=== PATIENT | female | born 1995 | race Caucasian/White ===

== ENCOUNTER → 2017-04-21 | Outpatient (CLI) | payer MEDICAID, SELFPAY | PROVIDERS: Family Provider Family Medicine; Visit Provider Family Medicine | DX: M54.5 Low back pain (principal); M25.552 Pain in left hip | CPT/HCPCS: 72110; 73502 ==

== ENCOUNTER → 2018-02-13 08:58 | Outpatient (POV) | payer MEDICAID, SELFPAY ==
[2018-02-13 09:15] VITALS: BP 149/89; PULSE 95; RESP 18; O2SAT 95
--- NOTE | 2018-02-13 11:08 | HMH.PMCON ---
Assessment and Plan (1) Fibromyalgia Current visit: Yes Status: Chronic Category: Medical Code(s): M79.7 - Fibromyalgia (2) CRPS (complex regional pain syndrome type I) Current visit: Yes Status: Chronic Qualifiers: Complex regional pain syndrome affected site: lower extremity Laterality: left Qualified Code(s): G90.522 - Complex regional pain syndrome I of left lower limb Category: Medical Code(s): G90.50 - Complex regional pain syndrome I, unspecified (3) Hip pain Current visit: Yes Status: Acute Qualifiers: Laterality: left Qualified Code(s): M25.552 - Pain in left hip Category: Medical Code(s): M25.559 - Pain in unspecified hip - Assessment and plan all Dx Assessment and Plan for all problems:: We will order a MRI for the patient to determine any pathology in her left hip. I gave the patient information on a neurostimulator to review. If we ever move forward with this we will have to get permission from her rcis along with her other treating physicians. Patient and I had a very realistic discussion about goals. Patient is understanding of our long-term goals. Patient will also be set up for biofeedback therapy. I will follow-up with her after her MRI. This note was dictated using voice recognition software and may contain errors or omissions HPI - Data of Consult Consult date: 02/13/18 Requesting Physician: Samanta Friend APRN Primary Care Provider: Justino Zheng MD Family Provider: Justino Zheng MD - Consult Narrative Reason for consult: Generalized pain History of present illness: Ms. Hays is a 22 year old female who presents today for consultation in regards to her overall generalized pain. Patient has quite an interesting history she is managed at [facility] by Dr. Cain and Dr. Mary for most of the time until she turned 22. Patient has Lamar-Danlos syndrome along with hematological issues. Patient has joint pain mostly in her left hip and left ankle. Patient had a traumatic injury to her left hip about a year ago. Patient has not been able to receive an MRI however she has completed physical therapy for 8 weeks along with anti-inflammatories and has had an x-ray. Patient is currently on Lortab and gabapentin however patient states that it does not ever completely manage her pain. Patient would like to discuss potentially biofeedback therapy. I believe that this would be an excellent idea. She rates her pain today an 5 out of 10. 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 Denies: Blood Transfusion Reaction Laterality Cases: Bilateral: Myringotomy (Ear Tubes) Other Surgeries: Yes: Cholecystectomy, EGD, Sinus Surgery. No: Pacemaker Amputation: No Fractures: No - *Social History Smoking Status: Never smoker Alcohol Intake: never Alcohol Intake Frequency:: holidays/special occasions only Occupational Status: unemployed Housing: house Household Members: family - Psychiatric History Expresses thoughts of harming self/others: None Suicide Plan Description: No Plan Pschychiatric History:: Reports:: Depression *Family Hx:: Bleeding Disorder Review of Systems - Review of Systems ROS General: no recent weight change, no fever, no sleep disturbances Respiratory: no cough, no shortness of air, no recurring pulmonary infections Cardiovascular/Peripheral Vascular: No chest pain, No palpitations, no edema, no shortness of breath. Gastrointestinal: no incontinence, normal bowel movements reported Genitourinary: no incontinence Musculoskeletal: Back pain, leg pain, neck pain, arm pain, chest wall pain at times Psychiatric: normal mood/ affec
--- NOTE | 2018-02-13 11:11 | P.CONS_ITS ---
Assessment and Plan (1) Fibromyalgia Current visit: Yes Status: Chronic Category: Medical Code(s): M79.7 - Fibromyalgia (2) CRPS (complex regional pain syndrome type I) Current visit: Yes Status: Chronic Qualifiers: Complex regional pain syndrome affected site: lower extremity Laterality: left Qualified Code(s): G90.522 - Complex regional pain syndrome I of left lower limb Category: Medical Code(s): G90.50 - Complex regional pain syndrome I, unspecified (3) Hip pain Current visit: Yes Status: Acute Qualifiers: Laterality: left Qualified Code(s): M25.552 - Pain in left hip Category: Medical Code(s): M25.559 - Pain in unspecified hip - Assessment and plan all Dx Assessment and Plan for all problems:: We will order a MRI for the patient to determine any pathology in her left hip. I gave the patient information on a neurostimulator to review. If we ever move forward with this we will have to get permission from her emergency spill response technician along with her other treating physicians. Patient and I had a very realistic discussion about goals. Patient is understanding of our long-term goals. Patient will also be set up for biofeedback therapy. I will follow-up with her after her MRI. This note was dictated using voice recognition software and may contain errors or omissions HPI - Data of Consult Consult date: 02/13/18 Requesting Physician: Samanta Friend APRN Primary Care Provider: Justino Zheng MD Family Provider: Justino Zheng MD - Consult Narrative Reason for consult: Generalized pain History of present illness: Ms. Hays is a 22 year old female who presents today for consultation in regards to her overall generalized pain. Patient has quite an interesting history she is managed at [facility] by Dr. Cani and Dr. Mary for most of the time until she turned 22. Patient has Lamar-Danlos syndrome along with hematological issues. Patient has joint pain mostly in her left hip and left ankle. Patient had a traumatic injury to her left hip about a year ago. Patient has not been able to receive an MRI however she has completed physical therapy for 8 weeks along with anti-inflammatories and has had an x-ray. Patient is currently on Lortab and gabapentin however patient states that it does not ever completely manage her pain. Patient would like to discuss potentially biofeedback therapy. I believe that this would be an excellent idea. She rates her pain today an 5 out of 10. 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 Denies: Blood Transfusion Reaction Laterality Cases: Bilateral: Myringotomy (Ear Tubes) Other Surgeries: Yes: Cholecystectomy, EGD, Sinus Surgery. No: Pacemaker Amputation: No Fractures: No - *Social History Smoking Status: Never smoker Alcohol Intake: never Alcohol Intake Frequency:: holidays/special occasions only Occupational Status: unemployed Housing: house Household Members: family - Psychiatric History Expresses thoughts of harming self/others: None Suicide Plan Description: No Plan Pschychiatric History:: Reports:: Depression *Family Hx:: Bleeding Disorder Review of Systems - Review of Systems ROS General: no recent weight change, no fever, no sleep disturbances Respirato
== END ==
PROVIDERS: Family Provider Family Medicine; PCP Family Medicine; Visit Provider Clinical Nurse Specialist Family Health
DX: Q79.6 Ehlers-Danlos syndromes (principal); M79.7 Fibromyalgia; G90.522 Complex regional pain syndrome I of left lower limb; M25.552 Pain in left hip
CPT/HCPCS: 99202

== ENCOUNTER → 2018-02-23 11:09 | Outpatient (CLI) | payer MEDICAID, SELFPAY ==
--- NOTE | 2018-02-23 11:12 | MR_ITS ---
MR hip LT wo con HISTORY: Left hip pain with popping anomalies,Lamar Danlos syndrome ITS.REASON: HIP PAIN ORDERING PHYSICIAN: Samanta Friend PATIENT AGE: 22 years COMPARISON: None TECHNIQUE: Routine multiplanar multiecho sequences are performed without contrast FINDINGS: No fracture or dislocation. No significant arthritic changes. No evidence of avascular necrosis. Pelvic musculature has an unremarkable appearance. Small amount fluid is noted within both hips which is presumed physiologic. No obvious labral tear. Smaller compared may not be identified without intra-articular contrast. The femoral neck has an unremarkable appearance with no obvious findings of femoral acetabular impingement. IMPRESSION: Negative MRI of the hips
== END ==
PROVIDERS: PCP Family Medicine; Visit Provider Clinical Nurse Specialist Family Health
DX: M25.552 Pain in left hip (principal)
CPT/HCPCS: 73721

== ENCOUNTER → 2018-03-21 08:47 | Outpatient (POV) | payer MEDICAID, SELFPAY ==
[2018-03-21 09:03] VITALS: BP 137/83; PULSE 116; RESP 18; O2SAT 98; BMI 41.0
--- NOTE | 2018-03-21 10:59 | HMH.PAINSOAP ---
[facility] Pain Management SOAP Note Subjective:: Is a pleasant 22-year-old white female who presents today for follow-up. Patient has had an MRI of her left hip which is negative. Patient is still having a lot of pain. Patient does have a diagnosis of Lmaar-Danlos syndrome along with some illogical issues. Patient has looked into a neurostimulator and is interested in this. Patient has also started her therapy. Patient states she is doing well with this and was put on Wellbutrin. Patient has not been on her gabapentin Celebrex or [place] recently. Patient would like to be put back on this. Patient does confess to smoking marijuana today. Patient will go for screen today. We will send it out for confirmation to determine the levels and ensure that they continue to go down patient understands that if she continues to smoke marijuana we will not be able to prescribe for her anymore. Patient's WINNIE #[id number] reviewed and appropriate. She rates her pain an 8 out of 10 today. Mostly in her left SI joint region and her left greater trochanteric bursa. ROS General: no recent weight change, no fever, no sleep disturbances Respiratory: no cough, no shortness of air, no recurring pulmonary infections Cardiovascular/Peripheral Vascular: No chest pain, No palpitations, no edema, no shortness of breath. Gastrointestinal: no incontinence, normal bowel movements reported Genitourinary: no incontinence Musculoskeletal: Left hip pain Psychiatric: normal mood/ affect Neurological: [denies weakness in extremities], [denies balance issues] Objective:: Physical Exam General: Alert and oriented x3, no acute distress, pleasant and cooperative, [on room air] Lungs: Resps E/U, Symmetrical chest expansion, Eyes: PERRL Musculoskeletal: Flexion and extension of lumbar spine somewhat guarded secondary to pain, deep tendon reflexes normal, strength in upper and lower extremities [5/5], [abnormal gait noted] Neurological: speech clear, refining still operator equal, no gross sensory deficits Assessment:: Complex regional pain syndrome, fibromyalgia, hip pain, bursitis, SI joint pain, sacroiliitis, back pain Plan:: We will schedule left greater trochanteric bursa injection and left SI joint injection for the patient. We will start her on [place] 7.5 mg as needed 1 daily we will dispense 30. Patient is also on gabapentin 600 mg 1 tab p.o. 3 times daily and Celebrex 200 mg daily. We will continue this to we will also get in touch with her utility bag assembler to see if a neurostimulator is not a feasible option for her. Dr. Esteves has reviewed this chart and agrees with this plan of care. Patient has been prescribed a controlled substance after being counseled on the medication, medication safety, and possible side effects. WINNIE report has been obtained and reviewed prior to prescription and found to be appropriate. Opioid contract was reviewed and signed by the patient, and that they have agreed to all of the terms set forth by our compliance program. This note was dictated using voice recognition software and may contain errors or omissions
--- NOTE | 2018-03-21 11:02 | P.CONS_ITS ---
[facility] Pain Management SOAP Note Subjective:: Is a pleasant 22-year-old white female who presents today for follow-up. Patient has had an MRI of her left hip which is negative. Patient is still having a lot of pain. Patient does have a diagnosis of Lamar-Danlos syndrome along with some illogical issues. Patient has looked into a neurostimulator and is interested in this. Patient has also started her therapy. Patient states she is doing well with this and was put on Wellbutrin. Patient has not been on her gabapentin Celebrex or Gail recently. Patient would like to be put back on this. Patient does confess to smoking marijuana today. Patient will go for screen today. We will send it out for confirmation to determine the levels and ensure that they continue to go down patient understands that if she continues to smoke marijuana we will not be able to prescribe for her anymore. Patient's WINNIE #[id number] reviewed and appropriate. She rates her pain an 8 out of 10 today. Mostly in her left SI joint region and her left greater trochanteric bursa. ROS General: no recent weight change, no fever, no sleep disturbances Respiratory: no cough, no shortness of air, no recurring pulmonary infections Cardiovascular/Peripheral Vascular: No chest pain, No palpitations, no edema, no shortness of breath. Gastrointestinal: no incontinence, normal bowel movements reported Genitourinary: no incontinence Musculoskeletal: Left hip pain Psychiatric: normal mood/ affect Neurological: [denies weakness in extremities], [denies balance issues] Objective:: Physical Exam General: Alert and oriented x3, no acute distress, pleasant and cooperative, [on room air] Lungs: Resps E/U, Symmetrical chest expansion, Eyes: PERRL Musculoskeletal: Flexion and extension of lumbar spine somewhat guarded secondary to pain, deep tendon reflexes normal, strength in upper and lower extremities [5/5], [abnormal gait noted] Neurological: speech clear, general production worker equal, no gross sensory deficits Assessment:: Complex regional pain syndrome, fibromyalgia, hip pain, bursitis, SI joint pain, sacroiliitis, back pain Plan:: We will schedule left greater trochanteric bursa injection and left SI joint injection for the patient. We will start her on Gail 7.5 mg as needed 1 daily we will dispense 30. Patient is also on gabapentin 600 mg 1 tab p.o. 3 times daily and Celebrex 200 mg daily. We will continue this to we will also get in touch with her liner man to see if a neurostimulator is not a feasible option for her. Dr. Esteves has reviewed this chart and agrees with this plan of care. Patient has been prescribed a controlled substance after being counseled on the medication, medication safety, and possible side effects. WINNIE report has been obtained and reviewed prior to prescription and found to be appropriate. Opioid contract was reviewed and signed by the patient, and that they have agreed to all of the terms set forth by our compliance program. This note was dictated using voice recognition software and may contain errors or omissions
[2018-03-21 14:55] LABS: Amphetamine/Metha Screen,Urine Negative ng/mL (<1000); Barbiturates Screen,Urine Negative ng/mL (<200); Benzodiazepines Screen,Urine Positive ng/mL (<200); Cannabinoid Screen,Urine Positive ng/mL (<50); Cocaine Screen,Urine Negative ng/mL (<300); Methadone Screen,Urine Negative ng/mL (<300); Opiate Screen,Urine Negative ng/mL (<300); Phencyclidine Screen,Urine Negative ng/mL (<25)
[2018-03-29 15:58] LABS: Opiates Negative (Cutoff=100)
== END ==
PROVIDERS: PCP Family Medicine; Visit Provider Clinical Nurse Specialist Family Health
DX: G90.50 Complex regional pain syndrome I, unspecified (principal); M79.7 Fibromyalgia; M46.1 Sacroiliitis, not elsewhere classified; M54.9 Dorsalgia, unspecified
CPT/HCPCS: 80305; 80361; 80365; 99213; G0480

== ENCOUNTER → 2018-05-08 11:01 | Outpatient (POV) | payer MEDICAID, SELFPAY ==
[2018-05-08 11:32] VITALS: BP 136/74; PULSE 99; RESP 18; O2SAT 98; BMI 40.0
[2018-05-08 11:49] LABS: Amphetamine/Metha Screen,Urine Negative ng/mL (<1000); Barbiturates Screen,Urine Negative ng/mL (<200); Benzodiazepines Screen,Urine Positive ng/mL (<200); Cannabinoid Screen,Urine Positive ng/mL (<50); Cocaine Screen,Urine Negative ng/mL (<300); Methadone Screen,Urine Negative ng/mL (<300); Opiate Screen,Urine Positive ng/mL (<300); Phencyclidine Screen,Urine Negative ng/mL (<25)
--- NOTE | 2018-05-08 12:53 | HMH.PAINSOAP ---
[facility] Pain Management SOAP Note Subjective:: Patient is a pleasant 22-year-old white female who presents today for follow-up. Patient has pain second to Lamar-Danlos syndrome along with some hematological issues. Patient currently is not a candidate for a stimulator. Patient insurance recently denied her SI joint injection. Patient does have a positive Alice's test along with a positive SI joint compression test positive thigh thrust test and positive Chris's test. Patient states that her pain is a 9 out of 10. Patient states she stopped smoking marijuana however her urine drug screen did show positive for it today we will send it out for confirmation. Patient was put on [place] 7.5 mg daily however she also went to see her primary care received medication from him as well. I have some concerns in regards to compliance. ROS General: no recent weight change, no fever, no sleep disturbances Respiratory: no cough, no shortness of air, no recurring pulmonary infections Cardiovascular/Peripheral Vascular: No chest pain, No palpitations, no edema, no shortness of breath. Gastrointestinal: no incontinence, normal bowel movements reported Genitourinary: no incontinence Musculoskeletal: Back pain, SI joint pain, left hip pain Psychiatric: normal mood/ affect Neurological: [denies weakness in extremities], [denies balance issues] Objective:: Physical Exam General: Alert and oriented x3, no acute distress, pleasant and cooperative, [on room air] Lungs: Resps E/U, Symmetrical chest expansion, Eyes: PERRL Musculoskeletal: Flexion and extension of lumbar spine somewhat guarded secondary to pain, deep tendon reflexes normal, strength in upper and lower extremities [5/5], [abnormal gait noted] positive Alice's test on the left side Neurological: speech clear, obiee obia solution architect equal, no gross sensory deficits Assessment:: Complex regional pain syndrome, fibromyalgia, hip pain, bursitis, SI joint pain, sacroiliitis, back pain Plan:: We will try again for left SI joint injection approval. Patient will start on a Butrans patch 5 mcg q. 7 days. We will also keep her on [place] 7.5 mg as needed 1 p.o. daily. We will send her urine off for confirmation. I will follow-up with her in 2 weeks and reassess her symptoms at that time. Patient and I will have a discussion in regards to her marijuana use if her next drug screen is positive. Dr. Esteves is reviewed this chart and agrees with this plan of care Patient has been prescribed a controlled substance after being counseled on the medication, medication safety, and possible side effects. WININE report has been obtained and reviewed prior to prescription and found to be appropriate. Opioid contract was reviewed and signed by the patient, and that they have agreed to all of the terms set forth by our compliance program. This note was dictated using voice recognition software and may contain errors or omissions
--- NOTE | 2018-05-08 12:56 | P.CONS_ITS ---
[facility] Pain Management SOAP Note Subjective:: Patient is a pleasant 22-year-old white female who presents today for follow-up. Patient has pain second to Lamar-Danlos syndrome along with some hematological issues. Patient currently is not a candidate for a stimulator. Patient insurance recently denied her SI joint injection. Patient does have a positive Alice's test along with a positive SI joint compression test positive thigh thrust test and positive Chris's test. Patient states that her pain is a 9 out of 10. Patient states she stopped smoking marijuana however her urine drug screen did show positive for it today we will send it out for confirmation. Patient was put on [place] 7.5 mg daily however she also went to see her primary care received medication from him as well. I have some concerns in regards to compliance. ROS General: no recent weight change, no fever, no sleep disturbances Respiratory: no cough, no shortness of air, no recurring pulmonary infections Cardiovascular/Peripheral Vascular: No chest pain, No palpitations, no edema, no shortness of breath. Gastrointestinal: no incontinence, normal bowel movements reported Genitourinary: no incontinence Musculoskeletal: Back pain, SI joint pain, left hip pain Psychiatric: normal mood/ affect Neurological: [denies weakness in extremities], [denies balance issues] Objective:: Physical Exam General: Alert and oriented x3, no acute distress, pleasant and cooperative, [on room air] Lungs: Resps E/U, Symmetrical chest expansion, Eyes: PERRL Musculoskeletal: Flexion and extension of lumbar spine somewhat guarded secondary to pain, deep tendon reflexes normal, strength in upper and lower extremities [5/5], [abnormal gait noted] positive Alice's test on the left side Neurological: speech clear, satellite television installer equal, no gross sensory deficits Assessment:: Complex regional pain syndrome, fibromyalgia, hip pain, bursitis, SI joint pain, sacroiliitis, back pain Plan:: We will try again for left SI joint injection approval. Patient will start on a Butrans patch 5 mcg q. 7 days. We will also keep her on Argill[place] 7.5 mg as needed 1 p.o. daily. We will send her urine off for confirmation. I will follow-up with her in 2 weeks and reassess her symptoms at that time. Patient and I will have a discussion in regards to her marijuana use if her next drug screen is positive. Dr. Esteves is reviewed this chart and agrees with this plan of care Patient has been prescribed a controlled substance after being counseled on the medication, medication safety, and possible side effects. WINNIE report has been obtained and reviewed prior to prescription and found to be appropriate. Opioid contract was reviewed and signed by the patient, and that they have agreed to all of the terms set forth by our compliance program. This note was dictated using voice recognition software and may contain errors or omissions
[2018-05-11 09:23] LABS: Alprazolam Negative (Cutoff=100); Benzodiazepines Positive ng/mL (Cutoff=100); Clonazepam Negative (Cutoff=100); Flurazepam Negative (Cutoff=100); Lorazepam Negative (Cutoff=100); Midazolam Negative (Cutoff=100); Temazepam Positive (.); Triazolam Negative (Cutoff=100)
[2018-05-14 11:07] LABS: Cannabinoid Positive (.); Carboxy THC (GC/MS) 158 ng/mL (Cutoff=10); Codeine Negative (Cutoff=100); Hydrocodone Positive (.); Hydromorphone Positive (.); Morphine Negative (Cutoff=100); Oxycodone (GC/MS) >100 ng/mL (Cutoff=100); Oxymorphone (GC/MS) 386 ng/mL (Cutoff=100)
[2018-05-15 07:02] LABS: Opiates Positive (.)
== END ==
PROVIDERS: PCP Family Medicine; Visit Provider Clinical Nurse Specialist Family Health
DX: M54.9 Dorsalgia, unspecified (principal); G90.50 Complex regional pain syndrome I, unspecified; M79.7 Fibromyalgia; M25.559 Pain in unspecified hip; M46.1 Sacroiliitis, not elsewhere classified; Z79.899 Other long term (current) drug therapy
CPT/HCPCS: 80305; 80346; 80349; 80361; 80365; 99213; G0480

== ENCOUNTER → 2018-05-22 12:54 | Outpatient (POV) | payer MEDICAID, SELFPAY ==
[2018-05-22 13:12] VITALS: BP 140/96; PULSE 117; RESP 18; O2SAT 98; BMI 40.0
--- NOTE | 2018-05-22 15:33 | HMH.PAINSOAP ---
[facility] Pain Management SOAP Note Subjective:: Patient is a pleasant 22-year-old white female who presents today for follow-up. Patient states she has been out of her medication for several days because she was taking 3 pills at a time. Patient states that she felt stupid for not reading the bottle. Patient and I also need to discuss her last drug screen. Last drug screen still had marijuana in it. Patient also had oxycodone and oxymorphone in her drug screen. Patient has taken her grandfathers Percocet at times. Patient and I discussed that we would not be able to continue with her narcotic medication management due to this in discrepancy. Patient understands. Patient and I also discussed potential trigger point injections if we cannot get her SI joint injection approved. Patient is agreeable with this. She rates her pain today an 8 out of 10 she states that she has had 2 occurrences of hip pain since last time she was seen 2 weeks ago. Patient did try Butrans patch however she felt like it was ineffective. Patient is continuing to see Ava Walker for her medication. We will also be seeing Dr. Dexter next month. ROS General: no recent weight change, no fever, no sleep disturbances Respiratory: no cough, no shortness of air, no recurring pulmonary infections Cardiovascular/Peripheral Vascular: No chest pain, No palpitations, no edema, no shortness of breath. Gastrointestinal: no incontinence, normal bowel movements reported Genitourinary: no incontinence Musculoskeletal: Left hip pain, joint pain Psychiatric: normal mood/ affect Neurological: [denies weakness in extremities], [denies balance issues] Objective:: Physical Exam General: Alert and oriented x3, no acute distress, pleasant and cooperative, [on room air] Lungs: Resps E/U, Symmetrical chest expansion, Eyes: PERRL Musculoskeletal: Flexion and extension of lumbar spine somewhat guarded secondary to pain, deep tendon reflexes normal, strength in upper and lower extremities [5/5], [abnormal gait noted] Neurological: speech clear, punch machine hand equal, no gross sensory deficits Assessment:: Myofascial pain syndrome, Erler's Danlos syndrome CRPS, hip pain, bursitis, SI joint pain, sacroiliitis, back pain Plan:: We will give the patient 1 month of [place] 7.5 mg 1 p.o. daily. Patient is going to return her primary care to discuss other options as far as pain medication management. I cautioned her about taking other patients narcotic prescriptions. We will continue to seek approval for SI joint injection. We do not have approval we will ask for trigger point injections. Patient is going to start weaning herself off her gabapentin dropping 1 pill every 2 weeks. I am also going to see if I can get notes from Dr. Cain previous pain physician. Dr. Esteves has reviewed this note and agrees with this plan of care. This note was dictated using voice recognition software and may contain errors or omissions
--- NOTE | 2018-05-22 15:36 | P.CONS_ITS ---
[facility] Pain Management SOAP Note Subjective:: Patient is a pleasant 22-year-old white female who presents today for follow-up. Patient states she has been out of her medication for several days because she was taking 3 pills at a time. Patient states that she felt stupid for not reading the bottle. Patient and I also need to discuss her last drug screen. Last drug screen still had marijuana in it. Patient also had oxycodone and oxymorphone in her drug screen. Patient has taken her grandfathers Percocet at times. Patient and I discussed that we would not be able to continue with her narcotic medication management due to this in discrepancy. Patient understands. Patient and I also discussed potential trigger point injections if we cannot get her SI joint injection approved. Patient is agreeable with this. She rates her pain today an 8 out of 10 she states that she has had 2 occurrences of hip pain since last time she was seen 2 weeks ago. Patient did try Butrans patch however she felt like it was ineffective. Patient is continuing to see Ava Walker for her medication. We will also be seeing Dr. Dexter next month. ROS General: no recent weight change, no fever, no sleep disturbances Respiratory: no cough, no shortness of air, no recurring pulmonary infections Cardiovascular/Peripheral Vascular: No chest pain, No palpitations, no edema, no shortness of breath. Gastrointestinal: no incontinence, normal bowel movements reported Genitourinary: no incontinence Musculoskeletal: Left hip pain, joint pain Psychiatric: normal mood/ affect Neurological: [denies weakness in extremities], [denies balance issues] Objective:: Physical Exam General: Alert and oriented x3, no acute distress, pleasant and cooperative, [on room air] Lungs: Resps E/U, Symmetrical chest expansion, Eyes: PERRL Musculoskeletal: Flexion and extension of lumbar spine somewhat guarded secondary to pain, deep tendon reflexes normal, strength in upper and lower extremities [5/5], [abnormal gait noted] Neurological: speech clear, clinical registered 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 daily. Patient is going to return her primary care to discuss other options as far as pain medication management. I cautioned her about taking other patients narcotic prescriptions. We will continue to seek approval for SI joint injection. We do not have approval we will ask for trigger point injections. Patient is going to start weaning herself off her gabapentin dropping 1 pill every 2 weeks. I am also going to see if I can get notes from Dr. Cain previous pain physician. Dr. Esteves has reviewed this note and agrees with this plan of care. This note was dictated using voice recognition software and may contain errors or omissions
== END ==
PROVIDERS: PCP Family Medicine; Visit Provider Clinical Nurse Specialist Family Health
DX: M79.18 Myalgia, other site (principal); Q79.6 Ehlers-Danlos syndromes; M25.559 Pain in unspecified hip; M71.9 Bursopathy, unspecified; M46.1 Sacroiliitis, not elsewhere classified; M54.9 Dorsalgia, unspecified
CPT/HCPCS: 99213

== ENCOUNTER → 2018-06-20 09:42 | Outpatient (POV) | payer MEDICAID, SELFPAY ==
[2018-06-20 10:13] VITALS: BP 143/92; PULSE 103; RESP 18; O2SAT 99; BMI 40.0
--- NOTE | 2018-06-20 12:46 | HMH.PAINSOAP ---
[facility] Pain Management SOAP Note Subjective:: Patient is a pleasant 22-year-old white female who presents today for follow-up after left SI joint injection. Patient states she got 6-8 hours of relief with the numbing medicine. Patient states after that her pain returned. Patient and I discussed potentially a risotto me. I believe given her comorbidities that a risotto me would be appropriate at the next step of action. She rates her pain a 10 out of 10 we are no longer writing her chronic medications for her due to a failed drug screen. Patient and I have also talked about stimulation in the past. She is not a candidate for spinal cord stimulation however she may be a candidate for subcutaneous stimulation in the future. ROS General: no recent weight change, no fever, no sleep disturbances Respiratory: no cough, no shortness of air, no recurring pulmonary infections Cardiovascular/Peripheral Vascular: No chest pain, No palpitations, no edema, no shortness of breath. Gastrointestinal: no incontinence, normal bowel movements reported Genitourinary: no incontinence Musculoskeletal: Left hip pain Psychiatric: normal mood/ affect Neurological: [denies weakness in extremities], [denies balance issues] Objective:: Physical Exam General: Alert and oriented x3, no acute distress, pleasant and cooperative, [on room air] Lungs: Resps E/U, Symmetrical chest expansion, Eyes: PERRL Musculoskeletal: Flexion and extension of lumbar spine somewhat guarded secondary to pain, deep tendon reflexes normal, strength in upper and lower extremities [5/5], [abnormal gait noted] positive SI joint compression test, positive hip stress test on the left side, positive Alice's test on the left side Neurological: speech clear, 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 At that time we may determine if she needs to have subcutaneous stimulation. Patient's been instructed to call the office if she has any issues prior to next appointment. Dr. Esteves has reviewed this note and agrees with this plan of care. This note was dictated using voice recognition software and may contain errors or omissions
== END ==
PROVIDERS: PCP Family Medicine; Visit Provider Clinical Nurse Specialist Family Health
DX: Q79.6 Ehlers-Danlos syndromes (principal); D68.0 Von Willebrand disease; M46.1 Sacroiliitis, not elsewhere classified; M54.9 Dorsalgia, unspecified; M25.559 Pain in unspecified hip
CPT/HCPCS: 99213

== ENCOUNTER → 2020-02-27 09:48 | Outpatient (CLI) | payer OTHER, SELFPAY ==
[2020-02-27 10:48] LABS: Basophils % 0.4 % (0.1-2.0); Eosinophils # 0.1 K/mm3 (0.0-0.4); Eosinophils % 1.2 % (0.1-12.0); Hematocrit 42.9 % (37.0-47.0); Hemoglobin 14.1 g/dL (12.2-16.2); Lymphocytes # 3.2 K/mm3 (0.7-4.5); Lymphocytes % 37.5 % (10-50); Mean Corpuscular HGB Conc 32.9 g/dL (31.8-35.4); Mean Corpuscular Volume 88.3 fl (81-99); Mean Platelet Volume 7.8 fl (7.4-10.4); Monocytes # 0.5 K/mm3 (0.1-1.0); Neutrophils # 4.7 K/mm3 (1.8-7.8); Neutrophils % 54.9 % (37.0-80.0); Platelet Count 345 K/mm3 (142-424); Red Blood Count 4.86 M/mm3 (4.20-5.40); Red Cell Distribution Width 13.4 % (11.5-17.5); White Blood Count 8.6 K/mm3 (4.8-10.8)
[2020-02-27 11:02] LABS: Alanine Aminotransferase 20 U/L (12-78); Albumin Level 4.1 g/dl (3.5-5.0); Albumin/Globulin Ratio 1.4 (1.1-1.8); Alkaline Phosphatase 123 U/L (38-126); Anion Gap 9.6 mEq/L (5-15); Aspartate Amino Transferase 24 U/L (14-36); Bilirubin,Total 0.2 mg/dl (0.2-1.3); Blood Urea Nitrogen 9 mg/dl (7-17); Calcium 9.7 mg/dl (8.4-10.2); Carbon Dioxide 29 mmol/L (22.0-30.0); Chloride 105 mmol/L (98-107); Estimated Glomerular Filt Rate 104 ml/min (>60); GFR (African American) 125 ML/MIN (>60); Globulin 2.9 g/dL (1.3-3.2); Glucose 101 mg/dl (74-100); Potassium 4.6 mmoL/L (3.5-5.1); Sodium 139 mmol/L (136-145)
[2020-02-27 11:34] LABS: Thyroid Stimulating Hormone 8.15 uIU/mL (0.465-4.68)
[2020-02-27 12:09] LABS: Folate 9.69 ng/mL; Vitamin B12 199 pg/mL (239-931)
[2020-03-08 04:53] LABS: Miscellaneous Test SEE LABCORP REPORT
== END ==
PROVIDERS: Visit Provider Specialist
DX: G47.10 Hypersomnia, unspecified (principal); Q79.60 Ehlers-Danlos syndrome, unspecified
CPT/HCPCS: 36415; 80053; 82607; 82746; 84443; 85025

== ENCOUNTER → 2020-03-11 12:57 | Outpatient (CLI) | payer OTHER, SELFPAY ==
--- NOTE | 2020-03-11 12:59 | CA_ITS ---
APPROVED REPORT EXAM: Comprehensive 2D, Doppler, and color-flow Echocardiogram Bronzer: Merced Pathak CRT Ht: 5 ft 1 in Wt: 259lbs BSA: 2.11 BP: 133/66 mmHg Indications: Palpitations, POTS syndrome. 2D Dimensions LVOT 2.22 cm (M/F) 1.5-2.5 M-Mode Dimensions RVDd 3.26 cm (0.9-2.6) LA Diam 3.25 cm (1.9-4.0) LVDd 4.60 cm (3.5-5.7) Ao Diam 2.86 cm (2.0-3.7) LVDs 2.87 cm (3.5-5.7) IVSd 0.96 cm (0.6-1.1) PWd 0.58 cm (0.6-1.1) EF (Teich) 67.70% FS 37.60% EDV (Teich) 97.30 mL ESV (Teich) 31.40 mL LV Diastology E Decel Time 150.00 (160-240 msec) E/A Ratio 1.14 Aortic Valve AO Peak GR. 6.30 mmHg Mitral Valve MV E Max Jay. 77.00 (40-130 cm/s) MV A Velocity 67.00 (40-130 cm/s) E/A Ratio 1.14 MV Decel. Time 150.00 (160-240 ms) MV PHT 44.00 ms Tricuspid Valve TR P. Velocity 196.00 cm/s RAP Estimate 10.00 mmHg RVSP 25.40 mmHg Left Ventricle Left atrium is normal size, left ventricle is normal size, there is no concentric left ventricular hypertrophy, visually estimated ejection fraction 55% with no regional wall motion abnormality. Diastolic parameters are inconclusive. Right Ventricle Right atrium is normal size, right ventricle is mildly enlarged with normal contractility. Aortic Valve Aortic valve is grossly normal, there is no aortic stenosis or aortic insufficiency. Mitral Valve Mitral valve is grossly normal, there is mild mitral regurgitation. Tricuspid Valve Tricuspid valve is grossly normal, there is trace tricuspid regurgitation, tricuspid regurgitation jet velocity is inadequate for calculation of the right ventricular systolic pressure. Pulmonic Valve Pulmonic valve is poorly visualized. Great Vessels Aortic root is normal size. Pericardium No significant pericardial effusion noted. Conclusion 1. Normal left ventricular size, preserved left ventricular systolic function, visually estimated ejection fraction 55% with no regional wall motion abnormality, diastolic parameters are inconclusive, technically difficult study because of the patient factors and poor acoustic windows. 2. Mildly enlarged right ventricle with normal contractility. 3. No significant pericardial effusion noted. Electronically signed by : Enzo Kolb, 03/12/2020 05:45:47
== END ==
PROVIDERS: PCP Family Medicine; Visit Provider Specialist
DX: R00.0 Tachycardia, unspecified (principal); Q79.60 Ehlers-Danlos syndrome, unspecified; G47.10 Hypersomnia, unspecified
CPT/HCPCS: 93306

== ENCOUNTER → 2020-04-15 15:11 | Outpatient (CLI) | payer OTHER, SELFPAY | PROVIDERS: PCP Family Medicine; Visit Provider Family Medicine | DX: Z03.818 Encounter for observation for suspected exposure to other biological agents ruled out (principal) | CPT/HCPCS: U0003 ==

== ENCOUNTER 2020-08-11 11:58 | Emergency (ER) | payer OTHER, SELFPAY ==
[2020-08-11 12:10] VITALS: BP 136/78; PULSE 87; RESP 19; TEMP 37; O2SAT 100; BMI 50.6
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
[2020-08-11 13:30] VITALS: BP 136/78; PULSE 87; RESP 19; TEMP 37; O2SAT 100
== END 2020-08-11 13:35 | disposition home or self-care (01) ==
PROVIDERS: Emergency Provider Nurse Practitioner; PCP Family Medicine
DX: H72.92 Unspecified perforation of tympanic membrane, left ear (principal); W50.0XXA Accidental hit or strike by another person, initial encounter; Y92.019 Unspecified place in single-family (private) house as the place of occurrence of the external cause; F41.8 Other specified anxiety disorders; Z87.442 Personal history of urinary calculi; I49.8 Other specified cardiac arrhythmias; Q79.60 Ehlers-Danlos syndrome, unspecified
CPT/HCPCS: 99202; G0463

== ENCOUNTER 2021-04-15 11:03 | Emergency (ER) | payer OTHER, SELFPAY ==
[2021-04-15 13:05] VITALS: BP 143/97; PULSE 89; RESP 19; TEMP 37.1; O2SAT 99; BMI 43.7
--- NOTE | 2021-04-15 13:28 | HMH.EDUTC ---
[facility] [place] Disposition Clinical Impression: Bronchitis Sinusitis Qualifiers: Sinusitis location: unspecified location Chronicity: unspecified Qualified Code(s): J32.9 - Chronic sinusitis, unspecified Disposition: Home, Self-Care Condition on Discharge: Good Instructions: Sinusitis, Acute Bronchitis, Cough Additional Instructions: ? Start antibiotic today. Be sure to complete entire prescription even if feeling better ? Monitor temp. Tylenol every 4 hours as needed and / or ibuprofen every 6 hours as needed ( As long as your primary care physician has told you that it ok to take both. For fever/aches/pains ER if no less than 101 despite Tylenol or Motrin ? Humidifier/vaporizer or hot steamy shower ? Inhaler every 4-6 hours as needed like we discussed. If unsure how to use it, ask pharmacist to demonstrate how. Should help open airways and improve cough, wheezing, and shortness of breath *Tessalon Perles will not cause drowsiness but use at bedtime to help stop cough so that you may get some rest. *Start steroid today. Helps with inflammation therefore, cough and wheezing. Follow directions on the package. Reviewed side effects. Patient reports taking them before. Follow up IMMEDIATELY for new or worsening of symptoms OR no noticeable improvement over the next 48-72 hours. 911 immediately for any life threatening symptoms such as chest pain or difficulty breathing Prescriptions: Benzonatate [Benzonatate 100mg cap] 100 mg PO Q8HP PRN #15 cap PRN Reason: Cough Transmission Status: Pending to [facility] Cefdinir [Omnicef 300mg Capsule] 300 mg PO BID #20 cap Transmission Status: Pending to [facility] predniSONE [Prednisone 5mg Tab Dose-Pack] 5 mg PO UD DOSE PK 5 Days #21 tab Transmission Status: Pending to [facility] Referrals: Justino Zheng MD [Primary Care Provider] - As needed Time of Disposition: 13:44 Medical Decision Making - Tacho Inquiry Pt receiving controlled substance: No Tacho was queried for this patient: No Vital Signs: 04/15/21 13:05 Temperature 98.8 F Temperature Source Oral Pulse Rate [Right Brachial] 89 Respiratory Rate 19 Blood Pressure [Right Arm] 143/97 H Blood Pressure Mean [Right Arm] 112 Blood Pressure Source [Right Arm] Automatic Cuff Blood Pressure Position [Right Arm] Sitting 02 Sat by Pulse Oximetry 99 Oxygen Delivery Method Room Air Medical Decision Narrative: Patient states that she is allergic to Amoxicillin but has taken Cefdnir in the past without complications or reactions Medications discussed with Pharmacy [facility] [place] HPI - General Stated complaint: sore throat, cough, runny nose, congestion Time Seen by Provider: 04/15/21 13:28 Mode of Arrival: Ambulatory Source of Information: Patient Limitations: No Limitations Description of Symptoms (Recalled from Triage Doc. by RN): PATIENT C/O COUGH WITH DARK MUCOUS AND CONGESTION HEENT Symptoms (Recalled from RN notes): No Resp Symptoms (Recalled from RN notes): Yes Skin Symptoms (Recalled from RN notes): No MS Symptoms (Recalled from RN notes): No Functional Status (Recalled from RN notes): WNL - History of Present Illness Provider Complaint: Patient state that she gets bronchitits about this time every year States that she has been having sinus congestion and pressure and feeling like it is draining in her chest area States that at times she will cough it up State that last night the cough kept her up most of the night so today when she was still having sinus pressure and cough she came in to get checked - Related Data Home Medications Medication Instructions Recorded Confirmed Tamsulosin HCl [Flomax 0.4mg 0.4 mg PO HS 12/09/17 03/21/20 capsule] Tranexamic Acid [Lysteda] 1,300 mg PO DAILY PRN 12/09/17 03/21/20 amitriptyline 50 mg tablet 50 mg PO DAILY tab 03/15/18 03/21/20 gabapentin 300 mg capsule 600 mg PO TID cap 03/15/18 03/21/20 antihemophilic factor-vWF 500 See Rx Instructions IV ONCE
[2021-04-15 13:46] VITALS: BP 143/97; PULSE 89; RESP 19; TEMP 37.1; O2SAT 99
== END 2021-04-15 13:49 | disposition home or self-care (01) ==
PROVIDERS: Emergency Provider Nurse Practitioner; PCP Family Medicine
DX: J32.9 Chronic sinusitis, unspecified (principal); J02.9 Acute pharyngitis, unspecified; F41.8 Other specified anxiety disorders
CPT/HCPCS: 99202; G0463

== ENCOUNTER 2021-04-22 12:36 | Emergency (ER) | payer OTHER, SELFPAY ==
[2021-04-22 13:30] VITALS: BP 134/92; PULSE 107; RESP 20; TEMP 37.2; O2SAT 98; BMI 43.7
--- NOTE | 2021-04-22 14:05 | XR_ITS ---
PROCEDURE: XR CHEST 2V CLINICAL HISTORY: COUGH COMPARISON: No exams were available for comparison FINDINGS: The cardiomediastinal silhouette and pulmonary vascularity are within normal limits. There are patchy multifocal small bilateral areas of ground-glass attenuation which may be seen with atypical/Covid19 pneumonia. No acute bony abnormalities. IMPRESSION: Multifocal areas of ground-glass attenuation which may be seen with Covid19/atypical pneumonia. Follow-up suggested. Dictated by: Angus Childs MD 04/22/2021 14:33 Angus Childs MD in OV 04/22/2021 14:33
--- NOTE | 2021-04-22 14:15 | HMH.EDUTC ---
[facility] [place] Disposition Clinical Impression: Pneumonia due to COVID-19 virus Disposition: Home, Self-Care Condition on Discharge: Good Instructions: Pneumonia-Adult, Doxycycline, DI for COVID-19 (Suspected or Confirmed ), Preventing the Spread of Coronavirus Discharge Instructions Additional Instructions: ? Start antibiotic today. Be sure to complete entire prescription even if feeling better ? Monitor temp. Tylenol every 4 hours as needed and / or ibuprofen every 6 hours as needed ( As long as your primary care physician has told you that it ok to take both. For fever/aches/pains ER if no less than 101 despite Tylenol or Motrin ? Humidifier/vaporizer or hot steamy shower ? Inhaler every 4-6 hours as needed like we discussed. If unsure how to use it, ask pharmacist to demonstrate how. Should help open airways and improve cough, wheezing, and shortness of breath *Tessalon Perles will not cause drowsiness but use at bedtime to help stop cough so that you may get some rest. *Start steroid today. Helps with inflammation therefore, cough and wheezing. Follow directions on the package. Reviewed side effects. Patient reports taking them before. Follow up IMMEDIATELY for new or worsening of symptoms OR no noticeable improvement over the next 48-72 hours. 911 immediately for any life threatening symptoms such as chest pain or difficulty breathing Prescriptions: Albuterol Sulfate [Proventil-HFA 90mcg/puff Inh] 1 - 2 puffs IH Q6HP PRN #1 each PRN Reason: Shortness Of Breath Transmission Status: Received by [facility] dexAMETHasone [Decadron] 6 mg PO DAILY 7 Days #7 tab Transmission Status: Received by [facility] Doxycycline Monohydrate [Doxycycline [place] 100mg Tab] 100 mg PO Q12 10 Days #20 tab Transmission Status: Received by [facility] Referrals: Justino Zheng MD [Primary Care Provider] - As needed Medical Decision Making - Tacho Inquiry Pt receiving controlled substance: No Tacho was queried for this patient: No Vital Signs: 04/22/21 13:30 04/22/21 15:06 Temperature 99.0 F 99.0 F Temperature Source Oral Pulse Rate 107 H Pulse Rate [Right Brachial] 107 H Respiratory Rate 20 20 Blood Pressure 134/92 H Blood Pressure [Right Arm] 134/92 H Blood Pressure Mean [Right Arm] 106 Blood Pressure Source [Right Arm] Automatic Cuff Blood Pressure Position [Right Arm] Sitting 02 Sat by Pulse Oximetry 98 Oxygen Delivery Method Room Air Orders (Tests/Meds): ED MEDICATIONS Discontinued Medications Generic Name Dose Route Start Last Admin Trade Name Carter PRN Reason Stop Dose Admin Acetaminophen 650 mg 04/22/21 14:27 04/22/21 14:32 Acetaminophen 325mg Tab PO 04/22/21 14:28 650 mg ONCE ONE Administration Methylprednisolone Sodium Succinate 125 mg 04/22/21 14:57 04/22/21 15:05 Methylprednisolone Sod Succ 125mg Vial IM 04/22/21 14:58 125 mg ONCE ONE Administration Ondansetron HCl 4 mg 04/22/21 14:26 04/22/21 14:32 Ondansetron 4mg Odt SL 04/22/21 14:27 4 mg ONCE ONE Administration ORDERS Category Date Time Status Covid-19 Nasal PCR ([facility]) Routine Lab 04/22/21 13:50 Received - Radiology Data #1 Image(s): Chest Image Reviewed: Yes I have reviewed radiologist's interpretation Multifocal areas of ground-glass attenuation which may be seen with Covid19/atypical pneumonia. Follow-up suggested. Medical Decision Narrative: Medication discussed and dosed by pharmacy [facility] [place] HPI - General Stated complaint: fever/chills, sore throat, cough/congestion, soa Time Seen by Provider: 04/22/21 14:15 Mode of Arrival: Ambulatory Source of Information: Patient Limitations: No Limitations Description of Symptoms (Recalled from Triage Doc. by RN): PATIENT C/O HEADACHE, COUGH, BODY ACHES, AND SOA. REPORTS SHE WAS HERE 1 WEEK AGO AND TREATED FOR BRONCHITIS, BUT SHE IS NOT BETTER. HER MOTHER RECENTLY TESTED POSITIVE FOR COVID HEENT Symptoms (Recalled from RN note
[2021-04-22 15:06] VITALS: BP 134/92; PULSE 107; RESP 20; TEMP 37.2; O2SAT 98
== END 2021-04-22 15:15 | disposition home or self-care (01) ==
LOC: UTC 12:37
PROVIDERS: Emergency Provider Nurse Practitioner; PCP Family Medicine
DX: U07.1 COVID-19 (principal); J12.82 Pneumonia due to coronavirus disease 2019; F41.8 Other specified anxiety disorders; Z79.899 Other long term (current) drug therapy
CPT/HCPCS: 71046; 96372; 99202; C9803; G0463; U0003; U0005

== ENCOUNTER 2021-09-22 19:28 | Emergency (ER) | payer OTHER, SELFPAY ==
[2021-09-22 19:29] VITALS: BP 138/81; PULSE 110; RESP 24; TEMP 37.1; O2SAT 99; BMI 41.5
[2021-09-22 19:39] VITALS: BMI 41.5
--- NOTE | 2021-09-22 19:39 | CT_ITS ---
PROCEDURE INFORMATION: Exam: CT Abdomen And Pelvis With Contrast Exam date and time: 09/22/2021 8:31 PM Age: 26 years old Clinical indication: Nausea and vomiting; Abdominal pain; Additional info: Abd pain TECHNIQUE: Imaging protocol: Computed tomography of the abdomen and pelvis with contrast. Radiation optimization: All CT scans at this facility use at least one of these dose optimization techniques: automated exposure control; mA and/or kV adjustment per patient size (includes targeted exams where dose is matched to clinical indication); or iterative reconstruction. Contrast material: ISOVUE; Contrast volume: 75 ml; Contrast route: IV; COMPARISON: ABDPELW/O CT ABD PELVIS W/O CONTRAST 10/18/2016 7:27 PM FINDINGS: Lungs: Mild patchy ground-glass opacities in the visualized lower lungs are a change compared with the previous CT from 10/18/2016, and could be ground-glass edema or pneumonia. No focal consolidation. Liver: Diminished attenuation in the medial segment of the left lobe of liver series 3, image 31, likely focal periligamentous fatty change. Other smaller areas of likely focal fatty change. No definite mass lesion. Liver remains within normal limits size. Gallbladder and bile ducts: Cholecystectomy clips. Biliary tree is within normal limits. No calcified stones. Pancreas: The pancreas is normal. Spleen: The spleen is normal. Adrenal glands: The adrenal glands are normal. Kidneys and ureters: There are tiny nonobstructing left renal calculi, in the mid and lower left kidney. No hydronephrosis, hydroureter, or calcified obstructing ureteral stones on the right or left. Kidneys are otherwise unremarkable. Stomach and bowel: The colon is mostly empty and contracted which may account for thickened appearance, differential would be colitis. There is no pericolic edema fluid. No extraluminal gas bubbles. Minimal small intestinal air-fluid levels, no dilated loops or mucosal thickening. No acute findings in the stomach. Appendix: No findings of appendicitis. Intraperitoneal space: There is no free intraperitoneal air. There is no significant free intraperitoneal fluid. Vasculature: There is no aortic aneurysm. No portal venous gas. Lymph nodes: No significantly enlarged lymph nodes by short axis criteria. Urinary bladder: Urinary bladder appears within normal limits for the degree of distension, nearly empty and not well evaluated. Reproductive: No acute findings. Small uterus again noted with likely bicornuate morphology. No enlarged adnexal cyst or mass. Bones/joints: There is no evidence of acute fracture. Soft tissues: There are no soft tissue masses or fluid collections. IMPRESSION: 1. Tiny left renal calculi. No hydronephrosis, hydroureter or obstructing calcified ureteral stones. 2. Most of the colon is empty and contracted which likely accounts for thickened appearance, differential would be colitis. There is no pericolic fluid. No extraluminal gas bubbles. 3. Mild hazy ground-glass opacities in the visualized lower lungs are a change compared with the previous CT, and could be ground-glass edema or pneumonia. No focal consolidation. 4. Biliary tree is within normal limits post cholecystectomy. 5. Additional nonemergency and chronic findings as above.
--- NOTE | 2021-09-22 19:41 | ECG_ITS ---
APPROVED REPORT Exam: Resting ECG HR:98 bpm ECG Measurements Heart Rate 98 AXES ID 145 P 52 QRSd 88 QRS 63 QT 289 T 30 QTc 344 Conclusion SINUS RHYTHM WITH SINUS ARRHYTHMIA NONSPECIFIC ST & T-WAVE ABNORMALITY BORDERLINE ECG UNCONFIRMED REPORT Electronically signed by : Justino Mcghee MD 09/25/2021 10:33:18
--- NOTE | 2021-09-22 20:00 | PC.NURSE ---
Seizure pads applied to bed rails
[2021-09-22 20:15] LABS: Alanine Aminotransferase 61 U/L (12-78); Albumin Level 4.4 g/dl (3.5-5.0); Albumin/Globulin Ratio 1.1 (1.1-1.8); Alkaline Phosphatase 179 U/L (38-126); Amylase 64 U/L (30-110); Anion Gap 16.9 mEq/L (5-15); Aspartate Amino Transferase 45 U/L (14-36); Bilirubin,Total 0.6 mg/dl (0.2-1.3); Blood Urea Nitrogen 5 mg/dl (7-17); Calcium 9.8 mg/dl (8.4-10.2); Carbon Dioxide 24 mmol/L (22.0-30.0); Chloride 103 mmol/L (98-107); Creatinine Clearance Estimated 108 mL/min (50-200); Estimated Glomerular Filt Rate 122 ml/min (>60); GFR (African American) 147 ML/MIN (>60); Globulin 3.9 g/dL (1.3-3.2); Glucose 100 mg/dl (74-100); Lipase 40 U/L (23-300); Sodium 141 mmol/L (136-145); Total Protein,Serum 8.3 g/dl (6.3-8.2)
[2021-09-22 20:16] LABS: Lactic Acid 1.6 mmol/L (0.7-2.1)
[2021-09-22 20:18] LABS: HCG Qualitative, Serum Negative (Negative); Potassium 2.9 mmoL/L (3.5-5.1)
[2021-09-22 20:21] LABS: C-Reactive Protein 209.2 mg/L (0-4)
--- NOTE | 2021-09-22 20:26 | HMH.EDNVD ---
ED Disposition Clinical Impression: Gastroenteritis, Hypokalemia Disposition: Home, Self-Care Condition on Discharge: Good Instructions: DI for Enteritis Additional Instructions: fluids and call pcp for follow up Prescriptions: Ondansetron [Zofran 4mg ODT] 4 mg PO TIDP PRN #21 tab PRN Reason: Nausea And Vomiting Transmission Status: Pending to [facility] Referrals: Nathalie Rivera MD [Primary Care Provider] - - Critical Care Critical Care Time: No Attestation: On , the high probability of a clinically significant, sudden or life threatening deterioration of the following system(s) required my full and direct attention, intervention and personal management. The time I documented below is in addition to time spent performing reported procedures but includes the following listed in this critical care notation. Medical Decision Making - Medical Records Medical records reviewed: Yes: I reviewed the patient's medical records. - Tacho Inquiry Pt receiving controlled substance: No Vital Signs: 09/22/21 19:29 09/22/21 20:28 Temperature 98.8 F Temperature Source Oral Pulse Rate 90 Pulse Rate [Right] 110 H Respiratory Rate 24 Blood Pressure 106/74 L Blood Pressure [Right Arm] 138/81 Blood Pressure Mean [Right Arm] 100 02 Sat by Pulse Oximetry 99 100 Oxygen Delivery Method Room Air - Lab Data Lab results reviewed: Yes: I reviewed the patient's lab results. Lab Results 09/22/21 19:51: WBC 8.3, RBC 5.35, Hgb 14.3, Hct 44.4, MCV 82.9, MCH 26.7 L, MCHC 32.2, RDW 14.6, Plt Count 391, MPV 8.9, Neut % (Auto) 84.6 H, Lymph % (Auto) 10.6, [place] % (Auto) 3.2, Eos % (Auto) 0.5, Baso % (Auto) 1.0, Neut # (Auto) 7.0, Lymph # (Auto) 0.9, [place] # (Auto) 0.3, Eos # (Auto) 0.0, Baso # (Auto) 0.1, ESR 89 H 09/22/21 19:51: Sodium 141, Potassium 2.9 L*, Chloride 103, Carbon Dioxide 24, Anion Gap 16.9 H, BUN 5 L, Creatinine 0.60, Estimated Creat Clear 108, Estimated GFR 122, Est GFR ( Amer) 147, Glucose 100, Calcium 9.8, Total Bilirubin 0.6, AST 45 H, ALT 61, Alkaline Phosphatase 179 H, C-Reactive Protein 209.2 H, Total Protein 8.3 H, Albumin 4.4, Globulin 3.9 H, Albumin/Globulin Ratio 1.1, Amylase 64, Lipase 40, Procalcitonin 0.053 09/22/21 19:51: Serum HCG, Qual Negative 09/22/21 19:51: Lactate 1.6 09/22/21 21:22: Urine Color Vianca, Urine Appearance Clear, Urine pH 6.5, Ur Specific [place] 1.015, Urine Protein 1+, Urine Glucose (UA) Negative, Urine Ketones 2+, Urine Blood 3+, Urine Nitrate Negative, Urine Bilirubin 2+ A, Urine Urobilinogen 0.2, Ur Leukocyte Esterase Trace, Urine RBC 3-5, Urine WBC 5-10, Ur Squamous Epith Cells 5-10, Urine Bacteria 1+ Result diagrams: 09/22/21 19:51 09/22/21 19:51 Orders (Tests/Meds): ED MEDICATIONS Generic Name Dose Route Start Last Admin Trade Name Freq PRN Reason Stop Dose Admin Sodium Chloride 1,000 mls @ 999 mls/hr 09/22/21 19:45 09/22/21 19:53 Sod Chlor 0.9% 1000ml Bag IV 09/22/21 20:45 999 mls/hr .Q1H1M GRACIA Administration Sodium Chloride 1,000 mls @ 999 mls/hr 09/22/21 21:30 09/22/21 21:23 Sod Chlor 0.9% 1000ml Bag IV 09/22/21 22:30 999 mls/hr .Q1H1M GRACIA Administration Sodium Chloride 8 ml 09/22/21 19:40 Sodium Chloride 0.9% 10ml Vial IV 10/22/21 19:39 NEEDED PRN dilute pepcid Sodium Chloride 10 ml 09/22/21 19:52 Sodium Chloride 0.9% 10ml Vial IV 10/22/21 19:51 NEEDED PRN to Dilute Lorazepam inj Discontinued Medications Generic Name Dose Route Start Last Admin Trade Name Freq PRN Reason Stop Dose Admin Famotidine 20 mg 09/22/21 19:40 09/22/21 19:57 Famotidine 20mg/2ml Vial IV 09/22/21 19:41 20 mg ONCE ONE Administration Iopamidol 75 ml 09/22/21 20:35 09/22/21 20:35 Iopamidol-370 (76%);100ml Bottle IV 09/22/21 20:36 75 ml ONCE ONE Administration Lorazepam 2 mg 09/22/21 19:52 09/22/21 19:53 Lorazepam 2mg/Ml Vial IV 09/22/21 19:53 2 mg ONCE ONE Administ
[2021-09-22 20:28] VITALS: BP 106/74; PULSE 90; O2SAT 100
[2021-09-22 20:35] LABS: Basophils # 0.1 K/mm3 (0-0.2); Eosinophils % 0.5 % (0.1-12.0); Hematocrit 44.4 % (37.0-47.0); Hemoglobin 14.3 g/dL (12.2-16.2); Lymphocytes # 0.9 K/mm3 (0.7-4.5); Lymphocytes % 10.6 % (10-50); Mean Corpuscular HGB Conc 32.2 g/dL (31.8-35.4); Mean Corpuscular Hemoglobin 26.7 pg (27.0-31.2); Mean Corpuscular Volume 82.9 fl (81-99); Mean Platelet Volume 8.9 fl (7.4-10.4); Monocytes # 0.3 K/mm3 (0.1-1.0); Monocytes % 3.2 % (1.7-9.3); Neutrophils % 84.6 % (37.0-80.0); Platelet Count 391 K/mm3 (142-424); Procalcitonin 0.053 ng/mL (0.0-2.0); Red Blood Count 5.35 M/mm3 (4.20-5.40); Red Cell Distribution Width 14.6 % (11.5-17.5); White Blood Count 8.3 K/mm3 (4.8-10.8)
--- NOTE | 2021-09-22 20:46 | PC.NURSE ---
Warm blanket given. No new needs.
[2021-09-22 21:14] LABS: Coronavirus 19, PCR Not Detected (NotDetected); Influenza A, PCR Not Detected (NotDetected); Influenza B, PCR Not Detected (NotDetected)
[2021-09-22 21:26] LABS: Adenovirus F 40/41, stool Not Detected (NotDetected); Astrovirus Not Detected (NotDetected); Campylobacter Not Detected (NotDetected); Clostridium Difficile A/B, PCR Not Detected (NotDetected); Cryptosporidium Not Detected (NotDetected); Cyclospora Cayetanesis Not Detected (NotDetected); Entamoeba histolytica Not Detected (NotDetected); Enteroaggregative E coli Not Detected (NotDetected); Enteropathogenic E coli Not Detected (NotDetected); Enterotoxigenic E coli Not Detected (NotDetected); Giardia lamblia Not Detected (NotDetected); Microscopic, Urine URINE MICROSCOPIC (MICROSCOPIC); Norovirus Not Detected (NotDetected); Plesimonas Shigalloides, PCR Not Detected (NotDetected); Rotavirus A Not Detected (NotDetected); Salmonella, PCR Not Detected (NotDetected); Sapovirus Not Detected (NotDetected); Shiga-like toxin E coli Not Detected (NotDetected); Shigella Enterovasive E coli Not Detected (NotDetected); Vibrio Cholerae Not Detected (NotDetected); Vibrio, PCR Not Detected (NotDetected); Yersinia Entercolitica, PCR Not Detected (NotDetected)
[2021-09-22 21:29] LABS: Erythrocyte Sedimentation Rate 89 mm/hr (0-20)
[2021-09-22 21:33] LABS: Appearance,Urine CLEAR (Clear); Blood, Urine 3+ (Negative); Color,Urine AMBER (Yellow); Glucose,Urine (UA) Negative (Negative); Ketones,Urine 2+ (Negative); Leukocyte Esterase,Urine TRACE (Negative); Nitrate,Urine Negative (Negative); PH,Urine 6.5 (5.0-8.5); Protein,Urine 1+ (Negative); Specific Gravity, Urine 1.015 (1.005-1.030); Urobilinogen,Urine 0.2 EU/dl (0.2)
[2021-09-22 21:39] LABS: Bilirubin,Urine 2+ (Negative)
[2021-09-22 21:49] LABS: Bacteria,Urine 1+ /lpf
[2021-09-22 22:10] VITALS: BP 126/76; PULSE 82; RESP 18; TEMP 37.1; O2SAT 100
== END 2021-09-22 22:15 | disposition home or self-care (01) ==
PROVIDERS: Emergency Provider Emergency Medicine; PCP Family Medicine
DX: K52.9 Noninfective gastroenteritis and colitis, unspecified (principal); E87.6 Hypokalemia; Z88.8 Allergy status to other drugs, medicaments and biological substances; Z88.6 Allergy status to analgesic agent; Z88.1 Allergy status to other antibiotic agents; Z91.040 Latex allergy status; F41.9 Anxiety disorder, unspecified; F32.A Depression, unspecified; Z87.442 Personal history of urinary calculi
CPT/HCPCS: 74177; 80053; 81001; 82150; 83605; 83690; 84145; 84703; 85025; 85651; 86140; 87040; 87086; 87088; 87186; 87507; 93005; 96375; 96376; 99284; C9803; J2405; Q9967; U0003; U0005

== ENCOUNTER 2021-09-28 05:41 | Emergency (ER) | payer OTHER, SELFPAY ==
--- NOTE | 2021-09-28 | ECG_ITS ---
APPROVED REPORT Exam: Resting ECG HR:85 bpm ECG Measurements Heart Rate 85 AXES ND 133 P 26 QRSd 94 QRS 66 QT 383 T 22 QTc 426 Conclusion SINUS RHYTHM NORMAL ECG UNCONFIRMED REPORT Electronically signed by : Justino Mcghee MD 09/28/2021 21:36:09
[2021-09-28 05:42] VITALS: BP 124/85; PULSE 95; RESP 22; TEMP 37; O2SAT 99; BMI 49.1
[2021-09-28 06:28] VITALS: BMI 49.1
[2021-09-28 06:42] LABS: Basophils # 0.1 K/mm3 (0-0.2); Eosinophils # 0.3 K/mm3 (0.0-0.4); Eosinophils % 4.1 % (0.1-12.0); Hemoglobin 12.8 g/dL (12.2-16.2); Lymphocytes % 12.4 % (10-50); Mean Corpuscular HGB Conc 33.6 g/dL (31.8-35.4); Mean Corpuscular Hemoglobin 27.4 pg (27.0-31.2); Mean Corpuscular Volume 81.6 fl (81-99); Mean Platelet Volume 8.7 fl (7.4-10.4); Monocytes # 0.3 K/mm3 (0.1-1.0); Monocytes % 3.3 % (1.7-9.3); Neutrophils # 6.3 K/mm3 (1.8-7.8); Neutrophils % 79.2 % (37.0-80.0); Platelet Count 473 K/mm3 (142-424); Red Blood Count 4.65 M/mm3 (4.20-5.40); Red Cell Distribution Width 14.5 % (11.5-17.5); White Blood Count 7.9 K/mm3 (4.8-10.8)
[2021-09-28 06:47] LABS: Alanine Aminotransferase 50 U/L (12-78); Albumin Level 3.7 g/dl (3.5-5.0); Alkaline Phosphatase 179 U/L (38-126); Amylase 54 U/L (30-110); Anion Gap 11.2 mEq/L (5-15); Aspartate Amino Transferase 53 U/L (14-36); Bilirubin,Total 0.6 mg/dl (0.2-1.3); Blood Urea Nitrogen 4 mg/dl (7-17); Calcium 9.1 mg/dl (8.4-10.2); Carbon Dioxide 27 mmol/L (22.0-30.0); Chloride 103 mmol/L (98-107); Creatinine Clearance Estimated 108 mL/min (50-200); Estimated Glomerular Filt Rate 122 ml/min (>60); GFR (African American) 147 ML/MIN (>60); Globulin 3.7 g/dL (1.3-3.2); Glucose 97 mg/dl (74-100); Lipase 39 U/L (23-300); Potassium 3.2 mmoL/L (3.5-5.1); Sodium 138 mmol/L (136-145); Total Protein,Serum 7.4 g/dl (6.3-8.2)
[2021-09-28 06:51] LABS: Lactic Acid 1.5 mmol/L (0.7-2.1)
[2021-09-28 06:52] LABS: C-Reactive Protein 89.5 mg/L (0-4)
[2021-09-28 06:59] LABS: Occult Blood,Gastric Fluid Positive (Negative)
[2021-09-28 07:01] VITALS: BP 133/84; PULSE 84; RESP 20; O2SAT 99
[2021-09-28 07:04] LABS: Procalcitonin 0.672 ng/mL (0.0-2.0)
[2021-09-28 07:10] LABS: Erythrocyte Sedimentation Rate 85 mm/hr (0-20)
[2021-09-28 07:11] LABS: HCG Qualitative, Serum Negative (Negative)
--- NOTE | 2021-09-28 07:57 | HMH.EDGENADL ---
ED Disposition Clinical Impression: Urinary tract infection Qualifiers: Urinary tract infection type: acute cystitis Hematuria presence: with hematuria Qualified Code(s): N30.01 - Acute cystitis with hematuria Disposition: Home, Self-Care Condition on Discharge: Good Instructions: DI for Acute Abdominal Pain Referrals: Nathalie Rivera MD [Primary Care Provider] - - Critical Care Critical Care Time: No Attestation: On 09/28/21, the high probability of a clinically significant, sudden or life threatening deterioration of the following system(s) required my full and direct attention, intervention and personal management. The time I documented below is in addition to time spent performing reported procedures but includes the following listed in this critical care notation. Medical Decision Making - Medical Records Medical records reviewed: Yes: I reviewed the patient's medical records. - Tacho Inquiry Pt receiving controlled substance: No Vital Signs: 09/28/21 05:42 09/28/21 07:01 09/28/21 08:01 Temperature 98.6 F Temperature Source Oral Pulse Rate 84 96 H Pulse Rate [Right] 95 H Respiratory Rate 22 20 18 Blood Pressure 133/84 119/76 Blood Pressure [Right Arm] 124/85 Blood Pressure Mean 89 91 Blood Pressure Mean [Right Arm] 98 Blood Pressure Source [Right Arm] Automatic Cuff 02 Sat by Pulse Oximetry 99 99 100 Oxygen Delivery Method Room Air Room Air Room Air 09/28/21 09:22 09/28/21 10:00 Temperature Temperature Source Pulse Rate 86 80 Pulse Rate [Right] Respiratory Rate 18 Blood Pressure 123/82 129/87 Blood Pressure [Right Arm] Blood Pressure Mean 93 97 Blood Pressure Mean [Right Arm] Blood Pressure Source [Right Arm] 02 Sat by Pulse Oximetry 100 94 L Oxygen Delivery Method Room Air - Lab Data Lab results reviewed: Yes: I reviewed the patient's lab results. Lab Results 09/28/21 06:10: Gastric Occult Blood Positive 09/28/21 06:30: ESR 85 H 09/28/21 06:30: C-Reactive Protein 89.5 H, Amylase 54, Procalcitonin 0.672 09/28/21 06:30: WBC 7.9, RBC 4.65, Hgb 12.8, Hct 38.0, MCV 81.6, MCH 27.4, MCHC 33.6, RDW 14.5, Plt Count 473 H, MPV 8.7, Neut % (Auto) 79.2, Lymph % (Auto) 12.4, [place] % (Auto) 3.3, Eos % (Auto) 4.1, Baso % (Auto) 1.0, Neut # (Auto) 6.3, Lymph # (Auto) 1.0, [place] # (Auto) 0.3, Eos # (Auto) 0.3, Baso # (Auto) 0.1 09/28/21 06:30: Sodium 138, Potassium 3.2 L, Chloride 103, Carbon Dioxide 27, Anion Gap 11.2, BUN 4 L, Creatinine 0.60, Estimated Creat Clear 108, Estimated GFR 122, Est GFR ( Amer) 147, Glucose 97, Calcium 9.1, Total Bilirubin 0.6, AST 53 H, ALT 50, Alkaline Phosphatase 179 H, Total Protein 7.4, Albumin 3.7, Globulin 3.7 H, Albumin/Globulin Ratio 1.0 L, Lipase 39 09/28/21 06:30: Lactate 1.5 09/28/21 06:30: Serum HCG, Qual Negative 09/28/21 08:37: Urine Color Yellow, Urine Appearance Clear, Urine pH 6.0, Ur Specific [place] 1.010, Urine Protein Negative, Urine Glucose (UA) Negative, Urine Ketones Negative, Urine Blood Trace-i, Urine Nitrate Negative, Urine Bilirubin Negative, Urine Urobilinogen 0.2, Ur Leukocyte Esterase 3+ A, Urine RBC Occasional, Urine WBC 5-10, Ur Squamous Epith Cells 3-5, Urine Bacteria Trace Result diagrams: 09/28/21 06:30 09/28/21 06:30 Orders (Tests/Meds): ED MEDICATIONS Generic Name Dose Route Start Last Admin Trade Name Freq PRN Reason Stop Dose Admin Sodium Chloride 10 ml 09/28/21 07:22 Sodium Chloride 0.9% 10ml Vial IV 10/28/21 07:21 NEEDED PRN dilute protonix Discontinued Medications Generic Name Dose Route Start Last Admin Trade Name Freq PRN Reason Stop Dose Admin Sodium Chloride 1,000 mls @ 999 mls/hr 09/28/21 06:45 09/28/21 07:25 Sod Chlor 0.9% 1000ml Bag IV 09/28/21 07:45 999 mls/hr .Q1H1M GRACIA Administration Metoclopramide HCl 10 mg 09/28/21 07:22 09/28/21 07:26 Metoclopramide Hcl 10mg/2ml Vial IVP 09/28/21 07:23 10 mg ONCE ONE Administration Ondansetron HC
[2021-09-28 08:01] VITALS: BP 119/76; PULSE 96; RESP 18; O2SAT 100
--- NOTE | 2021-09-28 08:32 | PC.NURSE ---
pt up to restroom at this time
[2021-09-28 08:46] LABS: Microscopic, Urine URINE MICROSCOPIC (MICROSCOPIC)
[2021-09-28 08:47] LABS: Appearance,Urine CLEAR (Clear); Bilirubin,Urine Negative (Negative); Blood, Urine TRACE-I (Negative); Color,Urine YELLOW (Yellow); Glucose,Urine (UA) Negative (Negative); Ketones,Urine Negative (Negative); Leukocyte Esterase,Urine 3+ (Negative); Nitrate,Urine Negative (Negative); Protein,Urine Negative (Negative); Urobilinogen,Urine 0.2 EU/dl (0.2)
[2021-09-28 09:10] LABS: Bacteria,Urine Trace /lpf; RBC,Urine Occasional #/hpf (0-3)
[2021-09-28 09:22] VITALS: BP 123/82; PULSE 86; RESP 18; O2SAT 100
[2021-09-28 10:00] VITALS: BP 129/87; PULSE 80; O2SAT 94
--- NOTE | 2021-09-28 10:27 | PC.NURSE ---
MICHELL CHOU at
[2021-09-28 11:21] VITALS: BP 106/65; PULSE 78; RESP 18; TEMP 36.6; O2SAT 98
== END 2021-09-28 11:23 | disposition home or self-care (01) ==
PROVIDERS: Emergency Provider Emergency Medicine; PCP Family Medicine
DX: N30.01 Acute cystitis with hematuria (principal); R55 Syncope and collapse; N20.0 Calculus of kidney; R00.0 Tachycardia, unspecified; R11.2 Nausea with vomiting, unspecified; R19.7 Diarrhea, unspecified; I49.8 Other specified cardiac arrhythmias; K21.9 Gastro-esophageal reflux disease without esophagitis; Q79.60 Ehlers-Danlos syndrome, unspecified; F43.10 Post-traumatic stress disorder, unspecified; F32.A Depression, unspecified; F41.9 Anxiety disorder, unspecified; Z79.890 Hormone replacement therapy; Z79.899 Other long term (current) drug therapy; Z88.0 Allergy status to penicillin; Z88.1 Allergy status to other antibiotic agents; Z88.3 Allergy status to other anti-infective agents; Z88.8 Allergy status to other drugs, medicaments and biological substances; Z91.040 Latex allergy status; Z91.018 Allergy to other foods; Z82.49 Family history of ischemic heart disease and other diseases of the circulatory system; Z83.2 Family history of diseases of the blood and blood-forming organs and certain disorders involving the immune mechanism
CPT/HCPCS: 80053; 81001; 82150; 82272; 83605; 83690; 84145; 84703; 85025; 85651; 86140; 87086; 87088; 87186; 93005; 96375; G0328; J2405

== ENCOUNTER 2021-09-29 10:39 | Observation (INO) | payer OTHER, SELFPAY ==
[2021-09-29] VITALS (12 sets, daily range): BP systolic 103–146; BP diastolic 58–93; PULSE 49–77; RESP 16–18; TEMP 36.6–37.3; O2SAT 97–100; BMI 47.2; BMI 45.4
--- NOTE | 2021-09-29 10:53 | PC.NURSE ---
pt hooked up to monitor and given warm blanket; family at BS; no other needs at this time
--- NOTE | 2021-09-29 11:32 | PC.NURSE ---
Attemped to obtain blood but was unsuccessful, called lab to come draw
--- NOTE | 2021-09-29 11:41 | PC.NURSE ---
Lab at bedside
--- NOTE | 2021-09-29 12:07 | HMH.EDGENADL ---
ED Disposition Clinical Impression: Intractable vomiting, Abdominal pain, generalized Diarrhea Qualifiers: Diarrhea type: unspecified type Qualified Code(s): R19.7 - Diarrhea, unspecified Urinary tract infection Qualifiers: Urinary tract infection type: site unspecified Hematuria presence: without hematuria Qualified Code(s): N39.0 - Urinary tract infection, site not specified Disposition: Admitted as Observation Condition on Discharge: Fair Referrals: Nathalie Rivera MD [Primary Care Provider] - - Critical Care Critical Care Time: No Attestation: On 09/29/21, the high probability of a clinically significant, sudden or life threatening deterioration of the following system(s) required my full and direct attention, intervention and personal management. The time I documented below is in addition to time spent performing reported procedures but includes the following listed in this critical care notation. Medical Decision Making - Medical Records Medical records reviewed: Yes: I reviewed the patient's medical records. MR Comment: Reviewed 2 previous emergency department visits for same complaint. Reviewed CT scan result. Reviewed lab results. Reviewed urine culture result which is growing gram-negative rods. - Tacho Inquiry Pt receiving controlled substance: No Vital Signs: 09/29/21 10:40 09/29/21 11:00 09/29/21 14:05 Temperature 98.6 F Temperature Source Oral Pulse Rate 77 67 Pulse Rate [Right] 49 L Respiratory Rate 18 Blood Pressure 118/70 Blood Pressure [Right Arm] 115/67 Blood Pressure Mean 85 Blood Pressure Mean [Right Arm] 83 Blood Pressure Source Blood Pressure Position 02 Sat by Pulse Oximetry 100 99 98 Oxygen Delivery Method Room Air 09/29/21 14:22 09/29/21 14:30 Temperature Temperature Source Pulse Rate 58 L 59 L Pulse Rate [Right] Respiratory Rate Blood Pressure 138/82 144/73 H Blood Pressure [Right Arm] Blood Pressure Mean 104 108 Blood Pressure Mean [Right Arm] Blood Pressure Source Automatic Cuff Blood Pressure Position Sitting 02 Sat by Pulse Oximetry 100 100 Oxygen Delivery Method Room Air - Lab Data Lab Results 09/29/21 12:00: Sodium 139, Potassium 4.0 D, Chloride 113 H, Carbon Dioxide 18 L, Anion Gap 12.0, BUN 3 L, Creatinine 0.50 L, Estimated Creat Clear 130, Estimated GFR 150, Est GFR ( Amer) 182 D, Glucose 118 H, Calcium 9.5, Total Bilirubin 0.6, AST 70 H D, ALT 57, Alkaline Phosphatase 168 H, Total Protein 6.5, Albumin 3.5, Globulin 3.0, Albumin/Globulin Ratio 1.2, Amylase 58, Lipase 46 09/29/21 12:48: WBC 6.3, RBC 4.71, Hgb 12.7, Hct 38.0, MCV 80.7 L, MCH 27.0, MCHC 33.5, RDW 14.5, Plt Count 471 H, MPV 8.3, Neut % (Auto) 79.5, Lymph % (Auto) 14.9, [place] % (Auto) 3.1, Eos % (Auto) 1.5, Baso % (Auto) 0.9, Neut # (Auto) 5.0, Lymph # (Auto) 0.9, [place] # (Auto) 0.2, Eos # (Auto) 0.1, Baso # (Auto) 0.1 Result diagrams: 09/29/21 12:48 09/29/21 12:00 Orders (Tests/Meds): ED MEDICATIONS Generic Name Dose Route Start Last Admin Trade Name Freq PRN Reason Stop Dose Admin Pantoprazole Sodium 40 mg 09/29/21 21:00 Pantoprazole 40mg Vial IV 10/29/21 20:59 BID GRACIA Sodium Chloride 10 ml 09/29/21 11:08 Sodium Chloride 0.9% 10ml Flush Syringe IV 10/29/21 11:07 NEEDED PRN Maintain IV Site Discontinued Medications Generic Name Dose Route Start Last Admin Trade Name Freq PRN Reason Stop Dose Admin Sodium Chloride 1,000 mls @ 999 mls/hr 09/29/21 11:15 09/29/21 11:33 Sod Chlor 0.9% 1000ml Bag IV 09/29/21 12:15 999 mls/hr .Q1H1M GRACIA Administration Promethazine HCl 12.5 mg 09/29/21 12:38 09/29/21 12:45 Promethazine Hcl 25mg/Ml 1ml Vial IV 09/29/21 12:39 12.5 mg ONCE ONE Administration Sodium Chloride 25 ml 09/29/21 12:38 09/29/21 12:45 Sodium Chloride 0.9% 25ml Bag IV 09/29/21 12:39 25 ml ONCE ONE Administration ORDERS Category Date Time Status Rapid PCR
--- NOTE | 2021-09-29 12:33 | PC.NURSE ---
Lab stated cbc blood vial was hemolized and they would be back down to redraw
[2021-09-29 12:45] LABS: Chloride 113 mmol/L (98-107); Sodium 139 mmol/L (136-145)
[2021-09-29 12:48] LABS: Alanine Aminotransferase 57 U/L (12-78); Alkaline Phosphatase 168 U/L (38-126); Amylase 58 U/L (30-110); Aspartate Amino Transferase 70 U/L (14-36); Bilirubin,Total 0.6 mg/dl (0.2-1.3); Blood Urea Nitrogen 3 mg/dl (7-17); Calcium 9.5 mg/dl (8.4-10.2); Carbon Dioxide 18 mmol/L (22.0-30.0); Creatinine Clearance Estimated 130 mL/min (50-200); Estimated Glomerular Filt Rate 150 ml/min (>60); GFR (African American) 182 ML/MIN (>60); Glucose 118 mg/dl (74-100); Lipase 46 U/L (23-300)
[2021-09-29 12:49] LABS: Albumin Level 3.5 g/dl (3.5-5.0); Albumin/Globulin Ratio 1.2 (1.1-1.8); Total Protein,Serum 6.5 g/dl (6.3-8.2)
[2021-09-29 12:55] LABS: Basophils # 0.1 K/mm3 (0-0.2); Basophils % 0.9 % (0.1-2.0); Eosinophils # 0.1 K/mm3 (0.0-0.4); Eosinophils % 1.5 % (0.1-12.0); Hemoglobin 12.7 g/dL (12.2-16.2); Lymphocytes # 0.9 K/mm3 (0.7-4.5); Lymphocytes % 14.9 % (10-50); Mean Corpuscular HGB Conc 33.5 g/dL (31.8-35.4); Mean Corpuscular Volume 80.7 fl (81-99); Mean Platelet Volume 8.3 fl (7.4-10.4); Monocytes # 0.2 K/mm3 (0.1-1.0); Monocytes % 3.1 % (1.7-9.3); Neutrophils % 79.5 % (37.0-80.0); Platelet Count 471 K/mm3 (142-424); Red Blood Count 4.71 M/mm3 (4.20-5.40); Red Cell Distribution Width 14.5 % (11.5-17.5); White Blood Count 6.3 K/mm3 (4.8-10.8)
--- NOTE | 2021-09-29 13:57 | PC.NURSE ---
pt to restroom by wheelchair
--- NOTE | 2021-09-29 14:11 | PC.NURSE ---
pt back to ED room 10 from restroom by wheelchair; she was unable to void at this time
--- NOTE | 2021-09-29 14:44 | PC.NURSE ---
on phone with Dr Bain
--- NOTE | 2021-09-29 14:45 | PC.NURSE ---
Spoke with Ama in Care management regarding her admission
[2021-09-29 14:59] LABS: Coronavirus 19, PCR Not Detected (NotDetected); Influenza A, PCR Not Detected (NotDetected); Influenza B, PCR Not Detected (NotDetected)
--- NOTE | 2021-09-29 16:03 | PC.NURSE ---
Contacted Bella in care management to assess bed situation; she is going to contact HOUSE
--- NOTE | 2021-09-29 16:04 | PC.NURSE ---
ATTEMPTED TO CALL REPORT THE PT HASN'T BEEN ASSIGNED A BED OR NURSE YET
--- NOTE | 2021-09-29 16:30 | PC.NURSE ---
REPORT CALLED TO FLOOR
--- NOTE | 2021-09-29 16:39 | PC.NURSE ---
Pt arrived to the floor at this time
--- NOTE | 2021-09-29 17:13 | PC.NURSE ---
Spoke with Elias Feliz RN she confirmed that general surgeon had not been contacted while in ED. Stated ok to notify General surgeon of consult in AM.
--- NOTE | 2021-09-29 18:39 | PC.NURSE ---
Called and spoke w/ Dr. Bain front desk associate for IVF's and prn morphine. CB in reach. VSS at this time.
[2021-09-29 22:47] LABS: Microscopic, Urine URINE MICROSCOPIC (MICROSCOPIC)
[2021-09-29 22:50] LABS: Appearance,Urine CLOUDY (Clear); Blood, Urine 3+ (Negative); Color,Urine BROWN (Yellow); Glucose,Urine (UA) Negative (Negative); Ketones,Urine 1+ (Negative); Leukocyte Esterase,Urine 1+ (Negative); Nitrate,Urine Negative (Negative); PH,Urine 6.5 (5.0-8.5); Protein,Urine 1+ (Negative); Specific Gravity, Urine >= 1.030 (1.005-1.030); Urobilinogen,Urine 0.2 EU/dl (0.2)
[2021-09-29 22:52] LABS: Bilirubin,Urine 2+ (Negative)
[2021-09-29 22:53] LABS: Urine Pregnancy, HCG Qual. Negative (Negative)
[2021-09-29 23:15] LABS: Bacteria,Urine 1+ /lpf; Mucus,Urine 1+ /lpf; RBC,Urine 20-50 #/hpf (0-3)
[2021-09-30 04:01] VITALS: BP 135/73; PULSE 71; RESP 18; TEMP 37.2; O2SAT 97
[2021-09-30 04:56] VITALS: BMI 46.5
--- NOTE | 2021-09-30 06:27 | PC.NURSE ---
Pt has rested intermittently t/o shift. Pt has c/o of pain and nausea this shift, medicated per MAR with some relief. Pt can ambulate to bathroom independently.
--- NOTE | 2021-09-30 07:08 | P.CONPHA_ITS ---
[facility] Pharmacy VTE Monitoring - Patient Demographics Admission date: 09/29/21 Report Date: 09/30/21 Time: 07:08 Allergies/Adverse Reactions: Patient Allergies latex [LATEX] Allergy (Severe, Verified 06/22/21 15:38) anaphalysis strawberry Allergy (Severe, Verified 09/29/21 17:31) Anaphylaxis duloxetine [From CYMBALTA] Allergy (Intermediate, Verified 06/22/21 15:38) hives; she has scars from the hives when she took this aspirin [ASPIRIN] Allergy (Mild, Verified 06/22/21 15:38) cetirizine [From ZYRTEC] Allergy (Mild, Verified 06/22/21 15:38) amoxicillin [AMOXICILLIN] Allergy (Unknown, Verified 06/22/21 15:38) VOMITING ketorolac [From TORADOL] Allergy (Unknown, Verified 06/22/21 15:38) banana Adverse Reaction (Severe, Verified 09/29/21 17:32) Anaphylaxis kiwi Adverse Reaction (Severe, Verified 09/29/21 17:33) Anaphylaxis tomato Adverse Reaction (Severe, Verified 09/29/21 17:32) Anaphylaxis grapefruit Adverse Reaction (Unknown, Verified 09/29/21 17:33) Height: 1.55 m Weight: 111.669 kg Patient Problems: Current Active Problems Urinary tract infection (Acute) Intractable vomiting (Acute) Diarrhea (Acute) Abdominal pain, generalized (Acute) - VTE Risk Labs: VTE Related Lab Results Hgb 12.7 g/dL (12.2-16.2) 09/29/21 12:48 Hct 38.0 % (37.0-47.0) 09/29/21 12:48 Plt Count 471 K/mm3 (142-424) H 09/29/21 12:48 BUN 3 mg/dl (7-17) L 09/29/21 12:00 Creatinine 0.50 mg/dl (0.52-1.04) L 09/29/21 12:00 Estimated Creat Clear 130 mL/min (50-200) 09/29/21 12:00 - Prophylaxis VTE Prophylaxis Ordered?: Yes Types of VTE Prophylaxis: TEDS Knee High Location of Applied Device: Bilateral Lower Extremeties
--- NOTE | 2021-09-30 07:15 | PC.NURSE ---
DR CARDOZO NOTIFIED OF CONSULT
--- NOTE | 2021-09-30 07:32 | FL_ITS ---
FINAL REPORT CLINICAL HISTORY: . n/v, epigastric pain FINDINGS: UPPER GI WITH SBFT HISTORY: Epigastric pain with nausea and vomiting PROCEDURE: The patient ingested barium. Effervescent crystals were also administered. Spot and overhead films were obtained. Additional barium was administered for a SBFT. FINDINGS: The esophagus is normal. There is no hiatal hernia. There is no gastroesophageal reflux. Peristalsis is normal. The rugal fold pattern of the stomach is normal. The duodenal bulb is normal. FLUOROSCOPY TIME: 2 minutes 16 seconds. 15 radiographs were obtained. IMPRESSION: Normal upper GI. SBFT: The manufacturing engineer assembly film is normal. There is no evidence of obstruction. The mucosal fold pattern is normal. The terminal ilium is normal. IMPRESSION: Normal SBFT. Films reviewed , interpreted and dictated by Dr. Cochran. Transcribed by Tomas Davis PA-C. Reviewed, Interpreted and Dictated by Omega Cochran III, MD Transcribed by KORY Flowers Authenticated by Omega Cochran III, MD on 09/30/2021 12:28:[address] [facility]
--- NOTE | 2021-09-30 07:33 | HMH.GSCON ---
*Admission Date: 09/29/21 *Reason for consult:: Persistent nausea vomiting *History of present illness: This is a 26-year-old female seen in consultation from Dr. Bain for evaluation regarding persistent nausea and vomiting. She has had multiple emergency department evaluations over the past 3 weeks for nausea, vomiting, diarrhea, and abdominal pain. She was diagnosed with gastroenteritis and a urinary tract infection. Upon presentation overnight for increasing symptomatology she was admitted for observation and the surgical service was consulted for possible endoscopic evaluation. She states that a diarrhea panel performed about a week ago revealed no significant abnormality. She reports feeling just a little bit better this morning . 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 She states that she has always needed factor VIII for anything . She is status post cholecystectomy. Review of Systems - Constitutional Denies chills - *Gastrointestinal Reports abdominal pain, Reports nausea, Reports vomiting - Hematologic/Lymphatic Reports easy bleeding, Reports easy bruising [facility] History Medical History: Reports:: Anxiety, Depression, Kidney Stones Denies:: Cancer, Diabetes Mellitus Type 1, Diabetes Mellitus Type 2, Internal Pacemaker, MRSA, Seizures *Have you ever received a pneumonia vaccine?: No *Have you received a flu vaccine this season?: Yes Other Medical History: Reports: Other. Denies: Blood Transfusion Reaction Laterality Cases: Bilateral: Myringotomy (Ear Tubes), Tonsillectomy Other Surgeries: Yes: Cholecystectomy, EGD, Sinus Surgery. No: Pacemaker Amputation: No Fractures: No - *Social History Smoking Status: Never smoker Alcohol Intake: never Alcohol Intake Frequency:: holidays/special occasions only Substance Use Type: marijuana Last Used Substance: days (ago) *Occupational Status:: other Housing: house Household Members: family *Travel in the last 8 weeks: None - Psychiatric History Pschychiatric History:: Reports:: Anxiety, Depression Family Hx:: Bleeding Disorder, Coronary Artery Disease, Other Meds Home Medications Medication Instructions Recorded Confirmed Type Tamsulosin HCl [Flomax 0.4mg 0.4 mg PO HS 12/09/17 09/29/21 History capsule] Tranexamic Acid [Lysteda] 1,300 mg PO DAILY PRN 12/09/17 09/29/21 History gabapentin 300 mg capsule 600 mg PO TID cap 03/15/18 09/29/21 History celecoxib 200 mg capsule 200 mg PO DAILY cap 02/27/20 09/29/21 History etonogestrel 0.12 mg-ethinyl 1 vag ring VAGINAL DIRECTED 02/27/20 09/29/21 History estradiol 0.015 mg/24 hr vaginal ring ondansetron HCl 4 mg tablet 4 mg PO BID tab 02/27/20 09/29/21 History alprazolam 0.25 mg tablet 0.25 mg PO TID PRN #90 tab 07/29/21 09/29/21 Rx amitriptyline 50 mg tablet 50 mg PO DAILY #30 tab 07/29/21 09/29/21 Rx Ondansetron [Zofran 4mg ODT] 4 mg PO TIDP PRN #21 tab 09/22/21 09/29/21 Rx Promethazine HCl [Phenergan 12.5mg 12.5 mg PO Q6H PRN #6 tab 09/28/21 09/29/21 Rx tablet] Antihemophilic Factor/Vwf 1,200 units IV NEEDED PRN 09/29/21 09/29/21 History [Humate-P 1,200 Unit Vwf:Rco] Famotidine [Acid Controller] 20 mg PO DAILY 09/29/21 09/29/21 History OXcarbazepine [Oxcarbazepine] 300 mg PO BID 09/29/21 09/29/21 History Quetiapine Fumarate 100 mg PO QHS 09/29/21 09/29/21 History Vortioxetine Hydrobromide 20 mg PO DAILY 09/29/21 09/29/21 History [Trintellix] lamoTRIgine [Lamotrigine] 150 mg PO BID 09/29/21 09/29/21 History Allergies Allergy/AdvReac Type Severity Reaction Status Date / Time latex [LATEX] Allergy Severe anaphalysis Verified 06/22/21 15:38 strawberry Allergy Severe Anaphylaxis Verified 09/29/21 17:31 duloxetine [From CYMBALTA] Allergy Intermediate hives; she Verified 06/22/21 15:38 has scars from the hives when she took this aspirin [ASPIRIN] Allergy Mild Verified 06/22/21 15:38 cetirizine [From ZYRTEC] Allergy Mild
--- NOTE | 2021-09-30 07:38 | HMH.PHAINT ---
MEDICATION RECONCILIATION COMPLETED ON PATIENT USING EXTERNAL FILL HISTORY FROM PHARMACY. -MICHAEL LYNN, LIZZIED
[2021-09-30 08:00] VITALS: BP 156/75; PULSE 81; RESP 22; TEMP 36.6; O2SAT 97
--- NOTE | 2021-09-30 08:25 | PC.NURSE ---
Pt went down to radiology. She asked me to charge her phone. I told her the only place I can charge is in the waiting room. I explained that I would leave it on the charging station. I also explained that no one would be watching it. She stated that she was fine with that. So I placed the phone on the charging station in the waiting room for her.
--- NOTE | 2021-09-30 15:47 | HMH.HPDC ---
General - General Admission date:: 09/29/21 Discharge date: 09/30/21 *Admission Date: 09/29/21 *Chief complaint: nausea *History of present illness: 26-year-old female presents to ED with c/o persistent nausea and vomiting, abd pain, and intermittent fevers for 3 weeks. She has had multiple emergency department evaluations over the past 3 weeks for nausea, vomiting, diarrhea, and abdominal pain, was seen by pcp yesterday and sent to ed for evaluations. She was diagnosed with gastroenteritis and a urinary tract infection She is unable to keep down any of her medications prescribed for these conditions including antibiotic and an antinausea medications and also unable to keep down her usual medications. Patient states the pain has increased with n/v. Patient she was admitted for observation and the surgical service was consulted for possible endoscopic evaluation. History of Erlers-Danlos and von Willebrand disease. She states that she has always needed factor VIII for anything . Status post cholecystectomy. [facility] History I have reviewed the patient's past medical history: Yes Medical History: Reports:: Anxiety, Depression, Kidney Stones Denies:: Cancer, Diabetes Mellitus Type 1, Diabetes Mellitus Type 2, Internal Pacemaker, MRSA, Seizures *Have you ever received a pneumonia vaccine?: No *Have you received a flu vaccine this season?: Yes Other Medical History: Reports: Other. Denies: Blood Transfusion Reaction Laterality Cases: Bilateral: Myringotomy (Ear Tubes), Tonsillectomy Other Surgeries: Yes: Cholecystectomy, EGD, Sinus Surgery. No: Pacemaker Amputation: No Fractures: No - *Social History Smoking Status: Never smoker Alcohol Intake: never Alcohol Intake Frequency:: holidays/special occasions only Substance Use Type: marijuana Last Used Substance: days (ago) *Occupational Status:: other Housing: house Household Members: family *Travel in the last 8 weeks: None - Psychiatric History Pschychiatric History:: Reports:: Anxiety, Depression Family Hx:: Bleeding Disorder, Coronary Artery Disease, Other Review of Systems - Review of Systems Review of systems:: pertinent systems reviewed and negative unless documented below - Constitutional Denies chills, Denies increased appetite - Eyes Denies change in vision - ENT Denies dizziness - *Cardiovascular Denies chest pain at rest - *Respiratory Denies chest congestion - *Gastrointestinal Reports abdominal pain, Reports nausea, Reports vomiting - *Genitourinary Denies abnormal periods - *Musculoskeletal Denies back pain - Integumentary/Breasts Denies change in hair - *Neurologic Denies abnormal movements - Psychiatric Denies hearing things others do not hear - Endocrine Denies heat intolerance - Hematologic/Lymphatic Denies enlarged lymph nodes - Allergic/Immunologic Denies lip swelling Exam Vital signs and Labs for Last 24 Hours: Temp Pulse Resp BP Pulse Ox 97.9 F 81 22 156/75 H 97 09/30/21 08:00 09/30/21 08:00 09/30/21 08:00 09/30/21 08:00 09/30/21 08:00 Laboratory Results - last 24 hr 09/29/21 22:40: Urine Color Brown, Urine Appearance Cloudy, Urine pH 6.5, Ur Specific [place]chor >= 1.030, Urine Protein 1+, Urine Glucose (UA) Negative, Urine Ketones 1+, Urine Blood 3+, Urine Nitrate Negative, Urine Bilirubin 2+ A, Urine Urobilinogen 0.2, Ur Leukocyte Esterase 1+ A, Urine RBC 20-50, Urine WBC 5-10, Ur Squamous Epith Cells 5-10, Urine Bacteria 1+, Urine Mucus 1+ 09/29/21 22:40: Urine HCG, Qual Negative I & O for Last 24 hours: Intake & Output 09/28/21 09/29/21 09/30/21 10/01/21 11:59 11:59 11:59 11:59 Intake Total 240 / 240 Output Total 350 / 350 Balance -110 / -110 Weight 250 lb 246 lb 3 oz - Constitutional no acute distress - *Routine HEENT Exam Head: Present: normocephalic Eye: Present: PERRL ENT: Present: mucous membranes moist - *Routine Neck Exam Present: supple. Abse
[2021-09-30 16:00] VITALS: BP 137/91; PULSE 81; RESP 18; TEMP 37; O2SAT 96
--- NOTE | 2021-09-30 16:08 | XR_ITS ---
PROCEDURE INFORMATION: Exam: XR Left Hip Exam date and time: 09/30/2021 5:02 PM Age: 26 years old Clinical indication: Hip pain; Left hip; Additional info: Left hip pain post seizure activity TECHNIQUE: Imaging protocol: XR Left hip. Views: 2 or 3 views hip with pelvis when performed. COMPARISON: Previous left hip radiographs dated 04/21/2017, CT of the abdomen and pelvis dated 09/22/2021.. FINDINGS: Bones/joints: Unremarkable. No acute fracture. Soft tissues: Unremarkable. IMPRESSION: No acute findings.
--- NOTE | 2021-09-30 16:30 | PC.NURSE ---
Pt stated that she did not want to get discharged that if they wanted to see Dr. Bain in person. I paged Dr. Bain and he stated that if they wanted to see him he would not be back until after 1999. They decided they wanted to wait to see him.
--- NOTE | 2021-09-30 16:45 | PC.NURSE ---
Pt had seizure like activity. Pt went to the bathroom and yelled for mom. The mom then helped the pt from the bathroom to the floor. She pulled the restroom alarm and I came in. Mother stated that she was having a seizure which is normal for her. We called a rapid red. Made sure that the pt had a patent air way. We placed her had on a pillow. Pt was first only responsive to pain within a min or two she came to. She was complaining of hip pain and abdominal pain. Mother denies her falling or hitting her head. She was then taken from the floor to the bed. Dr. Balbuena was present. He ordered 1 mg of ativan, hip and pelvic xrays. Continued to monitor pt.
--- NOTE | 2021-09-30 17:30 | PC.NURSE ---
Pt stated that she did not want to wait on Dr. Bain and wanted to wait till 1800 until nausea meds would help.
--- NOTE | 2021-09-30 17:47 | PC.NURSE ---
Called [facility] and spoke with tee MILLER and called in phenergan 25mg suppository q6hr prn quanity 10.
--- NOTE | 2021-10-02 12:59 | CARE MANAGER ---
Mother, Meagan Hays called to discuss post discharge status, as we had left a message with our number for call back. Ms. Hays stated that she displeased with the state that her daughter was discharged. She did not feel as though her daughter was ready. Per Ms. Hays, patient went to [facility] on 10/01 and now feels much better since being diagnosed with ulcerative colitis with ulcerations in the stomach. She also wants the staff at [facility] to know that she is pleased with care that was provided while here.
== END 2021-09-30 18:20 | disposition home or self-care (01) ==
LOC: ER 14:50 → 2ND 22:52
PROVIDERS: Admitting Provider Emergency Medicine; Emergency Provider Emergency Medicine; PCP Family Medicine; Visit Provider Emergency Medicine
DX: E86.0 Dehydration (principal); R10.9 Unspecified abdominal pain; R19.7 Diarrhea, unspecified; K52.9 Noninfective gastroenteritis and colitis, unspecified; D66 Hereditary factor VIII deficiency; Z20.822 Contact with and (suspected) exposure to COVID-19; Z79.899 Other long term (current) drug therapy; Z88.8 Allergy status to other drugs, medicaments and biological substances
CPT/HCPCS: 96365; 36415; 73502; 74246; 74248; 80053; 81001; 81025; 82150; 83690; 85025; 87086; 96375; 99285; C9803; G0378; J0696; J2405; U0003; U0005

== ENCOUNTER 2022-02-05 16:09 | Emergency (ER) | payer OTHER, SELFPAY ==
[2022-02-05 16:35] VITALS: BP 139/84; PULSE 80; RESP 18; TEMP 37.1; O2SAT 98; BMI 41.7
--- NOTE | 2022-02-05 16:37 | EXP.UTC ---
Discharge Plan Disposition Patient Disposition: Home, Self-Care Condition: Good Prescriptions Prescriptions: New cephalexin 500 mg capsule 500 mg PO QID 7 Days Qty: 28 0RF No Action celecoxib 200 mg capsule 200 mg PO BID etonogestrel-ethinyl estradiol 0.12-0.015 mg/24 hr ring 1 vag ring VAGINAL DIRECTED amitriptyline 50 mg tablet 50 mg PO DAILY Qty: 30 1RF lamotrigine 150 mg tablet 150 mg PO BID Qty: 60 1RF oxcarbazepine 300 mg tablet 300 mg PO BID Qty: 60 1RF quetiapine 100 mg tablet 100 mg PO HS Qty: 30 1RF vortioxetine 20 mg tablet 20 mg PO DAILY Qty: 30 1RF alprazolam [Xanax] 0.25 mg tablet 0.25 mg PO TID PRN (Reason: anxiety) Qty: 90 1RF tamsulosin 0.4 MG capsule 0.4 mg PO HS tranexamic acid 650 MG tablet 1,300 mg PO DAILY PRN (Reason: factor 8 deficiency) gabapentin 300 mg capsule 600 mg PO TID antihemophilic factor-vWF 1 EACH recon soln 1,200 units IV NEEDED PRN (Reason: Bleeding) sucralfate 1 GM tablet 1 gm PO ACHS Qty: 28 0RF pantoprazole 40 MG tablet,delayed release (DR/EC) 40 mg PO HS Qty: 30 0RF Referrals Follow up/Referrals: Justino Zheng MD [Primary Care Provider] - See instructions Activity Restrictions/Add. Instructions Additional Instructions/Restrictions: Keep the wound clean and dry. Keep a dressing on it if you are going to be getting it dirty. Watch the for signs of infection, such as redness, swelling, drainage, fever. etc. take tylenol for pain. Follow up with your regular doctor. Return in 10 days to have the sutures removed. GO TO THE ER FOR ANY WORSENING SYMPTOMS OR CONCERNS. Clinical Impressions Clinical Impression: Need for Tdap vaccination, Laceration of left index finger Instructions Patient Instructions: DI for Laceration Repair -- Finger, Tetanus, Diphtheria, Pertussis (Tdap) Vaccine Discharge ED Provider: Thom Coles [facility] [place] General Stated complaint: ao 02/05 @1545 lac left index finger Time Seen by Provider: 02/05/22 16:37 History of Present Illness Provider Complaint: She was cutting something with a knife when she slipped and cut her left index finger. 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 Related Data Home Medications Medication Instructions Recorded Confirmed tamsulosin 0.4 mg capsule 0.4 mg PO HS chronic kidney stones 12/09/17 09/29/21 tranexamic acid 650 mg tablet 1,300 mg PO DAILY PRN factor 8 12/09/17 09/29/21 deficiency gabapentin 300 mg capsule 600 mg PO TID Pain 03/15/18 09/29/21 celecoxib 200 mg capsule 200 mg PO BID Pain 02/27/20 09/30/21 etonogestrel 0.12 mg-ethinyl 1 vag ring VAGINAL DIRECTED 02/27/20 09/29/21 estradiol 0.015 mg/24 hr vaginal control ring antihemophilic factor-vWF 500 1,200 units IV NEEDED PRN 09/29/21 09/29/21 unit-1,200 unit intravenous Bleeding solution Previous Rx's Medication Instructions Recorded pantoprazole 40 mg tablet,delayed 40 mg PO HS #30 tabs 09/30/21 release sucralfate 1 gram tablet 1 gm PO ACHS #28 tabs 09/30/21 alprazolam 0.25 mg tablet (Xanax) 0.25 mg PO TID PRN anxiety #90 tabs 12/07/21 amitriptyline 50 mg tablet 50 mg PO DAILY sleep #30 tabs 01/12/22 lamotrigine 150 mg tablet 150 mg PO BID SEIZURES #60 tabs 01/12/22 oxcarbazepine 300 mg tablet 300 mg PO BID SEIZURES #60 tabs 01/12/22 quetiapine 100 mg tablet 100 mg PO HS MOOD #30 tabs 01/12/22 vortioxetine 20 mg tablet 20 mg PO DAILY MOOD #30 tabs 01/12/22 cephalexin 500 mg capsule 500 mg PO QID 7 days #28 caps 02/05/22 Allergies Allergy/AdvReac Type Severity Reaction Status Date / Time latex [LATEX] Allergy Severe anaphalysis Verified 02/05/22 16:40 strawberry Allergy Severe Anaphylaxis Verified 02/05/22 16:40 duloxetine [From CYMBALTA] Allergy Intermediate hives; she Verified 02/05/22 16:40 has scars from the hives when she took this aspirin [ASPIRIN] Allergy Mild
[2022-02-05 17:58] VITALS: BP 179/66; PULSE 72; RESP 18; TEMP 37.1
== END 2022-02-05 18:03 | disposition home or self-care (01) ==
PROVIDERS: Emergency Provider Nurse Practitioner Family; PCP Family Medicine
DX: S61.211A Laceration without foreign body of left index finger without damage to nail, initial encounter (principal); W26.0XXA Contact with knife, initial encounter; Z23 Encounter for immunization
CPT/HCPCS: 12001; 90471; 90714; 99213; G0463

== ENCOUNTER 2025-02-23 22:53 | Emergency (ER) | payer OTHER, SELFPAY ==
--- OUTSIDE RECORDS SUMMARY | 2025-01-03 00:12 | XMS_ITS | Continuity of Care Document ---
Author Organization Phone Care Team Providers Care Intelligence Applications Name Role Phone SILVINO ANN Unavailable Unavailable SILVINO ANN Primary Care Unavailable WATSON LLAMAS Primary Attending Unavailable WATSON LLAMAS Admitting Unavailable ALLERGIES AND ADVERSE REACTIONS ALLERGIES AND ADVERSE REACTIONS Code System Allergy Substance Adverse Reaction Date Reaction (Severity) Comment Status Reported By Updated By 5640 RXNorm Motrin Rash (Severe) Shock active [id number] on January 01, 2025 6:29:26 PM UTC 1191 RXNorm Aspirin Rash (Severe) Shock active [id number] on January 01, 2025 6:29:26 PM UTC 17728 RXNorm Zyrtec Rash (Severe) Shock active [id number] on January 01, 2025 6:29:26 PM UTC LATEX (Free Text Allergy) Rash (Severe) Shock active QEB0000 on January 01, 2025 6:29:26 PM UTC 723 RXNorm Amoxicillin Adverse reaction to substance Not Specified active [id number] on January 01, 2025 6:29:27 PM UTC Strawberries (Free Text Allergy) Adverse reaction to substance Not Specified active [id number] on January 01, 2025 6:29:27 PM UTC 31212 RXNorm DULoxetine Adverse reaction to substance Not Specified active [id number] on January 01, 2025 6:29:27 PM UTC 75524 RXNorm Ketorolac Adverse reaction to substance Not Specified active PSY1923 on January 01, 2025 6:29:27 PM UTC Banana (Free Text Allergy) Adverse reaction to substance Not Specified active QIV8550 on January 01, 2025 6:29:27 PM UTC Kiwi (Actinidia Chinensis) (Free Text Allergy) Adverse reaction to substance Not Specified active [id number] on January 01, 2025 6:29:27 PM UTC Grapefruit (Free Text Allergy) Adverse reaction to substance Not Specified active [id number] on January 01, 2025 6:29:27 PM UTC BLOOD THINNERS (Free Text Allergy) Adverse reaction to substance (Moderate) Has factor 8 active [id number] on January 01, 2025 6:29:27 PM [place] 7984 RXNorm PENICILLIN Rash (Moderate) Shock active TDE0997 on January 01, 2025 6:29:27 PM UTC tomatoes (Free Text Allergy) Anaphylaxis due to substance (Severe) Adverse reaction to substance (Severe) Shock active ESA8533 on January 01, 2025 6:29:26 PM UTC HEPARIN Adverse reaction to substance (Moderate) BLOOD THINNERS HAS FACTOR 8 active HRI2618 on January 01, 2025 6:29:27 PM [place] 8410 RXNorm ALTEPLASE Adverse reaction to substance (Moderate) BLOOD THINNERS-H FACTOR 8 active CXF3116 on January 01, 2025 6:29:[place] [address] RXNorm COUMADIN Adverse reaction to substance (Moderate) BLOOD THINNERS-H FACTOR 8 active PPS4263 on January 01, 2025 6:29:27 PM UT 6964025 RXNorm ELIQUIS Adverse reaction to substance (Moderate) BLOOD THINNERS-H FACTOR 8 active [id number] on January 01, 2025 6:29:27 PM UT FAMILY HISTORY RELATION: Father Status: LIVING SNOMED-CT Diagnosis Age At Onset [id number] von Willebrand disorder RELATION: Mother Status: LIVING SNOMED-CT Diagnosis Age At Onset [id number] Disorder of thyroid gland [id number] Sleep apnea RESULTS Patient: LUIS Fry Date of : 1995 LABORATORY RESULTS ORDER 100: CBC AUTO W DIFF ( LOINC: 68998-7) ORDER DATE: January 01, 2025 9:11:00 AM UT Specimen Source: EDTA Specimen Type: Blood specime n with EDTA PERFORMING LAB: [address] [id number] Result Comment: Final Result Date: January 01, 2025 11:16:00 AM UT (TECH: PP) LOINC TEST FLAG RESULT REFERENCE RANGE UPDA SHANE BY 6690-2 Leukocytes [#/volume] in Blood by Automated count N 10.4 K/ul 4.0 K/ul - 10.5 K/ul January 01, 2025 11:16:00 AM UTC (TECH: PP) 789-8 Erythrocytes [#/volume] in Blood by Automated count N 4.5 M/mm3 4.2 M/mm3 - 6.4 M/mm3 January 01, 2025 11:16:00 AM UTC (TECH: PP) 718-7 Hemoglobin [Mass/volume] in Blood N 12.5 gm/dl 12.5 gm/dl - 16.0 gm/dl January 01, 2025 11:16:00 AM UTC (TECH: PP) 29637-8 Hematocrit [Volume Fraction] of Blood N 37.2 % 37.0 % - 47.0 % January 01, 2025 11:16:00 AM UTC (TECH: PP) 787-2 Erythrocyte mean corpuscular volume [Entitic volume] by Automated count N 82.7 fl 78 fl - 100 fl January 01, 2025 11:16:00 AM UTC (TECH: PP) 785-6 Erythrocyte mean corpuscular hemoglobin [Entitic mass] by Automated count N 27.8 pg 27 pg - 31 pg January 01, 2025 11:16:00 AM UTC (TECH: PP) 786-4 Erythrocyte mean corpuscular hemoglobin concentration [Mass/volume] by Automated count N 33.6 g/dl 32 g/dl - 36 g/dl January 01, 2025 11:16:00 AM UTC (TECH: PP) 05445-2 Erythrocyte distribution width [Ratio] N 12.0 % 11.5 % - 14.0 % January 01, 2025 11:16:00 AM UTC (TECH: PP) 777-3 Platelets [#/volume] in Blood by Automated count N 292 K/ul 150 K/ul - 450 K/ul January 01, 2025 11:16:00 AM UTC (TECH: PP) 38353-8 Platelet mean volume [Entitic volume] in Blood by Automated count N 9.4 fl 6 fl - 9.5 fl January 01, 2025 11:16:00 AM UTC (TECH: PP) 79871-0 Neutrophils/100 leukocytes in Blood H 86.9 % 43 % - 65 % January 01, 2025 11:16:00 AM UTC (TECH: PP) 736-9 Lymphocytes/100 leukocytes in Blood by Automated count L 8.7 % 20.5 % - 45.5 % January 01, 2025 11:16:00 AM UTC (TECH: PP) 5905-5 Monocytes/100 leukocytes in Blood by Automated count L 3.7 % 5.5 % - 11.7 % January 01, 2025 11:16:00 AM UTC (TECH: PP) 713-8 Eosinophils/100 leukocytes in Blood by Automated count L 0.1 % 0.9 % - 2.9 % January 01, 2025 11:16:00 AM UTC (TECH: PP) 706-2 Basophils/100 leukocytes in Blood by Automated count N 0.2 % 0.2 % - 1.0 % January 01, 2025 11:16:00 AM UTC (TECH: PP) 23056-6 Immature granulocytes/100 leukocytes in Blood by Automated count N 0.4 % 0.0 % - 0.8 % January 01, 2025 11:16:00 AM UTC (TECH: PP) 43273-8 Nucleated cells [#/volume] in Blood N 0.0 % January 01, 2025 11:16:00 AM UTC (TECH: PP) 68423-4 Neutrophils [#/volume] in Blood H 9.1 K/uL 2.2 K/uL - 4.8 K/uL January 01, 2025 11:16:00 AM UTC (TECH: PP) 731-0 Lymphocytes [#/volume] in Blood by Automated count L 0.9 CELL/MCL 1.3 CELL/MCL - 2.9 CELL/MCL January 01, 2025 11:16:00 AM UTC (TECH: PP) 742-7 Monocytes [#/volume] in Blood by Automated count N 0.4 CELL/MCL 0.3 CELL/MCL - 0.8 CELL/MCL January 01, 2025 11:16:00 AM UTC (TECH: PP) 711-2 Eosinophils [#/volume] in Blood by Automated count N 0.0 CELL/MCL 0 CELL/MCL - 0.2 CELL/MCL January 01, 2025 11:16:00 AM UTC (TECH: PP) 704-7 Basophils [#/volume] in Blood by Automated count N 0.0 CELL/MCL 0.0 CELL/MCL - 1.0 CELL/MCL January 01, 2025 11:16:00 AM UTC (TECH: PP) 36625-7 Immature granulocytes [#/volume] in Blood N 0.04 K/ul January 01, 2025 11:16:00 AM UTC (TECH: PP) 67209-7 Nucleated cells [#/volume] in Blood N 0.00 K/uL January 01, 2025 11:16:00 AM UTC (TECH: PP) 29771-2 Manual Differential panel - Blood N NO January 01, 2025 11:16:00 AM UTC (TECH: PP) ORDER 200: COMP METABOLIC PA SOTERO (LOINC: 16467-1) ORDER DATE: January 01, 2025 9:11:00 AM UTC Specimen Source: PLASMA Specimen Type: Plasma specim en PERFORMING LAB: [address] [id number] Result Comment: Final Result Date: January 01, 2025 11:41:00 AM UTC (TECH: PP) LOINC TEST FLAG RESULT REFERENCE RANGE UPDA SHANE BY 2951-2 Sodium [Moles/volume ] in Serum or Plasma L 133 mmol/L 136 mmol/L - 145 mmol/L January 01, 2025 11:25:00 AM UTC (TECH: PP) 2823-3 Potassium [Moles/volume] in Serum or Plasma N 3.7 mmol/L 3.6 mmol/L - 5.0 mmol/L January 01, 2025 11:25:00 AM UTC (TECH: PP) 2075-0 Chloride [Moles/volume] in Serum or Plasma N 99 mmol/L 98 mmol/L - 107 mmol/L January 01, 2025 11:25:00 AM UTC (TECH: PP) 2027-9 Carbon dioxide, tota l [Moles/volume] in Serum or Plasma N 25.6 mmol/L 21.0 mmol/L - 32.0 mmol/L January 01, 2025 11:25:00 AM UTC (TECH: PP) 07840-2 Anion gap in Blood N 12.1 S eptember 2024 11:25:00 AM UTC (TECH: PP) 2345-7 Glucose [Mass/volume ] in Serum or Plasma N 113 mg/dl 70 mg/dl - 120 mg/dl January 01, 2025 11:25:00 AM UTC (TECH: PP) 6299-2 Urea nitrogen [Mass/volume] in Blood L 4 mg/dL 7 mg/dL - 18 mg/dL January 01, 2025 11:25:00 AM UTC (TECH: PP) 63714-8 Creatinine [Moles/volume] in Blood N 0.6 mg/dL 0.6 mg/dL - 1.3 mg/dL January 01, 2025 11:25:00 AM UTC (TECH: PP) 77629-2 Glomerular filtratio n rate/1.73 sq M.predicted by Creatinine-based formula (MDRD) N 125 mlpermin 60 mlpermin January 01, 2025 11:25:00 AM [place] (TECH: PP) 64177-6 Osmolality of Serum or Plasma by calculated by sum of electrolytes N 275 mosm/kg 275 mosm/kg - 301 mosm/kg January 01, 2025 11:25:00 AM UTC (TECH: PP) 2885-2 Protein [Mass/volume ] in Serum or Plasma N 7.0 g/dl 6.4 g/dl - 8.2 g/dl January 01, 2025 11:41:00 AM UTC (TECH: PP) 1751-7 Albumin [Mass/volume ] in Serum or Plasma L 3.1 g/dl 3.4 g/dl - 5.0 g/dl January 01, 2025 11:41:00 AM UTC (TECH: PP) 2336-6 Globulin [Mass/volum e] in Serum N 3.9 January 01, 2025 11:41:00 AM UTC (TECH: PP) 1759-0 Albumin/Globulin [Ma ss Ratio] in Serum or Plasma N 0.8 0.7 - 2 January 01, 2025 11:41:00 AM UTC (TECH: PP) 94462-8 Calcium [Mass/volume ] in Serum or Plasma L 8.2 mg/dl 8.5 mg/dl - 10.5 mg/dl January 01, 2025 11:25:00 AM UTC (TECH: PP) 1975-2 Bilirubin.total [Mass/volume] in Serum or Plasma N 0.30 mg/dL 0.10 mg/dL - 1.00 mg/dL January 01, 2025 11:41:00 AM UTC (TECH: PP) 1920-8 Aspartate aminotransferase [Enzymatic activity/volume] in Serum or Plasma N 15 U/L 0 U/L - 37 U/L January 01, 2025 11:41:00 AM UTC (TECH: PP) 1742-6 Alanine aminotransferase [Enzymatic activity/volume] in Serum or Plasma N 21 U/L 0 U/L - 65 U/L January 01, 2025 11:41:00 AM UTC (TECH: PP) 6768-6 Alkaline phosphatase [Enzymatic activity/volume] in Serum or Plasma H 150 U/L 46 U/L - 116 U/L January 01, 2025 11:41:00 AM UTC (TECH: PP) ORDER 300: LIPASE (LOINC: 30 40-3) ORDER DATE: January 01, 2025 9:11:00 AM UTC Specimen Source: PLASMA Specimen Type: Plasma specim en PERFORMING LAB: [address] [id number] Result Comment: Final Result Date: January 01, 2025 11:41:00 AM UTC (TECH: PP) LOINC TEST FLAG RESULT REFERENCE RANGE UPDA SHANE BY 3040-3 Lipase [Enzymatic activity/volume] in Serum or Plasma N 27 U/L 16 U/L - 77 U/L January 01 11:41:00 AM UTC (TECH: PP) ORDER 600: LACTIC ACID (LOIN C: 2524-7) ORDER DATE: January 01, 2025 9:38:00 AM UTC Specimen Source: PLASMA Specimen Type: Plasma specim en PERFORMING LAB: [address] [id number] Result Comment: Final Result Date: January 01, 2025 11:35:00 AM UTC (TECH: PP) LOINC TEST FLAG RESULT REFERENCE RANGE UPDA SHANE BY 2524-7 Lactate [Moles/volume] in Serum or Plasma N 0.5 mmol/L 0.4 mmol/L - 2.0 mmol/L January 01, 2025 11:35:00 AM UTC (TECH: PP) LABORATORY NARRATIVE RESULTS Information is not available RADIOLOGY RESULTS Information is not available PATHOLOGY NARRATIVE RESULTS Information is not available MICROBIOLOGY RESULTS No Micro Labs/Results Exist for Patient BLOOD ADMIN RESULTS Information is not available MEDICATIONS HOME MEDICATIONS Status RXNORM [facility] Medication Dose Route Frequency Dates Comments Reported By Updated By Active 200614 18762 66772 1 amitriptylin e 50 mg tablet 50.0 MG ORAL BEDTIME [facility]: [id number] 589172 62677 89290 0 dicyclomine 20 mg tablet 20.0 MG ORAL QIDPRN Last Dose: [id number] on [facility] 2024 9:30:35 AM [facility] Active 9241732 40486 22278 6 etonogestrel -ethinyl estradiol 0.12-0.015 mg/24 hr Ring, 0.0 VAGINA L [facility]: [id number] AM [facility] Active 294485 86726 76489 2 famotidine 20 mg tablet 20.0 MG ORAL DAILY [facility]: [id number] 9[facility] AM [facility] Active 876095 01978 19045 1 folic acid (FOLATE) 1 MG 1.0 MG ORAL DAILY [facility]: [id number] AM [facility] Active 887894 10788 15792 1 folic acid (FOLATE) 1 MG 1.0 MG ORAL DAILY [facility]: [id number] [facility] 9:30[facility] AM [facility] Active 099937 33451 88512 9 gabapentin 300 mg capsule 600.0 MG ORAL DAILY [facility]: [id number] [facility] AM [facility] Active 2050684 51179 11483 2 HUMATE-P 937 IU 6000. 0 UNT INTRAV ENOUS PRN Last Dose: use when having a bleed [id number] on [facility] 2024 9:30:36 AM [facility] Active 157893 23897 56147 1 hydroxyzine HCl 50 mg tablet 50.0 MG ORAL PRN [facility]: [id number] [facility] 9:30:36 AM [place] Active 950805 46301 80477 0 lamotrigine 200 mg tablet 200.0 MG ORAL BEDTIME Last Dose: [id number] on [facility] 2024 9:30:36 AM UT Active FreeT extMe d Ondansetron HCl Tablet 4 MG 1.0 TAB ORAL TIDPRN Last Dose: [id number] on [facility] 2024 9:30:36 AM UT Active 941577 82167 59517 1 oxcarbazepin e 300 mg tablet 300.0 MG ORAL BID Last Dose: [id number] on [facility] 2024 9:30:36 AM UT Active 232237 51587 73635 0 sucralfate (CARAFATE) 1 GM 1.0 GM ORAL DAILY Last Dose: [id number] on [facility] 2024 9:30:36 AM UT Active 856937 08578 97176 8 tamsulosin (FLOMAX) 0.4 MG 0.4 MG ORAL DAILY Last Dose: [id number] on [facility] 2024 9:30:37 AM UT Active 045152 71760 00801 0 tranexamic acid (LYSTEDA) 650 MG 1300. 0 TAB ORAL TIDPRN Last Dose: bleeding [id number] on [facility] 2024 9:30:37 AM UT Active 089181 25806 42099 1 amitriptylin e 50 mg tablet 50.0 MG ORAL BEDTIME Last Dose: [id number] on [facility] 2024 9:33:02 AM UT Active 533568 45422 97170 0 dicyclomine 20 mg tablet 20.0 MG ORAL QIDPRN Last Dose: [id number] on [facility] 2024 9:33:02 AM UT Active 6196362 47517 20795 6 etonogestrel -ethinyl estradiol 0.12-0.015 mg/24 hr Ring, 0.0 VAGINA L Last Dose: [id number] on [facility] 2024 9:33:02 AM UT Active 052703 68910 59600 2 famotidine 20 mg tablet 20.0 MG ORAL DAILY Last Dose: [id number] on [facility] 2024 9:33:02 AM UTC Active 520071 78413 44211 1 folic acid (FOLATE) 1 MG 1.0 MG ORAL DAILY Last Dose: [id number] on [facility] 2024 9:33:03 AM [facility] Active 134838 10650 45970 9 gabapentin 300 mg capsule 600.0 MG ORAL DAILY Last Dose: [id number] on [facility] 2024 9:33:03 AM [facility] Active 2539293 65466 51420 2 HUMATE-P 937 IU 6000. 0 UNT INTRAV ENOUS PRN Last Dose: use when having a bleed [id number] on [facility] 2024 9:33:03 AM [facility] Active 243067 44751 23802 1 hydroxyzine HCl 50 mg tablet 50.0 MG ORAL PRN Last Dose: [id number] on [facility] 2024 9:33:03 AM [facility] Active 396493 38690 97164 0 lamotrigine 200 mg tablet 200.0 MG ORAL BEDTIME Last Dose: [id number] on [facility] 2024 9:33:03 AM [facility] Active FreeT extMe d Ondansetron HCl Tablet 4 MG 1.0 TAB ORAL TIDPRN Last Dose: [id number] on [facility] 2024 9:33:03 AM [facility] Active 120738 26495 41979 1 oxcarbazepin e 300 mg tablet 300.0 MG ORAL BID Last Dose: [id number] on [facility] 2024 9:33:03 AM [facility] Active 378136 65349 87793 0 sucralfate (CARAFATE) 1 GM 1.0 GM ORAL DAILY Last Dose: [id number] on [facility] 2024 9:33:03 AM [facility] Active 872187 78377 17605 8 tamsulosin (FLOMAX) 0.4 MG 0.4 MG ORAL DAILY Last Dose: [id number] on [facility] 2024 9:33:04 AM [facility] Active 368692 76354 24012 0 tranexamic acid (LYSTEDA) 650 MG 1300. 0 TAB ORAL TIDPRN Last Dose: bleeding [id number] on [facility] 2024 9:33:04 AM [facility] DISCHARGE MEDICATIONS Status RXNORM [facility] Medication Dose Route Frequency Dates Dis pense Data Comments Physician Updated By No Discharge Medication Info rmation Available INPATIENT MEDICATIONS Status RXNORM NDC Medication Dose Route Frequency Rat e Quantity Dates Indication Dispense Data Comments Physician Updated By Discont inued [id number] 005 7990 201 droperidol (INAPSINE) 2.5 MG/ML SOLN 5.0 MG INTRAV ENOUS ONE TIME ONLY (SCHEDULED DOSE) Start: 2024 9:34:0 0 AM [place] End: 2024 9:34:0 0 AM [place] MURIEL DAVIS R INTERFAC ED on [facility] 2024 9:32:00 AM UT Discont inued [id number] 4447 9189 101 morphine sulfate (PF) CJ 4 MG/ML SOLN 4.0 MG INTRAV ENOUS ONE TIME ONLY (SCHEDULED DOSE) Start: 2024 9:34:0 0 AM UT End: 2024 9:34:0 0 AM [place] [facility] AM UT Discont inued 6583719 0695 5613 000 ondansetron (ZOFRAN) INJ 4 MG/2 ML SOLN 4.0 MG INTRAV ENOUS ONE TIME ONLY (SCHEDULED DOSE) Start: 2024 9:34:0 0 AM UT End: 2024 9:34:0 0 AM [place] MURIEL [place]IS [place] [place] [facility] 9:33:00 AM [facility] SOCIAL HISTORY SOCIAL HISTORY - Smoking Status SNOMED-CT Social History Element Description Effective Dates Offered Cessation Comment Updated By [id number] Current Tobacco smoking status Never Smoked [id number] on January 01, 2025 9:33:40 AM UT [id number] Historical Tobacco smoking status Unknown If Ever Smoked [id number] on November 06, 2024 8:05:16 AM [facility] SOCIAL HISTORY - Gender Sex: Female SOCIAL HISTORY - Status : status i nformation is not available Intention in Next Year: intention information is not available SOCIAL HISTORY - Assessments Code System Description Status Date Value of Assessment Updated By Comment Assessment Information is no t available SOCIAL HISTORY - Cheesh-Na Affiliation Cheesh-Na information is not av ailable SOCIAL HISTORY - Legal Sex Legal Sex information is not available SOCIAL HISTORY - Sexual Behavior Sexual Orientation Gender Identity SNOMED-CT Description SNO MED -CT Description Activity Level No of Partners Partner Type UpdatedBy Information is not available SOCIAL HISTORY - Occupation Occupation information is no t available VITAL SIGNS PATIENT VITAL SIGNS This section displays the mo st recent value for each vital sign as of January 03, 2025 4:12:26 AM [place] Loinc Code Vital Sign Activity Date Result Updated By 8462-4 [facility] 12:16:00 PM UTC 78.0 mm[Hg] 8867-4 Heart rate January 01 12:15:00 PM UTC 70 /min 04476-7 Oxygen saturation in Arterial blood by Pulse oximetry January 01, 2025 12:15:00 PM UTC 100.0 % 9279-1 Respiratory rate January 01 12:15:00 PM UTC 16 /min 8480-6 Systolic blood pressure [facility] 2024 12:16:00 PM UTC 144.0 mm[Hg] PEDIATRIC GROWTH CHART - VITAL SIGNS This section displays Head C ircumference Percentile, Weight for Length Percentile and BMI Percentile Loinc Code Pediatric Measure Age (Months) Result Updat ed By No Pediatric Growth Chart Pe rcentile Information Available. HEALTH CONCERNS Problems Concern Status Health Concern problem infor mation not available. Smoking Status Status Years Used Consumed packs p er day Health Concern smoking histo ry information not available. Family History Concern Status Health Concern family histor y information not available. ENCOUNTERS ENCOUNTER INFORMATION Reason for Visit N/V/D Admission January 01, 2025 9:08:[address] [id number] Discharge January 01, 2025 12:34:00 PM UT C DISCHARGED TO HOME OR SELF CARE ENCOUNTER DIAGNOSES Notes information is not cristiano ilable. Code System Diagnosis Onset Date Diagnosis information is not available. ABSTRACT DIAGNOSES Code System Diagnosis Updated By Abatement Date R11.2 ICD10 NAUSEA WITH VOMI TING, UNSPECIFIED [id number] on January 03, 2025 4:11:48 AM [facility] R10.10 ICD10 UPPER ABDOMINAL PAIN, UNSPECIFIED [id number] on January 03, 2025 4:11:48 AM [facility] R10.30 ICD10 LOWER ABDOMINAL PAIN, UNSPECIFIED [id number] on January 03, 2025 4:11:48 AM UTC R10.9 ICD10 UNSPECIFIED ABDOMINAL PAIN B [id number] on January 03, 2025 4:11:48 AM UTC Z90.49 ICD10 ACQUIRED ABSENCE OF OTHER SPECIFIED PARTS OF DIGESTIVE TRACT [id number] on January 03, 2025 4:11:48 AM UTC Z88.0 ICD10 ALLERGY STATUS TO PENICILLIN [id number] on January 03, 2025 4:11:48 AM UTC Z88.6 ICD10 ALLERGY STATUS T O ANALGESIC AGENT [id number] on January 03, 2025 4:11:48 AM UTC Z88.8 ICD10 ALLERGY STATUS T O OTHER DRUGS, MEDICAMENTS AND BIOLOGICAL SUBSTANCES [id number] on January 03, 2025 4:11:48 AM UTC Z91.040 ICD10 LATEX ALLERGY STATUS [id number] on January 03, 2025 4:11:48 AM UTC CARE TEAM Care Intelligence Applications Role SILVINO ANN Referring SILVINO ANN Primary Care WATSON LLAMAS Primary Attending WATSON LLAMAS Admitting CARE TEAM CARE 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 service technician Role on Team Location Telecom Status Start Date End Branden e Updated By MARISSA DUBOIS Referring normal Septem 2024 9:42:08 AM [place] January 01, 2025 12:34:00 PM UTC [id number] on January 01, 2025 9:42:08 AM UTC MURIEL PRIETO Attending normal January 01, 2025 9:42:08 AM UTC January 01, 2025 12:34:00 PM UTC [id number] on January 01, 2025 9:42:08 AM [place] MURIEL PRIETO Admitting normal January 01, 2025 9:42:08 AM UTC January 01, 2025 12:34:00 PM UTC [id number] on January 01, 2025 9:42:08 AM [place] MARISSA DUBOIS PCP normal Septem 2024 9:08:25 AM UTC January 01, 2025 12:34:00 PM UTC [id number] on January 01, 2025 9:42:08 AM UTC
--- OUTSIDE RECORDS SUMMARY | 2025-01-05 22:04 | XMS_ITS | Continuity of Care Document ---
Author Organization [facility] Phone Care Team Providers Care Erp Specialist Name Role Phone SILVINO ANN Primary Care Unavailable SILVINO ANN Unavailable Unavailable MATT CANALES Admitting Unavailable MATT CANALES Primary Attending Unavailable ALLERGIES AND ADVERSE REACTIONS ALLERGIES AND ADVERSE REACTIONS Code System Allergy Substance Adverse Reaction Date Reaction (Severity) Comment Status Reported By Updated By 5640 RXNorm Motrin Rash (Severe) Shock active [id number] on January 01, 2025 6:29:26 PM UTC 1191 RXNorm Aspirin Rash (Severe) Shock active [id number] on January 01, 2025 6:29:26 PM UTC 28505 RXNorm Zyrtec Rash (Severe) Shock active GVY0835 on January 01, 2025 6:29:26 PM UTC LATEX (Free Text Allergy) Rash (Severe) Shock active ZAF5119 on January 01, 2025 6:29:26 PM UTC 723 RXNorm Amoxicillin Adverse reaction to substance Not Specified active [id number] on January 01, 2025 6:29:27 PM UTC Strawberries (Free Text Allergy) Adverse reaction to substance Not Specified active OUI9955 on January 01, 2025 6:29:27 PM UTC 59074 RXNorm DULoxetine Adverse reaction to substance Not Specified active OIU6632 on January 01, 2025 6:29:27 PM UTC 62998 RXNorm Ketorolac Adverse reaction to substance Not Specified active KSE1652 on January 01, 2025 6:29:27 PM UTC Banana (Free Text Allergy) Adverse reaction to substance Not Specified active UET5040 on January 01, 2025 6:29:27 PM UTC Kiwi (Actinidia Chinensis) (Free Text Allergy) Adverse reaction to substance Not Specified active UIW2032 on January 01, 2025 6:29:27 PM UTC Grapefruit (Free Text Allergy) Adverse reaction to substance Not Specified active [id number] on January 01, 2025 6:29:27 PM UTC BLOOD THINNERS (Free Text Allergy) Adverse reaction to substance (Moderate) Has factor 8 active ZSL7821 on January 01, 2025 6:29:27 PM UT 7984 RXNorm PENICILLIN Rash (Moderate) Shock active CVS5469 on January 01, 2025 6:29:27 PM UTC tomatoes (Free Text Allergy) Anaphylaxis due to substance (Severe) Adverse reaction to substance (Severe) Shock active BBF2133 on January 01, 2025 6:29:26 PM UTC HEPARIN Adverse reaction to substance (Moderate) BLOOD THINNERS HAS FACTOR 8 active DDA4906 on January 01, 2025 6:29:27 PM [place] 8410 RXNorm ALTEPLASE Adverse reaction to substance (Moderate) BLOOD THINNERS-H FACTOR 8 active WMN2782 on January 01, 2025 6:29:[place] [address] RXNorm COUMADIN Adverse reaction to substance (Moderate) BLOOD THINNERS-H FACTOR 8 active RFJ1291 on January 01, 2025 6:29:27 PM UT 2260008 RXNorm ELIQUIS Adverse reaction to substance (Moderate) BLOOD THINNERS-H FACTOR 8 active ZGO5043 on January 01, 2025 6:29:27 PM UT FAMILY HISTORY RELATION: Father Status: LIVING SNOMED-CT Diagnosis Age At Onset [id number] von Willebrand disorder RELATION: Mother Status: LIVING SNOMED-CT Diagnosis Age At Onset [id number] Disorder of thyroid gland [id number] Sleep apnea RESULTS Patient: LUIS Fry Date of : 1995 LABORATORY RESULTS ORDER 100: URINALYSIS REFLEX MICROSCOPIC (LOINC: 54213-2) ORDER DATE: January 01, 2025 6:46:00 PM UTC Specimen Source: URINE Specimen Type: Urine specime n PERFORMING LAB: [address] [id number] Result Comment: Final Result Date: January 01, 2025 8:38:00 PM UT (TECH: ADB) LOINC TEST FLAG RESULT REFERENCE RANGE UPDA SHANE BY 5778-6 Color of Urine N DRK YELLOW YELLOW Sept ember 2, 2025 8:38:00 PM UTC (TECH: ADB) 5767-9 Appearance of Urine N HAZY CLEAR January 01, 2025 8:38:00 PM UTC (TECH: ADB) 5792-7 Glucose [Mass/volume] in Urine by Test strip N norm NORMAL January 01, 2025 8:38:00 PM UTC (TECH: ADB) 05515-3 Bilirubin.total [Mass/volume] in Urine by Automated test strip N NEGATIVE NEGATIVE January 01, 2025 8:38:00 PM UTC (TECH: ADB) 5797-6 Ketones [Mass/volume] in Urine by Test strip 50 NEGATIVE January 01, 2025 8:38:00 PM UTC (TECH: ADB) 2965-2 Specific gravity of Urine N 1.020 1.016 - 1.022 January 01, 2025 8:38:00 PM UTC (TECH: ADB) 72139-1 Erythrocytes [#/volume] in Urine by Automated test strip 250 NEGATIVE January 01, 2025 8:38:00 PM UTC (TECH: ADB) 76147-4 pH of Urine by Automated test strip N 6 5 - 9 January 01, 2025 8:38:00 PM UTC (TECH: ADB) 59988-1 Protein [Presence] in Urine by Test strip N TNP NEGATIVE January 01, 2025 8:38:00 PM UTC (TECH: ADB) 41640-5 Urobilinogen [Mass/volume] in Urine by Automated test strip N norm NORMAL January 01, 2025 8:38:00 PM UTC (TECH: ADB) 34425-4 Nitrate [Presence] in Urine N NEGATIVE NEGATIVE January 01, 2025 8:38:00 PM UTC (TECH: ADB) 86540-4 Leukocytes [#/volume] in Urine by Test strip 100 NEGATIVE January 01, 2025 8:38:00 PM UTC (TECH: ADB) 70149-1 Urinalysis dipstick W Reflex Culture panel - Urine N YES January 01, 2025 8:38:00 PM UTC (TECH: ADB) 07179-0 Erythrocytes [#/area] in Urine sediment by Microscopy high power field 6-10 NONE SEEN January 01, 2025 8:38:00 PM UTC (TECH: ADB) 5821-4 Leukocytes [#/area] in Urine sediment by Microscopy high power field 21-30 NONE SEEN January 01, 2025 8:38:00 PM UTC (TECH: ADB) 40125-8 Epithelial cells.squamous [#/area] in Urine sediment by Microscopy high power field N 6-10 NONE SEEN January 01, 2025 8:38:00 PM UTC (TECH: ADB) 5769-5 Bacteria [#/area] in Urine sediment by Microscopy high power field N TRACE NONE SEEN January 01, 2025 8:38:00 PM UTC (TECH: ADB) 84291-7 Mucus [#/area] in Urine sediment by Microscopy low power field N 1+ NONE SEEN January 01, 2025 8:38:00 PM UTC (TECH: ADB) ORDER 200: URINE DRUG SCREEN (LOINC: 49278-1) ORDER DATE: January 01, 2025 6:46:00 PM UTC Specimen Source: URINE Specimen Type: Urine specime n PERFORMING LAB: [address] [id number] Result Comment: Final Result Date: January 01, 2025 8:48:00 PM UTC (TECH: SHG) LOINC TEST FLAG RESULT REFERENCE RANGE UPDA SHANE BY 3774-7 Methadone [Mass/volu me] in Urine N NEGATIVE NEGATIVE January 01, 2025 8:48:00 PM UTC (TECH: SHG) 3530-3 Tetrahydrocannabinol [Mass/volume] in Urine POSITIVE NEGATIVE January 01, 2025 8:48:00 PM UTC (TECH: SHG) 3398-5 Cocaine [Mass/volume ] in Urine N NEGATIVE NEGATIVE January 01, 2025 8:48:00 PM UTC (TECH: SHG) 9426-8 Barbiturates [Mass/v olume] in Urine N NEGATIVE NEGATIVE January 01, 2025 8:48:00 PM UTC (TECH: SHG) 9428-4 Benzodiazepines [Mass/volume] in Urine N NEGATIVE NEGATIVE January 01, 2025 8:48:00 PM UTC (TECH: SHG) 8220-6 Opiates [Mass/volume ] in Urine POSITIVE NEGATIVE January 01, 2025 8:48:00 PM UTC (TECH: SHG) 74674-9 Amphetamine [Mass/vo lume] in Urine N NEGATIVE NEGATIVE January 01, 2025 8:48:00 PM UTC (TECH: SHG) 3937-0 Phencyclidine [Mass/volume] in Urine N NEGATIVE NEGATIVE January 01, 2025 8:48:00 PM UTC (TECH: SHG) ORDER 400: LACTIC ACID (LOIN C: 2524-7) ORDER DATE: January 01, 2025 9:10:00 PM UTC Specimen Source: PLASMA Specimen Type: Plasma specim en PERFORMING LAB: [address] [id number] Result Comment: Final Result Date: January 01, 2025 9:56:00 PM UTC (TECH: KAC) LOINC TEST FLAG RESULT REFERENCE RANGE UPDA SHANE BY 2524-7 Lactate [Moles/volume] in Serum or Plasma N 0.9 mmol/L 0.4 mmol/L - 2.0 mmol/L January 01, 2025 9:56:00 PM UTC (TECH: KAC) ORDER 700: LIPASE (LOINC: 30 40-3) ORDER DATE: January 01, 2025 9:10:00 PM UTC Specimen Source: PLASMA Specimen Type: Plasma specim en PERFORMING LAB: [address] [id number] Result Comment: Final Result Date: January 01, 2025 9:43:00 PM UTC (TECH: KAC) LOINC TEST FLAG RESULT REFERENCE RANGE UPDA SHANE BY 3040-3 Lipase [Enzymatic activity/volume] in Serum or Plasma N 29 U/L 16 U/L - 77 U/L January 01 9:43:00 PM UTC (TECH: KAC) ORDER 800: GRAM STAIN FOR BL OOD CULTURES (LOINC: 76682-6) ORDER DATE: January 02, 2025 8:19:00 PM UTC Specimen Source: GRAM STAIN Specimen Type: Gram stain me thod PERFORMING LAB: [address] [id number] Result Comment: Final Result Date: January 02, 2025 9:42:00 PM UTC (TECH: ME) LOINC TEST FLAG [place] [address]-2 Specimen source [Identifier] of Unspecified specimen N AEROBIC January 02, 2025 9:42:00 PM UTC (TECH: ME) 664-3 Microscopic observation [Identifier] in Unspecified specimen by Gram stain N POSITIVE January 02, 2025 9:42:00 PM UTC (TECH: ME) 31498-9 Morphology [interpretation] in Blood Narrative N COCCI CLUSTER January 02, 2025 9:42:00 PM UTC (TECH: ME) 27758-0 Other quantitation by CAP cancer protocols N MODERATE January 02, 2025 9:42:00 PM UTC (TECH: ME) 35001-6 Leukocytes [Presence] in Unspecified specimen by Gram stain N MODERATE January 02, 2025 9:42:00 PM UTC (TECH: ME) 40325-5 Yeast [Presence] in Unspecified specimen by Wet preparation N NO YST SEEN January 02, 2025 9:42:00 PM UTC (TECH: ME) 74763-8 Date of blood culture N 01/01January 02, 2025 9:42:00 PM UTC (TECH: ME) 96598-8 Time at blood draw N 1814 S eptember 2024 9:42:00 PM UTC (TECH: ME) 05192-0 Date of blood culture N CHEST PORT January 02, 2025 9:42:00 PM UTC (TECH: ME) 19982-7 Date of blood culture N 1962242 January 02, 2025 9:42:00 PM UTC (TECH: ME) 37628-0 Gram positive bacteria identified [Interpretation] by Probe in Positive blood culture N PASS PASS January 02, 2025 9:42:00 PM UTC (TECH: ME) 93177-4 Gram negative bacilli identified in Isolate by Organism specific culture N PASS PASS January 02, 2025 9:42:00 PM UTC (TECH: ME) ORDER 900: BCID PANEL (LOINC : 30089-4) ORDER DATE: January 02, 2025 8:19:00 PM UTC Specimen Source: WHOLE BLOOD Specimen Type: Whole blood s ample PERFORMING LAB: [address] [id number] Result Comment: Final Result Date: January 02, 2025 9:37:00 PM UTC (TECH: ME) LOINC TEST [place] [address]-2 Carbapenem resistanc e blaKPC gene [Presence] by Target amplification with non-probe based detection in Positive blood culture N N/A NOT DETECTED January 02, 2025 9:37:00 PM UTC (TECH: ME) 09761-7 Vancomycin resistanc e (Shahrzad + vanB) genes [Presence] by Target amplification with non-probe based detection in Positive blood culture N N/A NOT DETECTED January 02, 2025 9:37:00 PM UTC (TECH: ME) 84900-0 Listeria monocytogen es DNA [Presence] by SUSAN with non-probe detection in Positive blood culture N NOT DETECTED NOT DETECTED January 02, 2025 9:37:00 PM UTC (TECH: ME) 53447-5 Staphylococcus epidermidis DNA [Presence] by SUSAN with probe detection in Positive blood culture N NOT DETECTED NOT DETECTED January 02, 2025 9:37:00 PM UTC (TECH: ME) 32122-2 Staphylococcus lugdunensis DNA [Presence] by SUSAN with probe detection in Positive blood culture N NOT DETECTED NOT DETECTED January 02, 2025 9:37:00 PM UTC (TECH: ME) 32091-5 Staphylococcus sp DN A [Presence] by Target amplification with non-probe based detection in Positive blood culture DETECTED NOT DETECTED January 02, 2025 9:37:00 PM UTC (TECH: ME) 33384-3 Staphylococcus aureu s DNA [Presence] by Target amplification with non-probe based detection in Positive blood culture DETECTED NOT DETECTED January 02, 2025 9:37:00 PM UTC (TECH: ME) 00295-9 Streptococcus sp DNA [Presence] by Target amplification with non-probe based detection in Positive blood culture N NOT DETECTED NOT DETECTED January 02, 2025 9:37:00 PM UTC (TECH: ME) 01124-9 Streptococcus agalactiae DNA [Presence] by Target amplification with non-probe based detection in Positive blood culture N NOT DETECTED NOT DETECTED January 02, 2025 9:37:00 PM UTC (TECH: ME) 75729-0 Streptococcus pneumoniae DNA [Presence] by SUSAN with non-probe detection in Positive blood culture N NOT DETECTED NOT DETECTED January 02, 2025 9:37:00 PM UTC (TECH: ME) 56996-3 Streptococcus pyogen es DNA [Presence] by Target amplification with non-probe based detection in Positive blood culture N NOT DETECTED NOT DETECTED January 02, 2025 9:37:00 PM UTC (TECH: ME) 08264-3 Enterobacteriaceae D NA [Presence] by Target amplification with non-probe based detection in Positive blood culture N NOT DETECTED NOT DETECTED January 02, 2025 9:37:00 PM UTC (TECH: ME) 62138-0 Enterobacter cloacae complex DNA [Presence] by Target amplification with non-probe based detection in Positive blood culture N NOT DETECTED NOT DETECTED January 02, 2025 9:37:00 PM UTC (TECH: ME) 94568-8 Escherichia coli DNA [Presence] by Target amplification with non-probe based detection in Positive blood culture N NOT DETECTED NOT DETECTED January 02, 2025 9:37:00 PM UTC (TECH: [employer]) 68179-1 Klebsiella oxytoca D NA [Presence] by Target amplification with non-probe based detection in Positive blood culture N NOT DETECTED NOT DETECTED January 02, 2025 9:37:00 PM UTC (TECH: ME) 49669-8 Klebsiella pneumonia e DNA [Presence] by Target amplification with non-probe based detection in Positive blood culture N NOT DETECTED NOT DETECTED January 02, 2025 9:37:00 PM UTC (TECH: [employer]) 83948-7 Proteus sp DNA [Presence] by Target amplification with non-probe based detection in Positive blood culture N NOT DETECTED NOT DETECTED January 02, 2025 9:37:00 PM UTC (TECH: [employer]) 25102-2 Serratia marcescens DNA [Presence] by Target amplification with non-probe based detection in Positive blood culture N NOT DETECTED NOT DETECTED January 02, 2025 9:37:00 PM UTC (TECH: ME) 29332-9 Haemophilus influenz ae DNA [Presence] by SUSAN with non-probe detection in Positive blood culture N NOT DETECTED NOT DETECTED January 02, 2025 9:37:00 PM UTC (TECH: ME) 12949-4 Neisseria meningitid is DNA [Presence] by SUSAN with non-probe detection in Positive blood culture N NOT DETECTED NOT DETECTED January 02, 2025 9:37:00 PM UTC (TECH: ME) 44741-9 Pseudomonas aerugino sa DNA [Presence] by Target amplification with non-probe based detection in Positive blood culture N NOT DETECTED NOT DETECTED January 02, 2025 9:37:00 PM UTC (TECH: [employer]) 90342-0 Leigha albicans DNA [Presence] by Target amplification with non-probe based detection in Positive blood culture N NOT DETECTED NOT DETECTED January 02, 2025 9:37:00 PM UTC (TECH: ME) 53843-0 Leigha glabrata DNA [Presence] by Target amplification with non-probe based detection in Positive blood culture N NOT DETECTED NOT DETECTED January 02, 2025 9:37:00 PM UTC (TECH: ME) 47569-5 Leigha krusei DNA [Presence] by Target amplification with non-probe based detection in Positive blood culture N NOT DETECTED NOT DETECTED January 02, 2025 9:37:00 PM UTC (TECH: ME) 84421-4 Leigha parapsilosis DNA [Presence] by Target amplification with non-probe based detection in Positive blood culture N NOT DETECTED NOT DETECTED January 02, 2025 9:37:00 PM UTC (TECH: ME) 45201-3 Leigha tropicalis D NA [Presence] by Target amplification with non-probe based detection in Positive blood culture N NOT DETECTED NOT DETECTED January 02, 2025 9:37:00 PM UTC (TECH: ME) 30265-8 Acinetobacter calcoaceticus-baumannii complex DNA [NCncRange] in Bronchoalveolar lavage Qualitative by SUSAN with non-probe detection N NOT DETECTED NOT DETECTED January 02, 2025 9:37:00 PM UTC (TECH: ME) 90869-1 Bacteroides fragilis DNA [Presence] in Blood by SUSAN with probe detection N NOT DETECTED NOT DETECTED January 02, 2025 9:37:00 PM UTC (TECH: ME) 26424-6 Leigha auris [Presence] in Specimen by Organism specific culture N NOT DETECTED NOT DETECTED January 02, 2025 9:37:00 PM UTC (TECH: ME) 24587-8 Cryptococcus gattii+neoformans DNA [Presence] in Cerebral spinal fluid by SUSAN with probe detection N NOT DETECTED NOT DETECTED December 9:37:00 PM UTC (TECH: ME) 61404-1 Collagen crosslinked C-telopeptide [Mass/volume] in Serum or Plasma N N/A NOT DETECTED January 02, 2025 9:37:00 PM UTC (TECH: ME) 94045-0 Enterococcus faecali s DNA [Presence] in Specimen by SUSAN with probe detection N NOT DETECTED NOT DETECTED January 02, 2025 9:37:00 PM UTC (TECH: ME) 36452-7 Enterococcus faecium DNA [Presence] in Specimen by SUSAN with probe detection N NOT DETECTED NOT DETECTED January 02, 2025 9:37:00 PM UTC (TECH: MI) 27926-4 Genetic variation clinical significance [Imp] N N/A NOT DETECTED January 02, 2025 9:37:00 PM UTC (TECH: MI) 51321-0 Klebsiella aerogenes DNA [Presence] in Specimen by SUSAN with probe detection N NOT DETECTED NOT DETECTED January 02, 2025 9:37:00 PM UTC (TECH: MI) 40362-5 Colistin resistance mcr-1 gene [Presence] by Molecular method N N/A NOT DETECTED January 02, 2025 9:37:00 PM UTC (TECH: MI) 79946-4 Methicillin resistan ce mecA gene [Presence] by Probe in Positive blood culture N N/A NOT DETECTED January 02, 2025 9:37:00 PM UTC (TECH: MI) 67774-1 Methicillin resistan ce mecA+mecC genes+SCCmec+OrfX junction [Presence] by Molecular method N NOT DETECTED NOT DETECTED January 02, 2025 9:37:00 PM UTC (TECH: MI) 98786-5 N-nitrosodimethylami ne [Mass/volume] in Air N N/A NOT DETECTED December 9:37:00 PM UTC (TECH: MI) 24583-4 Carbapenem resistanc e baldev OXA-48-like gene [Presence] by Molecular method N N/A NOT DETECTED January 02, 2025 9:37:00 PM UTC (TECH: MI) 60348-6 Salmonella sp phage type in Isolate N NOT DETECTED NOT DETECTED January 02, 2025 9:37:00 PM UTC (TECH: MI) 59138-1 Stenotrophomonas maltophilia DNA [Presence] by SUSAN with probe detection in Positive blood culture N NOT DETECTED NOT DETECTED January 02, 2025 9:37:00 PM UTC (TECH: MI) 63890-1 VIM gene methylation [Presence] in Stool by Molecular genetics method N N/A NOT DETECTED January 02, 2025 9:37:00 PM UTC (TECH: MI) ORDER 1000: GRAM STAIN FOR B LOOD CULTURES (LOINC: 92230-1) ORDER DATE: January 03, 2025 6:09:00 AM UTC Specimen Source: GRAM STAIN Specimen Type: Gram stain nm thod PERFORMING LAB: [facility] [address] [facility] [id number] Result Comment: Final Result Date: January 03, 2025 6:27:00 AM UTC (TECH: ME) LOINC TEST FLAG [place] [address]-1 Specimen source [Identifier] of Unspecified specimen N AEROBIC December 6:27:00 AM UTC (TECH: ME) 664-3 Microscopic observat ion [Identifier] in Unspecified specimen by Gram stain N POSITIVE January 03 6:27:00 AM UTC (TECH: ME) 44624-0 Morphology [interpretation] in Blood Narrative N COCCI CLUSTER January 03 6:27:00 AM UTC (TECH: ME) 85101-6 Other quantitation b y CAP cancer protocols N 1+ December 6:27:00 AM UTC (TECH: ME) 33155-5 Leukocytes [Presence ] in Unspecified specimen by Gram stain N MODERATE January 03 6:27:00 AM UTC (TECH: ME) 93936-9 Yeast [Presence] in Unspecified specimen by Wet preparation N NO YST SEEN January 03 6:27:00 AM UTC (TECH: ME) 56802-9 Date of blood culture N 01/01/25 January 03, 2025 6:27:00 AM UTC (TECH: ME) 26535-9 Time at blood draw N 1719 S eptember 2024 6:27:00 AM UTC (TECH: ME) 14839-0 Date of blood culture N CHEST PORT January 03, 2025 6:27:00 AM UTC (TECH: ME) 69282-7 Date of blood culture N [id number] January 03, 2025 6:27:00 AM UTC (TECH: ME) 62090-6 Gram positive bacter ia identified [Interpretation] by Probe in Positive blood culture N PASS PASS January 03 6:27:00 AM UTC (TECH: ME) 26408-4 Gram negative bacill i identified in Isolate by Organism specific culture N PASS PASS January 03 6:27:00 AM UTC (TECH: ME) LABORATORY NARRATIVE RESULTS Information is not available RADIOLOGY RESULTS Information is not available PATHOLOGY NARRATIVE RESULTS Information is not available MICROBIOLOGY RESULTS ORDER 300: CULTURE URINE (LO INC: 630-4) ORDER DATE: January 01, 2025 8:36:00 PM UTC PERFORMING LAB: [address] [id number] Specimen Source: URINE Specimen Type: Result Comment: January 02, 2025 10:49:00 AM UTC (TECH: JCG) INSUFFICIENT GROWTH; REINCUBATE Result Comment: January 03, 2025 12:15:00 PM UTC (TECH: JCG) 30,000 [place] Count Gram Negative Rods Final Result Date: January 04, 2025 12:33:00 PM UTC (TECH: JCG) ISOLATE #1 Organism: Escherichia coli Result Comment: Final Result Date: January 04, 2025 12:33:00 PM UTC (TECH: JCG) SEVEN ANTIBIOTIC CORINNE TYPE VALUE UPDATED B Y Amikacin <= 16.0 Systemic S January 04, 2025 12:33:00 PM UTC (TECH: JCG) Amikacin <= 16.0 Urine S January 04, 2025 12:33:00 PM UTC (TECH: JCG) 24511-8 Amox/K Clav <= 0.0 Systemic S Septembe r 2024 12:33:00 PM UTC (TECH: JCG) 84043-9 Amox/K Clav <= 0.0 Urine S Septembe 2024 12:33:00 PM UTC (TECH: JCG) 47744-8 Ampicillin <= 8.0 Systemic S January 04, 2025 12:33:00 PM UTC (TECH: JCG) 17059-6 Ampicillin <= 8.0 Urine S January 04, 2025 12:33:00 PM UTC (TECH: JCG) 75593-4 Amp/Sulbactam <= 0.0 Systemic S Septem 2024 12:33:00 PM UTC (TECH: JCG) 77338-3 Amp/Sulbactam <= 0.0 Urine S Septem 2024 12:33:00 PM UTC (TECH: JCG) 03194-7 Aztreonam <= 4.0 Systemic S January 04, 2025 12:33:00 PM UTC (TECH: JCG) 02892-9 Aztreonam <= 4.0 Urine S January 04, 2025 12:33:00 PM UTC (TECH: JCG) Cefotaxime-ESBL <= 1.0 Systemic Sept ember 2024 12:33:00 PM UTC (TECH: JCG) Cefepime <= 2.0 Systemic S January 04, 2025 12:33:00 PM UTC (TECH: JCG) Cefepime <= 2.0 Urine S January 04, 2025 12:33:00 PM UTC (TECH: JCG) Ertapenem <= 0.5 Systemic S January 04, 2025 12:33:00 PM UTC (TECH: JCG) Ertapenem <= 0.5 Urine S January 04, 2025 12:33:00 PM UTC (TECH: JCG) Levofloxacin <= 2.0 Systemic S Septemb er 2024 12:33:00 PM UTC (TECH: JCG) Levofloxacin <= 2.0 Urine S Septemb er 2024 12:33:00 PM UTC (TECH: JCG) Meropenem <= 1.0 Systemic S January 04, 2025 12:33:00 PM UTC (TECH: JCG) Meropenem <= 1.0 Urine S January 04, 2025 12:33:00 PM UTC (TECH: JCG) Minocycline <= 4.0 Systemic S Septembe r 2024 12:33:00 PM UTC (TECH: JCG) Minocycline <= 4.0 Urine S Septembe r 2024 12:33:00 PM UTC (TECH: JCG) 45901-5 Cefazolin <= 2.0 Systemic S January 04, 2025 12:33:00 PM UTC (TECH: JCG) 57816-7 Cefazolin <= 2.0 Urine S January 04, 2025 12:33:00 PM UTC (TECH: JCG) 32594-9 Cefotaxime <= 2.0 Systemic S January 04, 2025 12:33:00 PM UTC (TECH: JCG) 75910-1 Cefotaxime <= 2.0 Urine S January 04, 2025 12:33:00 PM UTC (TECH: JCG) 95821-2 Cefotetan <= 16.0 Systemic S January 04, 2025 12:33:00 PM UTC (TECH: JCG) 37895-9 Cefotetan <= 16.0 Urine S January 04, 2025 12:33:00 PM UTC (TECH: JCG) 38288-0 Ceftazidime <= 1.0 Systemic S Septembe r 2024 12:33:00 PM UTC (TECH: JCG) 17191-7 Ceftazidime <= 1.0 Urine S Septembe r 2024 12:33:00 PM UTC (TECH: JCG) 19484-6 Ceftriaxone <= 1.0 Systemic S Septembe r 2024 12:33:00 PM UTC (TECH: JCG) 46915-7 Ceftriaxone <= 1.0 Urine S Septembe r 2024 12:33:00 PM UTC (TECH: JCG) 04532-8 Ciprofloxacin <= 1.0 Systemic S Septem melanie 2024 12:33:00 PM UTC (TECH: JCG) 24067-7 Ciprofloxacin <= 1.0 Urine S Septem melanie 2024 12:33:00 PM UTC (TECH: JCG) 47272-4 Gentamicin <= 4.0 Systemic S January 04, 2025 12:33:00 PM UTC (TECH: JCG) 94626-6 Gentamicin <= 4.0 Urine S January 04, 2025 12:33:00 PM UTC (TECH: JCG) 66685-0 Nitrofurantoin <= 32.0 Systemic S Septe mber 2024 12:33:00 PM UTC (TECH: JCG) 63273-2 Nitrofurantoin <= 32.0 Urine S Septe mber 2024 12:33:00 PM UTC (TECH: JCG) 80457-4 Pip/Tazo <= 16.0 Systemic S January 04, 2025 12:33:00 PM UTC (TECH: JCG) 97564-9 Pip/Tazo <= 16.0 Urine S January 04, 2025 12:33:00 PM UTC (TECH: JCG) 39439-3 Tetracycline <= 4.0 Systemic S Septemb er 2024 12:33:00 PM UTC (TECH: JCG) 76702-2 Tetracycline <= 4.0 Urine S Septemb er 2024 12:33:00 PM UTC (TECH: JCG) 23156-3 Tobramycin <= 4.0 Systemic S January 04, 2025 12:33:00 PM UTC (TECH: JCG) 15552-8 Tobramycin <= 4.0 Urine S January 04, 2025 12:33:00 PM UTC (TECH: JCG) 71593-4 Trimeth/Sulfa <= 0.0 Systemic S Septem melanie 2024 12:33:00 PM UTC (TECH: JCG) 17227-6 Trimeth/Sulfa <= 0.0 Urine S Septem melanie 2024 12:33:00 PM UTC (TECH: JCG) ORDER 500: CULTURE BLOOD (LO INC: 600-7) ORDER DATE: January 01, 2025 9:10:00 PM UTC PERFORMING LAB: [address] [id number] Specimen Source: Specimen Type: Result Comment: January 02, 2025 7:41:00 PM UTC (TECH: KAC) NO GROWTH 24 HOURS Result Comment: January 04, 2025 10:54:00 AM UTC (TECH: KAC) Coagulase Positive Staphylococcus Final Result Date: January 05, 2025 11:52:00 AM UTC (TECH: KAC) ISOLATE #1 Organism: Staphylococcus aureus Result Comment: Final Result Date: January 05, 2025 11:52:00 AM UTC (TECH: KAC) SEVEN ANTIBIOTIC CORINNE TYPE VALUE UPDATED B Y 94965-8 Amox/K Clav <= 0.0 Systemic S Septembe r 2024 11:52:00 AM UTC (TECH: KAC) 63539-2 Ampicillin >8.0 Systemic R January 05, 2025 11:52:00 AM UTC (TECH: KAC) 54769-2 Amp/Sulbactam <= 0.0 Systemic S Septem melanie 2024 11:52:00 AM UTC (TECH: KAC) Cefoxitin Screen <= 4.0 Systemic S Sep tember 2024 11:52:00 AM UTC (TECH: KAC) Levofloxacin <= 1.0 Systemic S Septemb er 2024 11:52:00 AM UTC (TECH: KAC) Moxifloxacin <= 0.5 Systemic S Septemb er 2024 11:52:00 AM UTC (TECH: KAC) 53659-6 Cefazolin <= 4.0 Systemic S January 05, 2025 11:52:00 AM UTC (TECH: KAC) 75257-6 Ciprofloxacin <= 1.0 Systemic S Septem melanie 2024 11:52:00 AM UTC (TECH: KAC) 55136-3 Clindamycin <= 0.5 Systemic S Septembe r 2024 11:52:00 AM UTC (TECH: KAC) 43138-6 Erythromycin <= 0.5 Systemic S Septemb er 2024 11:52:00 AM UTC (TECH: KAC) 81961-1 Gentamicin <= 4.0 Systemic S January 05, 2025 11:52:00 AM UTC (TECH: [facility]) 89600-5 Oxacillin 1.0 Systemic S January 05, 2025 11:52:00 AM UTC (TECH: [employer]) 87146-2 Penicillin >8.0 Systemic R January 05, 2025 11:52:00 AM UTC (TECH: [facility]) 67446-1 Rifampin <= 1.0 Systemic S January 05, 2025 11:52:00 AM UTC (TECH: KAC) 33298-5 Tetracycline <= 4.0 Systemic S Septemb er 2024 11:52:00 AM UTC (TECH: [facility]) 92528-0 Trimeth/Sulfa 0.5 Systemic S Septem melanie 2024 11:52:00 AM UTC (TECH: KAC) 71120-1 Vancomycin 1.0 Systemic S January 05, 2025 11:52:00 AM UTC (TECH: KAC) ORDER 600: CULTURE BLOOD(AER ,MARIBEL) (LOINC: 600-7) ORDER DATE: January 01, 2025 9:10:00 PM UTC PERFORMING LAB: [address] [id number] Specimen Source: BLOOD Specimen Type: Result Comment: January 02, 2025 7:41:00 PM UTC (TECH: JCG) NO GROWTH 24 HOURS Result Comment: January 03, 2025 1:49:00 PM UTC (TECH: JCG) Coagulase Positive Staphylococcus Final Result Date: January 04, 2025 12:34:00 PM UTC (TECH: JCG) ISOLATE #1 Organism: Staphylococcus aureus Result Comment: Final Result Date: January 04, 2025 12:34:00 PM UTC (TECH: JCG) DEBORAHINC ANTIBIOTIC CORINNE TYPE VALUE UPDATED B Y 40852-2 Amox/K Clav <= 0.0 Systemic S Septembe r 2024 12:34:00 PM UTC (TECH: JCG) 67335-8 Ampicillin >8.0 Systemic R January 04, 2025 12:34:00 PM UTC (TECH: JCG) 68881-4 Amp/Sulbactam 0.0 Systemic I Septem melanie 2024 12:34:00 PM UTC (TECH: JCG) Cefoxitin Screen <= 4.0 Systemic S Sep tember 2024 12:34:00 PM UTC (TECH: JCG) Levofloxacin <= 1.0 Systemic S Septemb er 2024 12:34:00 PM UTC (TECH: JCG) Moxifloxacin <= 0.5 Systemic S Septemb er 2024 12:34:00 PM UTC (TECH: JCG) 54937-9 Cefazolin <= 4.0 Systemic S January 04, 2025 12:34:00 PM UTC (TECH: JCG) 14678-1 Ciprofloxacin <= 1.0 Systemic S Septem melanie 2024 12:34:00 PM UTC (TECH: JCG) 42393-3 Clindamycin <= 0.5 Systemic S Septembe r 2024 12:34:00 PM UTC (TECH: JCG) 96740-4 Erythromycin <= 0.5 Systemic S Septemb er 2024 12:34:00 PM UTC (TECH: JCG) 84817-0 Gentamicin <= 4.0 Systemic S January 04, 2025 12:34:00 PM UTC (TECH: JCG) 71282-6 Oxacillin 1.0 Systemic S January 04, 2025 12:34:00 PM UTC (TECH: JCG) 46250-1 Penicillin >8.0 Systemic R January 04, 2025 12:34:00 PM UTC (TECH: JCG) 08838-7 Rifampin <= 1.0 Systemic S January 04, 2025 12:34:00 PM UTC (TECH: [facility]) 68833-1 Tetracycline <= 4.0 Systemic S 2024 12:34:00 PM UTC (TECH: JCG) 42113-7 Trimeth/Sulfa 0.5 Systemic S 2024 12:34:00 PM UTC (TECH: JCG) 63555-8 Vancomycin 2.0 Systemic S January 04, 2025 12:34:00 PM UTC (TECH: JCG) BLOOD ADMIN RESULTS Information is not available MEDICATIONS HOME MEDICATIONS Status RXNORM NDC Medication Dose Route Frequency Dates Comments Reported By Updated By Active [id number] 36709 20224 1 amitriptylin e 50 mg tablet 50.0 MG ORAL BEDTIME [facility]: [id number] 8:23[facility]26 PM UTC Active 727949 10859 71311 0 dicyclomine 20 mg tablet 20.0 MG ORAL QIDPRN Last D[facility]: [id number] [facility] 8:23:26 PM [place] Active 657295 39500 50045 2 famotidine 20 mg tablet 20.0 MG ORAL DAILY Last D[facility]: [id number] [facility] 8:23:26 PM UTC Active 504131 21392 95737 1 hydroxyzine HCl 50 mg tablet 50.0 MG ORAL PRN [facility]: [id number] 8:[facility]26 PM UTC Active 472610 11562 73281 0 sucralfate (CARAFATE) 1 GM 1.0 GM ORAL DAILY Last D[facility]: [id number] [facility] 8:23:26 PM [place] Active 956168 07579 62805 1 oxcarbazepin e 300 mg tablet 300.0 MG ORAL BID Last Dose: [id number] [facility] 8:23:27 PM UTC Active 874557 58990 77658 0 lamotrigine 200 mg tablet 200.0 MG ORAL BEDTIME Last D[facility]: [id number] [facility] 8:23:27 PM UTC Active 601741 11448 45394 8 tamsulosin (FLOMAX) 0.4 MG 0.4 MG ORAL DAILY Last Dose: [id number] on 2024 8:23:27 PM UT Active 474283 98838 43814 0 tranexamic acid (LYSTEDA) 650 MG 1300. 0 TAB ORAL TIDPRN Last Dose: bleeding [id number] on 2024 8:23:27 PM UT Active 5824118 39110 91359 2 HUMATE-P 937 IU 6000. 0 UNT INTRAV ENOUS PRN Last Dose: use when having a bleed [id number] on 2024 8:23:27 PM UT Active FreeT extMe d Ondansetron HCl Tablet 4 MG 1.0 TAB ORAL TIDPRN Last Dose: [id number] on 2024 8:23:27 PM UT Active 067325 23833 70530 1 folic acid (FOLATE) 1 MG 1.0 MG ORAL DAILY Last Dose: [id number] on 2024 8:23:27 PM UT Active 2682621 41649 57847 6 etonogestrel -ethinyl estradiol 0.12-0.015 mg/24 hr Ring, 0.0 VAGINA L Last Dose: [id number] on 2024 8:23:28 PM UT Active 685965 68490 42797 9 gabapentin 300 mg capsule 600.0 MG ORAL DAILY Last Dose: [id number] on 2024 8:23:28 PM [facility] DISCHARGE MEDICATIONS Status RXNORM [facility] Medication Dose Route Frequency Dates Dis pense Data Comments Physician Updated By No Discharge Medication Info rmation Available [facility] Dose Route Frequency Rat e Quantity Dates Indication Dispense Data Comments Physician Updated By Discont inued [id number] 3285 9438 201 droperidol (INAPSINE) 2.5 MG/ML SOLN 5.0 MG INTRAV ENOUS ONE TIME ONLY (SCHEDULED DOSE) Start: 2024 7:17:0 0 PM [place] End: 2024 7:17:[facility] 7:17[facility]00 PM [place] Discont inued 1636789 8252 9733 201 cefTRIAXone (ROCEPHIN) 1 GM SOLR 1.0 GM INTRAV ENOUS ONE TIME ONLY (SCHEDULED DOSE) Start: 2024 9:06:0 0 PM UTC End: 2024 9:06:0 0 PM [facility] ED on 2024 9:05:00 PM UT Discont inued [id number] 6609 5613 000 ondansetron (ZOFRAN) INJ 4 MG/2 ML SOLN 4.0 MG INTRAV ENOUS ONE TIME ONLY (SCHEDULED DOSE) Start: 2024 9:06:0 0 PM UTC End: 2024 9:06:0 [facility] 9:05:00 PM UT Discont inued 6360327 0051 7970 201 droperidol (INAPSINE) 2.5 MG/ML SOLN 5.0 MG INTRAV ENOUS ONE TIME ONLY (SCHEDULED DOSE) Start: 2024 11:02: 00 PM UTC End: 2024 11:02: 00 [facility] 11:01:00 PM UT SOCIAL HISTORY SOCIAL HISTORY - Smoking Status SNOMED-CT Social History Element Description Effective Dates Offered Cessation Comment Updated By [id number] Current Tobacco smoking status Never Smoked [id number] on January 01, 2025 6:29:51 PM [facility] [id number] Historical Tobacco smoking status Unknown If Ever Smoked [id number] on November 06, 2024 8:05:16 AM [facility] SOCIAL HISTORY - Gender Sex: Female SOCIAL HISTORY - Status : status i nformation is not available Intention in Next Year: intention information is not available SOCIAL HISTORY - Assessments Code System Description Status Date Value of Assessment Updated By Comment Assessment Information is no t available SOCIAL HISTORY - [place] Affiliation [place] information is not av ailable SOCIAL HISTORY [...] for each vital sign as of January 06, 2025 2:04:43 AM UTC Loinc Code Vital Sign Activity Date Result Updated By 8310-5 Body temperature January 01 6:24:00 PM UTC 98.3 [degF] 8462-4 Diastolic blood pressure [facility] 2024 11:20:00 PM UTC 79.0 mm[Hg] 8867-4 Heart rate January 01 11:20:00 PM UTC 98 /min 25791-5 Oxygen saturation in Arterial blood by Pulse oximetry January 01, 2025 11:20:00 PM UTC 100.0 % 9279-1 Respiratory rate January 01 6:24:00 PM UTC 18 /min 8480-6 Systolic blood pressure [facility] 2024 11:20:00 PM UTC 119.0 mm[Hg] PEDIATRIC GROWTH CHART - VITAL SIGNS [...] available. ENCOUNTERS ENCOUNTER INFORMATION Reason for Visit ABDOMINAL PAIN Admission January 01, 2025 6:24:00 PM UTC [address] [id number] Discharge January 01, 2025 11:32:00 PM UT C DISCHARGED TO HOME OR SELF CARE ENCOUNTER DIAGNOSES Notes information is not cristiano ilable. Code System Diagnosis Onset Date Diagnosis information is not available. ABSTRACT DIAGNOSES Code System Diagnosis Updated By Abatement Date R10.9 ICD10 UNSPECIFIED ABDOMINAL PAIN N [id number] on January 03, 2025 4:30:05 AM UT R11.2 ICD10 NAUSEA WITH VOMI TING, UNSPECIFIED [id number] on January 03, 2025 4:30:05 AM UT R10.9 ICD10 UNSPECIFIED ABDOMINAL PAIN N [id number] on January 03, 2025 4:30:05 AM UT G89.29 ICD10 OTHER CHRONIC PAIN [id number] o n January 03, 2025 4:30:05 AM UT R11.2 ICD10 NAUSEA WITH VOMI TING, UNSPECIFIED [id number] on January 03, 2025 4:30:05 AM UTC F41.9 ICD10 ANXIETY DISORDER, UNSPECIFIE D [id number] on January 03, 2025 4:30:05 AM UTC F32.A ICD10 DEPRESSION, UNSPECIFIED [id number] on January 03, 2025 4:30:05 AM UT M79.7 ICD10 FIBROMYALGIA [id number] on Dec 4:30:05 AM UT F43.10 ICD10 POST-TRAUMATIC S TRESS DISORDER, UNSPECIFIED [id number] on January 03, 2025 4:30:05 AM UT Z88.0 ICD10 ALLERGY STATUS TO PENICILLIN [id number] on January 03, 2025 4:30:05 AM UT Z88.6 ICD10 ALLERGY STATUS T O ANALGESIC AGENT [id number] on January 03, 2025 4:30:05 AM UT Z91.040 ICD10 LATEX ALLERGY STATUS [id number] on January 03, 2025 4:30:05 AM UT Z88.1 ICD10 ALLERGY STATUS T O OTHER ANTIBIOTIC AGENTS [id number] on January 03, 2025 4:30:05 AM UT Z88.8 ICD10 ALLERGY STATUS T O OTHER DRUGS, MEDICAMENTS AND BIOLOGICAL SUBSTANCES [id number] on January 03, 2025 4:30:05 AM UT Z79.899 ICD10 OTHER DETENTION (CURRENT) DRUG THERAPY [id number] on January 03, 2025 4:30:05 AM UT Z90.49 ICD10 ACQUIRED ABSENCE OF OTHER SPECIFIED PARTS OF DIGESTIVE TRACT [id number] on January 03, 2025 4:30:05 AM [facility] CARE TEAM Care Erp Specialist Role SILVINO ANN Primary Care SILVINO ANN Referring MATT CANALES Admitting MATT CANALES 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 Role on Team Location Telecom Status Start Date End Branden e Updated By MARISSA DUBOIS Referring normal January 01, 2025 7:04:53 PM [facility] January 01, 2025 11:32:00 PM [facility] [id number] on January 01, 2025 7:04:53 PM [facility] normal January 01, 2025 7:04:53 PM [facility] January 01, 2025 11:32:00 PM UTC [id number] on January 01, 2025 7:04:53 PM UTC PARKER GUTIERREZ Admitting normal January 01, 2025 7:04:53 PM UTC January 01, 2025 11:32:00 PM UTC [id number] on January 01, 2025 7:04:53 PM UTC MARISSA DUBOIS PCP normal January 01, 2025 6:24:31 PM UTC January 01, 2025 11:32:00 PM UTC [id number] on January 01, 2025 7:04:53 PM UTC
--- OUTSIDE RECORDS SUMMARY | 2025-01-10 13:30 | XMS_ITS | Encounter Summary ---
Author Organization Healthcare Address [address] [place] [address] Care Team Providers Care Exercise Instruct Name Role Phone Justino Zheng MD Primary Care Provider [phone] Encounter Details Date Type Department Care Team (Latest Contact Info) Description 01/10/2025 1:30 PM EDT Office Visit [facility] Vascular Interventional Radiology [address] [place] [address] Hiral Tatum S, FLATWORK FOLDER [address] [place] [address] Port-A-Cath in place (Primary Dx); Von Willebrand disease (CMS/HCC) Social History Tobacco Use Types Packs/Day Years Used Date Smoking Tobacco: Never Passive Smoke Exposure: Yes Smokeless Tobacco: Never Alcohol Use Standard Drinks/Week Comments Not Currently 0 (1 standard drink = 0.6 oz pur e alcohol) PHQ-2 Answer Date Recorded Patient Health Questionnaire-2 Score 1 09/08/2023 Comments No Sex and Gender Information Value Date Recorded Sex Assigned at Female 11/13/2020 2:32 PM EDT Legal Sex Female 8:27 PM EDT Gender Identity Female 06/23/2021 5:20 PM EST Sexual Orientation Straight 11/13/2020 2: 32 PM EDT documented as of this encounter Last Filed Vital Signs Vital Sign Reading Time Taken Comments Blood Pressure 139/88 01/10/2025 2:13 PM EDT Pulse 111 01/10/2025 2:13 PM EDT Temperature 36.9 C (98.5 F) 01/10/2025 2:13 PM EDT Respiratory Rate - - Oxygen Saturation 98% 01/10/2025 2:13 PM EDT Inhaled Oxygen Concentration - - Weight 87.9 kg (193 lb 12.6 oz) 01/10/2025 2:13 PM EDT Height - - Body Mass Index 36.62 10/14/2023 7:00 AM EDT documented in this encounter Miscellaneous Notes * Progress Notes - Hiral Tatum, FLATWORK FOLDER - 01/10/2025 1:30 PM EDT Images from the original note were not included. Merced Hays presents today for port evaluation. Subjective History of Present Illness: HPI Merced Hays is a 29 y.o. female who presents right pain and concern for infection of right chest port. Patient underwent port placement with VIR on 10/13 under [place] as she requires IV fluids and factor IVtherapy prn. Per patient, she recently visited local ED where port access was attempted; RN attempted to rotate port due to concern for malposition. Since that incident, patient has experienced excruciating pain related to port; her hair brushing over it is said to cause discomfort. Has not had port accessed since incident. Denies fevers/chills, chest pain or SOA. She does have ecchymosis to right chest. Denies redness or drainage from port. Allergies: Banana, Food, Grapefruit extract, Latex, Other, Duloxetine hcl, Amoxicillin, Aspirin, Banana concentrate [flavoring agent (non-screening)], Cetirizine, Desmopressin, Duloxetine, Erythromycin, Ibuprofen, Ketorolac, Ketorolac tromethamine, Alpha, and Alpha extract Medications: Current Medications[1] Past Surgical History: Merced has a past surgical history that includes Ankle surgery (N/A); Cholecystectomy (N/A); oral surgery (N/A); Other surgical history (N/A); Other surgical history (N/A); Other surgical history (N/A); Other surgical history (N/A); Other surgical history (N/A); Other surgical history (N/A); Portacath placement; orthopedic surgery; and Trigger point injection. Past Medical History: She has a past medical history of Acute bronchitis, unspecified, Acute sinusitis, unspecified, Acute suppurative otitis media without spontaneous rupture of ear drum, unspecified ear, Anemia, Anxiety, Bleeding disorder ([facility]/HCC) ( 1996), Chills (without fever), Coagulation defect, unspecified ([facility]), Complex regional pain syndrome I (18 years old), Conversions - Other, Conversions - Other, Conversions - Other, Conversions - Other, Conversions - Other, Depression (N/A), Disease of stomach and duodenum, unspecified, Dizziness and giddiness, Dysuria, Lamar-Danlos syndrome, unspecifi ed, Encounter for contraceptive management, unspecified, Extremity pain, Fibromyalgia, primary, GERD (gastroesophageal reflux disease), Joint pain, Kidney stone, Leg pain, Migraine, unspecified, not intractable, without status migrainosus, Neck pain, Pain in unspecified foot, Personal history of diseases of the blood and blood-forming organs and certain disorders involving the immune mechanism, Personal history of other (healed) physical injury and trauma, Personal history of other diseases of the digestive system, Personal history of other diseases of the musculoskeletal system and connective tissue, Personal history of other diseases of the musculoskeletal system and connective tissue, Personal history of other diseases of the nervous system and sense organs, Personal history of other mental and behavioral disorders, Personal history of other specified conditions, Personal history of urinary (tract) infections, Personal history of urinary (tract) infections, Personal history of urinary calculi, TMJ dysfunction, and Tuberculosis of spine. Past Family History: Herfamily history includes Alcohol abuse in her maternal grandfather; Anxiety disorder in an other family member; Arthritis in her maternal grandfather, maternal grandmother, and another family member; Asthma in her maternal grandmother and another family member; Autoimmune disease in her mother and sister; Breast cancer in an other family member; COPD in her maternal grandfather; Cancer in her maternal grandmother; Clotting disorder in an other family member; Conversions - Other in her father,mother, and another family member; Depression in her mother; Developmental delay in her sister; Drug abuse in her maternal grandfather; Endometriosis in her mother; Hearing loss in her maternal grandfather and sister; Heart disease in her sister; Intellectual Disability in her sister; Joint pain/problems in an other family member; Kidney Infection in an other family member; Mental illness in her maternal grandfather and paternal grandmother; Migraines in her mother; Miscarriages / Stillbirths in her mother; Seizures in her sister; Thyroid disease in her mother; Vision loss in her sister. Past Social History: She reports that she has never smoked. She has been exposed to tobacco smoke. She has never used smokeless tobacco. She reports that she does not currently use alcohol. She reports current drug use. Drug: Marijuana. Review of Systems: 14 point ROS negative except for above. Objective Physical Exam: Vitals: 01/10/25 1413 BP: 139/88 Pulse: (!) 111 Temp: 36.9 ??C (98.5 ??F) SpO2: 98% Physical Exam GENERAL: No acute distress EYES: No scleral icterus or conjunctivitis HENT: Atraumatic, normocephalic RESP/CHEST: Symmetric expansion; non labored. CARD: regular rate and rhythm Extremities: No edema, no cyanosis or clubbing. GI: No organomegaly or masses. Soft, Nontender, nondistended. SKIN: No rash, sores, lesions or subcutaneous nodules. 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 Public Health Nurse: Sandip Townsend MD Supervising Attending: Mahogany Schneider MD Nurse: JUNI Odonnell Technologist: Marcus Cummings Rad Dose: 7 mGy Fluoroscopy Time: 0.9 minutes Medications: General anesthesia was provided. 1% Lidocaine SQ. Antibiotics: Clindamycin Duration of procedure: Time out: 11:07 AM close out: 11:42 AM Procedure: After discussion of risks and benefits, informed written consent was obtained. Appropriate time outwas done to confirm patient identity and planned procedure. The patient was placed supine on the fluoro table. Monument Setter Helper ultrasonography revealed the vein to be compressible and patent. An electronic image thereof has been stored in PACS. Strict hand hygiene protocol was observed with the operators doing a surgical hand scrub. All personnel in the room were attired in surgical hat and mask. The operators were in surgical hat, mask, sterile gloves and gowns. The site was prepped with 2% chlorhexidine for cutaneous antisepsis, followed by sterile barrier draping. Conscious sedation was initiated. Local anesthetic was administered. The right internal jugular vein was visualized with US and punctured with a 21 gauge Micropuncture needle under guidance. The visualized portion of the vein was normal. A 0.018 soft tipped wire was then placed into the SVC under fluoroscopic guidance. Over the wire a 4Fr Micropuncture sheath was placed. A subcutaneous pocket wasthen created in the soft tissues of the chest several centimeters caudal to the clavicle. Lidocainewas then used to anesthetize a tract from the pocket to the puncture site at the base of the neck. A blunt tunneling device was then used to pass the port tubing from the pocket to the access site. The pocket was irrigated with antibiotic laced saline, and the port placed. Through the 4Fr sheath a 0.035 guidewire was advanced into the IVC under fluoroscopic guidance, the tract sequentially dilated, and finally over the wire a peel away sheath was placed, and the wire removed. While the patient maintained positive thoracic pressure, the tubing was passed into the SVC and the peel awayremoved. Tip position was recorded with a single digital spot image. The port was aspirated, flushed with saline, and then packed with heparinized saline at a concentration of 100 units/mL, in an amount appropriate for the port and tubing volume. The subcutaneous tissues overlying the port were closed with interrupted 3-0 Vicryl. Dermabond was then applied to the incisions. The patient tolerated the procedure well with no evidence of complication. COMPARISON: None. FINDINGS: Patent R IJV COMPLICATION: None immediate. Impression: Successful ultrasound and fluoroscopically guided placement of subcutaneous slim chest port; line is ready for use. Tip is at cavoatrial junction. CRITICAL RESULT: No. COMMUNICATION: Per this written report. Preliminary report signed by Sandip Townsend M.D. on 10/14/2023 12:13 PM By electronically signing this report, I, the attending physician, attest that I was present for the reilly and critical portions of the procedure(s) and agree with the final edited report. Drafted by Sandip Townsend M.D. on 10/14/2023 12:06 PM Final report signed by Mahogany Schneider MD on 10/14/2023 2:24 PM Labs: Lab Results Component Value Date WBC 6.9 09/16/2017 HGB 12.7 09/16/2017 HCT 40.3 09/16/2017 PLT 392 (H) 09/16/2017 Lab Results Component Value Date NA 146 (H) 04/01/2015 K 4.5 04/01/2015 CL 110 (H) 04/01/2015 CO2 24 04/01/2015 BUN 8 04/01/2015 CREATININE 0.66 04/01/2015 GLUCOSE 95 04/01/2015 Lab Results Component Value Date MG 1.8 09/13/2013 PHOS 4.4 09/16/2013 Lab Results Component Value Date AST 51 (H) 09/13/2013 ALT 17 09/13/2013 ALKPHOS 46 (L) 09/13/2013 Lab Results Component Value Date APTT 30 09/13/2013 INR 09/13/2013 1.0 (NOTE) OPTIMAL INR RANGES FOR PATIENT ON ORAL ANTICOAGULANT THERAPY Prevention of venous thromboembolism INR 2.0 to 3.0 In patients with heart disease: Atrial fibrillation INR 2.0 to 3.0 Valvular heart disease INR 2.0 to 3.0 Tissue heart valves INR 2.0 to 3.0 Mechanical prosthetic valves INR 2.5 to 3.5 Prevention of recurrent ME INR 2.5 to 3.5 Assessment/Plan Medical Decision Making/Plan: Von Willebrand's disease Lamar danlos syndrome Difficult vascular access Port a cath in place, subsequent encounter -Requires frequent factor IV infusions. -07/05/22: Port placement in [place]. Single lumen power port -02/04/23: Port removed due to dehiscence. Given Humate-P prior to procedure. - Reportedly, per mother and patient, she receives factor IV PRN and IV fluids 3 times a week. -Sabianism - patient had port placed with IR on 10/13 with [place] - Patient recently had attempted port access in local ED; RN attempted rotate port due to concernedfor port being flipped - Patient with severe pain associated with right chest port since manipulation; PE reveals bruisingwithout overt signs of infection - CXR today with port in appropriate position Obesity -BMI 38 -Complicates all aspects of care. PLAN: - Based on physical examination of port, I am not concerned for infection as patient underwent traumatic manipulation of port coupled with patient's hx of chronic pain syndrome. Patient remains HDS and afebrile. - CXR obtained today show port in is appropriate position ie. Not flipped - Patient to return to clinic in 2 weeks if pain persists for possible removal Assessment & Plan Port-A-Cath in place Orders: XR Chest 2 Views; Future Von Willebrand disease (CMS/HCC) I spent >52 minutes on this encounter; including preparing to see the patient, which involved review/interpretation of diagnostics and reports; obtaining and/or reviewing separately obtained history; performing appropriate physical exam; communicating finding, reviewing labs/imaging, counseling/educating the patient; documentation in EMR; and formulating subsequent treatment plan. Thank you for allowing me to participate in the care of Merced Hays. Hiral Tatum APRN Vascular & Interventional Radiology [1] Current Outpatient Medications: amitriptyline (Elavil) 50 MG tablet, Take by mouth every night., Disp: , Rfl: celecoxib (CeleBREX) 200 MG capsule, Take by mouth 1 (one) time each day., Disp: , Rfl: dicyclomine (Bentyl) 20 MG tablet, Take by mouth 4 (four) times a day (before meals and nightly)., Disp: , Rfl: EPINEPHrine (EPIPEN IJ), Take by mouth every 6 (six) hours., Disp: , Rfl: etonogestrel-ethinyl estradiol (Nuvaring) 0.12-0.015 MG/24HR vaginal ring, Insert vaginally and leave in place for 3 consecutive weeks continuously., Disp: 1 each, Rfl: 3 famotidine (Pepcid) 20 MG tablet, Take by mouth 1 (one) time each day., Disp: , Rfl: gabapentin (Neurontin) 300 MG capsule, Take 1 capsule (300 mg) by mouth. 2 capsules BID, 3 capsulesQHS, Disp: , Rfl: lamoTRIgine (LaMICtal) 200 MG tablet, Take by mouth every night., Disp: , Rfl: omeprazole (PriLOSEC) [address] capsule, Take 1 capsule (20 mg) by mouth 1 (one) time each day. Do not crush or chew., Disp: , Rfl: ondansetron (Zofran) 8 MG tablet, Take by mouth every 8 (eight) hours if needed., Disp: , Rfl: OXcarbazepine (Trileptal) 300 MG tablet, Take by mouth 2 (two) times a day., Disp: , Rfl: tamsulosin (Flomax) 0.4 MG 24 hr capsule, Take by mouth 1 (one) time each day., Disp: , Rfl: tranexamic acid (Lysteda) 650 MG tablet tablet, Take 2 tablets (1,300 mg) by mouth 3 (three) times a day., Disp: , Rfl: Vortioxetine HBr (Trintellix,) 5 MG tablet, Take 2 tablets (10 mg) by mouth 1 (one) time each day.,Disp: , Rfl: ANTIHEMOPHILIC FACTOR-VWF IV, Take by mouth every 6 (six) hours., Disp: , Rfl: clonazePAM (KlonoPIN) 0.5 MG disintegrating tablet, Take 1 tablet (0.5 mg) by mouth 2 (two) times aday if needed for seizures., Disp: , Rfl: Daridorexant HCl (Quviviq) 50 MG tablet, Take by mouth every night., Disp: , Rfl: diazePAM (Valium) 5 MG tablet, Take by mouth every 6 (six) hours. (Patient not taking: Reported on 09/08/2023), Disp: , Rfl: fluconazole (Diflucan) 150 MG tablet, Take by mouth every 6 (six) hours. (Patient not taking: Reported on 09/08/2023), Disp: , Rfl: GABAPENTIN 100 MG/ML ORAL SUSPENSION, , Disp: , Rfl: HYDROcodone-acetaminophen ([place]) 5-325 MG tablet, Take by mouth every 6 (six) hours if needed., Disp: , Rfl: hydrOXYzine HCl (Atarax) 25 MG tablet, Take by mouth every 6 (six) hours. (Patient not taking: Reported on 09/08/2023), Disp: , Rfl: tiZANidine (Zanaflex) 4 MG capsule, Take 1 capsule (4 mg) by mouth 3 (three) times a day., Disp: , Rfl: documented in this encounter Plan of Treatment Not on file documented as of this encounter Results * XR Chest 2 Views (01/10/2025 2:04 PM EDT) Anatomical Region Laterality Modality Chest Digital Radiogra phy Impressions 01/10/2025 3:25 PM EDT No acute findings. No discrete kinking or looping of the port catheter although the angle is somewhat acute as it enters into the SVC, new from prior examination. CRITICAL RESULT: No. COMMUNICATION: Per this written report. Preliminary report signed by Sivakumar King MD on 01/10/2025 3:21 PM By electronically signing this report, I, the attending physician, attest that I have personally reviewed the images/data for the above examination(s) and agree with the final edited report. Drafted by Sivakumar King MD on 01/10/2025 3:15 PM Final report signed by Davonte Swartz MD on 01/10/2025 3:25 PM Narrative 01/10/2025 3:25 PM EDT CLINICAL INDICATION: Port malfunction TECHNIQUE: XR CHEST 2 VIEWS COMPARISON: 03/18/2015; fluoroscopic images October 14, 2023 FINDINGS: Right chest wall Port-A-Cath terminating in the distal SVC. No discrete kinking or looping of the port catheter. Unremarkable cardiac mediastinal silhouette. No consolidation. No pleural effusion or pneumothorax. Procedure Note Davonte Swartz MD - 01/10/2025 CLINICAL INDICATION: Port malfunction TECHNIQUE: XR CHEST 2 VIEWS COMPARISON: 03/18/2015; fluoroscopic images October 14, 2023 FINDINGS: Right chest wall Port-A-Cath terminating in the distal SVC. No discretekinking or looping of the port catheter. Unremarkable cardiac mediastinalsilhouette. No consolidation. No pleural effusion or pneumothorax. IMPRESSION: No acute findings. No discrete kinking or looping of the port catheteralthough the angle is somewhat acute as it enters into the SVC, new fromprior examination. CRITICAL RESULT: No. COMMUNICATION: Per this written report. Preliminary report signed by Sivakumar King MD on 01/10/2025 3:21 PM By electronically signing this report, I, the attending physician, attestthat I have personally reviewed the images/data for the aboveexamination(s) and agree with the final edited report. Drafted by Sivakumar King MD on 01/10/2025 3:15 PM Final report signed by Davonte Swartz MD on 01/10/2025 3:25 PM Hiral Tatum FLATWORK FOLDER IMG XR PROCEDURES Final Result documented in this encounter Visit Diagnoses Diagnosis Port-A-Cath in place- Primary Von Willebrand disease (CMS/HCC) Von Willebrand's disease Port-A-Cath in place documented in this encounter Additional Health Concerns Assessment Noted Time A fall risk assessment has been complete d for the patient 10/30/2020 3:45 PM EDT A Body Mass Index follow-up plan has been documented for the patient 01/17/2025 10:44 AM EDT documented as of this encounter Care Teams Exercise Instruct Relationship Specialty Start Date End Date Justino Zheng MD [address] [place] [address] PCP - General 09/15/20 documented as of this encounter
--- OUTSIDE RECORDS SUMMARY | 2025-01-10 13:57 | XMS_ITS | Encounter Summary ---
Author Organization [facility] Address [address] [place] [address] Care Team Providers Care Pet Walker Name Role Phone Justino Zheng MD Primary Care Provider Encounter Details Date Type Department Care Team (Latest Contact Info) Description 01/10/2025 1:57 PM EDT - 01/10/2025 11:59 PM EDT [facility] [address] [place] [address] Port-A-Cath in place Discharge Disposition: Home or Self Care Social History Tobacco Use Types Packs/Day Years [...] PM EDT documented as of this encounter Medications at Time of Discharge amitriptyline (Elavil) 50 MG tablet Take by mouth every night. ANTIHEMOPHILIC FACTOR-VWF IV Take by mouth every 6 (six) hours. 09/16/2017 celecoxib (CeleBREX) 200 MG capsule Take by mouth 1 (one) time each day. 11/14/2011 clonazePAM (KlonoPIN) 0.5 MG disintegrating tablet Take 1 tablet (0.5 mg) by mouth 2 (two) times a day if needed for seizures. Daridorexant HCl (Quviviq) 50 MG tablet Take by mouth every night. diazePAM (Valium) 5 MG tablet Take by mouth every 6 (six) hours. 02/25/2020 dicyclomine (Bentyl) 20 MG tablet Take by mouth 4 (four) times a day (before meals and nightly). EPINEPHrine (EPIPEN IJ) Take by mouth every 6 (six) hours. 11/14/2009 etonogestrel-ethiny l estradiol (Nuvaring) 0.12-0.015 MG/24HR vaginal ringIndications:Men strual suppression Insert vaginally and leave in place for 3 consecutive weeks continuously. 1 each 3 05/14/2021 famotidine (Pepcid) 20 MG tablet Take by mouth 1 (one) time each day. fluconazole (Diflucan) 150 MG tablet Take by mouth every 6 (six) hours. 03/05/2020 gabapentin (Neurontin) 300 MG capsule Take 1 capsule (300 mg) by mouth. 2 capsules BID, 3 capsules QHS GABAPENTIN 100 MG/ML ORAL SUSPENSION 11/14/2011 HYDROcodone-acetami nophen ([place]) 5-325 MG tablet Take by mouth every 6 (six) hours if needed. hydrOXYzine HCl (Atarax) 25 MG tablet Take by mouth every 6 (six) hours. 02/25/2020 lamoTRIgine (LaMICtal) 200 MG tablet Take by mouth every night. 09/20/2016 omeprazole (PriLOSEC) [address] capsule Take 1 capsule (20 mg) by mouth 1 (one) time each day. Do not crush or chew. ondansetron (Zofran) 8 MG tablet Take by mouth every 8 (eight) hours if needed. 06/11/2021 OXcarbazepine (Trileptal) 300 MG tablet Take by mouth 2 (two) times a day. 06/30/2021 tamsulosin (Flomax) 0.4 MG 24 hr capsule Take by mouth 1 (one) time each day. 07/21/2021 tiZANidine (Zanaflex) 4 MG capsule Take 1 capsule (4 mg) by mouth 3 (three) times a day. tranexamic acid (Lysteda) 650 MG tablet tablet Take 2 tablets by mouth 3 times a day. Vortioxetine HBr (Trintellix,) 5 MG tablet Take 2 tablets (10 mg) by mouth 1 (one) time each day. documented as of this encounter Plan of Treatment Not on file documented as of this encounter Procedures Procedure Name Priority Date/Time Associated Diagnosis Comments XR CHEST 2 VIEWS Routine 01/10/2025 2:04 PM EDT Port-A-Cath in place documented in this encounter Results * XR Chest 2 [...] Swartz MD on 01/10/2025 3:25 PM Hiral Ijeoma Tatum REVIVAL CLERK IMG XR PROCEDURES Final Result documented in this encounter Visit Diagnoses Diagnosis Port-A-Cath in place documented in this encounter Additional Health Concerns Assessment Noted Time A fall risk assessment has been complete d for the patient 10/30/2020 3:45 PM EDT A Body Mass Index follow-up plan has been documented for the patient 01/17/2025 10:44 AM EDT documented as of this encounter Care Teams Pet Walker Relationship Specialty Start Date End Date Justino Zheng MD [address] [place] [address] PCP - General 09/15/20 documented as of this encounter
--- OUTSIDE RECORDS SUMMARY | 2025-01-21 11:00 | XMS_ITS | Encounter Summary ---
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 C-reactive Protein (01/21/2025 12:03 PM EDT) C-Reactive Protein 0.96(H) 0.00 - 0.50 mg/dL 01/21/2025 3:14 PM EDT [facility] Blood Venipuncture / Unknown 01/21/2025 12:03 PM EDT 01/21/2025 12:06 PM EDT Eliza Mckinney PA-C LAB BLOOD ORDERABLES Fin al Result [facility]
[address] [place] [address], * (ABNORMAL) Comprehensive Metabolic Panel (01/21/2025 12:03 PM EDT) Glucose 84 65 - 99 mg/dL 01/21/2025 3:15 PM EDT [facility] BUN 8.0 6.0 - 20.0 mg/dL 01/21/2025 3:15 PM EDT [facility] Creatinine 0.90 0.57 - 1.00 mg/dL 01/21/2025 3:15 PM [facility] Sodium 137 136 - 145 mmol/L 01/21/2025 3:15 PM [facility] Potassium 4.2 3.5 - 5.2 mmol/L 01/21/2025 3:15 PM [facility] Chloride 106 98 - 107 mmol/L 01/21/2025 3:15 PM [facility] CO2 24.0 22.0 - 29.0 mmol/L 01/21/2025 3:15 PM [facility] Calcium 9.0 8.6 - 10.5 mg/dL 01/21/2025 3:15 PM [facility] Total Protein 7.0 6.0 - 8.5 g/dL 01/21/2025 3:15 PM [facility] Albumin 3.8 3.5 - 5.2 g/dL 01/21/2025 3:15 PM [facility] ALT (SGPT) 9 1 - 33 U/L 01/21/2025 3:15 PM [facility] AST (SGOT) 14 1 - 32 U/L 01/21/2025 3:15 PM [facility] Alkaline Phosphatase 123(H) 39 - 117 U/L 01/21/2025 3:15 PM [facility] Total Bilirubin 0.2 0.0 - 1.2 mg/dL 01/21/2025 3:15 PM [facility] Globulin 3.2 gm/dL 01/21/2025 3:15 PM [facility] A/G Ratio 1.2 g/dL 01/21/2025 3:15 PM [facility] BUN/Creatinine Ratio 8.9 7.0 - 25.0 01/21/2025 3:15 PM [facility] Anion Gap 7.0 5.0 - 15.0 mmol/L 01/21/2025 3:15 PM [facility] eGFR 89.5 >60.0 mL/min/1.7 3 01/21/2025 3:15 PM EDT [facility] Blood Venipuncture / Unknown 01/21/2025 12:03 PM EDT 01/21/2025 12:06 PM EDT [facility] - 01/21/2025 3:15 PM EDT GFR Categories in Chronic Kidney Disease (CKD) GFR Category GFR (mL/min/1.73) Interpretation G1 90 or greater Normal or high (1) G2 60-89 Mild decrease (1) G3a 45-59 Mild to moderate decrease G3b 30-44 Moderate to severe decrease G4 15-29 Severe decrease G5 14 or less Kidney failure (1)In the absence of evidence of kidney disease, neither GFR category G1 or G2 fulfill the criteria for CKD. eGFR calculation 2020 CKD-EPI creatinine equation, which does not include race as a factor us Eliza Mckinney PA-C LAB BLOOD ORDERABLES Fin al Result [facility]
[address] [place] [address], * (ABNORMAL) CBC (No Diff) (01/21/2025 12:03 PM EDT) WBC 5.16 3.40 - 10.80 10*3/mm3 01/21/2025 2:52 PM EDT [facility] RBC 4.55 3.77 - 5.28 10*6/mm3 01/21/2025 2:52 PM EDT [facility] Hemoglobin 12.7 12.0 - 15.9 g/dL 01/21/2025 2:52 PM EDT [facility] Hematocrit 39.1 34.0 - 46.6 % 01/21/2025 2:52 PM EDT [facility] MCV 85.9 79.0 - 97.0 fL 01/21/2025 2:52 PM EDT [facility] MCH 27.9 26.6 - 33.0 pg 01/21/2025 2:52 PM EDT [facility] MCHC 32.5 31.5 - 35.7 g/dL 01/21/2025 2:52 PM EDT [facility] RDW 12.0(L) 12.3 - 15.4 % 01/21/2025 2:52 PM EDT [facility] RDW-SD 37.7 37.0 - 54.0 fl 01/21/2025 2:52 PM EDT [facility] MPV 10.4 6.0 - 12.0 fL 01/21/2025 2:52 PM EDT [facility] Platelets 310 140 - 450 10*3/mm3 01/21/2025 2:52 PM EDT [facility] Blood Venipuncture / Unknown 01/21/2025 12:03 PM EDT 01/21/2025 12:06 PM EDT Eliza Mckinney PA-C LAB BLOOD ORDERABLES Fin al Result [facility]
[address] [place] [address], documented in this encounter Visit Diagnoses Diagnosis Chronic abdominal pain- Primary Abdominal pain, unspecified site Gastroesophageal reflux disease, unspecified whether esophagitis present Nausea and vomiting, unspecified vomiting type Irritable bowel syndrome with diarrhea Irritable bowel syndrome Alternating constipation and diarrhea Abdominal bloating Flatulence, eructation, and gas pain Marijuana use documented in this encounter Additional Health Concerns Assessment Noted Time PHQ-2 Depression Total Score: 1 11/17/19 24 8:48 AM EDT documented as of this encounter Care Teams Silverware Buffer Relationship Specialty Start Date End Date Justino Zheng MD [address] [place] [id number] PCP - General Family Medicine 11/05/21 documented as of this encounter
--- OUTSIDE RECORDS SUMMARY | 2025-01-21 12:40 | XMS_ITS | Encounter Summary ---
[facility] Address [address] [place] [id number] Care Team Providers Care Material Combiner Name Role Phone Justino Zheng MD Primary Care Provider + Encounter Details Date Type Department Care Team (Late st Contact Info) Description 01/21/2025 12:40 PM EDT Lab [facility] [address] [place] [id number] Chronic abdominal pain; Gastroesophageal reflux disease, unspecified whether esophagitis present; Nausea and vomiting, unspecified vomiting type; Irritable bowel syndrome with diarrhea; Alternating constipation and diarrhea; Abdominal bloating Social History Tobacco Use Types Packs/Day Years Used Date Smoking Tobacco: Never Passive Smoke Exposure: Never Smokeless Tobacco: Never Alcohol Use Standard Drinks/Week [...] on file documented as of this encounter Plan of Treatment Upcoming Encounters Date Type Department Care Team (Late st Contact Info) Description 04/16/2025 12:00 PM EST Office Visit [facility] GASTROENTEROLOGY [address] [phone] Eliza Mckinney PA-C [address] [address] 05/23/2025 1:45 PM EST Office Visit [facility] FAMILY MEDICINE [address] [place] [address] Justino Zheng MD [address] [place] [address] documented as of this encounter Procedures Procedure Name Priority Date/Time Associated Diagnosis Comments ALPHA-GAL IGE PANEL Routine 01/21/2025 1 2:03 PM EDT Chronic abdominal pain Gastroesophageal reflux disease, unspecified whether esophagitis present Nausea and vomiting, unspecified vomiting type Irritable bowel syndrome with diarrhea Alternating constipation and diarrhea Abdominal bloating PORPHYRINS, QN, RANDOM U Routine 01/21/2025 12:03 PM EDT Chronic abdominal pain PORPHOBILINOGEN, QN, RANDOM UR Routine 01/21/2025 12:03 PM EDT Chronic abdominal pain AMINOLEVULINIC ACID, URINE Routine 01/21/2025 12:03 PM EDT Chronic abdominal pain C-REACTIVE PROTEIN Routine 01/21/2025 12 :03 PM EDT Chronic abdominal pain Gastroesophageal reflux [...] - 2 ug/L 01/28/2025 12:10 PM EDT [facility] Hexacarboxyl (6-CP), Urine <1 0 - 1 ug/L 01/28/2025 12:10 PM EDT [facility] Pentacarb(5-CP) Urine <1 0 - 2 ug/L 01/28/2025 12:10 PM EDT [facility] Coproporphyrin (CP) I, Urine 6 0 - 15 ug/L 01/28/2025 12:10 PM EDT [facility] Coproporphyrin (CP) III, Urine 20 0 - 49 ug/L 01/28/2025 12:10 PM EDT [facility] Urine Urine specimen obtained by clean catch procedure / Unknown Collection / Unknown 01/21/2025 12:03 PM EDT 01/21/2025 12:06 PM EDT Narrative [facility] - 01/28/2025 12:10 PM EDT Performed at: [address] [id number] Superintendent Building: Nabila Tripathi MD, Phone: [phone] Eliza Mckinney PA-C URINE ORDERABLES Final R esult [facility] [address] [place] [address], * ALA Delta, Random Urine - Urine, Clean Catch (01/21/2025 12:03 PM EDT) Delta Aminolevulinic Acid, Urine 0.7 0.0 - 5.4 mg/L 01/23/2025 4:12 PM EDT [facility] Urine Urine specimen obtained by clean catch procedure / Unknown Collection / Unknown 01/21/2025 12:03 PM EDT 01/21/2025 12:06 PM EDT Narrative [facility] - 01/23/2025 4:12 PM EDT Test(s) 126078-[id number] Delta, Random Urine was developed and its performance characteristics determined by [facility]. It has not been cleared or approved by the Food and Drug Administration. Performed at: [address] [id number] Superintendent Building: Nabila Tripathi MD, Phone: [phone] Eliza Mckinney PA-C URINE ORDERABLES Final R esult Performing Organization Address [facility] de Phone Number [facility] [address] [place] [address], * Porphobilinogen, Qn, Random Ur - Urine, Clean Catch (01/21/2025 12:03 PM EDT) Porphobilinogen , Urine 0.1 0.0 - 2.0 mg/L 01/23/2025 4:12 PM EDT [facility] Urine Urine specimen obtained by clean catch procedure / Unknown Collection / Unknown 01/21/2025 12:03 PM EDT 01/21/2025 12:06 PM EDT Narrative [facility] - 01/23/2025 4:12 PM EDT Test(s) 667073-[id number], Qn, Random Ur was developed and its performance characteristics determined by [facility]. It has not been cleared or approved by the Food and Drug Administration. Performed at: [address] [id number] Superintendent Building: Nabila Tripathi MD, Phone: [phone] Eliza Mckinney PA-C URINE ORDERABLES Final R esult Performing Organization Address [facility] Co de Phone Number [facility] [address] [place] [address], [place] [phone] * Alpha-Gal IgE Panel (01/21/2025 12:03 PM EDT) Class Description Comment 01/25/2025 5:08 AM EDT [facility] Comment: Levels of Specific IgE Class [...] kU/L 01/25/2025 5:08 AM EDT [facility] [id number] Alpha-Gal <0.10 Class 0 kU/L 01/25/2025 5:08 AM EDT [facility] Blood Venipuncture / Unknown 01/21/2025 12:03 PM EDT 01/21/2025 12:06 PM EDT Narrative [facility] - 01/25/2025 5:08 AM EDT Performed at: [address] [place] [id number] Superintendent Building: Nabila Tripathi MD, Phone: [phone] us Eliza Mckinney PA-C LAB BLOOD ORDERABLES Fin al Result [facility] [address] [place] [address], * (ABNORMAL) C-reactive Protein (01/21/2025 12:03 PM EDT) [facility] C-Reactive Protein 0.96(H) 0.00 - 0.50 mg/dL 01/21/2025 3:14 PM EDT [facility] Blood Venipuncture / Unknown 01/21/2025 12:03 PM EDT 01/21/2025 12:06 PM EDT us Eliza HORN-C LAB BLOOD ORDERABLES Fin al Result [facility]
[address] [place] [address], documented in this encounter Visit Diagnoses Diagnosis Chronic abdominal pain Abdominal pain, unspecified site Gastroesophageal reflux disease, unspecified whether esophagitis present Nausea and vomiting, unspecified vomiting type Irritable bowel syndrome with diarrhea Irritable bowel syndrome Alternating constipation and diarrhea Abdominal bloating Flatulence, eructation, and gas pain documented in this encounter Additional Health Concerns Infection Onset Date Last Indicated Resolved Time C.difficile (rule out) 01/21/2025 01/21/202501/26 9:08 PM EDT Assessment Noted Time PHQ-2 Depression Total Score: 1 11/17/19 24 8:48 AM EDT documented as of this encounter Care Teams Material Combiner Relationship Specialty Start Date End Date Justino Zheng MD [facility] [place] [address] PCP - General Family Medicine 11/05/21 documented as of this encounter
--- OUTSIDE RECORDS SUMMARY | 2025-02-05 11:30 | XMS_ITS | Encounter Summary ---
Author Organization [facility] Address [address] [place] [address] Care Team Providers Care Autism Specialist Name Role Phone Justino Zheng MD Primary Care Provider [phone] Reason for Referral * Imaging (Routine) - Closed Specialty Diagnoses / Procedures Referred By Contac t Referred To Contact Radiology Diagnoses H/O insertion of central venous access port Procedures IR Tunneled CVC Replacement Complete Glenn Delgado MD [address] [place] [phone] Phone: tel: fax: Referral ID Status Reason Start Date Expiration Date Visits Re quested Visits Authorized [id number] Closed 02/05/2025 08/07/2026 1 1 Encounter Details Date Type Department Care Team (Latest Contact Info) Description 02/05/2025 11:30 AM EDT Office Visit [facility] V[facility] Interventional Radiology [address] [facility] [address] [place] [address] Glenn Delgado MD [address] [place] [address] H/O insertion of central venous access port (Primary Dx); Skin breakdown at port site of totally implantable venous access device (TIVAD) (CMS/HCC) Social History Tobacco Use Types Packs/Day Years Used Date Smoking Tobacco: Never Passive Smoke Exposure: Yes Smokeless Tobacco: Never Tobacco Cessation:Counseling Given: Not [...] Sign Reading Time Taken Comments Blood Pressure 130/89 02/05/2025 11:35 AM EDT Pulse 108 02/05/2025 11:35 AM EDT Temperature 36.8 C (98.3 F) 02/05/2025 11:35 AM EDT Respiratory Rate - - Oxygen Saturation 100% 02/05/2025 11:35 AM EDT Inhaled Oxygen Concentration - - Weight 91.3 kg (201 lb 4.5 oz) 02/05/2025 11:35 AM EDT Height - - Body Mass Index 38.03 10/14/2023 7:00 AM EDT documented in this encounter Miscellaneous Notes * Progress Notes - Glenn Delgado MD - 02/05/2025 11:30 AM EDT Images from the original note were not included. Merced Hays presents today for consultation as requested by No ref. provider found, regarding assessment of concern for port infection. Subjective History of Present Illness: HPI Merced Hays is a 29 y.o. year old female PMHx of ADHD, anxiety, chronic pain / fibromyalgia, HTN, migraines, OCD, PTSD, Lamar-Danlos syndrome, von Willebrand disease who receives needs terminal makeup operator CVC for frequent infusions. She has had previous port placement in the past 06/2022 and removed 01/2023 - removed due to skin dehiscence. She lives with her mother who accesses the port for her infusions. She was referred to [facility] for Port placement on 10/14/2023 with GA. On 12/26/2024 there was difficulty in accessing the port and it was reported that the port was manipulated without success and suspected the port was flipped. She presented to [facility] clinic on 01/10/2025 - and upon evaluation there was no concern for infection and CXR showed the port not to be flipped. She has not used the port since 12/26/2024. Today she presents to clinic reporting dehiscence and serous leakage from the port pocket. She showed me pictures and videos. She reports no fever/chills. We discussed given her recurrent issues with ports in the past to consider power line given her frequency of infusions, risk of infection, bleeding risk given she has Factor V def and Hinduism. Given her high anxiety will plan to perform these procedures with GA. Allergies: Banana, Food, Grapefruit extract, Latex, Other, Duloxetine hcl, Amoxicillin, Aspirin, Banana concentrate [flavoring agent (non-screening)], Cetirizine, Desmopressin, Duloxetine, Erythromycin, Ibuprofen, Ketorolac, Ketorolac tromethamine, [place], and [place] extract Medications: Current Medications[1] Past Surgical History: [...] drum, unspecified ear, Anemia, Anxiety, Bleeding disorder ([facility]) ( 1996), Chills (without fever), Coagulation defect, unspecified, Complex regional pain syndrome I (18 years old), Conversions - Other, Conversions - Other, Conversions - Other, Conversions - Other, Conversions - Other, Depression (N/A), Disease of stomach andduodenum, unspecified, Dizziness and giddiness, Dysuria, Lamar-Danlos syndrome, unspecified, Encounter for contraceptive management, unspecified, Extremity pain, Fibromyalgia, primary, GERD (gastroesophageal reflux disease), Joint pain, Kidney stone, Leg pain, Migraine, unspecified, not intractable, without status migrainosus, Muscle weakness (generalized) (06/23/15), Neck pain, Pain in unspecified foot, Personal history of diseases of the blood and blood-forming organs and certain disorders involving the immune mechanism, Personal history of other (healed) physical injury and trauma, Personal history of other diseases of the digestive system, Personal history of other diseases of the muscu loskeletal system and connective tissue, Personal history of [...] drug use. Drug: Marijuana. Review of Systems: Review of Systems 14 point ROS negative except for above. Objective Physical Exam: Vitals: 02/05/25 1135 BP: 130/89 Pulse: 108 Temp: 36.8 ??C (98.3 ??F) SpO2: 100% Physical Exam Constitutional: Appearance: Normal appearance. She is obese. Cardiovascular: Rate and Rhythm: Normal rate and regular rhythm. Pulses: Normal pulses. Heart sounds: Normal heart sounds. Pulmonary: Effort: Pulmonary effort is normal. Breath sounds: Normal breath sounds. Abdominal: General: Abdomen is flat. Bowel sounds are normal. Palpations: Abdomen is soft. Skin: Comments: Right chest port dehiscence, serous fluid expressed. No erythema or overt skin discoloration. Tender to touch slighly Neurological: Mental Status: She is alert. Imaging: XR Chest 2 Views Narrative: CLINICAL INDICATION: Port malfunction TECHNIQUE: XR CHEST 2 VIEWS COMPARISON: 03/18/2015; fluoroscopic images October 14, 2023 FINDINGS: Right chest wall Port-A-Cath terminating in the distal SVC. No discrete kinking or looping of the port catheter. Unremarkable cardiac mediastinal silhouette. No consolidation. No pleural effusion or pneumothorax. Impression: No acute findings. No discrete kinking or [...] Davonte Swartz MD on 01/10/2025 3:25 PM Labs: Lab Results Component Value Date WBC 5.16 01/21/2025 WBC 6.9 09/16/2017 HGB 12.7 01/21/2025 HGB 12.7 09/16/2017 HCT 39.1 01/21/2025 HCT 40.3 09/16/2017 PLT 310 01/21/2025 PLT 392 (H) 09/16/2017 Lab Results Component Value Date NA 137 01/21/2025 NA 146 (H) 04/01/2015 K 4.2 01/21/2025 K 4.5 04/01/2015 CL 106 01/21/2025 CL 110 (H) 04/01/2015 CO2 24 04/01/2015 BUN 8 01/21/2025 BUN 8 04/01/2015 CREATININE 0.9 01/21/2025 CREATININE 0.66 04/01/2015 GLUCOSE 84 01/21/2025 GLUCOSE 95 04/01/2015 Lab Results Component Value Date CALCIUM 9 01/21/2025 MG 1.8 09/13/2013 PHOS 4.4 09/16/2013 Lab Results Component Value Date AST 14 01/21/2025 AST 51 (H) 09/13/2013 ALT 9 01/21/2025 ALT 17 09/13/2013 ALKPHOS 46 (L) 09/13/2013 [...] INR 2.5 to 3.5 Prevention of recurrent AL INR 2.5 to 3.5 Lab Results Component Value Date COLORU Colorless 09/15/2013 CLARITYU CLEAR 09/15/2013 GLUCOSEU NEGATIVE 09/15/2013 KETONESU NEGATIVE 09/15/2013 BLOODU NEGATIVE 09/15/2013 BILIRUBINUR NEGATIVE 09/15/2013 UROBILINOGEN <2.0 09/15/2013 Assessment/Plan Medical Decision Making/Plan: Assessment & Plan H/O insertion of central venous access port Orders: IR Tunneled CVC Replacement Complete; Future Skin breakdown at port site of totally implantable venous access device (TIVAD) ([facility]) PLAN: Right chest port removal and left powerline insertion for long - term infusions with GA NPO after midnight May need factor V infusion at time of procedure Thank you for allowing me to participate in the care of Merced Hays. Glenn Delgado MD Vascular & Interventional Radiology [1] Current Outpatient Medications: amitriptyline (Elavil) 50 MG tablet, Take by mouth every night., Disp: , Rfl: ANTIHEMOPHILIC FACTOR-VWF IV, Take by mouth every 6 (six) hours., Disp: , Rfl: celecoxib (CeleBREX) 200 MG [...] 1 (one) time each day.,Disp: , Rfl: clonazePAM (KlonoPIN) 0.5 MG disintegrating [...] (six) hours. (Patient not taking: Reported on 02/05/2025), Disp: , Rfl: GABAPENTIN 100 MG/ML ORAL SUSPENSION, , Disp: , Rfl: HYDROcodone-acetaminophen (Waka) 5-325 MG tablet, Take by mouth every [...] documented as of this encounter Results * IR Tunneled CVC Replacement Complete (02/22/2025 2:49 PM EDT) Anatomical Region Laterality Modality X-Ray Angiograph y Impressions 02/23/2025 3:53 PM EDT Successful right chest tunneled port removal, as described. Successful placement of left-sided single lumen powerline; line is ready for use. Tip is at cavoatrial junction. PLAN: Sedation recovery. IR clinic follow-up 2 weeks after port removal. As above, powerline ready for immediate use. CRITICAL RESULT: No. COMMUNICATION: Per this written report. Drafted by Oswald Rizvi MD on 02/23/2025 2:18 PM Final report signed by Oswald Rizvi MD on 02/23/2025 3:53 PM Narrative 02/23/2025 3:53 PM EDT CLINICAL INDICATION: 29 year old female PMHx of ADHD, anxiety, chronic pain / fibromyalgia, HTN, migraines, OCD, PTSD, Lamar-Danlos syndrome, von Willebrand disease presenting for tunneled port removal initially placed 10/14/23 as well as powerline placement. TECHNIQUE: Fha Underwriter: Oswald Rizvi M.D. Rad Dose: 2 mGy Fluoroscopy Time: 0.3 minutes Medications: General anesthesia was provided. 1 % Lidocaine SQ. Antibiotics: None. Duration of Conscious Sedation: Time out: 1346 close out: 1459 Procedure: The patient was identified. The risks and benefits of the procedure were discussed with the patient. The patient was then brought back to interventional recovery area bed and placed in supine position. A time out was performed. The patient was then prepped and draped in the normal sterile fashion. The existing tunneled dialysis catheter was prepped in the standard sterile manner. The location of the port reservoir and stem was identified by palpation in the right chest. The skin and subcutaneous tissues around the port reservoir and pocket were anesthetized using 1% lidocaine. A small horizontal incision was made. Blunt dissection was then carried out to release the port reservoir from the surrounding tissue adhesions. The catheter, port reservoir, were removed in continuity. The pocket was lavaged with sterile normal saline. The subcutaneous tissues overlying the incision were closed with interrupted 2-0 Vicryl suture. Dermabond application thereafter. Sterile dressing was applied. Subsequently attention was turned to placement of left-sided powerline placement. The right neck was prepped and draped in the usual sterile manner. 1% lidocaine used for local analgesia. The internal jugular vein was accessed under ultrasound guidance with micropuncture needle. 0.018 inches wire advanced through the micropuncture needle into the superior vena cava. The micropuncture needle exchanged for the micropuncture introducer. Ultrasound images were sent to permanent storage in PACS. A few centimeters below the clavicle, 1% lidocaine introduced. A small transverse padmini in the skin was made with a scalpel. 1% lidocaine instilled from this site to the internal jugular vein access site. After measuring appropriate length of catheter to be placed, the tip was tunneled underneath the skin to the internal jugular vein access site. The micropuncture introducer was exchanged over a wire for a peel- away sheath. The wire and inner dilator of the peel-away sheath were removed. Tunneled powerline was advanced through the peel-away sheath and the peel-away sheath removed. The tunneled catheter was positioned such the tip was at the cavoatrial junction. It was secured to the skin with StatLock device. Dermabond applied at the venotomy site. Sterile occlusive dressing applied. The lumen was flushed with heparinized saline. The patient tolerated the procedure well. There were no immediate complications. Device: Single-lumen Powerline cut 24 cm length. COMPARISON: CT chest with IV contrast 09/23/2023. FINDINGS: Patent left internal jugular vein. COMPLICATION: No. Procedure Note Oswald Rizvi MD - 02/23/2025 CLINICAL INDICATION: 29 year old female PMHx of ADHD, anxiety, chronic pain / fibromyalgia,HTN, migraines, OCD, PTSD, Lamar-Danlos syndrome, von Willebrand diseasepresenting for tunneled port removal initially placed 10/14/23 as well aspowerline placement. TECHNIQUE: Fha Underwriter: Oswald Rizvi M.D. Rad Dose: 2 mGy Fluoroscopy Time: 0.3 minutes Medications: General anesthesia was provided. 1 % Lidocaine SQ. Antibiotics: None. Duration of Conscious Sedation: Time out: 1346 close out: 1459 Procedure: The patient was identified. The risks and benefits of the procedure werediscussed with the patient. The patient was then brought back tointerventional recovery area bed and placed in supine position. A timeout was performed. The patient was then prepped and draped in the normalsterile fashion. The existing tunneled dialysis catheter was prepped inthe standard sterile manner. The location of the port reservoir and stem was identified by palpation inthe right chest. The skin and subcutaneous tissues around the portreservoir and pocket were anesthetized using 1% lidocaine. A smallhorizontal incision was made. Blunt dissection was then carried out torelease the port reservoir from the surrounding tissue adhesions. Thecatheter, port reservoir, were removed in continuity. The pocket waslavaged with sterile normal saline. The subcutaneous tissues overlying theincision were closed with interrupted 2-0 Vicryl suture. Dermabondapplication thereafter. Sterile dressing was applied. Subsequently attention was turned to placement of left-sided powerlineplacement. The right neck was prepped and draped in the usual sterile manner. 1%lidocaine used for local analgesia. The internal jugular vein was accessedunder ultrasound guidance with micropuncture needle. 0.018 inches wireadvanced through the micropuncture needle into the superior vena cava. Themicropuncture needle exchanged for the micropuncture introducer.Ultrasound images were sent to permanent storage in PACS. A few centimeters below the clavicle, 1% lidocaine introduced. A smalltransverse padmini in the skin was made with a scalpel. 1% lidocaineinstilled from this site to the internal jugular vein access site. Aftermeasuring appropriate length of catheter to be placed, the tip wastunneled underneath the skin to the internal jugular vein access site. Themicropuncture introducer was exchanged over a wire for a peel- away sheath.The wire and inner dilator of the peel-away sheath were removed. Tunneledpowerline was advanced through the peel-away sheath and the peel- awaysheath removed. The tunneled catheter was positioned such the tip was atthe cavoatrial junction. It was secured to the skin with StatLock device.Dermabond applied at the venotomy site. Sterile occlusive dressingapplied. The lumen was flushed with heparinized saline. The patienttolerated the procedure well. There were no immediate complications. Device: Single-lumen Powerline cut 24 cm length. COMPARISON: CT chest with IV contrast 09/23/2023. FINDINGS: Patent left internal jugular vein. COMPLICATION: No. IMPRESSION: Successful right chest tunneled port removal, as described. Successful placement of left-sided single lumen powerline; line is readyfor use. Tip is at cavoatrial junction. PLAN: Sedation recovery. IR clinic follow-up 2 weeks after port removal. As above, powerline ready for immediate use. CRITICAL RESULT: No. COMMUNICATION: Per this written report. Drafted by Oswald Rizvi MD on 02/23/2025 2:18 PM Final report signed by Oswald Rizvi MD on 02/23/2025 3:53 PM Glenn Delgado MD IMG IR PROCEDURES Final Resu lt documented in this encounter Visit Diagnoses Diagnosis H/O insertion of central venous access port- Primary Skin breakdown at port site of totally implantable venous access device (TIVAD) (CMS/HCC) Von Willebrand's disease (CMS/HCC)- Primary Von Willebrand's disease H/O insertion of central venous access port documented in this encounter Additional Health Concerns Assessment Noted Time A fall risk assessment has been complete d for the patient 10/30/2020 3:45 PM EDT A Body Mass Index follow-up plan has been documented for the patient 02/06/2025 11:15 AM EDT documented as of this encounter Care Teams Autism Specialist Relationship Specialty Start Date End Date Justino Zheng MD [address] [place] [address] PCP - General 09/15/20 documented as of this encounter
--- OUTSIDE RECORDS SUMMARY | 2025-02-08 12:30 | XMS_ITS | Encounter Summary ---
Author Organization [facility] Address [address] [place] [id number] Care Team Providers Care Optician Name Role Phone Justino Zheng MD Primary Care Provider Encounter Details Date Type Department Care Team (Late st Contact Info) Description 02/08/2025 12:30 PM EDT Immunization [facility] Laboratory Services [address] [place] [phone] Larry Baltazar Jr., MD/MPH Ped General & Thoracic Surg [address] [place] [address] [place] [phone] Discharge Disposition: Home or Self Care Social History Tobacco Use Types Packs/Day Years Used Date Smoking Tobacco: Never Smokeless Tobacco: Never Alcohol Use Standard Drinks/Week Comments No 0 (1 standard drink = 0.6 oz pur e alcohol) Intimate Partner Violence Answer Date R ecorded If you are in a relationship , do you feel safe in that relationship? Not currently in a relationship 11/24/2017 If you are in a relationship , do you feel safe in that relationship? Not currently in a relationship 11/24/2017 Safety and Environment Answer Date Tevin rded Do you have any concerns of physical abuse, sexual abuse, or neglect of your child? Unable to Assess (Specify Reason in Comments) 11/24/2017 Adult hurting you or family (11-18) Not on file 11/24/2017 Someone touched you in a sex ual way? (11-18) Not on file 11/24/2017 Is someone hurting your or y our family? Not on file 11/24/2017 Historical abuse worry Not on file 8 If you have firearms in the home, are they all in locked storage AND unloaded? Not on file 11/24/2017 Comments Unknown Sex and Gender Information Value Date Recorded Sex Assigned at Not on file Legal Sex Female 11:55 AM EST Gender Identity Not on file Sexual Orientation Not on file documented as of this encounter Plan of Treatment Not on file documented as of this encounter Visit Diagnoses Not on filedocumented in this encounter Care Teams Optician Relationship Specialty Start Date End Date Justino Zheng MD [address] [place] [address], [place] [address] PCP - General 08/05/15 documented as of this encounter
--- OUTSIDE RECORDS SUMMARY | 2025-02-22 11:18 | XMS_ITS | Encounter Summary ---
Author Organization [facility] Address [address] [place] [id number] Care Team Providers Care Production Cloth Cutter Name Role Phone Justino Zheng MD Primary Care Provider [phone] Reason for Referral * Consultation (Routine) - Authorized Specialty Diagnoses / Procedures Referred By Contact Referred To Contact Interventional Radiology Diagnoses H/O insertion of central venous access port Von Willebrand's disease (CMS/HCC) Oswald Rizvi MD [address] [place] [address] Phone: tel:[phone] fax:[phone] [facility] Vascular Interventional Radiology [address] [place] [address] Phone: tel: Referral ID Status Reason Start Date Expiration Date Visits Requested Visits Authorized [id number] Authorized Specialty Services Required 5 08/24/2026 1 1 * Episode Based Medications (Routine) - Pending Review Specialty Diagnoses / Procedures Referred By Contkecia t Referred To Contact Diagnoses Other skin changes Sami Cantu MD [address] [place] [address] Phone: tel: fax: [facility] [address] [place] [address] Phone: tel: fax: Referral ID Status Reason Start Date Expiration Date V isits Requested Visits Authorized [id number] Pending Review 02/22/2025 08/24/2026 1 1 * Imaging (Routine) - Closed Specialty Diagnoses / Procedures Referred By Estefany stearns Referred To Contact Radiology Diagnoses H/O insertion of central venous access port Procedures IR Tunneled CVC Replacement Complete Glenn Delgado MD [address] [place] [address] Phone: tel: fax: Referral ID Status Reason Start Date Expiration Date Visits Re quested Visits Authorized [id number] Closed 02/05/2025 08/07/2026 1 1 Reason for Visit * Imaging (Routine) - Closed Specialty Diagnoses / Procedures Referred By Estefany stearns Referred To Contact Radiology Diagnoses H/O insertion of central venous access port Procedures IR Tunneled CVC Replacement Complete Glenn Delgado MD [address] [place] [address] Phone: tel: fax: Referral ID Status Reason Start Date Expiration Date Visits Re quested Visits Authorized [id number] Closed 02/05/2025 08/07/2026 1 1 Encounter Details Date Type Department Care Team (Late st Contact Info) Description 02/22/2025 11:18 AM EDT - 02/22/2025 5:10 PM EDT Hospital Encounter [facility] Interventional Radiology [address] [place] [address] Oswald Rizvi MD [address] [place] [phone] Samantha Jones RN [facility] INTERVENTIONAL RADIOLOGY Sami Cantu MD [address] [place] [phone] [address] Von Willebrand's disease (CMS/HCC) (Primary Dx); H/O [...] call: Vascular & Interventional Radiology Clinic at [phone] Tuesday - Tuesday 8:00 AM to 4:30 PM After hours, weekends, and holidays please call [phone] and ask for the Interventional Radiology provider/Resident on-call For Emergencies please go to the nearest Emergency Room or dial 911. Intervention Radiology Appointments: If you need to reschedule a procedure, please call our Schedulers at [phone], option 4. If you need to schedule or reschedule a clinic appointment, please call [phone]. [facility] Vascular and Interventional Radiology Clinic [facility] [address] [place] [address] You had your port removed today. Please [...] 100 MG/ML ORAL SUSPENSION 11/14/2011 HYDROcodone-acetami nophen (Claridge) 5-325 MG tablet Take by mouth every [...] each day. documented as of this encounter Miscellaneous Notes * Samantha Evans, RN - 02/22/2025 3:09 PM EDT Images from the original note were not included. [id number] PICC Line Care PICC stands for peripherally [...] arm Last Reviewed Date: 2024 00:00:00 ?? [phone] [employer]. All rights reserved. This information is not intended as a substitute for professional medical care. Always follow your healthcare professional's instructions. * [facility] - Samantha Jones RN - 02/22/2025 3:08 PM EDT Images from the original note were not included. 113 Post-Anesthesia and Postoperative Instructions ([place]) In order to have a fast and [...] Room or call the Emergency Department at [phone]. Smoking and its health risks ? Smoking [...] help quitting smoking, call the [employer] [place]'s Quitline toll free at or ask your doctor for help. Weight Management ? Weighing too much is not good for your health. Being overweight increases your risk of health conditions such as heart problems, high blood pressure, type 2 diabetes, and certain types of cancer. Being overweight can also increase your risk for osteoarthritis (ad-pgc-mc-ndy-JODY-lmy) (joint disease), sleep apnea (abnormal breathing at [...] risk of health problems. Ask your dietitian, cellophane wrapping examiner or doctor about a weight loss goal that is right for you. 04/12 * Post-Procedure Note - Nadia Smith MD - 02/22/2025 12:30 PM EDT Vascular and Interventional Radiology Brief Postprocedure Note Attending: MD Belkys Shank Rander: MD Luis Pre-operative Diagnosis: VWD Post-operative Diagnosis: [...] Desmopressin, Duloxetine, Erythromycin, Ibuprofen, Ketorolac, Ketorolac tromethamine, [place], and [place] extract Current medications: Current Medications[2] Relevant Labs: [...] INR 2.5 to 3.5 Prevention of recurrent NH INR 2.5 to 3.5 PREGTESTUR 10/14/2023 Negative [...] been discussed with the patient and/or their sales representative groceries. All questions answered and they agree to [...] (Patient not taking: Reported on 09/08/2023) HYDROcodone-acetaminophen (Claridge) 5-325 MG tablet Take by mouth every [...] for her infusions. [facility] [place]. On [...] Desmopressin, Duloxetine, Erythromycin, Ibuprofen, Ketorolac, Ketorolac tromethamine, [place], and [place] extract Medications Current Medications[1] Objective Review of [...] (Patient not taking: Reported on 09/08/2023) HYDROcodone-acetaminophen (Claridge) 5-325 MG tablet Take by mouth every [...] Diagnoses Order Schedule Discharge Ambulatory referral to [facility] Outpatient Referral Routine H/O insertion of central venous access port Von Willebrand's disease (CMS/HCC) Expected: 03/08/2025, Expires: 08/26/2026 documented as of this encounter Goals Goal Patient Goal Type Associated Problems Recent Progress Patient-Stated? Author Autogenera elsa Goal Care Plan Autogenerated Problem No Eliza [...] 02/22/2025 11:51 PM EDT [facility] Tender Coordinator ID Jack Thompson 02/22/2025 11:51 PM EDT [facility] Device ID [id number] 02/22/2025 11:51 PM EDT [facility] Specimen Type POC Capillary 02/22/2025 11:51 PM EDT [facility] Blood Capillary blood specimen / Unknown 02/22/2025 11:49 PM EDT 02/22/2025 11:51 PM EDT us Oswald Rizvi MD LAB POINT OF CARE TE ST DOCKED DEVICE UNSOLICITED RESULTS Final Result [facility] [address] [place] [id number] * (ABNORMAL) Blood gas panel, arterial (02/22/2025 3:32 PM EDT) pH, Arterial 7.37 7.35 - 7.45 LAB HEMATOLOGY METHOD 02/22/2025 3:40 PM EDT [facility] pCO2, Arterial 40 35 - 48 mmHg LAB HEMATOLOGY METHOD 02/22/2025 3:40 PM EDT [facility] pO2, Arterial 307(H) 83 - 108 mmHg LAB HEMATOLOGY METHOD 02/22/2025 3:40 PM EDT [facility] SO2, Measured, Arterial 100(H) 94 - 98 % LAB HEMATOLOGY METHOD 02/22/2025 3:40 PM EDT [facility] Base Excess, Arterial -2.0 -2.0 - 3.0 mmol/L LAB HEMATOLOGY METHOD 02/22/2025 3:40 PM EDT [facility] Bicarbonate, Calculated, Arterial 23 22 - 26 mmol/L LAB HEMATOLOGY METHOD 02/22/2025 3:40 PM EDT [facility] Hematocrit, Whole Blood 34.0 34.0 - 45.0 % LAB HEMATOLOGY METHOD 02/22/2025 3:40 PM EDT [facility] Sodium, Whole Blood 127(L) 136 - 145 mmol/L LAB HEMATOLOGY METHOD 02/22/2025 3:40 PM EDT [facility] Potassium, Whole Blood 3.7 3.6 - 4.9 mmol/L LAB HEMATOLOGY METHOD 02/22/2025 3:40 PM EDT [facility] Chloride, Whole Blood 98 97 - 107 mmol/L LAB HEMATOLOGY METHOD 02/22/2025 3:40 PM EDT [facility] Glucose, Whole Blood 101(H) 74 - 99 mg/dL LAB HEMATOLOGY METHOD 02/22/2025 3:40 PM EDT [facility] Ionized Calcium, Whole Blood 4.6 4.6 - 5.1 mg/dL LAB HEMATOLOGY METHOD 02/22/2025 3:40 PM EDT [facility] Lactate, Arterial, Whole Blood 0.8 0.5 - 1.6 mmol/L LAB HEMATOLOGY METHOD 02/22/2025 3:40 PM EDT [facility] Blood Arterial blood specimen / Unknown Arterial Puncture / Unknown 02/22/2025 3:32 PM EDT 02/22/2025 3:38 PM EDT us Sami Cantu MD LAB BLOOD ORDERABLES Final Resul t [facility] [address] [place] [address] * IR Tunneled CVC Replacement Complete (02/22/2025 [...] 10/14/23 as well as powerline placement. TECHNIQUE: Launch Operator: Oswald Rizvi M.D. Rad Dose: 2 mGy [...] placed 10/14/23 as well aspowerline placement. TECHNIQUE: Launch Operator: Oswald Rizvi M.D. Rad Dose: 2 mGy [...] Negative 02/22/2025 11:56 AM EDT [facility] Tender Coordinator ID Meghan Gamino 02/22/2025 11:56 AM EDT [facility] Device ID [id number] 02/22/2025 11:56 AM EDT [facility] Urine Urine specimen obtained by clean catch procedure / Unknown 02/22/2025 11:50 AM EDT 02/22/2025 11:56 AM EDT Oswald Rizvi MD LAB POINT OF CARE TE ST DOCKED DEVICE UNSOLICITED RESULTS Final Result [facility] [address] [place] [address] documented in this encounter Visit Diagnoses Diagnosis [...] documented as of this encounter Care Teams Production Cloth Cutter Relationship Specialty Start Date End Date Justino Zheng MD [address] [place] [address] PCP - General 09/15/20 documented as of this encounter
--- OUTSIDE RECORDS SUMMARY | 2025-02-22 13:46 | XMS_ITS | Encounter Summary ---
Author Organization [facility] Address [address] [place] [address] Care Team Providers Care Public Finance Specialist Name Role Phone Justino Zheng MD Primary Care Provider [phone] Encounter Details Date Type Department Care Team ([facility] st Contact Info) Description 02/22/2025 1:46 PM EDT Anesthesia Event PAV A Interventional Radiology [address] [place] [address] Sami Cantu MD [address] [place] [address] Kathie Cummins CRNA [address] [place] [address] Anesthesia Record Procedure Summary Procedure [...] Verification: X-ray 02/22/25 1433 by Karla Blue Wound 02/22/25; 1434; Yes; Neck; Left; powerline site 02/22/25 1434 by Karla Blue Wound 02/22/25; 1447; Yes; Chest; Right, Upper; old port site. 02/22/25 1447 by Karla Blue Single Lumen Implantable Port 10/14/23; 1125; Yes; Yes; Right (18.5CM of length); Chest; MD Wyatt/MD Kristian; 02/22/25; 1439 10/14/23 1125 by Shauna Odonnell RN 02/22/25 1439 by Karla Blue Peripheral IV Placement Date: 02/22/25; Placement Time: [...] by: DRAGAN; Removal Date: 02/22/25; Removal Time: 14502/22/25 1357 by Kathie Cummins CRNA 02/22/25 1456 [...] and Staff Patient location during procedure: OR TRACK BROOM OPERATOR: Kathie Cummins CRNA Performed: TRACK BROOM OPERATOR Patient Condition Indications for airway management: [...] PM EDT Patient: Merced Hays HPI Merced Hays is a 29 y.o. female with body [...] No dose, route, or frequency recorded. HYDROcodone-acetaminophen ([place]) 5-325 MG tablet Oral, Every 6 hours [...] ABG No results found for: PHART , ZAR2FXW , PO2ART , SO2ART , BEART , CWF7OIL , HCTART , SODIUMART , POTASSIUMART , POCTCL , POCGLU , IONCALART , LACTATE No results found for: PH , PCO2 , PO2 , [id number] , BASEEXC , HCTSYR , KSYR , CLSYR , GLUSYR , CAION , LACTATE ECHO No echocardiogram results found for the past 12 months PFTs No results found for: SHY2MJB , TZY1LNHG , NLI3MAD , FVCPRED BP Readings from Last 5 Encounters: 02/22/25 121/85 02/05/25 130/89 01/10/25 139/88 10/14/23 (!) 143/72 09/08/23 120/80 Physical Exam Airway Mallampati: II Mouth opening: normal TM distance: >3 FB Neck ROM: full Cardiovascular Rhythm: regular Rate: normal Dental (+) poor dentition Pulmonary Breath sounds clear to auscultation Neurological Skin Musculoskeletal Extremities Anesthesia Plan ASA 3 Plan was reviewed with: TRACK BROOM OPERATOR Anesthesia technique(s) discussed with the patient/family: [...] Date ANKLE SURGERY N/A Ankle Repair from [facility] CHOLECYSTECTOMY N/A Cholecystectomy Laparoscopic from [facility] ORAL SURGERY N/A Oral Surgery Tooth Extraction from [facility] ORTHOPEDIC SURGERY OTHER SURGICAL HISTORY N/A History of other surgery from [facility] OTHER SURGICAL HISTORY N/A History of oral surgery from [facility] OTHER SURGICAL HISTORY N/A History of rhinoplasty from [facility] OTHER SURGICAL HISTORY N/A History of ear surgery from [facility] OTHER SURGICAL HISTORY N/A History of throat surgery from [facility] OTHER SURGICAL HISTORY N/A History of laparoscopic cholecystectomy from [facility] PORTACATH PLACEMENT TRIGGER POINT INJECTION [5] Social [...] ANESTHESIA PLACEHOLDER Routine 02/22/2025 1:57 PM EDT IA AN ELECTIVE ENDOTRACHEAL AIRWAY Routine 02/22/2025 1:57 PM EDT documented in this encounter Results * IA AN ELECTIVE ENDOTRACHEAL AIRWAY, PB ANESTHESIA PLACEHOLDER (02/22/2025 1:57 PM EDT) Narrative Kathie Cummins CRNA - 02/22/2025 1:57 PM EDT Kathie Cummins CRNA 02/22/2025 2:17 PM Airway Date/Time: 02/22/2025 1:57 PM Reason: elective Airway not difficult General Information and Staff Patient location during procedure: OR TRACK BROOM OPERATOR: Kathie Cummins CRNA Performed: TRACK BROOM OPERATOR Patient Condition Indications for airway management: [...] chest auscultation and capnometry Measured from: lips us Sami Cantu MD ANESTHESIA ORDERABLES Final Resu [...] documented as of this encounter Care Teams Public Finance Specialist Relationship Specialty Start Date End Date Justino Zheng MD [facility] [place] [address] PCP - General 09/15/20 documented as of this encounter
--- OUTSIDE RECORDS SUMMARY | 2025-02-22 17:11 | XMS_ITS | Encounter Summary ---
Author Organization [facility] Address [address] [place] [address] Care Team Providers Care Service Bar Cashier Name Role Phone Justino Zheng MD Primary Care Provider [phone] Reason for Visit * Reason Comments Seizures Encounter Details Date Type Department Care Team ([facility] Contact Info) Description 02/22/2025 5:11 PM EDT - 02/23/2025 5:34 AM EDT Emergency [facility] Emergency Department [address] [place] [address] Bina Keith DO [address] [place] [address] Sander Schwarz MD [address] [place] [address] Seizure-like activity (CMS/HCC) (Primary Dx) [...] 100 MG/ML ORAL SUSPENSION 11/14/2011 HYDROcodone-acetami nophen ([place]) 5-325 MG tablet Take by mouth every [...] drum, unspecified ear, Anemia, Anxiety, Bleeding disorder ([facility]) ( 1996), Chills (without fever), [...] Desmopressin, Duloxetine, Erythromycin, Ibuprofen, Ketorolac, Ketorolac tromethamine, [place], and [place] extract Medications: Medications Ordered Prior to Encounter[1] [...] and symmetric. Coordination: No limb ataxia with [id number] or [id number]-[id number]. Cortical: No Extinction Gait: Normal Pertinent results [...] Neurology clinic. Patient would like referral to [facility]. Thank you for this consult. [...] only. * ED Provider Notes - Maye Nunez DO - 02/22/2025 5:09 PM EDT - [...] weakness. Psychiatric: Mood and Affect: Mood normal. [place] Coma Scale Score: 15 ED Course & [...] Neurology Provider: (Not yet assigned) Acknowledged MAYE NUNEZ 02/22/25 2210 CMP STAT Final result MAYE NUNEZ 02/22/25 194 XR Chest 1 View One time imaging Final result MAYE NUNEZ 02/22/25 1743 hCG qualitative STAT Final result [...] [SM] ED Course User Index [SM] Maye Nunez DO While in the emergency department the [...] [facility] (Signed Out) Patient care assumed by [facility] provider, Dr Arellano, at shift change, tentative [...] suppurative otitis media Anemia Anxiety Bleeding disorder ([facility]) 1996 Chills (without fever) Chills Coagulation defect, [...] Date ANKLE SURGERY N/A Ankle Repair from [facility] [employer] CHOLECYSTECTOMY N/A Cholecystectomy Laparoscopic from [facility] ORAL SURGERY N/A Oral Surgery Tooth Extraction from [facility] [employer] ORTHOPEDIC SURGERY OTHER SURGICAL HISTORY N/A History of other surgery from [facility] OTHER SURGICAL HISTORY N/A History of oral surgery from [facility] [employer] OTHER SURGICAL HISTORY N/A History of rhinoplasty from [facility] [employer] OTHER SURGICAL HISTORY N/A History of ear surgery from [facility] OTHER SURGICAL HISTORY N/A History of throat surgery from [facility] OTHER SURGICAL HISTORY N/A History of laparoscopic cholecystectomy from [facility] PORTACATH PLACEMENT TRIGGER POINT INJECTION [3] Family [...] Marijuana Comment: Drug use: Drug Use Maye Nunez DO Resident 02/23/25 005 Cosigned by Bina [...] episode of vomiting upon arrival to ED. documented in this encounter Plan of Treatment [...] - 99 mg/dL 02/22/2025 10:42 PM EDT [facility] BUN, Plasma 5(L) 7 - 21 mg/dL 02/22/2025 10:42 PM EDT [facility] Creatinine, Plasma 0.55(L) 0.60 - 1.10 mg/dL 02/22/2025 10:42 PM EDT [facility] BUN/Creatinine Ratio 9 02/22/2025 10:42 PM EDT [facility] Sodium, Plasma 125(L) 136 - 145 mmol/L 02/22/2025 10:42 PM EDT [facility] Potassium, Plasma 4.5 3.6 - 4.9 mmol/L 02/22/2025 10:42 PM EDT [facility] Comment:Hemolyzed - Potroryiu m may be falsely elevated by approximately 0.4-0.7 mmol/L. Chloride, Plasma 95(L) 97 - 107 mmol/L 02/22/2025 10:42 PM EDT [facility] CO2, Plasma 18(L) 22 - 29 mmol/L 02/22/2025 10:42 PM EDT [facility] Anion Gap 12 6 - 16 mmol/L 02/22/2025 10:42 PM EDT [facility] Total Calcium, Plasma 8.7(L) 8.9 - 10.2 mg/dL 02/22/2025 10:42 PM EDT [facility] Total Protein 6.6 6.3 - 7.9 g/dL 02/22/2025 10:42 PM EDT [facility] Albumin, Plasma 3.7 3.5 - 5.2 g/dL 02/22/2025 10:42 PM EDT [facility] AST, Plasma 23 10 - 35 U/L 02/22/2025 10:42 PM EDT [facility] Comment:Hemolyzed, result ma y be falsely increased. ALT, Plasma 8(L) 10 - 35 U/L 02/22/2025 10:42 PM EDT [facility] Alkaline Phosphatase, Plasma 140(H) 35 - 104 U/L 02/22/2025 10:42 PM EDT [facility] Total Bilirubin, Plasma 0.3 0.2 - 1.1 mg/dL 02/22/2025 10:42 PM EDT [facility] eGFRcr 128.2 mL/min/1. 73m*2 02/22/2025 10:42 PM EDT [facility] Comment:Reported eGFRcr in m L/min/1.73m2 is based the CKD-EPI 2020 equation that does not use a race coefficient. Blood Venous blood specimen / Unknown Venipuncture / Unknown 02/22/2025 10:17 PM EDT 02/22/2025 10:22 PM EDT us Bina Keith DO LAB BLOOD ORDERABLES Final Re sult [facility] [address] [place] [address] * XR Chest 1 View (02/22/2025 8:26 [...] Magaly Sandoval MD on 02/22/2025 8:40 PM Bina Keith DO IMG XR PROCEDURES Final Resul t * hCG qualitative (02/22/2025 5:53 PM EDT) Test Negative Negative 02/22/2025 6:21 PM EDT [facility] Blood Venous blood specimen / Unknown Venipuncture / Unknown 02/22/2025 5:53 PM EDT 02/22/2025 5:55 PM EDT Narrative [facility] - 02/22/2025 6:21 PM EDT Reference Range: Males and non- females: Negative. [employer] LAB BLOOD ORDERABLES Final Re sult Performing Organization Address [facility] Co de Phone Number [facility] [address] [place] [address] * (ABNORMAL) Lactic acid, venous (02/22/2025 5:53 PM EDT) [facility] Lactate, Venous, Whole Blood <0.4(L) 0.5 - 2.2 mmol/L LAB HEMATOLOGY METHOD 02/22/2025 6:11 PM EDT [facility] Blood Venous blood specimen / Unknown Venipuncture / Unknown 02/22/2025 5:53 PM EDT 02/22/2025 5:55 PM EDT [facility] LAB BLOOD ORDERABLES Final Re sult Performing Organization Address City/[facility]/ZIP Co de Phone Number [facility] [address] [place] [address] * (ABNORMAL) CBC w/diff (02/22/2025 5:53 PM EDT) [facility] WBC Count 9.84 3.70 - 10.30 10*3/uL LAB HEMATOLOGY METHOD 02/22/2025 5:57 PM EDT [facility] RBC Count 4.13 3.90 - 5.20 10*6/uL LAB HEMATOLOGY METHOD 02/22/2025 5:57 PM EDT [facility] HGB 11.1(L) 11.2 - 15.7 g/dL LAB HEMATOLOGY METHOD 02/22/2025 5:57 PM EDT [facility] HCT 33.0(L) 34.0 - 45.0 % LAB HEMATOLOGY METHOD 02/22/2025 5:57 PM EDT [facility] Platelet Count 244 155 - 369 10*3/uL LAB HEMATOLOGY METHOD 02/22/2025 5:57 PM EDT [facility] MCV 80 79 - 98 fL LAB HEMATOLOGY METHOD 02/22/2025 5:57 PM EDT [facility] MCH 26.9 26.0 - 32.0 pg LAB HEMATOLOGY METHOD 02/22/2025 5:57 PM EDT [facility] MCHC 33.6 30.7 - 35.5 g/dL LAB HEMATOLOGY METHOD 02/22/2025 5:57 PM EDT [facility] RDW 12.1 11.5 - 14.5 % LAB HEMATOLOGY METHOD 02/22/2025 5:57 PM EDT [facility] MPV 9.7 8.8 - 12.5 fL LAB HEMATOLOGY METHOD 02/22/2025 5:57 PM EDT [facility] nRBC 0.0 <=0.0 per 100 WBCs LAB HEMATOLOGY METHOD 02/22/2025 5:57 PM EDT [facility] Differential Type Automated LAB HEMATOLOGY METHOD 02/22/2025 5:57 PM EDT [facility] Neutrophils % 80 % LAB HEMATOLOGY METHOD 02/22/2025 5:57 PM EDT [facility] Lymphocytes % 13 % LAB HEMATOLOGY METHOD 02/22/2025 5:57 PM EDT [facility] Monocytes % 7 % LAB HEMATOLOGY METHOD 02/22/2025 5:57 PM EDT [facility] Eosinophils % 0 % LAB HEMATOLOGY METHOD 02/22/2025 5:57 PM EDT [facility] Basophils % 0 % LAB HEMATOLOGY METHOD 02/22/2025 5:57 PM EDT [facility] Immature Granulocytes % 0 % LAB HEMATOLOGY METHOD 02/22/2025 5:57 PM EDT [facility] Neutrophils Absolute 7.78(H) 1.60 - 6.10 10*3/uL LAB HEMATOLOGY METHOD 02/22/2025 5:57 PM EDT [facility] Lymphocytes Absolute 1.25 1.20 - 3.90 10*3/uL LAB HEMATOLOGY METHOD 02/22/2025 5:57 PM EDT [facility] Monocytes Absolute 0.71 0.30 - 0.90 10*3/uL LAB HEMATOLOGY METHOD 02/22/2025 5:57 PM EDT [facility] Eosinophils Absolute 0.03 0.00 - 0.50 10*3/uL LAB HEMATOLOGY METHOD 02/22/2025 5:57 PM EDT [facility] Basophils Absolute 0.03 0.00 - 0.10 10*3/uL LAB HEMATOLOGY METHOD 02/22/2025 5:57 PM EDT [facility] Immature Granulocytes Absolute 0.04 0.00 - 0.06 10*3/uL LAB HEMATOLOGY METHOD 02/22/2025 5:57 PM EDT [facility] Blood Venous blood specimen / Unknown Venipuncture / Unknown 02/22/2025 5:53 PM EDT 02/22/2025 5:55 PM EDT Narrative [facility] - 02/22/2025 5:57 PM EDT Therapeutic decision making should be based on absolute values, rather than percentages. [facility] LAB BLOOD ORDERABLES Final Re sult [facility] [address] [place] [address] * Phosphorus (02/22/2025 5:53 PM EDT) Phosphorus, Plasma 3.1 2.5 - 4.5 mg/dL 02/22/2025 6:21 PM EDT [facility] Blood Venous blood specimen / Unknown Venipuncture / Unknown 02/22/2025 5:53 PM EDT 02/22/2025 5:55 PM EDT [employer] DO LAB BLOOD ORDERABLES Final Re sult [facility] [address] [place] [address] * (ABNORMAL) Magnesium (02/22/2025 5:53 PM EDT) Magnesium, Plasma 1.5(L) 1.9 - 2.4 mg/dL 02/22/2025 6:21 PM EDT [facility] Blood Venous blood specimen / Unknown Venipuncture / Unknown 02/22/2025 5:53 PM EDT 02/22/2025 5:55 PM EDT Bina Keith DO LAB BLOOD ORDERABLES Final Re sult Performing Organization Address [facility]/ZIP Co de Phone Number [facility] [address] [place] [address] * (ABNORMAL) CMP (02/22/2025 5:53 PM EDT) Glucose, Plasma 89 74 - 99 mg/dL 02/22/2025 6:21 PM EDT [facility] BUN, Plasma 5(L) 7 - 21 mg/dL 02/22/2025 6:21 PM EDT [facility] Creatinine, Plasma 0.65 0.60 - 1.10 mg/dL 02/22/2025 6:21 PM EDT [facility] BUN/Creatinine Ratio 8 02/22/2025 6:21 PM EDT [facility] Sodium, Plasma 127(L) 136 - 145 mmol/L 02/22/2025 6:21 PM EDT [facility] Potassium, Plasma 3.7 3.6 - 4.9 mmol/L 02/22/2025 6:21 PM EDT [facility] Chloride, Plasma 96(L) 97 - 107 mmol/L 02/22/2025 6:21 PM EDT [facility] CO2, Plasma 22 22 - 29 mmol/L 02/22/2025 6:21 PM EDT [facility] Anion Gap 9 6 - 16 mmol/L 02/22/2025 6:21 PM EDT [facility] Total Calcium, Plasma 8.4(L) 8.9 - 10.2 mg/dL 02/22/2025 6:21 PM EDT [facility] Total Protein 6.1(L) 6.3 - 7.9 g/dL 02/22/2025 6:21 PM EDT [facility] Albumin, Plasma 3.5 3.5 - 5.2 g/dL 02/22/2025 6:21 PM EDT [facility] AST, Plasma 14 10 - 35 U/L 02/22/2025 6:21 PM EDT [facility] ALT, Plasma 7(L) 10 - 35 U/L 02/22/2025 6:21 PM EDT [facility] Alkaline Phosphatase, Plasma 122(H) 35 - 104 U/L 02/22/2025 6:21 PM EDT [facility] Total Bilirubin, Plasma 0.2 0.2 - 1.1 mg/dL 02/22/2025 6:21 PM EDT [facility] eGFRcr 123.2 mL/min/1.7 3m*2 02/22/2025 6:21 PM EDT [facility] Comment:Reported eGFRcr in m L/min/1.73m2 is based the CKD-EPI 2020 equation that does not use a race coefficient. Blood Venous blood specimen / Unknown Venipuncture / Unknown 02/22/2025 5:53 PM EDT 02/22/2025 5:55 PM EDT Bina Keith DO LAB BLOOD ORDERABLES Final Re sult [facility] [address] [place] [address] documented in this encounter Visit Diagnoses Diagnosis [...] 4 mg, Intravenous, Once, 1 dose, On 02/22/25 at 1910, STAT Given 02/22/2025 7:33 PM [...] 4 mg, Intravenous, Once, 1 dose, On 02/22/25 at 1805, STAT 1809 (Given - Provider: Alisa Rodrigues, JUNI) ondansetron (Zofran) injection 4 mg (COMPLETED) 4 mg, Intravenous, Once, 1 dose, On 02/22/25 at 1910, STAT 1933 (Given - Provider: [...] documented as of this encounter Care Teams Service Bar Cashier Relationship Specialty Start Date End Date Justino Zheng [facility] [place] [address] PCP - General 09/15/20 documented as of this encounter
[2025-02-23 22:58] VITALS: BP 163/93; PULSE 104; RESP 18; TEMP 36.8; O2SAT 100; BMI 31.0
--- NOTE | 2025-02-23 23:07 | HMH.EDGENADL ---
Discharge Plan Disposition Patient Disposition: Home, Self-Care Prescriptions Prescriptions: No Action celecoxib 200 mg capsule 200 mg PO BID etonogestrel-ethinyl estradiol 0.12-0.015 mg/24 hr ring 1 vag ring vaginal DIRECTED alprazolam [Xanax] 0.25 mg tablet 0.25 mg PO TID PRN (Reason: anxiety) Qty: 90 1RF amitriptyline 50 mg tablet 50 mg PO DAILY Qty: 30 1RF lamotrigine 150 mg tablet 150 mg PO BID Qty: 60 1RF quetiapine 100 mg tablet 100 mg PO HS Qty: 30 1RF vortioxetine 20 mg tablet 20 mg PO DAILY Qty: 30 1RF oxcarbazepine 300 mg tablet 300 mg PO BID Qty: 60 1RF tamsulosin 0.4 MG capsule 0.4 mg PO HS tranexamic acid 650 MG tablet 1,300 mg PO DAILY PRN (Reason: factor 8 deficiency) gabapentin 300 mg capsule 600 mg PO TID cephalexin 500 mg capsule 500 mg PO QID 7 Days Qty: 28 0RF antihemophilic factor-vWF 1 EACH recon soln 1,200 units IV NEEDED PRN (Reason: Bleeding) sucralfate 1 GM tablet 1 g PO ACHS Qty: 28 0RF pantoprazole 40 MG tablet,delayed release (DR/EC) 40 mg PO HS Qty: 30 0RF Referrals Follow up/Referrals: Justino Zheng MD [Primary Care Provider, Medical] - See instructions Activity Restrictions/Add. Instructions Additional Instructions/Restrictions: Please follow-up with your primary care provider. Please return to the emergency department if you develop any new or worsening symptoms or become concerned for your health. Clinical Impressions Clinical Impression: Chest pain in adult Print Language Print Language: Chinese Discharge ED Provider: Sidney Armendariz Adult [facility] General Chief complaint: PAIN Stated complaint: Bleeding Disorder Had port removed bandage w/ bloo Time Seen by Provider: 02/23/25 23:07 Mode of Arrival: Ambulatory Source of Information: Patient Description of Symptoms (Recalled from ER Triage Doc. by RN): patient presents after having a port removed yesterday that has a completely saturated dressing today. patient has a bleeding disorder as well. patient had these procedures done yesterday at and reports she also had a grand mal seizure yesterday. patient reports she sin alot of pain. History of Present Illness HPI narrative: 29-year-old female with reported history of complex regional pain syndrome, POTS, Lamar-Danlos, seizure/pseudoseizure disorder, bipolar, von Willebrand, presents for pain at her recent surgery site. She had a right port that was taken out yesterday and a left port that was put in. She is complaining of pain at the excision site. She is also concerned that the bandage has soaked through. She had the procedure done yesterday at . She has not had to change the bandage at all. 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 04/27/22 deficiency gabapentin 300 mg capsule 600 mg PO TID Pain 03/15/18 04/27/22 celecoxib 200 mg capsule 200 mg PO BID Pain 02/27/20 04/27/22 etonogestrel 0.12 mg-ethinyl 1 vag ring vaginal DIRECTED 02/27/20 04/27/22 estradiol 0.015 mg/24 hr vaginal control ring antihemophilic factor-vWF 500 1,200 units IV NEEDED PRN 09/29/21 04/27/22 unit-1,200 unit intravenous Bleeding solution Previous Rx's ?Medication ?Instructions ?Recorded pantoprazole 40 mg tablet,delayed 40 mg PO HS #30 tabs 09/30/21 release sucralfate 1 gram tablet 1 g PO ACHS #28 tabs 09/30/21 cephalexin 500 mg capsule 500 mg PO QID 7 days #28 caps 02/05/22 alprazolam 0.25 mg tablet (Xanax) 0.25 mg PO TID PRN anxiety #90 tabs 09/28/22 amitriptyline 50 mg tablet 50 mg PO DAILY sleep #30 tabs 09/28/22 lamotrigine 150 mg tablet 150 mg PO BID SEIZURES #60 tabs 09/28/22 quetiapine 100 mg tablet 100 mg PO HS MOOD #30 tabs 09/28/22 vortioxetine 20 mg tablet 20 mg PO DAILY MOOD #30 tabs 09/28/22 oxcarbazepine 300 mg tablet 300 mg PO BID SEIZURES #60 tabs 10/04/22 Allergies Allergy/AdvReac Type Severity Reaction Status Date / Time latex (LATEX) Allergy Severe anaphalysis Verified 02/05/22 16:40 strawberry Allergy Severe Anaphylaxis Verified 02/05/22 16:40 duloxetine (From CYMBALTA) Allergy Intermediate hives; she Verified 02/05/22 16:40 has scars from the hives when she took this aspirin (ASPIRIN) Allergy Mild Verified 02/05/22 16:40 cetirizine (From ZYRTEC) Allergy Mild Verified 02/05/22 16:40 amoxicillin (AMOXICILLIN) Allergy Unknown VOMITING Verified 02/05/22 16:40 ketorolac (From TORADOL) Allergy Unknown Verified 02/05/22 16:40 banana AdvReac Severe Anaphylaxis Verified 02/05/22 16:40 kiwi AdvReac Severe Anaphylaxis Verified 02/05/22 16:40 tomato AdvReac Severe Anaphylaxis Verified 02/05/22 16:40 grapefruit AdvReac Unknown Verified 02/05/22 16:40 [facility] Disclaimer: The information contained in this section may have been updated after the patient was seen, as this information can be updated by other users. Medical History Bipolar II disorder Lamar-Danlos syndrome Generalized anxiety disorder POTS (postural orthostatic tachycardia syndrome) Sinus tachycardia Social History Smoking Status: Never smoker alcohol intake: never substance use type: marijuana current occupational status: other Travel in the last 8 weeks?: None household members: family housing: house number of children: 0 caffeine: No Have you lived/traveled outside US in past 30 days?: No Contact w/someone who lives/traveled outside US past 30 days?: No Exposure to someone with infectious disease in past 14 days?: No Do you have a fever (greater than 100.4 F or 38 C)?: No Have you tested positive for COVID-19?: No Exposed to someone with COVID-19 in past 14 days?: No Do you have a sore throat?: No Do you have a cough?: No Do you have any weakness?: No Do you have any diarrhea?: No Are you experiencing any unusual bleeding?: No Do you have any muscle aches/pain?: No Do you have any abdominal pain?: No Are you experiencing loss of taste or smell?: No Other Medical History Have you received the Flu Vaccine for this season: No Have you received the Pneumonia Vaccine: No ROS Obtained: Yes All systems reviewed & no additional complaints except as documented Physical Exam General General appearance: alert and in no apparent distress Head Head exam: atraumatic and normocephalic Eye Eye exam: Present normal appearance, PERRL and EOMI ENT ENT exam: Present normal oropharynx and normal external ear exam Neck Neck exam: Present normal inspection and full ROM Chest Chest inspection: Present tenderness and other (Right chest wall excision site is normal in appearance, no fluctuance, erythema or induration. No dehiscence or active bleeding. ) Respiratory Respiratory exam: Present normal lung sounds bilaterally; Absent respiratory distress Cardiovascular Cardiovascular exam: Present regular rate and normal rhythm Abdominal Exam Abdominal exam: Present soft; Absent distention, tenderness or guarding Extremities Exam Extremities exam: Present normal inspection; Absent edema or joint swelling Back Exam Back exam: Present normal inspection; Absent tenderness Neurological Exam Neurological exam: Present alert and oriented X3; Absent motor sensory deficit Psychiatric Psychiatric exam: Present normal affect and normal mood Skin Skin exam: Present warm, dry and normal color Lymphatic Lymphatic Findings: no adenopathy Medical Decision Making Medical Records Medical records reviewed: Yes I reviewed the patient's medical records. Screening: Per USPSTF and CDC recommendations, given the prevalence of disease in our region, it is our hospital?s policy to screen for HIV and viral Hepatitis for all patients aged 18 and over and those with ongoing risk factors. Tacho Inquiry Pt receiving controlled substance: No Tacho was queried for this patient: No Vital Signs: 02/23/25 22:58 02/24/25 00:14 Temperature 98.2 F 98.2 F Temperature Source Oral Oral Pulse Rate 99 H Pulse Rate [Right Radial] 104 H Respiratory Rate 18 18 Blood Pressure 158/88 H Blood Pressure [Right Arm] 163/93 H Blood Pressure Mean [Right Arm] 116 Blood Pressure Source [Right Arm] Automatic Cuff Blood Pressure Position Sitting Blood Pressure Position [Right Arm] Sitting 02 Sat by Pulse Oximetry 100 Oxygen Delivery Method Room Air Room Air Lab Data Lab results reviewed: Yes I reviewed the patient's lab results. Orders (Tests/Meds): ED MEDICATIONS Discontinued Medications Generic Name Dose Route Start Last Admin Trade Name Carter PRN Reason Stop Dose Admin Acetaminophen 1,000 mg 02/23/25 23:18 02/23/25 23:51 Acetaminophen 500mg Tab PO 02/23/25 23:19 Not Given ONCE ONE Oxycodone HCl 5 mg 02/23/25 23:18 02/23/25 23:26 Oxycodone 5mg Immediate Release Tablet PO 02/23/25 23:19 5 mg ONCE ONE Administration ORDERS Category Date Time Status CXR --portable [XR chest portable] Stat Exams 02/23/25 23:18 Completed Medical Decision Narrative: 29-year-old female with extensive past medical history including Lamar-Danlos, POTS, pseudoseizures/seizure disorder, complex regional pain syndrome, von Willebrand's, presents for chest pain at the site of her recent port excision on the right and placement on the left.. History was obtained via interactive discussion with patient. On arrival, patient is [afebrile, hemodynamically stable, satting appropriately, alert, oriented x4, GCS 15], moving all extremities spontaneously. Full physical exam performed and significant for incision is well-appearing, without fluctuance, active bleeding, induration, erythema or dehiscence Differential includes but is not limited to exacerbation of patient's chronic pain syndrome, hemorrhage, pneumothorax,. No evidence of complication or bleeding on external exam. Patient was given 5 mg oxycodone p.o. x 1 for symptomatic management and correction of underlying abnormalities. Workup initiated including chest x-ray to exclude pneumothorax. On re-evaluation, patient [remains afebrile, HD stable.] Imaging independently interpreted by me and significant for clear lungs bilaterally, left port is appropriately positioned, no pneumothorax. See radiology read for full review of final results. Given patient history, exam and workup, patient's presentation most likely represents postoperative pain without acute complication. Patient was discharged in stable condition with return precautions. She was given wound care instructions and supplies.. Procedures Risk/Benefits of Procedure(s) Were Explained: Yes Critical Care Critical Care Time Critical Care Time: No
--- OUTSIDE RECORDS SUMMARY | 2025-02-23 23:10 | XMS_ITS | Encounter Summary ---
Author Organization [facility] Address [address] [place] [address] Care Team Providers Care Nursing Technician Name Role Phone Justino Zheng MD Primary Care Provider [phone] Reason for Visit * Reason Comments Med Refill Encounter Details Date Type Department Care Team ([facility] st Contact Info) Description 03/03/2022 Refill Medical Office Building Obstetrics and Gynecology [address] [facility], [address] [place] [address] Marnie Cr MD [address] [place] [address] Menstrual suppression Social History Tobacco Use Types Packs/Day Years Used Date Smoking Tobacco: Passive Smo ke Exposure - Never Smoker Smokeless Tobacco: Never Alcohol Use Standard Drinks/Week Comments Yes 0 (1 standard drink = 0.6 oz pur e alcohol) Comments No Sex and Gender Information Value Date Recorded Sex Assigned at Female 11/13/2020 2:32 PM EDT Legal Sex Female 8:27 PM EDT Gender Identity Female 06/23/2021 5:20 PM EST Sexual Orientation Straight 11/13/2020 2: 32 PM EDT documented as of this encounter Plan of Treatment Not on file documented as of this encounter Visit Diagnoses Diagnosis Menstrual suppression documented in this encounter Additional Health Concerns Assessment Noted Time A fall risk assessment has been complete d for the patient 10/30/2020 3:45 PM EDT documented as of this encounter Care Teams Nursing Technician Relationship Specialty Start Date End Date Justino Zheng MD [address] [place] [id number] PCP - General 09/15/20 documented as of this encounter
--- OUTSIDE RECORDS SUMMARY | 2025-02-23 23:10 | XMS_ITS | Encounter Summary ---
Author Organization [facility] Address [address] 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
--- OUTSIDE RECORDS SUMMARY | 2025-02-23 23:10 | XMS_ITS | Encounter Summary ---
Author Organization [facility] Address [address] [id number] Care Team Providers Care Surveillance Dual Rate Officer Name Role Phone Justino Zheng MD Primary Care Provider [phone] Reason for Referral * Consultation (Routine) - Closed Specialty Diagnoses / Procedures Referred By Contact Referred To Contact Interventional Radiology Diagnoses Skin breakdown at port site of totally implantable venous access device (TIVAD) ([facility]) Narda Diaz MD [address] [place] [address] [address] [place] [address] Phone: tel:[phone] fax:[phone] [facility] Vascular Interventional Radiology [address] [facility] [address] [place] [address] Phone: tel: Referral ID Status Reason Start Date Expiration Date V isits Requested Visits Authorized [id number] Closed Specialty Services Required 09/02/2023 03/03/2025 1 1 Encounter Details Date Type Department Care Team (Late st Contact Info) Description 09/02/2023 [facility] Community Practice [address] [place] [address] Narda Diaz MD [address] [place] [address] [place] [id number] Skin breakdown at port site of totally implantable venous access device (TIVAD) ([facility]) (Primary Dx) Social History Tobacco Use Types [...] as of this encounter Plan of Treatment Scheduled Referrals Name Type Priority Associated Diagnoses Order Schedule Ambulatory referral to Vascular & Interventional Radiology Clinic Outpatient Referral Routine Skin breakdown at port site of totally implantable venous access device (TIVAD) ([facility]) Expected: 09/02/2023 (Approximate), Expires: 03/04/2025 documented as of this encounter Visit Diagnoses Diagnosis Skin breakdown at port site of totally implantable venous access device (TIVAD) ([facility])- Primary documented in this encounter Additional Health Concerns Assessment Noted Time A fall risk assessment has been complete d for the patient 10/30/2020 3:45 PM EDT documented as of this encounter Care Teams Surveillance Dual Rate Officer Relationship Specialty Start Date End Date Justino Zheng MD [address] [place] [address] PCP - General 09/15/20 documented as of this encounter
--- OUTSIDE RECORDS SUMMARY | 2025-02-23 23:11 | XMS_ITS | Encounter Summary ---
Author Organization [facility] Address [address] [place] [address] Care Team Providers Care Road Inspector Name Role Phone Justino Zheng MD Primary Care Provider [phone] Encounter Details Date Type Department Care Team (Late st Contact Info) Description 02/21/2025 Telephone [facility] Interventional Radiology [address] [place] [address] Maria C Neal, RN [facility] INTERVENTIONAL RADIOLOGY Social History Tobacco Use Types Packs/Day Years [...] PM EDT documented as of this encounter Miscellaneous Notes * Nursing Note - Maria C Neal RN - 02/21/2025 2:08 PM EDT Images from the original note were not included. Vascular & Interventional Radiology Nurse Navigator Note IR health unit coordinator requested assistance after patient called to ask if Humate-P was available for case tomorrow. Seismic Survey Assistant was able to locate a faxed paper order for Humate-P from the patient's Hem Onc provider in [place]. Discussed w/IR V3 Dr. White. Per her, the order can be entered tomorrow by the IR resident, Nadia Smith. I have confirmed with Mickey in [facility] that Humate P is in stock. Of note, the order from hem onc says as needed . Per Mickey, there is generally a PRE-procedure dose and sometimes (at the discretion of the procedural provider a POST-procedure dose, especially if there is concern about blood loss.) He has verified that he probably has enough medication for a pre-and post-dose on hand, but recommended ordering it PETER so it can be reserved for the patient. The above was communicated to Dr. Nix and she was provided with the paper order for reference. documented in this encounter Plan of Treatment Not on file documented as of this encounter Goals Goal Patient Goal Type Associated Problems Recent Progress Patient-Stated? Author Autogenera elsa Goal Care Plan Autogenerated Problem No Eliza Swanson documented as of this encounter Visit Diagnoses Not on filedocumented in this encounter Additional Health Concerns Active Problems Noted Date Diagnosed Date Autogenerated Problem 02/06/2025 Assessment Noted Time A fall risk assessment has been complete d for the patient 10/30/2020 3:45 PM EDT A Body Mass Index follow-up plan has been documented for the patient 02/06/2025 11:15 AM EDT documented as of this encounter Care Teams Road Inspector Relationship Specialty Start Date End Date Justino Zheng MD [address] [place] [id number] PCP - General 09/15/20 documented as of this encounter
--- OUTSIDE RECORDS SUMMARY | 2025-02-23 23:11 | XMS_ITS | Clinical Summary ---
Author Organization [facility] Address [address] [place] [address] Care Team Providers Care Biochemistry Technician Name Role Phone Justino Zheng MD Primary Care Provider [phone] Allergies Active Allergy Reactions Criticality Noted Date Comments Amoxicillin Nausea And Vomiting 08/08/2015 Aspirin 11/08/2014 Banana Anaphylaxis High 05/07/2015 Cetirizine 08/08/2015 Other reaction(s): Bleeding Nose Bleeds Desmopressin 12/10/2016 Duloxetine Hcl Hives 05/07/2015 Food Anaphylaxis High 05/07/2015 Strawberries, Kiwi, tomatoes Grapefruit 11/24/2017 Grapefruit Extract Anaphylaxis High 05/07/2015 Ibuprofen 09/10/2015 Ketorolac 10/23/2015 Latex Anaphylaxis High 11/08/2014 Oxycodone-Acetaminophen Nausea And Vomiting 10/2015 [place] Extract 11/24/2017 Medications lamoTRIgine (LAMICTAL) 150 MG tablet Take by mouth. Active tamsulosin (FLOMAX) 0.4 MG CAPS Take by mouth. Active celecoxib (CELEBREX) 200 MG capsule Take by mouth. Active diazePAM (VALIUM) 5 MG tablet 06/20/2018 Active NUVARING 0.12-0.015 MG/24HR vaginal ring 06/20/2018 Active OXcarbazepine (TRILEPTAL) 150 MG tablet 05/17/2018 Active tamsulosin (FLOMAX) 0.4 MG CAPS Take by mouth. Active tiZANidine (ZANAFLEX) 4 MG tablet 06/09/2018 Active Tranexamic Acid 650 MG TABS Take by mouth. 03/07/2018 Active amitriptyline (ELAVIL) 50 MG tablet 07/14/2018 Active Active Problems Problem Noted Date Diagnosed Date Hip strain, left, initial encounter 07/18/2018 Left hip pain 07/18/2018 Fibromyalgia 05/23/2015 Lamar-Danlos syndrome type III 05/14/2015 Von Willebrand disease, type IIa 05/13/2015 Overview (07/18/2018): Overview: IF PATIENT SEEN IN EMERGENCY DEPARTMENT PLEASE CONSULT HEMATOLOGY ALUMINUM WELDER Diagnosis: von Willebrand type IIa Emergency Dose for life threatening bleeds: 50units/kg Dose for minor/moderate bleeds: 50units/kg Definition of bleeds: Mild Bleed: Mild mouth bleeding or epistaxis. (Note: mouth bleeds may also require Amicar, but not Amicar alone) Moderate Bleed: Bleeding into muscles or joints or after known minor injury Severe Bleed: Major or life-threatening bleeding, such as: - bleeding into the throat or neck - bleeding into the abdomen, - bleeding into the iliopsoas muscle - major lower GI bleeding, any upper GI bleeding -presumed bleed in the spinal cord (flaccid paralysis, urinary/stool incontinence, acute torticollis) - head injury with or without loss of consciousness, headache, emesis, lethargy or mental status changes - suspected intracranial hemorrhage: irritability in an with or without low grade fever, lethargy, emesis, mental status changes Access: peripheral ? Who is their primary infusor: self Prophylaxis or On demand: On Demand ? Factor Product they use: Humate P ? Prophy dose and frequency: as needed Speciality (Factor) Pharmacy: [facility] ? Phone number: ? Fax number: [phone] ? Does the family have home factor? Yes Patient Choice Policy signed? Y/N Date: Insurance: Recommendations and special considerations: ? All joint and muscle bleeds should be treated with factor and RICE (Rest Ice Compression & Elevation). ? Factor medications are dosed +/- 10%. ? Factor should never be w asted . o Example: If you have an order for 1736 units and you receive a vial containing 1815 units, administer the full vial of 1815 units. ? Factor is a time sensitive medication and needs to be given on time, not within the usual 1 hour window. ? If you are caring for an inpatient, please be sure that you always have a dose of factor on the unit. ? Factor is an IV push given over 1-2 minutes. Patients and families are very knowledgeable about their disease and medication, feel free to use them as an additional resource. Social History Tobacco Use Types Packs/Day Years Used Date Smoking Tobacco: Never Assessed Comments Unknown Sex and Gender Information Value Date Recorded Sex Assigned at Not on file Legal Sex Female 3:34 PM EST Gender Identity Not on file Sexual Orientation Not on file Last Filed Vital Signs Vital Sign Reading Time Taken Comments Blood Pressure - - Pulse - - Temperature - - Respiratory Rate - - Oxygen Saturation - - Inhaled Oxygen Concentration - - Weight 94.3 kg (208 lb) 07/18/2018 10:48 AM EDT Height 154.9 cm (5' 1 ) 07/18/2018 10:48 AM EDT Body Mass Index 39.3 07/18/2018 10:48 AM EDT Plan of Treatment Health Maintenance Due Date Last Done Comments Polio (IPV) (2 of 3 - 4-dose series) 05/12/2001 04/14/2001 Hepatitis B (HepB) Vaccine ( 1 of 3 - 19+ 3-dose series) 2015 Tdap/Td Vaccine >11 yo (2 - Tdap) 2015 001 Cervical Cancer Screening 2017 HPV Vaccine (1 - 3-dose SCDM series) 2023 Annual SDOH Screening 05/02/2024 Influenza Vaccine (#1) 2024 Haemophilus Influenzae Type B (Hib) Vaccine Completed 04/14/2001 Hepatitis A (HepA) Vaccine Aged Out N o longer eligible based on patient's age to complete this topic Meningococcal ACWY Aged Out No longer eligible based on patient's age to complete this topic Pneumococcal Vaccines 6-49 yo Risk Aged Out No longer eligible based on patient's age to complete this topic Rotavirus (RV) Vaccine Aged Out No lo nger eligible based on patient's age to complete this topic Insurance [facility] [employer] Care Teams Biochemistry Technician Relationship Specialty Start Date End Date Justino Zheng MD [address] [place] [address] PCP - General Family Medicine 07/18/18
--- OUTSIDE RECORDS SUMMARY | 2025-02-23 23:11 | XMS_ITS | Encounter Summary ---
Author Organization [facility] Address [address] [place] [address] Care Team Providers Care Supervisor Customer Complaint Service Name Role Phone Justino Zheng MD Primary Care Provider [phone] Reason for Visit * Reason Comments Med Refill Encounter Details Date Type Department Care Team ([facility] st Contact Info) Description 05/14/2021 Refill Medical Office Building Obstetrics and Gynecology [address] [facility], [address] [place] [address] Marnie Cr MD [address] [facility] [address] [place] [address] Attention deficit disorder with hyperactivity Social History Tobacco Use Types Packs/Day Years [...] as of this encounter Miscellaneous Notes * Telephone Encounter - Sasha Johnson RN - 05/14/2021 12:44 PM EST Called pt back on 05/14/2021 at 1240. Spoke to pt. Informed pt that eprescribed refill of pt's Nuvaring to pt's pharmacy to cover pt until her annual apt on [address] Leavitt. [place],RN * Telephone Encounter - Varghese Kayla S - 05/14/2021 12:30 PM EST Medication Refill Request Medication Name & Dosage: Nuva Ring Preferred Pharmacy & Location: [facility] Days of medication remaining (if under 3 days please mo as urgent): Best contact number and optimal time of day to reach caller: [phone] Additional comments/information from caller: Patient is scheduled for 06/26 with Dagmar but needs this BC due to not clotting and having a blood disorder. Note: Please do not reply to this message. Follow-up communication and further actions as a result of this message need to be communicated with the patient directly, if the patient is not active onMyChart. If the patient is active on MyChart, they will receive notification of the communication/outcome via [employer]. documented in this encounter Plan of Treatment Not on file documented as of this encounter Visit Diagnoses Diagnosis Attention deficit disorder with hyperactivity documented in this encounter Additional Health Concerns Assessment Noted Time A fall risk assessment has been complete d for the patient 10/30/2020 3:45 PM EDT documented as of this encounter Care Teams Supervisor Customer Complaint Service Relationship Specialty Start Date End Date Justino Zheng MD [address] [place] [address] [place] [address] PCP - General 09/15/20 documented as of this encounter
--- OUTSIDE RECORDS SUMMARY | 2025-02-23 23:11 | XMS_ITS | Encounter Summary ---
Author Organization [facility] Address [address] [place] [address] Care Team Providers Care Manual Qa Tester Name Role Phone Justino Zheng MD Primary Care Provider [phone] Encounter Details Date Type Department Care Team (Latest Contact Info) Description 01/10/2025 Travel Social History Tobacco Use Types Packs/Day Years [...] filedocumented in this encounter Additional Health Concerns Assessment Noted Time A fall risk assessment has been complete d for the patient 10/30/2020 3:45 PM EDT A Body Mass Index follow-up plan has been documented for the patient 01/17/2025 10:44 AM EDT documented as of this encounter Care Teams Manual Qa Tester Relationship Specialty Start Date End Date Justino [place] [address] PCP - General 09/15/20 documented as of this encounter
--- OUTSIDE RECORDS SUMMARY | 2025-02-23 23:11 | XMS_ITS | Clinical Summary ---
Author Organization [facility] Address [address] [place] [address] Care Team Providers Care Upholsterer Apprentice Name Role Phone Justino Zheng MD Primary Care Provider [phone] Allergies Active Allergy Reactions Criticality Noted Date Comments Amoxicillin Unknown - Patient states they do not know rxn details,Nausea And Vomiting Low 07/26/2014 Other reaction(s): Vomiting Aspirin Other - please document in the comment field,Unknown - Patient states they do not know rxn details Low 12/04/2009 blood thinners bleeding disorder Banana Anaphylaxis High 05/07/2015 Flavoring Agent (Non-Screening) Unknown - Patient states they do not know rxn details Low 06/30/2015 Cetirizine Unknown - Patient states they do not know rxn details,Other - please document in the comment field Low 01/22/2015 Nose Bleeds Other reaction(s): Bleeding Nose Bleeds Desmopressin Other - please document in the comment field Low 12/10/2016 Duloxetine Unknown - Patient states they do not know rxn details Low 02/12/2013 Duloxetine Hcl Hives Medium 05/07/2015 Erythromycin Other - please document in the comment field Low 03/18/2015 nausea and vomiting Food Anaphylaxis High 05/07/2015 Strawberries, Kiwi, tomatoes Strawberries, Kiwi, tomatoes Grapefruit Extract Anaphylaxis High 05/07/2015 Ibuprofen Other - please document in the comment field,Unknown - Patient states they do not know rxn details Low 09/13/2013 bleeding disorder Ketorolac Other - please document in the comment field Low 10/23/2015 Ketorolac Tromethamine Unknown - Patient states they do not know rxn details Low 09/10/2015 Latex Unknown - Patient states they do not know rxn details,Anaphylaxis High 11/14/2009 Other Anaphylaxis,Other - please document in the comment field High 05/07/2015 Strawberries, Kiwi, tomatoes [place] Other - please document in the comment field Low 11/24/2017 [place] Extract Other - please document in the comment field Low 11/24/2017 Medications EPINEPHrine (EPIPEN IJ) Take by mouth every 6 (six) hours. 11/15/19 10 Active diazePAM (Valium) 5 MG tablet Take by mouth every 6 (six) hours. 02/25/20 20 Active ANTIHEMOPHILIC FACTOR-VWF IV Take by mouth every 6 (six) hours. 09/17/19 18 Active fluconazole (Diflucan) 150 MG tablet Take by mouth every 6 (six) hours. 03/05/20 20 Active hydrOXYzine HCl (Atarax) 25 MG tablet Take by mouth every 6 (six) hours. 02/25/20 20 Active lamoTRIgine (LaMICtal) 200 MG tablet Take by mouth every night. 09/21/19 17 Active GABAPENTIN 100 MG/ML ORAL SUSPENSION 11/14/19 12 Active celecoxib (CeleBREX) 200 MG capsule Take by mouth 1 (one) time each day. 11/14/19 12 Active etonogestrel-ethin yl estradiol (Nuvaring) 0.12-0.015 MG/24HR vaginal ringIndications:Me nstrual suppression Insert vaginally and leave in place for 3 consecutive weeks continuously. 1 each 3 05/14/19 22 Active ondansetron (Zofran) 8 MG tablet Take by mouth every 8 (eight) hours if needed. 06/11/19 22 Active OXcarbazepine (Trileptal) 300 MG tablet Take by mouth 2 (two) times a day. 07/01/19 22 Active tamsulosin (Flomax) 0.4 MG 24 hr capsule Take by mouth 1 (one) time each day. 07/22/19 22 Active gabapentin (Neurontin) 300 MG capsule Take 1 capsule (300 mg) by mouth. 2 capsules BID, 3 capsules QHS Active dicyclomine (Bentyl) 20 MG tablet Take by mouth 4 (four) times a day (before meals and nightly). Active tranexamic acid (Lysteda) 650 MG tablet tablet Take 2 tablets by mouth 3 times a day. Active amitriptyline (Elavil) 50 MG tablet Take by mouth every night. Active omeprazole (PriLOSEC) [address] capsule Take 1 capsule (20 mg) by mouth 1 (one) time each day. Do not crush or chew. Active famotidine (Pepcid) 20 MG tablet Take by mouth 1 (one) time each day. Active Daridorexant HCl (Quviviq) 50 MG tablet Take by mouth every night. Active clonazePAM (KlonoPIN) 0.5 MG disintegrating tablet Take 1 tablet (0.5 mg) by mouth 2 (two) times a day if needed for seizures. Active tiZANidine (Zanaflex) 4 MG capsule Take 1 capsule (4 mg) by mouth 3 (three) times a day. Active Vortioxetine HBr (Trintellix,) 5 MG tablet Take 2 tablets (10 mg) by mouth 1 (one) time each day. Active HYDROcodone-acetam inophen ([place]) 5-325 MG tablet Take by mouth every 6 (six) hours if needed. Active Active Problems Problem Noted Date Diagnosed Date Excessive menstruation at puberty 07/23/2021 Assessment & Plan (07/23/2021 8:55 PM EDT): 26yo G0 requesting hysterectomy for definitive management of menorrhagia in the setting of vWD. Previously had attempt at IUD placement which was unsuccessful and has not attempted again. - Discussed at length that we strongly recommend against hysterectomy due to patient's surgical complexity: vWD, devout [employer] and declines blood products, BMI 48. Additionally patient has not tried first line management with IUD. - Strongly recommended that patient trial Mirena IUD with placement in the OR if needed. Patient will consider and reach out to clinic with her decision. Morbid obesity with body mass index (BMI) of 40. 0 or higher 2021 Hip strain, left, initial encounter 07/18/2018 Seizure 11/24/2017 Subclinical hyperthyroidism 11/17/2017 Menstrual suppression 09/16/2017 Mastalgia 07/06/2015 Hypocalcemia 05/23/2015 Low vitamin D level 05/23/2015 Muscle spasms of lower extremity 05/22/2015 C. 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 Unsteady gait 05/16/2015 Hypoalbuminemia 05/14/2015 Left hip pain 05/13/2015 Headache 05/13/2015 Von Willebrand disease, type IIa 05/13/2015 Overview (10/30/2020): IF PATIENT SEEN IN EMERGENCY DEPARTMENT PLEASE CONSULT HEMATOLOGY THRESHING MACHINE OPERATOR Diagnosis: von Willebrand type IIa Emergency Dose [...] lethargy, emesis, mental status changes Access: peripheral Who is their primary infusor: self Prophylaxis or On demand: On Demand Factor Product they use: Humate P Prophy dose and frequency: as needed Speciality (Factor) Pharmacy: [facility] Phone number: Fax number: [phone] Does the family have home factor? Yes Patient Choice Policy signed? Y/N Date: Insurance: Recommendations and special considerations: All joint and muscle bleeds should be treated with factor and RICE (Rest Ice Compression & Elevation). Factor medications are dosed +/- 10%. Factor should never be w asted . o Example: If you have an order for 1736 units and you receive a vial containing 1815 units, administer the full vial of 1815 units. Factor is a time sensitive medication and needs to be given on time, not within the usual 1 hour window. If you are caring for an inpatient, please be sure that you always have a dose of factor on the unit. Factor is an IV push given over 1-2 minutes. Patients and families are very knowledgeable about their disease and medication, feel free to use them as an additional resource. Overview: IF PATIENT SEEN IN EMERGENCY DEPARTMENT PLEASE CONSULT HEMATOLOGY THRESHING MACHINE OPERATOR Diagnosis: von Willebrand type IIa Emergency Dose [...] - suspected intracranial hemorrhage: irritability in an infant with or without low grade fever, lethargy, emesis, mental status changes Access: peripheral ? Who is their primary infusor: self Prophylaxis or On demand: On Demand ? Factor Product they use: Humate P ? Prophy dose and frequency: as needed Speciality (Factor) Pharmacy: [facility] ? Phone number: ? Fax number: [phone] ? Does the family have home factor? [...] to use them as an additional resource. 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 Also discussed that patient's comorbid fibromyalgia and pain related to EDS may be contributing and would not improve with hysterectomy. Recommended trial of Mirena IUD. Muscle weakness (generalized) 06/23/2015 01/20/2025 Malaise and fatigue 05/13/2015 01/21/20 25 Rash 05/13/2015 01/20/2025 Encounters Date Type Department Care Team Description 02/22/2025 5:11 PM EDT - 02/23/2025 5:34 AM EDT Emergency [facility] Emergency Department [address] [place] [phone] [address] Vazquez DO Desai, Sameer M, MD Seizure-like activity ([facility]) (Primary Dx) Discharge Disposition: Home or Self Care 02/22/2025 1:46 PM EDT Anesthesia Event [facility] Interventional Radiology [address] [place] [phone] Sami Cantu MD Peters, Traci L, CRNA 02/22/2025 11:18 AM EDT - 02/22/2025 5:10 PM EDT Hospital Encounter [facility] Inter[facility] Radiology [address] [place] [phone] Oswald Rizvi MD [facility] Samantha tay, Sami Fletcher MD Erceg, Jessica Von Willebrand's disease ([facility]) (Primary Dx); H/O insertion of central venous access port Discharge Disposition: Home or Self Care 02/22/2025 Travel 02/21/2025 Telephone [facility] Inter[facility] Radiology [address] [place] [address] Maria C Neal RN 02/21/2025 Travel 02/05/2025 11:30 AM EDT Office Visit [facility] Interventional Radiology [address] [facility] Room [id number] [place] [phone] Glenn Delgado MD H/O insertion of central venous access port (Primary Dx); Skin breakdown at port site of totally implantable venous access device (TIVAD) ([facility]) 02/05/2025 Travel 02/04/2025 Telephone [facility] Interventional Radiology [address] [facility] Room [address] [phone] Pcp, No HCN Clinical Concern/Question (Please see note...) 01/31/2025 Travel 01/10/2025 1:57 PM EDT - 01/10/2025 11:59 PM EDT Hospital Encounter [facility] Radiology [address] [place] [address] Port-A-Cath in place Discharge Disposition: Home or Self Care 01/10/2025 1:30 PM EDT Office Visit [facility] Interventional Radiology [address] 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 Port-A-Cath in place (Primary Dx); Von Willebrand disease ([facility]) 01/10/2025 Travel from Last 3 Months Immunizations Immunization Administration Dates Next Due DTaP, Unspecified 04/14/2001 Hib (PRP-OMP) 04/14/2001 IPV 04/14/2001 Influenza, Unspecified 01/16/2009 Influenza, seasonal, injectable 04/01/2014,02/01,02/02/2010 MMR 04/14/2001 Tdap 09/09/2008 Varicella 04/14/2001 Family History Medical History Relation Name Comments Conversions - Other Father Serafin hill's Disease Alcohol abuse Maternal Grandfather Edison Arthritis Maternal Grandfather Edison COPD Maternal Grandfather Edison Drug abuse Maternal Grandfather Edison Hearing loss Maternal Grandfather Edison Mental illness Maternal Grandfather Edison Arthritis Maternal Grandmother Amee Asthma Maternal Grandmother Amee Cancer Maternal Grandmother Amee Autoimmune disease Mother Michelle Conversions - Other Mother Michelle Calcium nephrolithiasis Depression Mother Michelle Endometriosis Mother Michelle Migraines Mother Michelle Miscarriages / Stillbirths Mother Michelle Thyroid disease Mother Michelle Anxiety disorder Other 1 Conversions - Other Other 2 Factor V III deficiency hemophilia Arthritis Other 3 Asthma Other 4 Clotting disorder Other 5 Kidney Infection Other 6 Breast cancer Other 7 Joint pain/problems Other 8 Mental illness Paternal Grandmother N/A Autoimmune disease Sister Julia Developmental delay Sister Julia Hearing loss Sister Julia Heart disease Sister Julia Intellectual Disability Sister Julia Seizures Sister Julia Vision loss Sister Julia Relation Name Status Comments Father Maternal Grandfather Edison Maternal Grandmother Amee Mother Michelle Other 1 Other 2 Other 3 Other 4 Other 5 Other 6 Other 7 Other 8 Paternal Grandmother N/A Sister Julia Social History Tobacco Use Types Packs/Day Years [...] Orientation Straight 11/13/2020 2: 32 PM EDT Last Filed Vital Signs Vital Sign Reading [...] oz) 02/22/2025 5:12 P M EDT Height 154.9 cm (5' 1 ) 02/22/2025 12:05 PM EDT Body Mass Index 42.07 02/22/2025 12:05 PM EDT Plan of Treatment Health Maintenance Due Date Last Done Comments [facility]-HIV Screening 1996 [facility]-Hepatitis C Screening 1996 [facility]-/Child/Adol SDOH Screenings 1996 [facility]-IPV Vaccines (2 of 3 - 4-dose series) 05/12/2001 04/14/2001 [id number] Vaccine (#1) 2001 [facility]-Varicella Vaccines (2 of 2 - 2-dose childhood series) 07/07/2001 04/14/2001 [facility]- SDOH Screenings 2014 [facility]-Adult SDOH Screenings 2014 [facility]-Hepatitis B Vaccines (1 of 3 - 19+ 3-dose series) 2015 HPV Vaccines (1 - 3-dose SCDM series) 2023 [facility]-Pap Smear 2024 2021, 02/25/2020 [facility]-Depression Screening 09/07/2024 09/08/2023 [facility]-DTaP,Tdap,and Td Vaccines (4 - Td or Tdap) 02/06/2032 02/05/2022, 09/09/2008, 04/14/2001 [facility]-Zoster Vaccines (1 of 2) 2046 04/14/2001 [facility]-HIB Vaccines Completed 04/14/2001 [facility]-Obesity Intervention Completed 025, 01/10/2025, 10/31/2023, Additional history exists [facility]-Influenza Vaccine Completed 02/08/2025 , 12/21/2023, 04/14/2023, Additional history exists [facility]-Hepatitis A Vaccines Aged Out No longer eligible based on patient's age to complete this topic [facility]-Pneumococcal Vaccine: Pediatrics (0 to 5 Years) and At-Risk Patients (6 to 49 Years) Aged Out No longer eligible based on patient's age to complete this topic [facility]-Rotavirus Vaccines Aged Out No lo nger eligible based on patient's age to complete this topic Goals Goal Patient Goal Type Associated Problems Recent Progress Patient-Stated? Author Autogenera elsa Goal Care Plan Autogenerated Problem No Eliza [employer] Implanted Type Area Culinary Manager Device Identifier Shelf Expiration Date Model / Serial / Lot Port Clearvue Power 6fr - [id number] Implanted:Qty: 1 on 10/14/2023 by Shauna Odonnell, RN at [facility] Peripherial Vascular-[id number] 12/30/2024 [id number] / / [id number] Procedures Procedure Name Priority Date/Time Associated Diagnosis Comments POCT GLUCOSE METER UNSOLICITED RESULTS Routine 02/22/2025 11:49 PM EDT COMPREHENSIVE METABOLIC PANEL, PLASMA STAT 02/22/2025 10:17 PM EDT XR CHEST 1 VIEW STAT 02/22/2025 8:26 PM EDT TEST QUALITATIVE PLASMA STAT 02/22/2025 5:53 PM EDT LACTATE, VENOUS STAT 02/22/2025 5:53 PM EDT CBC WITH AUTO DIFFERENTIAL STAT 02/22/2025 5:53 PM EDT PHOSPHORUS, PLASMA STAT 02/22/2025 5: 53 PM EDT MAGNESIUM, PLASMA STAT 02/22/2025 5:5 3 PM EDT COMPREHENSIVE METABOLIC PANEL, PLASMA STAT 02/22/2025 5:53 PM EDT BLOOD GAS PANEL, ARTERIAL STAT 02/22/2025 3:32 PM EDT IR TUNNELED CVC REPLACEMENT COMPLETE Routine 02/22/2025 2:49 PM EDT H/O insertion of central venous access port PB ANESTHESIA PLACEHOLDER Routine 02/22/2025 1:57 PM EDT ID AN ELECTIVE ENDOTRACHEAL AIRWAY Routine 02/22/2025 1:57 PM EDT INSERT PERIPHERAL IV Routine 02/22/2025 12:30 PM EDT POCT , URINE Routine 02/22/2025 11:50 AM EDT XR CHEST 2 VIEWS Routine 01/10/2025 2:04 PM EDT Port-A-Cath in place PAP TEST - CYTOLOGY Routine 2021 1 1:50 AM EST Pelvic and perineal pain from Last 3 Months or Most Recently Relevant to Health Maintenance Results * POCT glucose meter (02/22/2025 11:49 [...] for testing. Comment 02/22/2025 11:51 PM EDT [facility] Greige Goods Marker ID Jack Thompson 02/22/2025 11:51 PM EDT HEALTHCARE LAB Device ID [id number] 02/22/2025 11:51 PM EDT [facility]ALTH[facility]ARE [facility] Specimen Type POC Capillary 02/22/2025 11:51 PM EDT [facility] Blood Capillary blood specimen / Unknown 02/22/2025 11:49 PM EDT 02/22/2025 11:51 PM EDT us Oswald Rizvi MD LAB POINT OF CARE TE ST DOCKED DEVICE UNSOLICITED RESULTS Final Result [facility] [address] [place] [id number] * (ABNORMAL) CMP (02/22/2025 10:17 PM EDT) Only the most recent of2 resultswithin the time period is included. Glucose, Plasma 107(H) 74 - 99 mg/dL 02/22/2025 10:42 PM EDT [facility] BUN, Plasma 5(L) 7 - 21 mg/dL 02/22/2025 10:42 PM EDT [facility] Creatinine, Plasma 0.55(L) 0.60 - 1.10 mg/dL 02/22/2025 10:42 PM EDT [facility] BUN/Creatinine Ratio 9 02/22/2025 10:42 PM EDT [facility] Sodium, Plasma 125(L) 136 - 145 mmol/L 02/22/2025 10:42 PM EDT [facility] Potassium, Plasma 4.5 3.6 - 4.9 mmol/L 02/22/2025 10:42 PM EDT [facility] Comment:Hemolyzed - Potassiu m may be falsely elevated by approximately 0.4-0.7 mmol/L. Chloride, Plasma 95(L) 97 - 107 mmol/L 02/22/2025 10:42 PM EDT [facility] CO2, Plasma 18(L) 22 - 29 mmol/L 02/22/2025 10:42 PM EDT [facility] Anion Gap 12 6 - 16 mmol/L 02/22/2025 10:42 PM EDT [facility] Total Calcium, Plasma 8.7(L) 8.9 - 10.2 mg/dL 02/22/2025 10:42 PM EDT [facility] Total Protein 6.6 6.3 - 7.9 g/dL 02/22/2025 10:42 PM EDT [facility] Albumin, Plasma 3.7 3.5 - 5.2 g/dL 02/22/2025 10:42 PM EDT [facility] AST, Plasma 23 10 - 35 U/L 02/22/2025 10:42 PM EDT [facility] Comment:Hemolyzed, result ma y be falsely increased. ALT, Plasma 8(L) 10 - 35 U/L 02/22/2025 10:42 PM EDT [facility] Alkaline Phosphatase, Plasma 140(H) 35 - 104 U/L 02/22/2025 10:42 PM EDT [facility] Total Bilirubin, Plasma 0.3 0.2 - 1.1 mg/dL 02/22/2025 10:42 PM EDT [facility] eGFRcr 128.2 mL/min/1. 73m*2 02/22/2025 10:42 PM EDT [facility] Comment:Reported eGFRcr in m L/min/1.73m2 is based the CKD-EPI 2020 equation that does not use a race coefficient. Blood Venous blood specimen / Unknown Venipuncture / Unknown 02/22/2025 10:17 PM EDT 02/22/2025 10:[address] Narayanan George DO LAB BLOOD ORDERABLES Final Re sult [facility] [address] [place] [address] * XR Chest 1 View (02/22/2025 8:26 [...] Magaly Sandoval MD on 02/22/2025 8:[address] Vazquez DO IMG XR PROCEDURES Final Resul t * (ABNORMAL) Lactic acid, venous (02/22/2025 5:53 PM EDT) Lactate, Venous, Whole Blood <0.4(L) 0.5 - 2.2 mmol/L LAB HEMATOLOGY METHOD 02/22/2025 6:11 PM EDT [facility] Blood Venous blood specimen / Unknown Venipuncture / Unknown 02/22/2025 5:53 PM EDT 02/22/2025 5:[address] Vazquez DO LAB BLOOD ORDERABLES Final Re sult [facility] [address] [place] [address] * (ABNORMAL) CBC w/diff (02/22/2025 5:53 PM EDT) WBC Count 9.84 3.70 - 10.30 10*3/uL LAB HEMATOLOGY METHOD 02/22/2025 5:57 PM EDT [facility] RBC Count 4.13 3.90 - 5.20 10*6/uL LAB HEMATOLOGY METHOD 02/22/2025 5:57 PM EDT [facility] HGB 11.1(L) 11.2 - 15.7 g/dL LAB HEMATOLOGY METHOD 02/22/2025 5:57 PM EDT [facility] HCT 33.0(L) 34.0 - 45.0 % LAB HEMATOLOGY METHOD 02/22/2025 5:57 PM EDT [facility] Platelet Count 244 155 - 369 10*3/uL LAB HEMATOLOGY METHOD 02/22/2025 5:57 PM EDT [facility] MCV 80 79 - 98 fL LAB HEMATOLOGY METHOD 02/22/2025 5:57 PM EDT [facility] MCH 26.9 26.0 - 32.0 pg LAB HEMATOLOGY METHOD 02/22/2025 5:57 PM EDT [facility] MCHC 33.6 30.7 - 35.5 g/dL LAB HEMATOLOGY METHOD 02/22/2025 5:57 PM EDT [facility] RDW 12.1 11.5 - 14.5 % LAB HEMATOLOGY METHOD 02/22/2025 5:57 PM EDT [facility] MPV 9.7 8.8 - 12.5 fL LAB HEMATOLOGY METHOD 02/22/2025 5:57 PM EDT [facility] nRBC 0.0 <=0.0 per 100 WBCs LAB HEMATOLOGY METHOD 02/22/2025 5:57 PM EDT [facility] Differential Type Automated LAB HEMATOLOGY METHOD 02/22/2025 5:57 PM EDT [facility] Neutrophils % 80 % LAB HEMATOLOGY METHOD 02/22/2025 5:57 PM EDT [facility] Lymphocytes % 13 % LAB HEMATOLOGY METHOD 02/22/2025 5:57 PM EDT [facility] Monocytes % 7 % LAB HEMATOLOGY METHOD 02/22/2025 5:57 PM EDT [facility] Eosinophils % 0 % LAB HEMATOLOGY METHOD 02/22/2025 5:57 PM EDT [facility] Basophils % 0 % LAB HEMATOLOGY METHOD 02/22/2025 5:57 PM EDT [facility] Immature Granulocytes % 0 % LAB HEMATOLOGY METHOD 02/22/2025 5:57 PM EDT [facility] Neutrophils Absolute 7.78(H) 1.60 - 6.10 10*3/uL LAB HEMATOLOGY METHOD 02/22/2025 5:57 PM EDT [facility] Lymphocytes Absolute 1.25 1.20 - 3.90 10*3/uL LAB HEMATOLOGY METHOD 02/22/2025 5:57 PM EDT [facility] Monocytes Absolute 0.71 0.30 - 0.90 10*3/uL LAB HEMATOLOGY METHOD 02/22/2025 5:57 PM EDT [facility] Eosinophils Absolute 0.03 0.00 - 0.50 10*3/uL LAB HEMATOLOGY METHOD 02/22/2025 5:57 PM EDT [facility] Basophils Absolute 0.03 0.00 - 0.10 10*3/uL LAB HEMATOLOGY METHOD 02/22/2025 5:57 PM EDT [facility] Immature Granulocytes Absolute 0.04 0.00 - 0.06 10*3/uL LAB HEMATOLOGY METHOD 02/22/2025 5:57 PM EDT [facility] Blood Venous blood specimen / Unknown Venipuncture / Unknown 02/22/2025 5:53 PM EDT 02/22/2025 5:55 PM EDT Narrative [facility] - 02/22/2025 5:57 PM EDT Therapeutic decision making should be based on absolute values, rather than percentages. [employer] LAB BLOOD ORDERABLES Final Re sult [facility] [address] [place] [address] * hCG qualitative (02/22/2025 5:53 PM EDT) Test Negative Negative 02/22/2025 6:21 PM EDT [facility] Blood Venous blood specimen / Unknown Venipuncture / Unknown 02/22/2025 5:53 PM EDT 02/22/2025 5:55 PM EDT Narrative [facility] - 02/22/2025 6:21 PM EDT Reference Range: Males and non- females: Negative. Local [address] Vazquez DO LAB BLOOD ORDERABLES Final Re sult Performing Organization Address [facility] Co de Phone Number [facility] [address] [place] [address] * Phosphorus (02/22/2025 5:53 PM EDT) [facility] Phosphorus, Plasma 3.1 2.5 - 4.5 mg/dL 02/22/2025 6:21 PM EDT [facility] Blood Venous blood specimen / Unknown Venipuncture / Unknown 02/22/2025 5:53 PM EDT 02/22/2025 5:[address] Vazquez [facility] LAB BLOOD ORDERABLES Final Re sult Performing Organization Address [facility] Co de Phone Number [facility] [address] [place] [address] * (ABNORMAL) Magnesium (02/22/2025 5:53 PM EDT) [facility] Magnesium, Plasma 1.5(L) 1.9 - 2.4 mg/dL 02/22/2025 6:21 PM EDT [facility] Blood Venous blood specimen / Unknown Venipuncture / Unknown 02/22/2025 5:53 PM EDT 02/22/2025 5:[address] Vazquez [facility] LAB BLOOD ORDERABLES Final Re sult Performing Organization Address [facility] Co de Phone Number [facility] [address] [place] [address] * (ABNORMAL) Blood gas panel, arterial (02/22/2025 3:32 PM EDT) [facility] pH, Arterial 7.37 7.35 - 7.45 LAB HEMATOLOGY METHOD 02/22/2025 3:40 PM EDT [facility] pCO2, Arterial 40 35 - 48 mmHg LAB HEMATOLOGY METHOD 02/22/2025 3:40 PM EDT [facility] pO2, Arterial 307(H) 83 - 108 mmHg LAB HEMATOLOGY METHOD 02/22/2025 3:40 PM EDT [facility] SO2, Measured, Arterial 100(H) 94 - 98 % LAB HEMATOLOGY METHOD 02/22/2025 3:40 PM EDT [facility] Base Excess, Arterial -2.0 -2.0 - 3.0 mmol/L LAB HEMATOLOGY METHOD 02/22/2025 3:40 PM EDT [facility] Bicarbonate, Calculated, Arterial 23 22 - 26 mmol/L LAB HEMATOLOGY METHOD 02/22/2025 3:40 PM EDT [facility] Hematocrit, Whole Blood 34.0 34.0 - 45.0 % LAB HEMATOLOGY METHOD 02/22/2025 3:40 PM EDT [facility] Sodium, Whole Blood 127(L) 136 - 145 mmol/L LAB HEMATOLOGY METHOD 02/22/2025 3:40 PM EDT [facility] Potassium, Whole Blood 3.7 3.6 - 4.9 mmol/L LAB HEMATOLOGY METHOD 02/22/2025 3:40 PM EDT [facility] Chloride, Whole Blood 98 97 - 107 mmol/L LAB HEMATOLOGY METHOD 02/22/2025 3:40 PM EDT [facility] Glucose, Whole Blood 101(H) 74 - 99 mg/dL LAB HEMATOLOGY METHOD 02/22/2025 3:40 PM EDT [facility] Ionized Calcium, Whole Blood 4.6 4.6 - 5.1 mg/dL LAB HEMATOLOGY METHOD 02/22/2025 3:40 PM EDT [facility] Lactate, Arterial, Whole Blood 0.8 0.5 - 1.6 mmol/L LAB HEMATOLOGY METHOD 02/22/2025 3:40 PM EDT [facility] Blood Arterial blood specimen / Unknown Arterial Puncture / Unknown 02/22/2025 3:32 PM EDT 02/22/2025 3:38 PM EDT us Sami Cantu MD LAB BLOOD ORDERABLES Final Resul t [facility] [address] [place] [address] * IR Tunneled CVC Replacement Complete (02/22/2025 [...] 10/14/23 as well as powerline placement. TECHNIQUE: Oil Field Laborer: Oswald Rizvi M.D. Rad Dose: 2 mGy [...] placed 10/14/23 as well aspowerline placement. TECHNIQUE: Oil Field Laborer: Oswald Rizvi M.D. Rad Dose: 2 mGy [...] COMMUNICATION: Per this written report. Drafted by Osawld Rizvi MD on 02/23/2025 2:18 PM Final report signed by Oswald Rizvi MD on 02/23/2025 3:53 PM us Glenn Delgado MD IMG IR PROCEDURES Final Resu lt * ID AN ELECTIVE ENDOTRACHEAL AIRWAY, PB ANESTHESIA PLACEHOLDER (02/22/2025 1:57 PM EDT) Narrative Kathie Cummins CRNA - 02/22/2025 1:57 PM EDT Kathie Cummins CRNA 02/22/2025 2:17 PM Airway Date/Time: 02/22/2025 1:57 PM Reason: elective Airway not difficult General Information and Staff Patient location during procedure: OR STEEL HANDLER: Kathie Cummins CRNA Performed: STEEL HANDLER Patient Condition Indications for airway management: anesthesia [...] auscultation and capnometry Measured from: lips us Saim Cantu MD ANESTHESIA ORDERABLES Final Resu lt * PERIPHERAL IV (SMARTFORM [...] IV site covered with: Transparent semipermeable dressing us Oswald Rizvi MD IV THERAPY ORDERABLES Final R esult * POCT , URINE (02/22/2025 11:50 AM EDT) POCT Test, Urine Negative Males and Non- Females: Negative 02/22/2025 11:56 AM EDT [facility] Greige Goods Marker ID Meghan Gamino 02/22/2025 11:56 AM EDT [facility] Device ID [id number] 02/22/2025 11:56 AM EDT [facility] Urine Urine specimen obtained by clean catch procedure / Unknown 02/22/2025 11:50 AM EDT 02/22/2025 11:56 AM EDT Oswald Rizvi MD LAB POINT OF CARE TE ST DOCKED DEVICE UNSOLICITED RESULTS Final Result Performing Organization Address City/State/[facility] Co de Phone Number [facility] [address] [place] [address] * XR Chest 2 Views (01/10/2025 2:04 [...] Davonte Swartz MD on 01/10/2025 3:25 PM Hiralkris Tatum BODY SHOP MECHANIC IMG XR PROCEDURES Final Result * (ABNORMAL) Pap Smear (2021 11:50 AM EST) Case Report Cytology Case: [id number] Authorizing Provider: Starla Leavitt MD Collected: 2021 1150 Ordering Location: Medical Office Building Received: 06/29/2021 0918 Obstetrics and Gynecology First Screen: Stephenie Alvarado, CT Pathologist: Chica Steele MD Specimen: ThinPrep Pap Test, Liquid-Based Cervical/Vagina l, CERVICAL/VAGINA L 07/03/2021 10:53 AM EST [facility] Interpretation ATYPICAL SQUAMOUS CELLS OF UNDETERMINED SIGNIFICANCE (ASCUS)(A) 07/03/2021 10:53 AM EST [facility] at 1053 EST Specimen Adequacy Satisfactory for evaluation; endocervical/tr ansformation zone component present. Slide imaged by the ThinPrep Imaging system and selected 22 martinez reviewed then full manual screening. 07/03/2021 10:53 AM EST [facility] Cervical cytology is a screening test primarily for squamous cancers and precursors and has associated false negative and positive results. New technologies such as liquid based sampling may decrease but will not eliminate all false negative results. Regular screening and follow-up of unexplained clinical signs and symptoms are recommended to minimize false negative results. Please see the ASCCP website (www.asccp.org) for followup recommendations . If HPV testing was requested, correlation with the results is suggested (please call Microbiology at [phone] for results). 07/03/2021 10:53 AM EST [facility] Menstrual Status Unknown 07/04/19 10:53 AM EST [facility] Contraceptive History Nuva Ring 07/03/2021 10:53 AM EST [facility] Screening Type Routine Screen 2021 10:53 AM EST [facility] High Risk? Yes 07/03/2021 10:53 AM EST [facility] HPV Testing Requested? Request HPV Testing if ASCUS (Women 25 Years or Older) 07/03/2021 10:53 AM EST [facility] Previous Cancer History No 07/03/2021 10:53 AM EST [facility] Clinical Information R10.2 - Pelvic and perineal pain [ICD-10-CM] 07/03/2021 10:53 AM EST [facility] Last Menstrual Period 2021[IRR 07/03/2021 10:53 AM EST [facility] Swab Vaginal and cervical cytologic material / Unknown Non-blood Collection / Unknown 2021 11:50 AM EST 06/29/2021 9:18 AM EST us Starla Leavitt MD LAB CYTOLOGY ORDERABLES Fi nal Result [facility] [address] [place] [phone] from Last 3 Months or Most Recently Relevant to Health Maintenance Additional Health Concerns Active Problems Noted Date Diagnosed Date Autogenerated Problem 02/06/2025 Insurance [employer] Advance Directives Documents on File Type Date Recorded Patient Machine Hose Cutter Expl anation Advance Directives and Dami g Will 09/08/2023 Advance Directive * Full Code (Latest Code Status on File) Date Activated Date Inactivated Comments 10/14/2023 11:54 AM 10/15/2023 2:44 AM Question Answer Comments Patient has decision-making capacity? Yes Care Teams Upholsterer Apprentice Relationship Specialty Start Date End Date Justino Zheng MD [address] [place] [address] PCP - General 09/15/20
--- OUTSIDE RECORDS SUMMARY | 2025-02-23 23:11 | XMS_ITS | Encounter Summary ---
Author Organization [facility] Address [address] [place] [address] Care Team Providers Care Embroidery Supervisor Name Role Phone Justino Zheng MD Primary Care Provider [phone] Reason for Visit * Reason Comments Med Refill Encounter Details Date Type Department Care Team ([facility] st Contact Info) Description 04/22/2021 Refill Medical Office Building Obstetrics and Gynecology [address], [address] [place] [address] Marnie Cr MD [address] [place] [address] Attention deficit disorder with hyperactivity [...] Telephone Encounter - Sasha Johnson RN - 04/22/2021 10:41 AM EST Approving, but needs appt for additional refills. documented in this encounter Plan of Treatment Not on file documented as of this encounter Visit Diagnoses Diagnosis Attention deficit disorder with hyperactivity documented in this encounter Additional Health Concerns Assessment Noted Time A fall risk assessment has been complete d for the patient 10/30/2020 3:45 PM EDT documented as of this encounter Care Teams Embroidery Supervisor Relationship Specialty Start Date End Date Justino Zheng MD [address] [place] [address] PCP - General 09/15/20 documented as of this encounter
--- OUTSIDE RECORDS SUMMARY | 2025-02-23 23:11 | XMS_ITS | Encounter Summary ---
Author Organization [facility] Address [address] [place] [address] Care Team Providers Care Belt Sander Stone Name Role Phone Justino Zheng MD Primary Care Provider [phone] Reason for Visit * Reason Comments Med Refill Encounter Details Date Type Department Care Team ([facility] st Contact Info) Description 03/12/2021 Refill Medical Office Building Obstetrics and Gynecology [address] [facility] [address] [place] [address] Marnie Cr MD [address] [facility] [address] [place] [address] Attention deficit disorder with hyperactivity [...] Telephone Encounter - Sasha Johnson RN - 03/13/2021 8:49 AM EST Approving, but needs appt for [...] documented as of this encounter Care Teams Belt Sander Stone Relationship Specialty Start Date End Date Justino Zheng MD [address] [place] [address] PCP - General 09/15/20 documented as of this encounter
--- OUTSIDE RECORDS SUMMARY | 2025-02-23 23:11 | XMS_ITS | Encounter Summary ---
Author Organization [facility] Address [address] [place] [address] Care Team Providers Care Calendar Control Clerk Blood Bank Name Role Phone Justino Zheng MD Primary Care Provider [phone] Encounter Details Date Type Department Care Team (Latest Contact Info) Description 02/05/2025 Travel Social History Tobacco Use Types Packs/Day [...] documented as of this encounter Care Teams Calendar Control Clerk Blood Bank Relationship Specialty Start Date End Date Justino Zheng MD [address] [place] [place] [address] PCP - General 09/15/20 documented as of this encounter
--- OUTSIDE RECORDS SUMMARY | 2025-02-23 23:11 | XMS_ITS | Encounter Summary ---
Author Organization [facility] Address [address] [place] [address] Care Team Providers Care Servicer Travel Trailers Name Role Phone Justino Zheng MD Primary Care Provider [phone] Encounter Details Date Type Department Care Team (Latest Contact Info) Description 02/22/2025 Travel Social History Tobacco Use Types Packs/Day [...] Suicidal Behavior (Lifetime) No 5:17 PM EDT Ravi, Alisa N, RN documented as of this encounter Plan of [...] documented as of this encounter Care Teams Servicer Travel Trailers Relationship Specialty Start Date End Date Justino Zheng MD [address] [facility] [place] [address] PCP - General 09/15/20 documented as of this encounter
--- OUTSIDE RECORDS SUMMARY | 2025-02-23 23:11 | XMS_ITS | Encounter Summary ---
Author Organization [facility] Address [address] [place] [address] Care Team Providers Care Agricultural Production Engineer Name Role Phone Justino Zheng MD Primary Care Provider [phone] Encounter Details Date Type Department Care Team (Latest Contact Info) Description 02/21/2025 Travel Social History Tobacco Use Types Packs/Day [...] documented as of this encounter Care Teams Agricultural Production Engineer Relationship Specialty Start Date End Date Justino Zheng MD [address] [place] [address] PCP - General 09/15/20 documented as of this encounter
--- OUTSIDE RECORDS SUMMARY | 2025-02-23 23:11 | XMS_ITS | Encounter Summary ---
Author Organization [facility] Address [address] [place] [address] Care Team Providers Care Mechanical Service Technician Name Role Phone Justino Zheng MD Primary Care Provider + Reason for Visit * Reason Onset Date Comments Med Refill 05/20/2023 Encounter Details Date Type Department Care Team (Late st Contact Info) Description 05/20/2023 Refill [facility] [address] [place] [address] Justino Zheng MD [address] [place] [address] Social History Tobacco Use Types Packs/Day Years Used Date Smoking Tobacco: Never Smokeless Tobacco: Never Alcohol Use Standard Drinks/Week Comments Not Currently 0 (1 standard drink = 0.6 oz pur e alcohol) rare PHQ-2 Answer Date Recorded Retired PHQ-9: Brief Depression Severity Measure Score 19 10/26/2022 PHQ-2 Answer Date Recorded Retired PHQ-9: Brief Depression Severity Measure Score 19 10/26/2022 Comments No Sex and Gender Information Value Date Recorded Sex Assigned at Female 10/13/2022 7:44 PM EDT Legal Sex Female 11:05 AM EDT Gender Identity Female 10/13/2022 7:44 PM EDT Sexual Orientation Not on file documented as of this encounter Plan of Treatment Upcoming Encounters Date Type Department Care Team (Late st Contact Info) Description 04/16/2025 12:00 PM EST Office Visit [facility] [address] [phone] Eliza Mckinney PA-C [address] [address] 05/23/2025 1:45 PM EST Office Visit [facility] [address] [phone] Justino Zheng MD [address] [place] [address] documented as of this encounter Visit Diagnoses Not on filedocumented in this encounter Additional Health Concerns Infection Onset Date Last Indicated Resolved Time C.difficile (rule out) 01/21/2025 01/21/202501/26 9:08 PM EDT Assessment Noted Time PHQ-2 Depression Total Score: 4 10/27/19 3:00 PM EDT documented as of this encounter Care Teams Mechanical Service Technician Relationship Specialty Start Date End Date Justino Zheng MD [address] [facility] [place] [address] PCP - General Family Medicine 11/05/21 documented as of this encounter
--- OUTSIDE RECORDS SUMMARY | 2025-02-23 23:11 | XMS_ITS | Encounter Summary ---
Author Organization [facility] Address [address] [place] [address] Care Team Providers Care Sprinkler Truck Driver Name Role Phone Justino Zheng MD Primary Care Provider + Reason for Visit * Reason Comments Med Refill Encounter Details Date Type Department Care Team (Late st Contact Info) Description 02/03/2025 Refill [facility] [address] [place] [address] Justino Zheng MD [address] [place] [address] Irritable bowel syndrome, unspecified type Social History Tobacco Use Types Packs/Day Years [...] Description 04/16/2025 12:00 PM EST Office Visit [facility] [address] [phone] Eliza Mckinney PA-C [address] [address] 05/23/2025 1:45 PM EST Office Visit [facility] [address] [facility] [place] [phone] Justino Zheng MD [address] [place] [address] documented as of this encounter Visit Diagnoses Diagnosis Irritable bowel syndrome, unspecified type documented in this encounter Additional Health Concerns Assessment Noted Time PHQ-2 Depression Total Score: 1 11/17/19 24 8:48 AM EDT documented as of this encounter Care Teams Sprinkler Truck Driver Relationship Specialty Start Date End Date Justino Zheng MD [address] [place] [address] PCP - General Family Medicine 11/05/21 documented as of this encounter
--- OUTSIDE RECORDS SUMMARY | 2025-02-23 23:11 | XMS_ITS | Encounter Summary ---
Author Organization [facility] Address [address] [place] [address] Care Team Providers Care Cage Manager Name Role Phone Justino Zheng MD Primary Care Provider + Reason for Visit * Reason Comments Med Refill Encounter Details Date Type Department Care Team (Late st Contact Info) Description 09/23/2024 Refill [facility] [address] [place] [address] Justino Zheng MD [address] [place] [address] Irritable bowel syndrome, unspecified type [...] Description 04/16/2025 12:00 PM EST Office Visit [facility] [address] [address] Eliza Mckinney PA-C [address] [address] 05/23/2025 1:45 PM EST Office Visit [facility] [address] [place] [phone] Justino Zheng MD [address] [place] [address] documented as of this encounter Visit Diagnoses Diagnosis Irritable bowel syndrome, unspecified type documented in this encounter Additional Health Concerns Infection Onset Date Last Indicated Resolved Time C.difficile (rule out) 01/21/2025 01/21/202501/26 9:08 PM EDT Assessment Noted Time PHQ-2 Depression Total Score: 1 11/17/19 24 8:48 AM EDT documented as of this encounter Care Teams Cage Manager Relationship Specialty Start Date End Date Justino Zheng MD [address] [place] [address] PCP - General Family Medicine 11/05/21 documented as of this encounter
--- OUTSIDE RECORDS SUMMARY | 2025-02-23 23:11 | XMS_ITS | Encounter Summary ---
Author Organization [facility] Address [address] [place] [address] Care Team Providers Care Propagation Manager Name Role Phone Justino Zheng MD Primary Care Provider Reason for Visit * Reason Onset Date Comments advice only 05/18/2015 Encounter Details Date Type Department Care Team (Late st Contact Info) Description 05/18/2015 Telephone [facility] Division of Rheumatology [address] [place] [address] Ernie Coleman MD Rheumatology [address] [place] [phone] advice only Social History Tobacco Use Types Packs/Day Years Used Date Smoking Tobacco: Never Assessed Intimate Partner Violence Answer Date R ecorded [...] on file documented as of this encounter Miscellaneous Notes * Telephone Encounter - Alcides Villela MD - 05/18/2015 11:45 PM EST Agree with this plan. * Telephone Encounter - Ernie Coleman MD - 05/18/2015 10:34 PM EST [place] was recently hospitalized for pain. She was diagnosed by our service with EDS and fibromyalgia, and she was discharged with pain medications including Oxycodone and an increasing dose of neurontin. She is supposed to see the pain service next week. Mom called because of severe muscle cramps/pain in the last hours. Some response to oxycodone but the girl is very anxious and crying. She did take her evening Neurontin. Mom did not know what to do. We discussed calming techniques, warm baths, massages. I also suggested the addition of bed time flexeril, starting tomorrow to help with sleep and musclepain. Mom was appreciative and understanding. She realized that more pain medication would probably not be helpful at this point. documented in this encounter Plan of Treatment Not on file documented as of this encounter Visit Diagnoses Not on filedocumented in this encounter Additional Health Concerns Infection Onset Date Last Indicated Resolved Time Enteric 05/15/2015 05/15/2015 08/18/2015 2:23 PM EDT C-Diff 05/15/2015 05/15/2015 08/18/2015 2:23 PM EDT documented as of this encounter Care Teams Propagation Manager Relationship Specialty Start Date End Date Justino Zheng MD [address] [place] [address], [facility] [place] [address] PCP - General 08/05/15 documented as of this encounter
--- OUTSIDE RECORDS SUMMARY | 2025-02-23 23:11 | XMS_ITS | Encounter Summary ---
Author Organization [facility] Address [address] [place] [address] Care Team Providers Care Global Process Owner Name Role Phone Justino Zheng MD Primary Care Provider [phone] Encounter Details Date Type Department Care Team (Latest Contact Info) Description 01/31/2025 Travel Social History Tobacco Use Types Packs/Day [...] documented as of this encounter Care Teams Global Process Owner Relationship Specialty Start Date End Date Just[place] [address] PCP - General 09/15/20 documented as of this encounter
--- OUTSIDE RECORDS SUMMARY | 2025-02-23 23:11 | XMS_ITS | Encounter Summary ---
Author Organization [facility] Address [address] [place] [address] Care Team Providers Care Cosmetician Apprentice Name Role Phone Justino Zheng MD Primary Care Provider [phone] Reason for Visit * Reason Onset Date Comments HCN Clinical Concern/Question 02/04/2025 Pl ease see note... Encounter Details Date Type Department Care Team ([facility] st Contact Info) Description 02/04/2025 Telephone [facility] Vascular Interventional Radiology [address] [facility] [address] [place] [address] Pcp, No [address] [place] [address] HCN Clinical Concern/Question (Please see note...) Social History Tobacco Use Types Packs/Day Years [...] encounter Miscellaneous Notes * Telephone Encounter - Daniella Farley RN - 02/04/2025 2:02 PM EDT Pt calls to report a clear, red drainage from port site starting or Tuesday. Moving appt from Tuesday to tomorrow at 11:30. She verbalized understanding. * Telephone Encounter - Ava Castillo - 02/04/2025 1:00 PM EDT Clinical Concern/Question Reason for Call: Patient is asking for a nurse to call her back regarding her having stuff coming out of her port and her appointment isn't until 02/08 and is asking if she can be worked in sooner grayson seen. Patient is asking for a call back. Best contact number: [phone] (mobile) Optimal time of day to reach caller: ANYTIME Additional comments/information from caller: Not Applicable Note: Please do not reply to this message. Follow-up communication and further actions as a result of this message need to be communicated with the patient directly, if the patient is not active onMyChart. If the patient is active on MyChart, they will receive notification of the communication/outcome via [employer]. documented in this encounter Plan of Treatment [...] documented as of this encounter Care Teams Cosmetician Apprentice Relationship Specialty Start Date End Date Justino Zehng MD [address] [place] [address] PCP - General 09/15/20 documented as of this encounter
--- OUTSIDE RECORDS SUMMARY | 2025-02-23 23:11 | XMS_ITS | Encounter Summary ---
Author Organization [facility] Address [address] [place] [address] Care Team Providers Care Stretcher Leveler Operator Name Role Phone Justino Zheng MD Primary Care Provider + Encounter Details Date Type Department Care Team (Latest Contact Info) Description 01/21/2025 Travel Social History Tobacco Use Types Packs/Day [...] Description 04/16/2025 12:00 PM EST Office Visit [facility] [address] [phone] Eliza Mckinney PA-C [address] [address] 05/23/2025 1:45 PM EST Office Visit [facility] [address] [place], [place] [phone] Justino Zheng MD [address] [place] [address] documented as of this encounter Visit Diagnoses Not on filedocumented in this encounter Additional Health Concerns Infection Onset Date Last Indicated Resolved Time C.difficile (rule out) 01/21/2025 01/21/202501/26 9:08 PM EDT Assessment Noted Time PHQ-2 Depression Total Score: 1 11/17/19 24 8:48 AM EDT documented as of this encounter Care Teams Stretcher Leveler Operator Relationship Specialty Start Date End Date Justino Zheng MD [address] [place] [address] PCP - General Family Medicine 11/05/21 documented as of this encounter
--- OUTSIDE RECORDS SUMMARY | 2025-02-23 23:11 | XMS_ITS | Encounter Summary ---
[facility] Address [address] [place] [id number] Care Team Providers Care Velvet Cutter Name Role Phone Justino Zheng MD Primary Care Provider + Encounter Details Date Type Department Care Team (Late st Contact Info) Description 01/28/2025 Results Follow-Up [facility] GASTROENTEROLOGY [address] [address] Eliza Mckinney PA-C [address] [address] Social History Tobacco Use Types Packs/Day Years [...] on file documented as of this encounter Progress Notes * Kaelyn Dominique MA - 01/28/2025 3:45 PM EDT Sent results to [employer]. * Eliza Mckinney PA-C - 01/28/2025 2:44 PM EDT Please let Merced know that her labs reveal normal alpha gal panel, celiac panel. Her workup for porphyria was negative. Her CRP is elevated, which is a nonspecific inflammatory marker and will be further evaluated at time of endoscopy. documented in this encounter Plan of Treatment Upcoming Encounters Date Type Department Care Team (Late st Contact Info) Description 04/16/2025 12:00 PM EST Office Visit [facility] GASTROENTEROLOGY [address] [address] Eliza Mckinney PA-C [address] [address] 05/23/2025 1:45 PM EST Office Visit [facility] FAMILY MEDICINE [address] [place] [phone] Justino Zheng MD [address] [place] [address] documented as of this encounter Visit Diagnoses Not on filedocumented in this encounter Additional Health Concerns Assessment Noted Time PHQ-2 Depression Total Score: 1 11/17/19 24 8:48 AM EDT documented as of this encounter Care Teams Velvet Cutter Relationship Specialty Start Date End Date Justino Zheng MD [address] [place] [address] PCP - General Family Medicine 11/05/21 documented as of this encounter
--- OUTSIDE RECORDS SUMMARY | 2025-02-23 23:12 | XMS_ITS | Clinical Summary ---
Author Organization [facility] Address [address] [place] [address] Care Team Providers Care Hedis Abstractor Name Role Phone Justino Zheng MD Primary Care Provider + Allergies Active Allergy Reactions Criticality Noted Date Comments Amoxicillin Nausea And Vomiting 11/05/2021 Aspirin Other (See Comments) 11/05/2021 bleeding Banana Anaphylaxis High 02/05/2022 Banana Extract Allergy Skin Test GI Intolerance,Anaphylax is High 01/21/2025 Duloxetine Hcl Hives 11/05/2021 Duloxetine Hives Medium 02/05/2022 Grapefruit Hives 02/05/2022 Grapefruit Extract GI Intolerance,Anaphylax is High 01/21/2025 Haloperidol Seizure 11/19/2024 Ibuprofen Other (See Comments),Unknown (See Comments) Low 09/13/2013 bleeding disorder Ketorolac Other (See Comments) Low 10/23/2015 Kiwi Anaphylaxis High 02/05/2022 Kiwi Extract Anaphylaxis High 01/21/2025 Latex Anaphylaxis,Unknown (See Comments) High 11/14/2009 Latex, Natural Rubber Anaphylaxis High 10/23/2015 Oxycodone Nausea Only,Other (See Comments),Unknown (See Comments) Low 03/03/2015 Oxycodone-Acetaminophen Nausea And Vomiting,Other (See Comments) Low 05/07/2015 Hurst Anaphylaxis High 02/05/2022 Hurst Extract Anaphylaxis High 01/21/2025 Tomato Anaphylaxis High 02/05/2022 Ketorolac Tromethamine Other (See Comments) 10/2021 Bleeding Cetirizine Other (See Comments) 11/05/2021 Nose bleeds Medications * This document contains information received from the source organization and may not represent a complete record from that organization. lidocaine-priloca ine (EMLA) 2.5-2.5 % creamIndications: Difficult intravenous access Apply 1 application topically to the appropriate area as directed Every 2 (Two) Hours As Needed for Mild Pain. 30 g 023 Active dicyclomine (BENTYL) 20 MG tablet TAKE 1 TABLET BY MOUTH EVERY 6 (SIX) HOURS. 120 tablet 024 Active folic acid (FOLVITE) 1 MG tablet Take 1 tablet by mouth Daily. Active tamsulosin (FLOMAX) 0.4 MG capsule 24 hr capsule TAKE 1 CAPSULE BY MOUTH ONCE DAILY 30 capsule 2 024 Active lactated ringers infusionIndicatio ns:Generalized abdominal pain,Dehydration Infuse 125 mL/hr into a venous catheter 2 (Two) Times a Week. 4000 mL 5 025 Active omeprazole (priLOSEC) 20 MG capsuleIndication s:Irritable bowel syndrome, unspecified type Take 1 capsule by mouth Daily. 30 capsule 3 025 Active amitriptyline (ELAVIL) 50 MG tabletIndications :Insomnia, unspecified type TAKE 1 TABLET BY MOUTH EVERY NIGHT 90 tablet 1 025 Active Tranexamic Acid 650 MG tabletIndications :Severe hemophilia A,Menorrhagia with irregular cycle Take 2 tablets by mouth 3 times a day. 30 tablet 4 025 Active lamoTRIgine (LaMICtal) 200 MG tabletIndications :Trauma and stressor-related disorder TAKE 1 TABLET BY MOUTH EVERY NIGHT 90 tablet 025 Active celecoxib (CeleBREX) 200 MG capsuleIndication s:Fibromyalgia,Ch ronic subluxation of left hip, sequela Take 1 capsule by mouth Daily. 90 capsule 1 025 Active OXcarbazepine (TRILEPTAL) 300 MG tablet Take 1 tablet by mouth 2 (Two) Times a Day. 60 tablet 5 025 Active gabapentin (NEURONTIN) 300 MG capsuleIndication s:Fibromyalgia,Ch ronic subluxation of left hip, sequela,Irritable bowel syndrome, unspecified type TAKE 2 CAPSULES BY MOUTH 3 TIMES A DAY MAY CAUSE DROWSINESS 180 capsule 5 025 Active ondansetron ODT (ZOFRAN-ODT) 8 MG disintegrating tabletIndications :Irritable bowel syndrome, unspecified type PLACE 1 TABLET ON THE TONGUE EVERY 8 HOURS NEEDED FOR NAUSEA AND VOMITING 90 tablet 2 025 Active etonogestrel-ethi nyl estradiol (NUVARING) 0.12-0.015 MG/24HR vaginal ringIndications:M enorrhagia with irregular cycle USE MONTHLY DIRECTED. USING WITH CONTINUOUS DOSING 3 each 5 025 Active tiZANidine (ZANAFLEX) 4 MG tablet Take 1 tablet by mouth Every 8 (Eight) Hours. 30 tablet 3 025 Active promethazine (PHENERGAN) 12.5 MG tabletIndications :Nausea and vomiting, unspecified vomiting type Take 1 tablet by mouth 2 (Two) Times a Day. 60 tablet 5 025 Active famotidine (PEPCID) 20 MG tabletIndications :Irritable bowel syndrome, unspecified type TAKE 1 TABLET BY MOUTH EVERY DAY 30 tablet 4 025 Active famotidine (PEPCID) 20 MG tabletIndications :Irritable bowel syndrome, unspecified type TAKE 1 TABLET BY MOUTH EVERY DAY 30 tablet 4 025 2024 Discontinued riFAXIMin (XIFAXAN) 550 MG tabletIndications :Irritable bowel syndrome with diarrhea Take 1 tablet by mouth 3 (Three) Times a Day for 14 days. 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 11/05/2021 Class 2 severe obesity due t o excess calories with serious comorbidity in adult 11/05/2021 Other irritable bowel syndrome 11/05/2021 Encounters Date Type Department Care Team Description [facility] [address] [place] [address] Justino Zheng MD Irritable bowel syndrome, unspecified type 01/28/2025 Results Follow-Up [facility] GASTROENTEROLOGY [address] [phone] Eliza Mckinney PA-C 01/21/2025 12:40 PM EDT Lab [facility] [address] [place] [address] Chronic abdominal pain; Gastroesophageal reflux disease, unspecified whether esophagitis present; Nausea and vomiting, unspecified vomiting type; Irritable bowel syndrome with diarrhea; Alternating constipation and diarrhea; Abdominal bloating 01/21/2025 11:00 AM EDT Office Visit [facility] GASTROENTEROLOGY [address] [address] Eliza Mckinney PA-C Chronic abdominal pain (Primary Dx); Gastroesophageal reflux disease, unspecified whether esophagitis present; Nausea and vomiting, unspecified vomiting type; Irritable bowel syndrome with diarrhea; Alternating constipation and diarrhea; Abdominal bloating; Marijuana use 01/21/2025 Travel 01/07/2025 Refill [facility] FAMILY MEDICINE [address] [place] [address] Justino Zheng MD 01/03/2025 Refill [facility] FAMILY MEDICINE [address] [place] [address] Justino Zheng MD Menorrhagia with irregular cycle 01/03/2025 Refill [facility] FAMILY MEDICINE [address] [place] [address] Justino Zheng MD Irritable bowel syndrome, unspecified type 12/21/2024 Results Follow-Up [facility] FAMILY MEDICINE [address] [place] [address] Justino Zheng MD 12/10/2024 Refill [facility] FAMILY MEDICINE [address] [place] [address] Justino Zheng MD Fibromyalgia; Chronic subluxation of left hip, sequela; Irritable bowel syndrome, unspecified type from Last 3 Months Immunizations Immunization Administration Dates Next Due DTaP, Unspecified 04/14/2001 Flu Vaccine Split Quad 04/01/2014,02/01/2011,07/2009 Fluzone >6mos 12/21/2023 Fluzone (or Fluarix & Flulav al for VFC) >6mos 02/19/2022 Hib (PRP-OMP) 04/14/2001 IPV 04/14/2001 Influenza Injectable Mdck Pf Quad 04/14/2023 Influenza, Unspecified 01/16/2009 MMR 04/14/2001 Td, Not Adsorbed 02/05/2022 Tdap 09/09/2008 Varicella 04/14/2001 Family History Medical History Relation Name Comments ADD / ADHD Maternal Aunt Stanley Wangard Alcohol abuse Maternal Grandfather Edison Wangard Drug abuse Maternal Grandfather Edison Wangard Breast cancer Maternal Grandmother Amee Hays Cancer Maternal Grandmother Amee Hays Cancer Maternal Uncle Uncle Al Bone Cancer Prostate cancer Maternal Uncle Uncle Al Arthritis Mother Michelle Hays Depression Mother Michelle Hays Hearing loss Mother Michelle Hays Mental illness Mother Michelle Hays Miscarriages / Stillbirths Mother Michelle Hays OCD Mother Michelle Hays Thyroid disease Mother Michelle Hays Dementia Sister Julia Hays Developmental Disability Sister Julia Hays Hearing loss Sister Julia Hays Heart disease Sister Julia Hays Irritable bowel syndrome Sister Julia Hays Learning disabilities Sister Julia Hays Seizures Sister Julia Hays Vision loss Sister Julia Hays Relation Name Status Comments Maternal Aunt Stanley Wangard Alive Maternal Grandfather Edison Lis Maternal Grandmother Amee Wangard Maternal Uncle Uncle Al Alive Mother Michelle Hays Sister Julia Hays Social History Tobacco Use Types Packs/Day Years [...] PM EDT Sexual Orientation Not on file Last Filed Vital Signs Vital Sign Reading Time Taken Comments Blood Pressure 142/90 01/21/2025 10:55 AM EDT 150 100 left arm Pulse 111 01/21/2025 10:55 AM EDT Temperature 36.5 C (97.7 F) 01/21/2025 10:55 AM EDT Respiratory Rate 20 11/19/2024 3:22 PM EDT Oxygen Saturation 100% 01/21/2025 10: 55 AM EDT Inhaled Oxygen Concentration - - Weight 90.7 kg (200 lb) 01/21/2025 10:5 5 AM EDT Height 154.9 cm (5' 1 ) 01/21/2025 10:5 5 AM EDT Body Mass Index 37.79 01/21/2025 10:55 AM EDT Plan of Treatment Upcoming Encounters Date Type Department Care Team (Late st Contact Info) Description 04/16/2025 12:00 PM EST Office Visit [facility] GASTROENTEROLOGY [address] [address] Eliza Mckinney PADandreC [address] [address] 05/23/2025 1:45 PM EST Office Visit [facility] FAMILY MEDICINE [address] [place] [address] Justino Zheng MD [address] [place] [address] Health Maintenance Due Date Last Done Comments Annual Gynecologic Pelvic and Breast Exam 1996 PAP SMEAR 2017 ANNUAL PHYSICAL 07/29/2018 HEPATITIS C SCREENING 07/29/2018 INFLUENZA VACCINE 11/30/2024 12/21/2023, , 02/19/2022, Additional history exists TDAP/TD VACCINES (3 - Td or Tdap) 02/06/2032 02/05/2022, 09/09/2008 Pneumococcal Vaccine 0-49 Aged Out No longer eligible based on patient's age to complete this topic Procedures Procedure Name Priority Date/Time Associated Diagnosis Comments PORPHYRINS, QN, RANDOM U Routine 01/21/2025 12:03 PM EDT Chronic abdominal pain AMINOLEVULINIC ACID, URINE Routine 01/21/2025 12:03 PM EDT Chronic abdominal pain PORPHOBILINOGEN, QN, RANDOM UR Routine 01/21/2025 12:03 PM EDT Chronic abdominal pain ALPHA-GAL IGE PANEL Routine 01/21/2025 1 2:03 PM EDT Chronic abdominal pain Gastroesophageal reflux disease, unspecified whether esophagitis present Nausea and vomiting, unspecified vomiting type Irritable bowel syndrome with diarrhea Alternating constipation and diarrhea Abdominal bloating C-REACTIVE PROTEIN Routine 01/21/2025 12 :03 PM EDT Chronic abdominal pain Gastroesophageal reflux disease, unspecified whether esophagitis present Nausea and vomiting, unspecified vomiting type Irritable bowel syndrome with diarrhea Alternating constipation and diarrhea Abdominal bloating VITAMIN D,25-HYDROXY Routine 01/21/2025 12:03 PM EDT [...] Alternating constipation and diarrhea Abdominal bloating TSH RFX ON ABNORMAL TO FREE T4 Routine 12/20/2024 Cold intolerance from Last 3 Months Results * Alpha-Gal IgE Panel (01/21/2025 12:03 PM [...] kU/L 01/25/2025 5:08 AM EDT [facility] [id number] Alpha-Gal <0.10 Class 0 kU/L 01/25/2025 5:08 AM EDT [facility] Blood Venipuncture / Unknown 01/21/2025 12:03 PM EDT 01/21/2025 12:06 PM EDT Narrative [facility] - 01/25/2025 5:08 AM EDT Performed at: 01 - [address] [id number] Stations Superintendent: Nabila Tripathi MD, Phone: [phone] Eliza Mckinney PA-C LAB BLOOD ORDERABLES Fin al Result [facility] [address] [place] [address], * Porphyrins, Qn, Random Urine - Urine, [...] PM EDT 01/21/2025 12:06 PM EDT [facility] 01/28/2025 12:10 PM EDT Performed at: [address] [place] [id number] Stations Superintendent: Nabila Tripathi MD, Phone: [phone] Eliza Mckinney PA-C URINE ORDERABLES Final R esult Performing Organization Address City/[facility]/ZIP Co de Phone Number [facility] [address] [place] [address], * Porphobilinogen, Qn, Random Ur - Urine, Clean Catch (01/21/2025 12:03 PM EDT) Porphobilinogen , Urine 0.1 0.0 - 2.0 mg/L 01/23/2025 4:12 PM EDT [facility] Urine Urine specimen obtained by clean catch procedure / Unknown Collection / Unknown 01/21/2025 12:03 PM EDT 01/21/2025 12:06 PM EDT Narrative [facility] - 01/23/2025 4:12 PM EDT Test(s) [id number], Qn, Random Ur was developed and its performance characteristics determined by [facility]. It has not been cleared or approved by the Food and Drug Administration. Performed at: [address] [place] [id number] Stations Superintendent: Nabila Tripathi MD, Phone: [phone] us Eliza Mckinney PA-C URINE ORDERABLES Final R esult Performing Organization Address City/[facility]/ZIP Co de Phone Number [facility] [address] [place] [address], [place] [phone] * ALA Delta, Random Urine - Urine, Clean Catch (01/21/2025 12:03 PM EDT) Delta Aminolevulinic Acid, Urine 0.7 0.0 - 5.4 mg/L 01/23/2025 4:12 PM EDT [facility] Urine Urine specimen obtained by clean catch procedure / Unknown Collection / Unknown 01/21/2025 12:03 PM EDT 01/21/2025 12:06 PM EDT [facility] - 01/23/2025 4:12 PM EDT Test(s) [id number] Delta, Random Urine was developed and its performance characteristics determined by [facility]. It has not been cleared or approved by the Food and Drug Administration. Performed at: 01 - [address] [id number] Stations Superintendent: Nabila Tripathi MD, Phone: [phone] Eliza Mckinney PA-C URINE ORDERABLES Final R esult Performing Organization Address [facility] Co de Phone Number [facility] [address] [place] [address], [place] [phone] * (ABNORMAL) Vitamin D 25 Hydroxy (01/21/2025 12:03 PM EDT) 25 Hydroxy, Vitamin D 21.1(L) 30.0 - 100.0 ng/ml 01/21/2025 3:28 PM EDT [facility] Blood Venipuncture / Unknown 01/21/2025 12:03 PM EDT 01/21/2025 12:06 PM EDT [facility] - 01/21/2025 3:28 PM EDT Reference Range for Total Vitamin D 25(OH) Deficiency <20.0 ng/mL Insufficiency 21-29 ng/mL Sufficiency 30-100 ng/mL Toxicity >100 ng/ml Eliza Mckinney PA-C LAB BLOOD ORDERABLES Fin al Result [facility]
[address] [place] [address], [place] [phone] * (ABNORMAL) CBC (No Diff) (01/21/2025 12:03 PM EDT) WBC 5.16 3.40 - 10.80 10*3/mm3 01/21/2025 2:52 PM EDT [facility] RBC 4.55 3.77 - 5.28 10*6/mm3 01/21/2025 2:52 PM EDT [facility] Hemoglobin 12.7 12.0 - 15.9 g/dL 01/21/2025 2:52 PM EDT [facility] Hematocrit 39.1 34.0 - 46.6 % 01/21/2025 2:52 PM EDT [facility] MCV 85.9 79.0 - 97.0 fL 01/21/2025 2:52 PM EDT [facility] MCH 27.9 26.6 - 33.0 pg 01/21/2025 2:52 PM EDT [facility] MCHC 32.5 31.5 - 35.7 g/dL 01/21/2025 2:52 PM EDT [facility] RDW 12.0(L) 12.3 - 15.4 % 01/21/2025 2:52 PM EDT [facility] RDW-SD 37.7 37.0 - 54.0 fl 01/21/2025 2:52 PM EDT [facility] MPV 10.4 6.0 - 12.0 fL 01/21/2025 2:52 PM EDT [facility] Platelets 310 140 - 450 10*3/mm3 01/21/2025 2:52 PM EDT [facility] Blood Venipuncture / Unknown 01/21/2025 12:03 PM EDT 01/21/2025 12:06 PM EDT us Eliza Mckinney PA-C LAB BLOOD ORDERABLES Fin al Result [facility]
[address] [place] [address], * (ABNORMAL) C-reactive Protein (01/21/2025 12:03 PM EDT) C-Reactive Protein 0.96(H) 0.00 - 0.50 mg/dL 01/21/2025 3:14 PM EDT [facility] Blood Venipuncture / Unknown 01/21/2025 12:03 PM EDT 01/21/2025 12:06 PM EDT Eliza Mckinney PA-C LAB BLOOD ORDERABLES Fin al Result Performing Organization Address City/[facility]/ZIP Co de Phone Number [facility]
[address] [place] [address], [place] [phone] * (ABNORMAL) TSH (01/21/2025 12:03 PM EDT) TSH 6.130(H) 0.270 - 4.200 uIU/mL 01/21/2025 3:14 PM EDT [facility] Blood Venipuncture / Unknown 01/21/2025 12:03 PM EDT 01/21/2025 12:06 PM EDT Eliza Mckinney PA-C LAB BLOOD ORDERABLES Fin al Result Performing Organization Address [facility] Phone Number [facility]
[address] [place] [address], [place] [phone] * Magnesium (01/21/2025 12:03 PM EDT) Magnesium 2.1 1.6 - 2.6 mg/dL 01/21/2025 3:15 PM EDT [facility] Blood Venipuncture / Unknown 01/21/2025 12:03 PM EDT 01/21/2025 12:06 PM EDT us Eliza Mckinney PA-C LAB BLOOD ORDERABLES Fin al Result Performing Organization Address City/[facility] Co de Phone Number [facility]
[address] [place] [address], [place] [phone] * Lipase (01/21/2025 12:03 PM EDT) Lipase 35 13 - 60 U/L 01/21/2025 3:17 PM EDT [facility] Blood Venipuncture / Unknown 01/21/2025 12:03 PM EDT 01/21/2025 12:06 PM EDT Eliza Mckinney PA-C LAB BLOOD ORDERABLES Fin al Result [facility]
[address] [place] [address], * (ABNORMAL) Comprehensive Metabolic Panel (01/21/2025 12:03 PM EDT) Pathologist [facility] Glucose 84 65 - 99 mg/dL 01/21/2025 3:15 PM EDT [facility] BUN 8.0 6.0 - 20.0 mg/dL 01/21/2025 3:15 PM EDT [facility] Creatinine 0.90 0.57 - 1.00 mg/dL 01/21/2025 3:15 PM EDT [facility] Sodium 137 136 - 145 mmol/L 01/21/2025 3:15 PM EDT [facility] Potassium 4.2 3.5 - 5.2 mmol/L 01/21/2025 3:15 PM EDT [facility] Chloride 106 98 - 107 mmol/L 01/21/2025 3:15 PM EDT [facility] CO2 24.0 22.0 - 29.0 mmol/L 01/21/2025 3:15 PM EDT [facility] Calcium 9.0 8.6 - 10.5 mg/dL 01/21/2025 3:15 PM EDT [facility] Total Protein 7.0 6.0 - 8.5 g/dL 01/21/2025 3:15 PM EDT [facility] Albumin 3.8 3.5 - 5.2 g/dL 01/21/2025 3:15 PM EDT [facility] ALT (SGPT) 9 1 - 33 U/L 01/21/2025 3:15 PM EDT [facility] AST (SGOT) 14 1 - 32 U/L 01/21/2025 3:15 PM EDT [facility] Alkaline Phosphatase 123(H) 39 - 117 U/L 01/21/2025 3:15 PM EDT [facility] Total Bilirubin 0.2 0.0 - 1.2 mg/dL 01/21/2025 3:15 PM EDT [facility] Globulin 3.2 gm/dL 01/21/2025 3:15 PM EDT [facility] A/G Ratio 1.2 g/dL 01/21/2025 3:15 PM EDT [facility] BUN/Creatinine Ratio 8.9 7.0 - 25.0 01/21/2025 3:15 PM EDT [facility] Anion Gap 7.0 5.0 - 15.0 mmol/L 01/21/2025 3:15 PM EDT [facility] eGFR 89.5 >60.0 mL/min/1.7 3 01/21/2025 3:15 PM T [facility] Blood Venipuncture / Unknown 01/21/2025 12:03 PM EDT 01/21/2025 12:06 PM EDT [facility] - 01/21/2025 3:15 PM EDT [...] PA-C LAB BLOOD ORDERABLES Fin al Result [facility]
[address] [place] [address], [place] [phone] * TSH Rfx On Abnormal To Free T4 (12/20/2024) Blood Justino Zheng MD LAB BLOOD ORDERABLES Fin al Result [facility] ([facility]) [address] [place] [address], [place] [phone] from Last 3 Months Insurance [facility] Advance Directives Documents on File Type Date Recorded Patient Thai Masseur Expl anation PATIENT ADVANCE DIRECTIVES - SCAN 05/22/2024 10:45 AM Care Teams Hedis Abstractor Relationship Specialty Start Date End Date Justino Zheng MD [facility] [place] [address] PCP - General Family Medicine 11/05/21
--- OUTSIDE RECORDS SUMMARY | 2025-02-23 23:12 | XMS_ITS | Encounter Summary ---
[facility] Address [address] [place] [address] Care Team Providers Care Color Television Console Monitor Name Role Phone Justino Zheng MD Primary Care Provider + Encounter Details Date Type Department Care Team (Late st Contact Info) Description 12/21/2024 Results Follow-Up [facility] FAMILY MEDICINE [address] [place] [address] Justino Zheng MD [address] [place] [address] Social History Tobacco Use Types [...] Description 04/16/2025 12:00 PM EST Office Visit [facility] GASTROENTEROLOGY [address] [address] Eliza Mckinney PA-C [address] [address] 05/23/2025 1:45 PM EST Office Visit [facility] FAMILY MEDICINE [address] [place] [address] Justino Zheng MD [address] [place] [address] documented as of this encounter Visit Diagnoses Not on filedocumented in this encounter Additional Health Concerns Infection Onset Date Last Indicated Resolved Time C.difficile (rule out) 01/21/2025 01/21/202501/26 9:08 PM EDT Assessment Noted Time PHQ-2 Depression Total Score: 1 11/17/19 24 8:48 AM EDT documented as of this encounter Care Teams Color Television Console Monitor Relationship Specialty Start Date End Date Justino Zheng MD [address] [place] [address] PCP - General Family Medicine 11/05/21 documented as of this encounter
--- OUTSIDE RECORDS SUMMARY | 2025-02-23 23:12 | XMS_ITS | Encounter Summary ---
Author Organization [facility] Address [address] [place] [address] Care Team Providers Care Geologist Name Role Phone Justino Zheng MD Primary Care Provider + Reason for Visit * Reason Onset Date Comments Med Refill 01/07/2025 Encounter Details Date Type Department Care Team (Late st Contact Info) Description 01/07/2025 Refill [facility] [address] [place] [address] Justino Zheng MD [address] [place] [address] Social History Tobacco Use Types [...] Description 04/16/2025 12:00 PM EST Office Visit [facility] [address] [phone] Eliza Mckinney PA-C [address] [address] 05/23/2025 1:45 PM EST Office Visit [facility] [address] [place] [phone] Justino Zheng MD [address] [place] [address] documented as of this encounter Visit Diagnoses Not on filedocumented in this encounter Additional Health Concerns Assessment Noted Time PHQ-2 Depression Total Score: 1 11/17/19 24 8:48 AM EDT documented as of this encounter Care Teams Geologist Relationship Specialty Start Date End Date Justino Zheng MD [address] [place] [address] PCP - General Family Medicine 11/05/21 documented as of this encounter
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
--- OUTSIDE RECORDS SUMMARY | 2025-02-23 23:12 | XMS_ITS | Data Portability ---
Author Organization [facility] [place] [facility] [place] [facility] ADMIN Address [address] [place] [id number] Care Team Providers Care Complementary Health Therapists Name Role Phone SILVINO ANN Primary Care Provider NARDA BONILLA General Surgeon Assessment Encounter Date Assessment Date Assessment LastModified by Organization Details LastModified Time 01/19/2024 01/19/2024 28-year-old female with chronic intermittent abdominal pain, altered bowel habits, bloating, and nausea and vomiting. She had a normal EGD and colonoscopy 09/2021. CT in the ED last month showed no acute pathology. She is felt to have functional GI disorders. 1) Chronic abdominal pain/functional diarrhea/bloatin g -Will obtain a gastric emptying study to evaluate for possible altered gastric emptying -The patient was provided with a home sucrose breath test kit to evaluate for CSID -Will start Xifaxan 550 mg p.o. TID x2 weeks for possible SIBO or IBS-D. She will monitor her stool habits and bloating symptoms for improvement. -I have recommended she consider lactaid with consumption of dairy, but also recommended she minimize dairy as much as possible. -I have recommended she consider a gluten free diet for a period of at least 3-4 months. -May consider abdominal angiogram -She will establish care with Pain management in the coming weeks. 2) Chronic nausea: Obtain GES. Phenergan as needed. f/u 4 weeks [email or web address] Not available 01/19/2024 22:41:05 03/12/2024 03/12/2024 28-year-old female with chronic intermittent abdominal pain, altered bowel habits, bloating, and nausea and vomiting. She had a normal EGD and colonoscopy 09/2021. CT in the ED in December 2023 showed no acute pathology. Recent gastric emptying study showed normal gastric emptying. She is felt to have functional dyspepsia, IBS. 1) Chronic abdominal pain/functional diarrhea/bloatin g: Likely IBS. -She completed a sucrose breath test but we have not received the results. Will contact [employer] to see if they have the results. She was provided with an additional kit in the event they do not have the results. -Will resent the Rx for Xifaxan 550 mg p.o. TID x2 weeks for possible IBS-D. She will monitor her stool habits and bloating symptoms for improvement. -She has started to limit dairy, which has been somewhat helpful. -I have recommended she consider a gluten free diet for a period of at least 3-4 months. -She is taking amitriptyline 50 mg p.o. daily at bedtime for migraines. 2) Chronic nausea: Continue antiemetics as needed. Zofran refill was provided. She will call back to arrange f/u, recommended 3 months. [email or web address] Not available 03/12/2024 18:31:10 Plan of Treatment Reminders Order Date Submit Date Provider Last Modified By Organization Details Last Modified Time Details Appointments None recorded. Lab vitamin B12 + folate, serum or blood 2024 025 [email or web address] 6 [facility], [address] [place], [address], 5 14:04:37 CBC w/ auto diff 2024 025 [facility], [address] [place], [address], 5 15:17:57 iron + TIBC + ferritin, serum 2024 025 [email or web address] 6 [facility], [address] [place], [address], 5 14:04:37 CMP, serum or plasma 2024 025 [facility], [address] [place], [address], 5 16:10:05 iron saturation, serum 2024 025 [email or web address] 6 [facility], [address] [place], [address], 5 14:04:37 vitamin B12 + folate, serum or blood 2023 024 [email or web address] 6 [facility], [address] [place], [address], 4 10:10:40 CBC w/ auto diff 2023 024 [facility], [address] [place], [address], 4 16:19:03 iron + TIBC + ferritin, serum 2023 024 [email or web address] 6 [facility], [address] [place], [address], 4 10:10:39 CMP, serum or plasma 2023 024 [facility], [address] [place], [address], 4 17:00:31 iron saturation, serum 2023 024 [email or web address] 6 [facility], [address] [place] [address], [address], 4 10:10:39 Referral None recorded. Procedures None recorded. Surgeries None recorded. Imaging NM, gastric emptying scan 2023 024 [email or web address] 7 [facility], [address] [place], [address], 4 14:36:25 Medication Orders ondansetron 4 mg disintegrat ing tablet 2023 024 [email or web address] 9 [facility], [address] [place] [address], [address], 5 13:30:59 Xifaxan 550 mg tablet 2023 024 [email or web address] [facility], [address] [place] [address], [address], [place], [address], 4 18:07:23 promethazin e 12.5 mg tablet 2023 024 [facility], [address] [place] [address], [address], [place], [address], 4 16:45:32 dicyclomine 20 mg tablet 2023 024 [facility], [address] [place] [address], [address], [place], [address], 4 14:20:39 Xifaxan 550 mg tablet 2023 024 [facility], [address] [place] [address], [address], [place], [address], 4 16:45:34 cyanocobala min (vit B-12) 1,000 mcg/mL injection solution 2023 024 [email or web address] 9 [facility], [address] [place] [address], [address], [place], [address], 4 14:01:27 Patient TargetsNo targets recorded. Patient InstructionsNo instructions recorded. Reason for Referral None Reported. Results Created Date Observation Date Name Description Value Unit Range Abnormal Flag Note LastModifiedBy Organization Detail LastModifiedTime 11/15/19 24 11/15/2023 CBC AUTO W DIFF WBC 6.2 K/uL 4.0-10 .5 Not Available [facility] ([facility] [address], [place], [address], 11/15/2023 17:45:55 11/15/19 24 11/15/2023 CBC AUTO W DIFF RBC 5.0 M/mm3 4.2-6. 4 Not Available [facility] ([facility] [address] , [place], [address], 11/15/2023 17:45:55 11/15/19 24 11/15/2023 CBC AUTO W DIFF HGB 12.7 gm/dL 12.5-1 6.0 Not Available [facility] ([facility]) [address] , [place], [address], 11/15/2023 17:45:55 11/15/19 24 11/15/2023 CBC AUTO W DIFF HCT 39.7 % 37.0-4 7.0 Not Available [facility] ([facility]) [address] , [place], [address], 11/15/2023 17:45:55 11/15/19 24 11/15/2023 CBC AUTO W DIFF MCV 79.6 fL 78-100 Not Available [facility] ([facility]) [address] , [place], [address], 11/15/2023 17:45:55 11/15/19 24 11/15/2023 CBC AUTO W DIFF MCH 25.5 pg 27-31 low Not Available [facility] ([facility]) [address] , [place], [address], 11/15/2023 17:45:55 11/15/19 24 11/15/2023 CBC AUTO W DIFF MCHC 32.0 g/dL 32-36 Not Available [facility] ([facility]) [address] , [place], [address], 11/15/2023 17:45:55 11/15/19 24 11/15/2023 CBC AUTO W DIFF RDW 18.4 % 11.5-1 4.0 high Not Available [facility] ([facility]) [address] , [place], [address], 11/15/2023 17:45:55 11/15/19 24 11/15/2023 CBC AUTO W DIFF platelet count 337 K/uL 150-45 0 Not Available [facility] ([facility]) [address] [place], [address], 11/15/2023 17:45:55 11/15/19 24 11/15/2023 CBC AUTO W DIFF MPV 10.0 fL 6-9.5 high Not Available [facility] ([facility]) [address], [place], [address], 11/15/2023 17:45:55 11/15/19 24 11/15/2023 CBC AUTO W DIFF neutrophil% 57.5 % 43-65 Not Available [facility] ([facility]) [address] [place], [address], 11/15/2023 17:45:55 11/15/19 24 11/15/2023 CBC AUTO W DIFF lymphocyte% 32.2 % 20.5-4 5.5 Not Available [facility] ([facility]) [address] [place], [address], 11/15/2023 17:45:55 11/15/19 24 11/15/2023 CBC AUTO W DIFF monocyte% 8.0 % 5.5-11 .7 Not Available [facility] ([facility]) [address] [place], [address], 11/15/2023 17:45:55 11/15/19 24 11/15/2023 CBC AUTO W DIFF eosinophil% 1.5 % 0.9-2. 9 Not Available [facility] ([facility]) [address] [place], [address], 11/15/2023 17:45:55 11/15/19 24 11/15/2023 CBC AUTO W DIFF basophil% 0.5 % 0.2-1. 0 Not Available [facility] ([facility]) [address] [place], [address], 11/15/2023 17:45:55 11/15/19 24 11/15/2023 CBC AUTO W DIFF immature granulocytes % 0.3 % 0.0-0. 8 Not Available [facility] ([facility]) [address], [place], [address], 11/15/2023 17:45:55 11/15/19 24 11/15/2023 CBC AUTO W DIFF nucleated red blood cells % 0.0 % Not Available [facility] ([facility]) [address] [facility], [place], [address], 11/15/2023 17:45:55 11/15/19 24 11/15/2023 CBC AUTO W DIFF neutrophil# 3.5 K/uL 2.2-4. 8 Not Available [facility] ([facility]) [address] [facility], [place], [address], 11/15/2023 17:45:55 11/15/19 24 11/15/2023 CBC AUTO W DIFF lymphocyte# 2.0 cell/ mcL 1.3-2. 9 Not Available [facility] ([facility]) [address] [facility], [place], [address], 11/15/2023 17:45:55 11/15/19 24 11/15/2023 CBC AUTO W DIFF monocyte# 0.5 cell/ mcL 0.3-0. 8 Not Available [facility] ([facility]) [address] [place], [address], 11/15/2023 17:45:55 11/15/19 24 11/15/2023 CBC AUTO W DIFF eosinophil# 0.1 cell/ mcL 0-0.2 Not Available [facility] ([facility]) [address] [facility], [place], [address], 11/15/2023 17:45:55 11/15/19 24 11/15/2023 CBC AUTO W DIFF basophil# 0.0 cell/ mcL 0.0-1. 0 Not Available [facility] ([facility]) [address] , [place], [address], 11/15/2023 17:45:55 11/15/19 24 11/15/2023 CBC AUTO W DIFF immature gramulocytes # 0.02 K/uL Not Available [facility] ([facility]) [address] , [place], [address], 11/15/2023 17:45:55 11/15/19 24 11/15/2023 CBC AUTO W DIFF nucleated red blood cells # 0.00 K/uL Not Available [facility] ([facility]) [address] , [place], [address], 11/15/2023 17:45:55 11/15/19 24 11/15/2023 CBC AUTO W DIFF manual differential NO Not Available [facility] ([facility]) [address] , [place], [address], 11/15/2023 17:45:55 11/15/19 24 11/15/2023 IRON STUDY (IRON /TIBC /%SAT ) iron 37 mcg/m L 40-180 low Not Available [facility] ([facility]) [address] , [place], [address], 11/15/2023 18:25:03 11/15/19 24 11/15/2023 IRON STUDY (IRON /TIBC /%SAT ) TIBC 492 mcg/d L 250-45 0 high Not Available [facility] ([facility]) [address] , [place], [address], 11/15/2023 18:25:03 11/15/19 24 11/15/2023 IRON STUDY (IRON /TIBC /%SAT ) %sat 8 15-55 low Not Available [facility] ([facility]) [address] , [place], [address], 11/15/2023 18:25:03 11/15/19 24 11/15/2023 NABILA TIN ferritin, serum 10 NG/mL 3-244 Not Available [facility] ([facility]) [address] , [place], [address], 11/15/2023 18:39:00 11/15/19 24 11/15/2023 COMP METAB OLIC PANEL sodium 140 mmol/ L 136-14 5 Not Available [facility] ([facility]) [address], [place], [address], 11/15/2023 18:39:01 11/15/19 24 11/15/2023 COMP METAB OLIC PANEL potassium 3.8 mmol/ L 3.6-5. 0 Not Available [facility] ([facility]) [address] , [place], [address], 11/15/2023 18:39:01 11/15/19 24 11/15/2023 COMP METAB OLIC PANEL chloride 103 mmol/ L 98-107 Not Available [facility] ([facility]) [address], [place], [address], 11/15/2023 18:39:01 11/15/19 24 11/15/2023 COMP METAB OLIC PANEL carbon dioxide 25.8 mmol/ L 21.0-3 2.0 Not Available [facility] ([facility]) [address] , [place], [address], 11/15/2023 18:39:01 11/15/19 24 11/15/2023 COMP METAB OLIC PANEL anion gap 15.0 Not Available [facility] ([facility]) [address] , [place], [address], 11/15/2023 18:39:01 11/15/19 24 11/15/2023 COMP METAB OLIC PANEL glucose 79 mg/dL 70-120 Not Available [facility] ([facility]) [address], [place], [address], 11/15/2023 18:39:01 11/15/19 24 11/15/2023 COMP METAB OLIC PANEL BUN 5 mg/dL 7-18 low Not Available [facility] ([facility]) [address], [place], [address], 11/15/2023 18:39:01 11/15/19 24 11/15/2023 COMP METAB OLIC PANEL creatinine 1.0 mg/dL 0.6-1. 3 Not Available [facility] ([facility]) [address], [place], [address], 11/15/2023 18:39:01 11/15/19 24 11/15/2023 COMP METAB OLIC PANEL glomerular filtration rate >60 mlper min 60- Not Available [facility] ([facility]) [address], [place], [address], 11/15/2023 18:39:01 11/15/19 24 11/15/2023 COMP METAB OLIC PANEL total protein 7.5 g/dL 6.4-8. 2 Not Available [facility] ([facility]) [address], [place], [address], 11/15/2023 18:39:01 11/15/19 24 11/15/2023 COMP METAB OLIC PANEL albumin 3.7 g/dL 3.4-5. 0 Not Available [facility] ([facility]) [address], [place], [address], 11/15/2023 18:39:01 11/15/19 24 11/15/2023 COMP METAB OLIC PANEL globulin 3.8 Not Available [facility] ([facility]) [address], [place], [address], 11/15/2023 18:39:01 11/15/19 24 11/15/2023 COMP METAB OLIC PANEL alb/glob ratio 1.0 0.7-2 Not Available [facility] ([facility]) [address] , [place], [address], 11/15/2023 18:39:01 11/15/19 24 11/15/2023 COMP METAB OLIC PANEL calcium 8.8 mg/dL 8.5-10 .5 Not Available [facility] ([facility]) [address] , [place], [address], 11/15/2023 18:39:01 11/15/19 24 11/15/2023 COMP METAB OLIC PANEL bilirubin total 0.20 mg/dL 0.10-1 .00 Not Available [facility] ([facility]) [address] , [place], [address], 11/15/2023 18:39:01 11/15/19 24 11/15/2023 COMP METAB OLIC PANEL AST (SGOT) 13 U/L 0-37 Not Available [facility] ([facility]) [address] , [place], [address], 11/15/2023 18:39:01 11/15/19 24 11/15/2023 COMP METAB OLIC PANEL ALT (SGPT) 21 U/L 0-65 Not Available [facility] ([facility]) [address] , [place], [address], 11/15/2023 18:39:01 11/15/19 24 11/15/2023 COMP METAB OLIC PANEL alk phosphatase 91 U/L 46-116 Not Available [facility] ([facility]) [address] , [place], [address], 11/15/2023 18:39:01 11/15/19 24 11/15/2023 VITAM IN B12 vitamin B12 275 pg/mL 193-98 6 *Note : Refer ence Fariba Schwab. New Test Metho d in use. Not Available [facility] ([facility]) [address], [place], [address], 11/15/2023 19:12:17 11/15/19 24 11/15/2023 VITAM IN B12 folate (folic acid), serum 32.1 NG/mL 8.6-58 .9 *Note : Refer lisbet serrano New Test Metho d in use. Not Available [facility] ([facility]) [address] , [place], [address], 11/15/2023 19:12:17 03/13/20 24 03/13/2024 CBC AUTO W DIFF WBC 5.6 K/uL 4.0-10 .5 Not Available [facility] ([facility]) [address] , [place], [address], 03/13/2024 16:19:02 03/13/20 24 03/13/2024 CBC AUTO W DIFF RBC 4.3 M/mm3 4.2-6. 4 Not Available [facility] ([facility]) [address] , [place], [address], 03/13/2024 16:19:02 03/13/20 24 03/13/2024 CBC AUTO W DIFF HGB 12.3 gm/dL 12.5-1 6.0 low Not Available [facility] ([facility]) [address] , [place], [address], 03/13/2024 16:19:02 03/13/20 24 03/13/2024 CBC AUTO W DIFF HCT 37.1 % 37.0-4 7.0 Not Available [facility] ([facility]) [address] , [place], [address], 03/13/2024 16:19:02 03/13/20 24 03/13/2024 CBC AUTO W DIFF MCV 86.3 fL 78-100 Not Available [facility] ([facility]) [address] , [place], [address], 03/13/2024 16:19:02 03/13/20 24 03/13/2024 CBC AUTO W DIFF MCH 28.6 pg 27-31 Not Available [facility] ([facility]) [address], [place], [address], 03/13/2024 16:19:02 03/13/20 24 03/13/2024 CBC AUTO W DIFF MCHC 33.2 g/dL 32-36 Not Available [facility] ([facility]) [address], [place], [address], 03/13/2024 16:19:02 03/13/20 24 03/13/2024 CBC AUTO W DIFF RDW 13.0 % 11.5-1 4.0 Not Available [facility] ([facility]) [address], [place], [address], 03/13/2024 16:19:02 03/13/20 24 03/13/2024 CBC AUTO W DIFF platelet count 271 K/uL 150-45 0 Not Available [facility] ([facility]) [address], [place], [address], 03/13/2024 16:19:02 03/13/20 24 03/13/2024 CBC AUTO W DIFF MPV 10.2 fL 6-9.5 high Not Available [facility] ([facility]) [address], [place], [address], 03/13/2024 16:19:02 03/13/20 24 03/13/2024 CBC AUTO W DIFF neutrophil% 55.5 % 43-65 Not Available [facility] ([facility]) [address] , [place], [address], 03/13/2024 16:19:02 03/13/20 24 03/13/2024 CBC AUTO W DIFF lymphocyte% 35.7 % 20.5-4 5.5 Not Available [facility] ([facility]) [address] , [place], [address], 03/13/2024 16:19:02 03/13/20 24 03/13/2024 CBC AUTO W DIFF monocyte% 5.9 % 5.5-11 .7 Not Available [facility] ([facility]) [address] , [place], [address], 03/13/2024 16:19:02 03/13/20 24 03/13/2024 CBC AUTO W DIFF eosinophil% 2.0 % 0.9-2. 9 Not Available [facility] ([facility]) [address] , [place], [address], 03/13/2024 16:19:02 03/13/20 24 03/13/2024 CBC AUTO W DIFF basophil% 0.5 % 0.2-1. 0 Not Available [facility] ([facility]) [address] , [place], [address], 03/13/2024 16:19:02 03/13/20 24 03/13/2024 CBC AUTO W DIFF immature granulocytes % 0.4 % 0.0-0. 8 Not Available [facility] ([facility]) [address] , [place], [address], 03/13/2024 16:19:02 03/13/20 24 03/13/2024 CBC AUTO W DIFF nucleated red blood cells % 0.0 % Not Available [facility] ([facility]) [address] , [place], [address], 03/13/2024 16:19:02 03/13/20 24 03/13/2024 CBC AUTO W DIFF neutrophil# 3.1 K/uL 2.2-4. 8 Not Available [facility] ([facility]) [address], [place], [address], 03/13/2024 16:19:02 03/13/20 24 03/13/2024 CBC AUTO W DIFF lymphocyte# 2.0 cell/ mcL 1.3-2. 9 Not Available [facility] ([facility]) [address], [place], [address], 03/13/2024 16:19:02 03/13/20 24 03/13/2024 CBC AUTO W DIFF monocyte# 0.3 cell/ mcL 0.3-0. 8 Not Available [facility] ([facility]) [address], [place], [address], 03/13/2024 16:19:02 03/13/20 24 03/13/2024 CBC AUTO W DIFF eosinophil# 0.1 cell/ mcL 0-0.2 Not Available [facility] ([facility]) [address], [place], [address], 03/13/2024 16:19:02 03/13/20 24 03/13/2024 CBC AUTO W DIFF basophil# 0.0 cell/ mcL 0.0-1. 0 Not Available [facility] ([facility]) [address] [facility], [place], [address], 03/13/2024 16:19:02 03/13/20 24 03/13/2024 CBC AUTO W DIFF immature gramulocytes # 0.02 K/uL Not Available [facility] ([facility]) [address] [facility], [place], [address], 03/13/2024 16:19:02 03/13/20 24 03/13/2024 CBC AUTO W DIFF nucleated red blood cells # 0.00 K/uL Not Available [facility] ([facility]) [address] [place], [address], 03/13/2024 16:19:02 03/13/20 24 03/13/2024 CBC AUTO W DIFF manual differential NO Not Available [facility] ([facility]) [address] , [place], [address], 03/13/2024 16:19:02 03/13/20 24 03/13/2024 IRON STUDY (IRON /TIBC /%SAT ) iron 68 mcg/m L 40-180 Not Available [facility] ([facility]) [address] , [place], [address], 03/13/2024 16:59:26 03/13/20 24 03/13/2024 IRON STUDY (IRON /TIBC /%SAT ) TIBC 323 mcg/d L 250-45 0 Not Available [facility] ([facility]) [address] , [place], [address], 03/13/2024 16:59:26 03/13/20 24 03/13/2024 IRON STUDY (IRON /TIBC /%SAT ) %sat 21 15-55 Not Available [facility] ([facility]) [address] , [place], [address], 03/13/2024 16:59:26 03/13/20 24 03/13/2024 COMP METAB OLIC PANEL sodium 135 mmol/ L 136-14 5 low Not Available [facility] ([facility]) [address] , [place], [address], 03/13/2024 17:00:31 03/13/20 24 03/13/2024 COMP METAB OLIC PANEL potassium 3.3 mmol/ L 3.6-5. 0 low Not Available [facility] ([facility]) [address] , [place], [address], 03/13/2024 17:00:31 03/13/20 24 03/13/2024 COMP METAB OLIC PANEL chloride 99 mmol/ L 98-107 Not Available [facility] ([facility]) [address], [place], [address], 03/13/2024 17:00:31 03/13/20 24 03/13/2024 COMP METAB OLIC PANEL carbon dioxide 26.0 mmol/ L 21.0-3 2.0 Not Available [facility] ([facility]) [address], [place], [address], 03/13/2024 17:00:31 03/13/20 24 03/13/2024 COMP METAB OLIC PANEL anion gap 13.3 Not Available [facility] ([facility]) [address], [place], [address], 03/13/2024 17:00:31 03/13/20 24 03/13/2024 COMP METAB OLIC PANEL glucose 82 mg/dL 70-120 Not Available [facility] ([facility]) [address], [place], [address], 03/13/2024 17:00:31 03/13/20 24 03/13/2024 COMP METAB OLIC PANEL BUN 4 mg/dL 7-18 low Not Available [facility] ([facility]) [address] [facility], [place], [address], 03/13/2024 17:00:31 03/13/20 24 03/13/2024 COMP METAB OLIC PANEL creatinine 0.9 mg/dL 0.6-1. 3 Not Available [facility] ([facility]) [address] [facility], [place], [address], 03/13/2024 17:00:31 03/13/20 24 03/13/2024 COMP METAB OLIC PANEL glomerular filtration rate 90 mlper min 60- GFR LIMIT ATION : The eGFR equat ion CKD-E PI 2020 is not appli cable for pedia tric patie nts or great er than 90 years of age. The follo wing condi tions may alter the GFR resul t: extre mes in body size, malnu triti on or obesi ty, skele jonelle muscl e disea se, parap legia or quadr ipleg ia, veget enedina diet or rapid ly mcgregor ing kiney funct ion. Not Available [facility] ([facility]) [address] , [place], [address], 03/13/2024 17:00:31 03/13/20 24 03/13/2024 COMP METAB OLIC PANEL total protein 7.1 g/dL 6.4-8. 2 Not Available [facility] ([facility]) [address], [place], [address], 03/13/2024 17:00:31 03/13/20 24 03/13/2024 COMP METAB OLIC PANEL albumin 3.4 g/dL 3.4-5. 0 Not Available [facility] ([facility]) [address] , [place], [address], 03/13/2024 17:00:31 03/13/20 24 03/13/2024 COMP METAB OLIC PANEL globulin 3.7 Not Available [facility] ([facility]) [address] , [place], [address], 03/13/2024 17:00:31 03/13/20 24 03/13/2024 COMP METAB OLIC PANEL alb/glob ratio 0.9 0.7-2 Not Available [facility] ([facility]) [address] , [place], [address], 03/13/2024 17:00:31 03/13/20 24 03/13/2024 COMP METAB OLIC PANEL calcium 9.2 mg/dL 8.5-10 .5 Not Available [facility] ([facility]) [address] , [place], [address], 03/13/2024 17:00:31 03/13/20 24 03/13/2024 COMP METAB OLIC PANEL bilirubin total 0.30 mg/dL 0.10-1 .00 Not Available [facility] ([facility]) [address], [place], [address], 03/13/2024 17:00:31 03/13/20 24 03/13/2024 COMP METAB OLIC PANEL AST (SGOT) 10 U/L 0-37 Not Available [facility] ([facility]) [address], [place], [address], 03/13/2024 17:00:31 03/13/20 24 03/13/2024 COMP METAB OLIC PANEL ALT (SGPT) 14 U/L 0-65 Not Available [facility] ([facility]) [address], [place], [address], 03/13/2024 17:00:31 03/13/20 24 03/13/2024 COMP METAB OLIC PANEL alk phosphatase 89 U/L 46-116 Not Available [facility] ([facility]) [address] [place], [address], 03/13/2024 17:00:31 03/13/20 24 03/13/2024 NABILA TIN ferritin, serum 58 NG/mL 3-244 Not Available [facility] ([facility]) [address] , [place], [address], 03/13/2024 17:00:33 03/13/20 24 03/13/2024 VITAM IN B12 vitamin B12 268 pg/mL 193-98 6 *Note : Refer lisbet Schwab. New Test Metho d in use. Not Available [facility] ([facility]) [address] , [place], [address], 03/13/2024 17:27:28 03/13/20 24 03/13/2024 VITAM IN B12 folate (folic acid), serum 29.6 NG/mL 8.6-58 .9 *Note : Refer lisbet Schwab. New Test Metho d in use. Not Available [facility] ([facility]) [address] , [place], [address], 03/13/2024 17:27:28 12/21/19 25 12/20/2024 CBC AUTO W DIFF WBC 7.2 K/uL 4.0-10 .5 Not Available [facility] ([facility]) [address] , [place], [address], 12/20/2024 15:17:56 12/21/19 25 12/20/2024 CBC AUTO W DIFF RBC 4.8 M/mm3 4.2-6. 4 Not Available [facility] ([facility]) [address] , [place], [address], 12/20/2024 15:17:56 12/21/19 25 12/20/2024 CBC AUTO W DIFF HGB 13.6 gm/dL 12.5-1 6.0 Not Available [facility] ([facility]) [address], [place], [address], 12/20/2024 15:17:56 12/21/19 25 12/20/2024 CBC AUTO W DIFF HCT 41.0 % 37.0-4 7.0 Not Available [facility] ([facility]) [address] , [place], [address], 12/20/2024 15:17:56 12/21/19 25 12/20/2024 CBC AUTO W DIFF MCV 84.9 fL 78-100 Not Available [facility] ([facility]) [address] , [place], [address], 12/20/2024 15:17:56 12/21/19 25 12/20/2024 CBC AUTO W DIFF MCH 28.2 pg 27-31 Not Available [facility] ([facility]) [address] , [place], [address], 12/20/2024 15:17:56 12/21/19 25 12/20/2024 CBC AUTO W DIFF MCHC 33.2 g/dL 32-36 Not Available [facility] ([facility]) [address], [place], [address], 12/20/2024 15:17:56 12/21/19 25 12/20/2024 CBC AUTO W DIFF RDW 12.5 % 11.5-1 4.0 Not Available [facility] ([facility]) [address] , [place], [address], 12/20/2024 15:17:56 12/21/19 25 12/20/2024 CBC AUTO W DIFF platelet count 334 K/uL 150-45 0 Not Available [facility] ([facility]) [address], [place], [address], 12/20/2024 15:17:56 12/21/19 25 12/20/2024 CBC AUTO W DIFF MPV 9.3 fL 6-9.5 Not Available [facility] ([facility]) [address], [place], [address], 12/20/2024 15:17:56 12/21/19 25 12/20/2024 CBC AUTO W DIFF neutrophil% 79.4 % 43-65 high Not Available [facility] ([facility]) [address], [place], [address], 12/20/2024 15:17:56 12/21/19 25 12/20/2024 CBC AUTO W DIFF lymphocyte% 14.0 % 20.5-4 5.5 low Not Available [facility] ([facility]) [address] [place], [address], 12/20/2024 15:17:56 12/21/19 25 12/20/2024 CBC AUTO W DIFF monocyte% 5.0 % 5.5-11 .7 low Not Available [facility] ([facility] [address] [place], [address], 12/20/2024 15:17:56 12/21/19 25 12/20/2024 CBC AUTO W DIFF eosinophil% 0.6 % 0.9-2. 9 low Not Available [facility] ([facility]) [address], [place], [address], 12/20/2024 15:17:56 12/21/19 25 12/20/2024 CBC AUTO W DIFF basophil% 0.6 % 0.2-1. 0 Not Available [facility] ([facility]) [address], [place], [address], 12/20/2024 15:17:56 12/21/19 25 12/20/2024 CBC AUTO W DIFF immature granulocytes % 0.4 % 0.0-0. 8 Not Available [facility] ([facility]) [address], [place], [address], 12/20/2024 15:17:56 12/21/19 25 12/20/2024 CBC AUTO W DIFF nucleated red blood cells % 0.0 % Not Available [facility] ([facility]) [address], [place], [address], 12/20/2024 15:17:56 12/21/19 25 12/20/2024 CBC AUTO W DIFF neutrophil# 5.8 K/uL 2.2-4. 8 high Not Available [facility] ([facility]) [address], [place], [address], 12/20/2024 15:17:56 12/21/19 25 12/20/2024 CBC AUTO W DIFF lymphocyte# 1.0 cell/ mcL 1.3-2. 9 low Not Available [facility] ([facility] [address] [place], [address], 12/20/2024 15:17:56 12/21/19 25 12/20/2024 CBC AUTO W DIFF monocyte# 0.4 cell/ mcL 0.3-0. 8 Not Available [facility] ([facility] [address] [place], [address], 12/20/2024 15:17:56 12/21/19 25 12/20/2024 CBC AUTO W DIFF eosinophil# 0.0 cell/ mcL 0-0.2 Not Available [facility] ([facility] [address] , [place], [address], 12/20/2024 15:17:56 12/21/19 25 12/20/2024 CBC AUTO W DIFF basophil# 0.0 cell/ mcL 0.0-1. 0 Not Available [facility] ([facility] [address] , [place], [address], 12/20/2024 15:17:56 12/21/19 25 12/20/2024 CBC AUTO W DIFF immature gramulocytes # 0.03 K/uL Not Available [facility] ([facility]) [address], [place], [address], 12/20/2024 15:17:56 12/21/19 25 12/20/2024 CBC AUTO W DIFF nucleated red blood cells # 0.00 K/uL Not Available [facility] ([facility]) [address], [place], [address], 12/20/2024 15:17:56 12/21/19 25 12/20/2024 CBC AUTO W DIFF manual differential NO Not Available [facility] [address] , [place], [address], 12/20/2024 15:17:56 12/21/19 25 12/20/2024 COMP METAB OLIC PANEL sodium 140 mmol/ L 136-14 5 Not Available [facility] ([facility]) [address], [place], [address], 12/20/2024 16:10:05 12/21/19 25 12/20/2024 COMP METAB OLIC PANEL potassium 3.6 mmol/ L 3.6-5. 0 Not Available [facility] [address], [place], [address], 12/20/2024 16:10:05 12/21/19 25 12/20/2024 COMP METAB OLIC PANEL chloride 103 mmol/ L 98-107 Not Available [facility] [address], [place], [address], 12/20/2024 16:10:05 12/21/19 25 12/20/2024 COMP METAB OLIC PANEL carbon dioxide 27.2 mmol/ L 21.0-3 2.0 Not Available [facility] [address], [place], [address], 12/20/2024 16:10:05 12/21/19 25 12/20/2024 COMP METAB OLIC PANEL anion gap 13.4 Not Available [facility] ([facility]) [address] , [place], [address], 12/20/2024 16:10:05 12/21/19 25 12/20/2024 COMP METAB OLIC PANEL glucose 82 mg/dL 70-120 Not Available [facility] [address] , [place], [address], 12/20/2024 16:10:05 12/21/19 25 12/20/2024 COMP METAB OLIC PANEL BUN 5 mg/dL 7-18 low Not Available [facility] [address] , [place], [address], 12/20/2024 16:10:05 12/21/19 25 12/20/2024 COMP METAB OLIC PANEL creatinine 1.0 mg/dL 0.6-1. 3 Not Available [facility] [address] , [place], [address], 12/20/2024 16:10:05 12/21/19 25 12/20/2024 COMP METAB OLIC PANEL glomerular filtration rate 79 mlper min 60- GFR LIMIT ATION : The eGFR equat ion CKD-E PI 2020 is not appli cable for pedia tric patie nts or great er than 90 years of age. The follo wing condi tions may alter the GFR resul t: extre mes in body size, malnu triti on or obesi ty, skele jonelle muscl e disea se, parap legia or quadr ipleg ia, veget enedina diet or rapid ly mcgregor ing kiney funct ion. Not Available [facility] ([facility]) [address], [place], [address], 12/20/2024 16:10:05 12/21/19 25 12/20/2024 COMP METAB OLIC PANEL osmolality (calculated) 287 mOsm/ kg 275-30 1 OSMOL ALITY IS A CALCU LATIO N UTILI ZING THE SERUM /PLAS MA SODIU M, GLUCO SE AND UREA NITRO GEN (BUN) LEVEL S. FOR THE MOST ACCUR ATE RESUL T A MEASU RED SERUM OSMOL ALITY IS LYNN CARNEY. Not Available [facility] ([facility]) [address] , [place], [address], 12/20/2024 16:10:05 12/21/19 25 12/20/2024 COMP METAB OLIC PANEL total protein 7.7 g/dL 6.4-8. 2 Not Available [facility] [address], [place], [address], 12/20/2024 16:10:05 12/21/19 25 12/20/2024 COMP METAB OLIC PANEL albumin 3.7 g/dL 3.4-5. 0 Not Available [facility] [address], [place], [address], 12/20/2024 16:10:05 12/21/19 25 12/20/2024 COMP METAB OLIC PANEL globulin 4.0 Not Available [facility] ([facility]) [address], [place], [address], 12/20/2024 16:10:05 12/21/19 25 12/20/2024 COMP METAB OLIC PANEL alb/glob ratio 0.9 0.7-2 Not Available [facility] ([facility]) [address], [place], [address], 12/20/2024 16:10:05 12/21/19 25 12/20/2024 COMP METAB OLIC PANEL calcium 9.0 mg/dL 8.5-10 .5 Not Available [facility] [address], [place], [address], 12/20/2024 16:10:05 12/21/19 25 12/20/2024 COMP METAB OLIC PANEL bilirubin total 0.50 mg/dL 0.10-1 .00 Not Available [facility] ([facility]) [address], [place], [address], 12/20/2024 16:10:05 12/21/19 25 12/20/2024 COMP METAB OLIC PANEL AST (SGOT) 18 U/L 0-37 Not Available [facility] ([facility]) [address], [place], [address], 12/20/2024 16:10:05 12/21/19 25 12/20/2024 COMP METAB OLIC PANEL ALT (SGPT) 17 U/L 0-65 Not Available [facility] ([facility]) [address] , [place], [address], 12/20/2024 16:10:05 12/21/19 25 12/20/2024 COMP METAB OLIC PANEL alk phosphatase 153 U/L 46-116 high Not Available [facility] ([facility]) [address], [place], [address], 12/20/2024 16:10:05 12/21/19 25 12/20/2024 NABILA TIN ferritin, serum 23 NG/mL 3-244 Not Available [facility] ([facility]) [address], [place], [address], 12/20/2024 16:10:07 12/21/19 25 12/20/2024 IRON STUDY (IRON /TIBC /%SAT ) iron 111 mcg/m L 40-180 Not Available [facility] ([facility]) [address], [place], [address], 12/20/2024 16:14:34 12/21/19 25 12/20/2024 IRON STUDY (IRON /TIBC /%SAT ) TIBC 468 mcg/d L 250-45 0 high Not Available [facility] ([facility]) [address], [place], [address], 12/20/2024 16:14:34 12/21/19 25 12/20/2024 IRON STUDY (IRON /TIBC /%SAT ) %sat 24 15-55 Not Available [facility] ([facility]) [address], [place], [address], 12/20/2024 16:14:34 12/21/19 25 12/20/2024 VITAM IN B12 vitamin B12 345 pg/mL 193-98 6 *Note : Refer lisbet Schwab. New Test Metho d in use. Not Available [facility] ([facility]) [address], [place], [address], 12/20/2024 18:01:13 12/21/19 25 12/20/2024 VITAM IN B12 folate (folic acid), serum 15.5 NG/mL 8.6-58 .9 *Note : Refer lisbet Schwab. New Test Metho d in use. Not Available [facility] ([facility] [address] , [place], [address], 12/20/2024 18:01:13 03/06/20 24 03/06/2024 NM, gastr ic empty ing scan [facility] [address] [place] [address] Phone: Fax: Name: KOLTON SMITH Exam Date: : [birth year] Age 28 years Gender : F Access ion: [id number] Physic kaylee: IGNACIO YI Facili ty: [facility] Facili ty HSV: Outpat ient Exam: GASTRI C EMPTYI NG STUDY EXAM DESCRI PTION: GASTRI C EMPTYI NG STUDY CLINIC AL HISTOR Y: 28 years Female , nausea and vomiti ng COMPAR SYD: None TECHNI QUE: Nuclea r medici ne gastri c imagin g study perfor med after patien t consum ed a meal of oatmea l mixed with 508 uCi of techne tium 99m sulfur colloi d. Images obtain ed over 4 hours. FINDIN GS: At 1 hour there is 6% retent ion. At 2 hours 3% retent ion. At 4 hours and 1% retent ion. IMPRES LESLI: Normal gastri c emptyi ng. Electr onical ly signed by:Herminio Lee MD08/2023 01:32 PM EST RP Workst ation: [id number] Dictat ed By: Leanne Lee Transc ribed By: Transc ribed On: 12:22 PM Electr onical ly signed by: Leanne Lee Thank you for referr eunice LUIS KOLTON to [facility]. Legall y authen ticate d by ERIN Fisher 2023-05 12:22: 37 CC'ed Logic: Orderi ng Provid er: KD GRIFFITH Attend ing Provid er: KD GRIFFITH Admitt ing Provid er: KD GRIFFITH [email or web address] [facility] - [facility] [address] [facility], [place], [address], 04/05/2024 16:16:06 Result Notes Documentation Provider Name and Address Organization Details Recorded Time Nm, Gastric Emptying Scan : [facility] [address] [place] [address] Name: ZAKIA SMITH Exam Date: 03/06/2024 : 1995 Age 28 years Gender: F Physician: IGNACIO YI Facility: [facility] Facility HSV: Outpatient Exam: GASTRIC EMPTYING STUDY EXAM DESCRIPTION: GASTRIC EMPTYING STUDY CLINICAL HISTORY: 28 years Female, nausea and vomiting COMPARISON: None TECHNIQUE: Nuclear medicine gastric imaging study performed after patient consumed a meal of oatmeal mixed with 508 uCi of technetium 99m sulfur colloid. Images obtained over 4 hours. FINDINGS: At 1 hour there is 6% retention. At 2 hours 3% retention. At 4 hours and 1% retention. IMPRESSION: Normal gastric emptying. Electronically signed by:Tenzin Lee MD03/06/2024 01:32 PM [facility] [place] Dictated By: Tenzin Lee Transcribed By: Transcribed On: 03/06/2024 12:22 PM Electronically signed by: Tenzin Lee 03/06/2024 Thank you for referring ZAKIA SMITH to [facility]. Legally authenticated by ERIN RUSSELL 2024-03-06 12:22:37 CC'ed Logic: Ordering Provider: KD GRIFFITH Attending Provider: KD GRIFFITH Admitting Provider: KD Yi PA-C [address] [place] [address], [id number], [place] - [facility] - [place] & [place] 04/05/2024 16:16:06 Problems Name Problem SNOMED Code Status Onset Date Resolution Date Notes Provider Name and Address Organization Details Recorded Time Functional abdominal pain syndrome 728901469 Active Angela fernandez, [place] - [facility] - [facility] & [place] 4 14:44:04 Chronic idiopathic constipation 99787828 Active 2021 Not Available [facility] 2 13:29:09 Chronic gastritis 1099489 Active 2021 Not Available [facility] 2 13:29:09 Irritable bowel syndrome 54019504 Active 2021 Not Available [facility] 2 13:29:09 Paresthesia 95277308 Active [address], [place], [address] , [place] - [facility] & [place] 4 10:10:34 Gastroenterit is 81997442 Active [address], [place], [address] , [place] - [facility] & [place] 4 10:10:34 Abdominal pain 07010304 Active [address], [place], [address] , [place] - [facility] & [place] 4 10:14:48 Irritable bowel syndrome characterized by alternating bowel habit 324150462 Active [address], [place], [address] , [place] [facility] & [place] 4 10:15:02 Irritable bowel syndrome with diarrhea 433466583 Active [address], [place], [address] , [place] [facility] & [place] 4 16:25:25 Nausea and vomiting 90049469 Active [address], [place], [address] , [place] - [facility] & [place] 4 16:40:20 Nausea 525611066 Active [address], [place], [address] , [place] - [facility] & [place] 5 14:53:29 Problem Notes Documentation Provider Name and Address Organization Details Recorded Time Encounter Note : GI Consult History and Physical [facility] Name Zakia Smith Date of Service 1627 [id number] (F) Attending MO PRIETO Admitted [id number] Discharged Primary MARISSA DUBOIS Chief Complaint Vomiting History of Present Illness Zakia Smith is a 28 year old female with a PMH of EDS, hemophilia, and POTS who is admitted with abdominal pain and intractable nausea and vomiting. She has had multiple ER visits for similar symptoms. Usually with symptom management she is able to be discharged from emergency room. Unfortunately, this occasion her nausea and vomiting has been intractable. GI was consulted for recommendations. On evaluation Ms. Smith is resting in bed without distress. She is complaining of abdominal pain and nausea. She reports years ago she was told by an ER doctor that she had UC. Previous colonoscopies and random colon biopsies have been negative for signs of IBD. She denies any blood in her stool or unintentional weight loss. Reason for Consultation Abdominal pain and vomiting Past Medical History Fibromyalgia Gabriel de la Tourette's syndrome Posttraumatic stress disorder Chronic depression Anxiety Hereditary factor VIII deficiency disease Anemia Postural orthostatic tachycardia syndrome Dissociative convulsions Lamar-Danlos syndrome Ulcerative colitis Seizure Kidney stone von Willebrand disorder Past Surgical History Colonoscopy in 2021 Esophagogastroduodenoscopy in 2021 Cholecystectomy Insertion of implantable venous access port Procedure on mouth Ankle reconstruction Evacuation of blood clot of skin Cholecystectomy Reconstruction of nose Social History tobacco use Never Smoked, 0 yrs, Smoking Cessation No alcohol use No Known Use drug use No Known Use marital status Single sexual behavior Identifies as Female education 1 of 5 GI Consult History and Physical [facility] Name Zakia Smith Date of Service 1627 [id number] (F) Attending [place] PRIETO Admitted [id number] Discharged Primary MARISSA DUBOIS 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 general comment Patient lives at her mom's house, independently walk Family History Parents Father Alive von Willebrand disorder Mother Alive Disorder of thyroid gland; Sleep apnea Allergies Motrin - Rash Aspirin - Rash Zyrtec - Rash LATEX - Rash Amoxicillin - Not Specified Strawberries - Not Specified DULoxetine - Not Specified Ketorolac - Not Specified Banana - Not Specified Kiwi (Actinidia Chinensis) - Not Specified Grapefruit - Not Specified BLOOD THINNERS - Has factor 8 PENICILLIN - Rash tomatoes - Shock, Shock HEPARIN - BLOOD THINNERS HAS FACTOR 8 ALTEPLASE - BLOOD THINNERS-HAS FACTOR 8 COUMADIN - BLOOD THINNERS-HAS FACTOR 8 ELIQUIS - BLOOD THINNERS-HAS FACTOR 8 Active Medications dextrose 5% - NS + 20 MEQ KCL 1000 ML IV Continuous 100 ML/HR tamsulosin (FLOMAX) 0.4 MG PO DAILY oxcarbazepine (TRILEPTAL) 300 MG PO BID methylPREDNISolone sod succ 40 MG IV PUSH TID gabapentin (NEURONTIN) 600 MG PO DAILY folic acid (FOLATE) 1 MG PO DAILY famotidine (PEPCID) 20 MG PO DAILY sucralfate (CARAFATE) 1 GM PO ACB hydrOXYzine (ATARAX) 50 MG PO TIDPRN for ANXIETY dicyclomine (BENTYL) 20 MG PO QIDPRN for ABDOMINAL PAIN DISCOMFORT lamoTRIgine (LaMICtal) 200 MG PO BEDTIME amitriptyline (ELAVIL) 50 MG PO BEDTIME gabapentin (NEURONTIN) 900 MG PO BEDTIME celeCOXIB (CeleBREX) 200 MG PO BEDTIME pantoprazole (PROTONIX) 40 MG IV PUSH BID 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 POPSWAB 1 EA NASAL BID 2 of 5 GI Consult History and Physical [facility] Name Zakia Smith Date of Service 1628 [id number] (F) Attending MO PRIETO Admitted [id number] Discharged Primary MARISSA DUBOIS APPLY TO EACH NOSTRIL dicyclomine (BENTYL) 20 MG/2 ML 10 MG IM TIDPRN for ABDOMINAL PAIN DISCOMFORT HYDROmorphone (DILAUDID) 1 MG/ML 1 MG IV PUSH Q2HPRN for MODERATE PAIN 4-6 PAIN SCALE sodium chloride 0.9% FLUSH 10 ML IV PUSH PRN for FLUSH IV LINE SCOPOLAMINE 1 MG/3DAYS 1 MG TOPICAL PRN for NAUSEA VOMITING promethazine (PHENERGAN) 25 MG/ML 12.5 MG IV PUSH Q6HPRN for NAUSEA VOMITING IF REFRACTORY TO ZOFRAN prochlorperazine (COMPAZINE) 10 MG/2 ML 10 MG IV PUSH Q4HPRN for NAUSEA VOMITING ondansetron (ZOFRAN) INJ 4 MG/2 ML 4 MG IV PUSH Q6HPRN for NAUSEA VOMITING MIRALAX PACKET 17 GM PO DAILYPRN for CONSTIPATION insulin lispro (HumaLOG) PEN 100 UNIT/ML Sliding Scale Dose SUBCUT SSPRN for HYPERGLYCEMIA docusate calcium (SURFAK) 240 MG PO BIDPRN for CONSTIPATION HOLD FOR DIARRHEA dextrose 50% SYRINGE (25 GM) 25 ML IV PUSH PRN for HYPOGLYCEMIA IF BLOOD SUGAR < 70 Review of Systems Narrative Constitutional: no fever, no weight loss Skin: no rash, no subcutaneous nodules Otolaryngeal: no difficulty swallowing Cardiovascular: no chest pain, no SOB, no peripheral edema Pulmonary: no cough, no sputum production Gastrointestinal: See HPI Genitourinary: no dysuria, no hematuria Hematologic: no easy bruisability, no abnormal bleeding Musculoskeletal: no muscle pain Neurologic: no dizziness, no falls Vital Signs 1536 HR 72 RR 18 BP 118 / 75 O2Sat 97 1048 HR 70 RR 18 BP 128 / 77 O2Sat 97 0454 T 97.2 (L) 2359 T 96.4 (L) Intake and Output previous current encounter day day cumulative Intake 1886 - 1886 Output 3 - 3 Balance 1883 - 1883 Physical Exam 3 of 5 GI Consult History and Physical [facility] Name Zakia Smith Date of Service 8 [id number] (F) Attending MO PRIETO Admitted [id number] Discharged Primary MARISSA DUBOIS Narrative General: Ill, well developed, in no acute distress Eyes: There is no scleral icterus. No conjunctiva erythema. ENT: There is no pharyngeal erythema or exudate. External ears appear normal. No nasal drainage noted. Neck: trachea is midline Respiratory: Breath sounds are clear to auscultation bilaterally. No evidence of increased work of breathing or accessory muscle use. Cardiovascular: Regular rate and rhythm. No rubs, gallops, or murmurs auscultated. Abdomen: Abdomen is soft, non-distended, and non-tender. There is no rebound tenderness or guarding noted. Bowel sounds normal. Musculoskeletal: moves all extremities without pain Peripheral Vascular/Extremities: No lower extremity edema noted. Skin is warm, no peripheral cyanosis. Skin: No jaundice. No rashes or lesions noted. Neurological: Alert and oriented x4. Appears normal in conversation. No asterixis. Psychiatric: Speech is of regular rate, rhythm, volume, and amount. Mood appears stable. Affect is full range. No evidence of acute agitation. Lab Results 1251 Urinalysis COLOR Yellow APPEAR Clear GLUCOSE Norm BILIRUB Negative KETONE Negative SP GRAV 1.005 (L) BLOOD 25 PH 6 PROTEIN Negative UROBIL Norm NITRITE Negative ULEU Negative CULTURE No RBC None Seen WBC 1-5 EPITH Few BACTERIA None Seen 1047 Bedside Testing GLUMETER 106 (H) 0756 Bedside Testing GLUMETER 95 0314 Chemistry NA 138 K 4.4 CHLORIDE 103 CO2 22.1 AGAP 17.3 GLUC 83 BUN 5 (L) CREAT 0.7 GFR 121 CALCIUM 9.1 4 Hematology WBC 6.5 RBCS 4.4 HGB 12.5 HCT 38.4 MCV 87.7 MCH 28.5 MCHC 32.6 RDW 13.9 PLT S 302 MPV 9.7 (H) Diagnostic Results Name: ZAKIA SMITH Exam Date: 02/19/2024 : 1995 Age 28 years Gender: F Physician: DAVID ZELAYA Facility: [facility] Facility HSV: Outpatient Exam: CT ABD PEL W (IV CONT ONLY) CT ABDOMEN PELVIS WITH IV CONTRAST, 02/19/2024 9:22 AM CDT EXAMINATION: CT ABDOMEN WITH CONTRAST CLINICAL INDICATION: Female, 28 years old. Abdominal Pain TECHNIQUE: CT abdomen was performed, with IV contrast, as per department protocol. Axial, sagittal and 4 of 5 GI Consult History and Physical [facility] Name Zakia Smith Date of Service 1628 [id number] (F) Attending MO PRIETO Admitted [id number] Discharged Primary MARISSA DUBOIS coronal reconstructions were obtained. One or more of the following dose reduction techniques were used: Automated exposure control, adjustment of the mA and/or kV according to the patient size, and/or iterative reconstruction. * Density in the region of the cavoatrial junction, no change January 04, 2024, likely central venous catheter. * Focal area of low-density within the lateral aspect of the medial segment left hepatic lobe, focal area of fat suspected, indeed noted on December 26, 2023. * Mild nonspecific periportal edema, status post cholecystectomy, no extra hepatic bile duct dilatation. * Spleen, stomach, duodenum, right kidney, adrenal glands, aorta, pancreas unremarkable. * Nonobstructing left renal calculus. * No bowel obstruction, perforation, free air or pelvic abscess. Appendix is not clearly demonstrated, however, no CT findings suggestive of appendicitis. * No acute bony abnormality, scoliosis. * IMPRESSION: Legally authenticated by NAHED ESTEVES 2024-02-19 10:22:17 * No acute abnormality Electronically signed by: Adriano Rashid MD 02/19/2024 11:02 AM EDT RP Dictated By: Adriano Rashid Transcribed By: Transcribed On: 02/19/2024 10:22 AM Procedures and Surgeries None Assessment/Plan Ms. Smith is 28 year old female here for abdominal pain and vomiting. 1) Nausea and Vomiting - she is well known by the GI team. Symptoms have been on going. causing her abdominal pain or nausea and vomiting. Created by ANMOL Thomas APRN on 1628 Electronically signed by LAUREN PRIETO on 1742 5 of 5 CC'ed Logic: Ordering Provider: BHUPENDRA Barber - [place] [facility] [place] 03/02/2024 16:23:38 Procedures Surgical History Date Name Laterality Status Provider Name and Address Organization Details Recorded Time 12/21/19 25 Port Flush completed Hemalatha Lam PA-C [address], [place], [address], [place] - [facility] - [place] [facility] [place] 12/13/2024 15:56:43 07/11/19 25 Port Flush cancelled Hemalatha Lam PA-C [address] , [place], [address], [place] [facility] [place] [facility] [place] 07/02/2024 08:58:46 03/13/20 24 Port Flush completed Cardozasulma Flowers [place] - [facility] - [place] [facility] [place] 03/13/2024 14:48:49 11/15/19 24 Port Flush completed Josefinaanuksh Bhaktaruchi [place] - [facility] - [place] [facility] [place] 11/15/2023 14:58:49 09/14/19 [address] Leong [place] - [facility] & [place] 09/14/2023 15:00:47 removal of implantable venous access port completed Medardo Croft BHUPENDRA - [facility] - [place] [facility] [place] 02/17/2023 11:48:12 Colonoscopy completed Medardo Croft BHUPENDRA - L [facility] - [place] [facility] [place] 02/17/2023 11:49:42 Joint Replacement completed Medardo Croft BHUPENDRA - [facility] - [place] [facility] [place] 02/17/2023 11:49:42 Hip Surgery completed Medardo Croft BHUPENDRA - [facility] - [place] [facility] [place] 02/17/2023 11:49:42 Abdominal Surgery completed Medardoshabbir Croft BHUPENDRA - [facility] - [place] [facility] [place] 02/17/2023 11:49:42 Imaging Results None recorded. Procedure Notes None recorded. Medical Equipment None Reported. Allergies Allergen ID Allergen Name Allergen Category Reaction Reaction Severity Criticality Documentation Date Start Date Code Code System Note Provider Name and Address Organization Details Recorded Time [id number] ibuprofen medicatio n rash severe Not available 04/09/2024 5640 RxNorm BHUPENDRA Matos - [facility] & [place] 14:43:57 [id number] penicilli n V Not available Not available Not available Not available 04/09/2024 7984 RxNorm Other react ions and sever ities : 'Rash - Moder ate'. Angela fernandez [facility] & [place] 4 14:43:57 819223 cetirizin e medicatio n rash severe Not available 04/09/2024 90377 RxNorm Angela fernandez, [facility] & [place] 4 14:43:57 220060 ketorolac medicatio n Not available Not available Not available 04/09/2024 00809 RxNorm Other react ions and sever ities : 'Adve rse react ion to subst ance' . Angela fernandez, [facility] & [place] 4 14:43:57 994533 duloxetin e medicatio n Not available Not available Not available 04/09/2024 58631 RxNorm Other react ions and sever ities : 'Adve rse react ion to subst ance' . Angela fernandez, [facility] & [place] 4 14:43:57 907457 grapefrui t extract food abdominal pain anaphylax is moderate moderate Not available 04/09/2024 27848 3 RxNorm Angela fernandez, [facility] & [place] 4 14:44:16 580220 banana extract food,medi cation abdominal pain anaphylax is moderate moderate Not available 04/09/2024 03332 9 RxNorm Angela fernandez, [facility] & [place] 4 14:44:16 015513 tomato allergeni c extract food anaphylax is moderate Not available 04/09/2024 07514 9 RxNorm Angela fernandez, [facility] & [place] 4 14:44:16 138601 kiwi fruit extract food anaphylax is moderate Not available 04/09/2024 74560 01 RxNorm Angela fernandez, [facility] & [place] 4 14:44:16 364425 strawberr y allergeni c extract food anaphylax is moderate Not available 04/09/2024 23024 4 RxNorm Angela fernandez, BHUPENDRA CANTU [facility] & [place] 4 14:44:16 56946 amoxicill in medicatio n Not available Not available Not available 06/22/2022 723 RxNorm Other react ions and sever ities : 'Adve rse react ion to subst ance' . Angela fernandez, BHUPENDRA CANTU - [place] [facility] [place] 4 14:43:58 31913 aspirin medicatio n rash severe Not available 06/22/2022 1191 RxNorm Josefina fernandez, BHUPENDRA CANTU [facility] & [place] 3 09:15:09 49886 Cymbalta medicatio n Not available Not available Not available 06/22/2022 50774 4 RxNorm Josefina fernandez, BHUPENDRA CANTU [facility] & [place] 3 09:15:16 79842 latex environme nt,medica tion Not available Not available Not available 06/22/2022 17450 91 RxNorm Josefina fernandez, BHUPENDRA CANTU - [place] [facility] [place] 3 09:15:23 71319 Stimate medicatio n Not available Not available Not available 06/22/2022 14938 6 RxNorm Josefina fernandez, BHUPENDRA CANTU - [place] [facility] [place] 3 09:15:33 Medications Name Sig Start Date Stop Date Status Note LastModified by Organization Details LastModified Time celecoxib 200 mg capsule TAKE 1 CAPSULE BY MOUTH EVERY DAY active Not Available Not Available No t Available lamotrigine 150 mg tablet 07/19 completed Not Available Not Available Not Available oxcarbazepi ne 150 mg tablet 300 mg by oral route. 08/12 completed Not Available Not Available Not Available prednisone 10 mg tablet PLEASE SEE ATTACHED FOR DETAILED DIRECTION S active Not Available Not Available No t Available gabapentin 600 mg tablet 600 mg by oral route. active Not Available Not Available No t Available lamotrigine 200 mg tablet TAKE 1 TABLET BY MOUTH EVERY DAY AT NIGHT active Not Available Not Available No t Available Carafate 100 mg/mL oral suspension 07/19 completed Not Available Not Available Not Available clindamycin HCl 300 mg capsule 07/19 completed Not Available Not Available Not Available albuterol sulfate 2.5 mg/3 mL (0.083 %) solution for nebulizatio n 2.5 mg by inhalatio n route. 08/14 completed Not Available Not Available Not Available tizanidine 4 mg tablet TAKE 1 TABLET BY MOUTH EVERY 8 HOURS. active Not Available Not Available No t Available hydrocodone 5 mg-acetamin ophen 325 mg tablet TAKE 1 TABLET ORAL ROUTE EVERY 6 HOURS NEEDED 12/20 completed Not Available Not Available Not Available prazosin 1 mg capsule 07/19 completed Not Available Not Available Not Available promethazin e 25 mg rectal suppository INSERT 1 SUPPOSITO RY RECTAL ROUTE EVERY 6 HOURS NEEDED active Not Available Not Available No t Available ondansetron HCl 8 mg tablet Take 8 mg by oral route. 03/13 completed Not Available Not Available Not Available sucralfate 1 gram tablet 09/13 completed Not Available Not Available Not Available promethazin e 12.5 mg tablet TAKE 1 TABLET EVERY 6 HOURS NEEDED active Not Available Not Available No t Available ondansetron HCl 4 mg tablet TAKE 2 TABLETS BY MOUTH EVERY SIX HOURS FOR NAUSEA 03/13 completed Not Available Not Available Not Available prednisone 20 mg tablet 03/13 completed Not Available Not Available Not Available clonazepam 0.5 mg tablet 09/13 completed Not Available Not Available Not Available lactated Ringers intravenous solution 1000 mL by intraven. route. active Not Available Not Available No t Available hydroxyzine pamoate 50 mg capsule PRN 03/12 completed Not Available Not Available Not Available oxcarbazepi ne 300 mg tablet TAKE 1 TABLET BY MOUTH TWICE A DAY active Not Available Not Available No t Available phentermine 37.5 mg tablet Take 0.5 tablets by oral route. 03/13 completed Not Available Not Available Not Available sulfamethox azole 800 mg-trimetho prim 160 mg tablet 03/13 completed Not Available Not Available Not Available quetiapine 100 mg tablet 100 mg by oral route. active Not Available Not Available No t Available amitriptyli ne 50 mg tablet TAKE 1 TABLET BY MOUTH EVERY DAY AT NIGHT active Not Available Not Available No t Available acetaminoph en 500 mg tablet Take 500 mg by oral route. 03/13 completed Not Available Not Available Not Available ondansetron 8 mg disintegrat ing tablet PLACE 1 TABLET ON THE TONGUE EVERY 8 HOURS NEEDED FOR NAUSEA AND VOMITING active Not Available Not Available No t Available lidocaine-p rilocaine 2.5 %-2.5 % topical cream Apply to port 30 minutes prior to accessing active Not Available Not Available No t Available Depo-Medrol 80 mg/mL suspension for injection 80 mg by injection route. 08/12 completed Not Available Not Available Not Available oxycodone-a cetaminophe n 5 mg-325 mg tablet 1 tablet by oral route. 08/14 completed Not Available Not Available Not Available potassium chloride 20 mEq oral packet PLEASE SEE ATTACHED FOR DETAILED DIRECTION S active Not Available Not Available No t Available alprazolam 0.25 mg tablet Take 0.25 mg by oral route. 03/13 completed Not Available Not Available Not Available potassium chloride ER 20 mEq tablet,exte nded release(par t/cryst) 40 milliequi valents by oral route. 08/14 completed Not Available Not Available Not Available famotidine 20 mg tablet TAKE 1 TABLET BY MOUTH EVERY DAY active Not Available Not Available No t Available amitriptyli ne 25 mg tablet 50 mg by oral route. 08/13 completed Not Available Not Available Not Available methocarbam ol 750 mg tablet TAKE 1 TABLET BY MOUTH FOUR TIMES A DAY NEEDED FOR MUSCLE SPASM active Not Available Not Available No t Available promethazin e 12.5 mg rectal suppository INSERT 1 SUPPOSITO RY RECTAL ROUTE EVERY 6 HOURS active Not Available Not Available No t Available tamsulosin 0.4 mg capsule 1 capsule by oral route. active Not Available Not Available No t Available dicyclomine 20 mg tablet TAKE 1 TABLET BY MOUTH 4 TIMES A DAY NEEDED active Not Available Not Available No t Available benzonatate 100 mg capsule 09/13 completed Not Available Not Available Not Available doxycycline monohydrate 100 mg capsule 06/22 completed Not Available Not Available Not Available hydrocodone 7.5 mg-acetamin ophen 325 mg tablet TAKE 1 TABLET ORAL ROUTE EVERY 6 HOURS NEEDED active Not Available Not Available No t Available cephalexin 500 mg capsule 06/22 completed Not Available Not Available Not Available pantoprazol e 40 mg tablet,africa yed release per pt states she is still as of active Not Available Not Available No t Available cyanocobala min (vit B-12) 1,000 mcg/mL injection solution 1 mL every month by injection route. active Not Available Not Available No t Available dexamethaso ne 4 mg tablet 06/22 completed Not Available Not Available Not Available promethazin e 25 mg/mL injection solution 25 mg by injection route. 08/12 completed Not Available Not Available Not Available promethazin e 25 mg tablet TAKE 1 TABLET BY MOUTH EVERY 6 HOURS NEEDED active Not Available Not Available No t Available oxycodone 5 mg capsule Take 1 tablet by oral route. 03/13 completed Not Available Not Available Not Available gabapentin 300 mg capsule TAKE 2 CAPSULES BY MOUTH 3 TIMES A DAY MAY CAUSE DROWSINES S active Not Available Not Available No t Available omeprazole 20 mg capsule,del ayed release TAKE 1 CAPSULE BY MOUTH EVERY DAY active Not Available Not Available No t Available folic acid 1 mg tablet TAKE 1 TABLET BY MOUTH EVERY DAY active Not Available Not Available No t Available zolpidem 5 mg tablet 5 mg by oral route. 08/14 completed Not Available Not Available Not Available prednisone 5 mg tablets in a dose pack 06/22 completed Not Available Not Available Not Available ondansetron 4 mg disintegrat ing tablet TAKE 1 TABLET ORAL ROUTE EVERY 6-8 HOURS NEEDED 12/20 completed Not Available Not Available Not Available cefdinir 300 mg capsule 06/22 completed Not Available Not Available Not Available dicyclomine 10 mg capsule Take 1 capsule 4 times a day by oral route for 30 days. active Not Available Not Available No t Available lamotrigine 100 mg tablet 150 mg by oral route. 08/14 completed Not Available Not Available Not Available prazosin 2 mg capsule 02/03 completed Not Available Not Available Not Available metoprolol tartrate 5 mg/5 mL intravenous solution 5 mg by intraven. route. 08/14 completed Not Available Not Available Not Available oxycodone 5 mg tablet 07/19 completed Not Available Not Available Not Available etonogestre l 0.12 mg-ethinyl estradiol 0.015 mg/24 hr vaginal ring USE MONTHLY DIRECTED. USING WITH CONTINUOU S DOSING active Not Available Not Available No t Available dextrose 10 % in water (D10W) intravenous solution 250 mL by intraven. route. 08/14 completed Not Available Not Available Not Available sodium chloride 0.9 % (flush) injection syringe 10 mL by injection route. 08/14 completed Not Available Not Available Not Available hydromorpho ne 1 mg/mL injection syringe 2 mg by injection route. 08/14 completed Not Available Not Available Not Available Prilosec OTC 20 mg tablet,africa yed release 20 mg by oral route. 2022 active Not Available Not Available Not Avai lable aminocaproi c acid 1,000 mg tablet Take 4 tablets every 6-8 hours by oral route as needed. active Not Available Not Available No t Available Humate-P 1,000 unit-2,400 unit intravenous solution INFUSE 4800 RCOF UNITS (4320-528 0) SLOW IV PUSH NEEDED 2024 active Not Available Not Available Not Avai lable ProAir HFA 90 mcg/actuati on aerosol inhaler 06/22 completed Not Available Not Available Not Available quetiapine 50 mg tablet 06/22 completed Not Available Not Available Not Available ondansetron HCl (PF) 4 mg/2 mL injection solution 4 mg by injection route. 08/12 completed Not Available Not Available Not Available FeroSul 325 mg (65 mg iron) tablet Take 1 tablet every day by oral route with meal(s). 03/13 completed Not Available Not Available Not Available magnesium sulfate 2 gram/50 mL (4 %) in water intravenous piggyback 2 g by intraven. route. 08/12 completed Not Available Not Available Not Available Humalog KwikPen (U-100) Insulin 100 unit/mL subcutaneou s 1 unt by sub-q route. 08/14 completed Not Available Not Available Not Available ClearLax 17 gram/dose oral powder Dissolve 1 capful in 8 oz of liquid and drink once daily, 30 days 03/13 completed Not Available Not Available Not Available Xifaxan 550 mg tablet Take by oral route for 14 days. 2023 active Not Available Not Available Not Avai lable tranexamic acid 650 mg tablet TAKE 2 TABLETS BY MOUTH 3 TIMES A DAY active Not Available Not Available No t Available HealthyLax 17 gram oral powder packet 17 g by oral route. 08/14 completed Not Available Not Available Not Available morphine 4 mg/mL intravenous syringe 4 mg by intraven. route. 08/12 completed Not Available Not Available Not Available Trintellix 5 mg tablet 07/19 completed Not Available Not Available Not Available Trintellix 10 mg tablet 07/19 completed Not Available Not Available Not Available Trintellix 20 mg tablet 20 mg by oral route. active Not Available Not Available No t Available Vitals Date Recorded Body height Oxygen saturation Oxygen saturation in Arterial blood by Pulse oximetry Heart rate Provider Name and Address Organization Details Last Updated DateTime 11/15/2023 154.94 cm 99 % 99 % 77 /min Josefina Hagan [facility] & [place] 11/15/2023 14:58:26 Date Recorded Body height Body mass index (BMI) Body weight Body temperature Oxygen saturation Oxygen saturation in Arterial blood by Pulse oximetry Heart rate Respiratory rate Systolic And Diastolic Provider Name and Address Organization Details Last Updated DateTime 5 154.94 cm 36.5 kg/m2 47046.4 1 g 97.6 [degF] 98 % 98 % 119 /min 18 /min 135/83 mm[Hg] Josefina HUIZAR [facility] & [place] 5 13:29:53 Date Recorded Body height Body mass index (BMI) Body weight Body temperature Oxygen saturation Oxygen saturation in Arterial blood by Pulse oximetry Heart rate Heart rate Systolic And Diastolic Provider Name and Address Organization Details Last Updated DateTime 4 154.94 cm 36.2 kg/m2 07851.5 8 g 98.1 [degF] 99 % 99 % 101 /min 116 /min 104/93 mm[Hg] Yoan Sanders [facility] & [place] 4 15:54:45 Date Recorded Body height Body mass index (BMI) Body weight Heart rate Heart rate Oxygen saturation Oxygen saturation in Arterial blood by Pulse oximetry Body temperature Systolic And Diastolic Provider Name and Address Organization Details Last Updated DateTime 4 154.94 cm 35.9 kg/m2 33335.1 9 g 103 /min 90 /min 98 % 98 % 97.9 [degF] 140/90 mm[Hg] Anna Marie Aguirre [facility] & [place] 4 15:36:53 Date Recorded Body height Body mass index (BMI) Body weight Body temperature Oxygen saturation Oxygen saturation in Arterial blood by Pulse oximetry Heart rate Systolic And Diastolic Provider Name and Address Organization Details Last Updated DateTime 4 154.94 cm 35.8 kg/m2 21897.4 7 g 97.7 [degF] 100 % 100 % 96 /min 124/81 mm[Hg] Josefina Hagan [facility] & [place] 4 14:04:53 Social History Question Answer Notes LastModified by Rixty Details LastModified Time Tobacco Smoking Status Never Smoker Josefina Hagan [facility] & [place] 06/22/2022 09:19:50 What Is Your Level Of Caffeine Consumption? Occasional [email or web address] Information not available 02/03/2023 What Was The Date Of Your Most Recent Tobacco Screening? 09/14/2023 Information not available 09/14/2023 Has Tobacco Cessation Counseling Been Provided? No [email or web address] Information not available 09/14/2023 Sex: Unknown Functional Status Question Answer Note LastModified by ServerEnginesizat ion Details LastModified Time Do you use any illicit or recreational drugs? No [email or web address] Information not available 06/22/2022 Do you or have you ever used any other forms of tobacco or nicotine? No [email or web address] Information not available 02/03/2023 What is your level of alcohol consumption? None [email or web address] Information not available 06/22/2022 Mental Status None recorded. Family History Relationship Description Onset Age of this Age Resolved Age Notes LastModified by Organization Details LastModified Time Father Family history of Father alive with problem von adrienne be [id number] Not available 03/13/2024 13:57:03 Father Blood coagulation disorder pt. added direct ly (12/28) [email or web address] Not available 12/28/2022 17:16:26 Maternal Grandmother Family history of Maternal grandmother breast cancer [email or web address] Not available 03/13/2024 13:57:03 Sister Seizure disorder pt. added direct ly (12/28) [email or web address] Not available 12/28/2022 17:16:19 Sister Autoimmune disease pt. added direct ly (12/28) [email or web address] Not available 12/28/2022 17:16:37 Sister Hearing loss pt. added direct ly (12/28) [email or web address] Not available 12/28/2022 17:16:48 Sister Heart disease pt. added direct ly (12/28) [email or web address] Not available 12/28/2022 17:19:59 Mother Headache pt. added direct ly (12/28) [email or web address] Not available 12/28/2022 17:16:56 Mother Disorder of thyroid gland pt. added direct ly (12/28) [email or web address] Not available 12/28/2022 17:18:12 Mother Mental health problem pt. added direct ly (12/28) [email or web address] Not available 12/28/2022 17:18:46 Mother Hearing loss pt. added direct ly (12/28) [email or web address] Not available 12/28/2022 17:20:16 Maternal Grandfather Substance abuse pt. added direct ly (12/28) [email or web address] Not available 12/28/2022 17:17:47 Maternal Grandfather Chronic obstructive pulmonary disease pt. added direct ly (12/28) [email or web address] Not available 12/28/2022 17:18:51 Maternal Grandfather Hearing loss pt. added direct ly (12/28) [email or web address] Not available 12/28/2022 17:20:09 Medical History Condition Response Clotting Disorder Y Autoimmune disease Y Headaches Y Kidney or Bladder Problems Y GI Problems Y Anemia Y Neurological Problems Y Gynecological HistoryNo gynecological history recorded. Obstetrics History GPAL:G 0 P 0 0 0 0 Immunizations Vaccine Type Date Status Note Provider Nam e and Address Organization Details Recorded Time IPV 1 completed Not Available [facility] 08/16/2022 11:48:06 MMR 1 completed Not Available [facility] 08/16/2022 11:48:06 Tdap 9 completed Not Available [facility] 08/16/2022 11:48:06 varicella 1 completed Not Available [facility] 08/16/2022 11:48:06 Influenza, split virus, trivalent, preservative 1 completed Not Available [facility] 08/16/2022 11:48:06 Influenza, split virus, trivalent, preservative 0 completed Not Available [facility] 08/16/2022 11:48:06 Td (adult) 2 completed Not Available [facility] 08/16/2022 11:48:06 Hib (PRP-OMP) 1 completed Not Available [facility] 08/16/2022 11:48:06 DTaP, unspecified formulation 1 completed Not Available [facility] 08/16/2022 11:48:06 Influenza, split virus, quadrivalent, PF 2 completed Not Available [facility] 08/16/2022 11:48:06 Influenza, split virus, trivalent, PF 4 completed Not Available [facility] 12/20/2024 13:13:48 Past Encounters Encounter ID Performer Location Encounter Start Date Encounter Closed Date Diagnosis/Indication Diagnosis SNOMED-CT Code Diagnosis ICD10 Code Diagnosis IMO Codes Diagnosis Note [id number] Frances Beaulieu NP [facility] [address] [address] 02/16/2022 14:52:01 02/16/2022 15:24:34 Heartburn 92694658 R12 - Increase Omeprazole 20 mg BID- Famotodine as needed- Avoid trigger foods- Stay upright 30-60 min after eating Irritable bowel syndrome 83606530 K58.9 - Continue Bentyl as needed- Continue Citracel [id number] Jack Burciaga MD [facility] [address] [place] [address] 06/04/2022 09:52:28 06/04/2022 10:58:45 Paresthesia 56577724 R20.2 Gastroenteritis 35598188 K52.9 [id number] Hemalatha Lam PA-C [facility] [address] [facility] [address] [place] [address] 06/22/2022 08:56:50 06/22/2022 10:19:32 von Willebrand disorder [id number] D68.00 Patient is here to establish care with Hematology . Patient was diagnosed with von Willebrand 's at age 7. She previously followed with Hematology at [facility] . Will request records from [facility] . She does bruise easily and has had epistaxis episodes that are controlled at home her whole life. She is taking tranexamic acid with control of bleeding. She takes Humate P before and after surgeries. She is thinking about getting a Port-A-Cat h. She does not have this scheduled yet but she will let us know if she schedules it and we will give her instructio ns on Humate P. Will order labs today. Will follow-up von willebrand profile. 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 Informed consent was obtained. Risks, including bleeding, infection, damage to surroundin g structures need for further surgery were discussed. von Willeb rand disorder [id number] D68.00 Patient has known von Willebrand 's disorder and is followed by Hematology . They had a plan for Humate-P injection perioperat ively. Patient is a [employer] and refuses blood products. We discussed that this combinatio n increases her risk of symptomati c anemia should bleeding occur. [id number] Charli Nagel MD [facility] [address] [facility] [address] [place] [address] 12/31/2022 11:23:39 12/31/2022 11:47:15 von Willebrand disorder [id number] D68.00 Patient diagnosed with von Willebrand 's disease at . Patient's father has history of type 2A von Willebrand 's disease. Patient has been treated as type 2A von Willebrand 's disease. Prior gene testing and patient reports potential mixed type of von Willebrand 's disease. She previously followed with Hematology at [facility] . Will request records from [facility] . She does bruise easily and has had epistaxis episodes that are controlled at home her whole life. She is taking tranexamic acid with control of bleeding. upcoming teeth extraction needed. Will provide Humate-P dosing on day of procedure which is January 05, 2023 as well as day after procedure on January 06, 2023. Patient with planned dental extraction in would treat as major risk of bleeding. Dosing of von Willebrand 's factor at 60 units per kg. Patient weighs 80 kg. Dose of Humate-P will be 4800 units IV on 01-05-23 amd 01-06-23 Maintenance of device 13 [id number] Z45.1 Right subclavian Port-A-Cat h in place. Patient asking about home Humate-P infusion. Will likely been able to obtain prior to upcoming surgery however can look into in the future. Will plan to dose in the infusion area. 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 Patient with teeth fragility as a result. Dental extraction planned. Extraction of tooth needed [id number] Z76.89 Patient has type 2 a von Willebrand 's disease and upcoming teeth extraction needed. Will provide Humate-P dosing on day of procedure which is January 05, 2023 as well as day after procedure on January 06, 2023. [id number] Narda Bonilla MD [facility] Surgery [address] [facility] [place] [address] 02/03/2023 09:14:58 02/03/2023 10:22:49 Skin breakdown of totally implantable venous access device port site [id number] T82.898A Erosion of PowerPort through the skin. This is likely related to the patient's Lamar-Axel los syndrome and poor subcutaneo us tissue. We discussed that this port needs to be removed urgently due to the risk of infection. Once the area has healed completely , discussion can be held for possible port replacemen t, although erosion may occur again. She does have a history of von Willebrand 's disease. I believe that the bleeding risk is very low for port removal as I can suture ligate the vascular tract. She will speak with hematology on if they feel that preoperati ve treatment is required. Informed consent was obtained for the procedure, including risks of bleeding, infection and catheter complicati ons. [id number] Narda Bonilla MD [facility] Surgery [address] [place] [address],[address] [place] [address] 02/17/2023 11:31:37 02/17/2023 12:28:21 Skin breakdown of totally implantable venous access device port site [id number] T82.898A Stable postop. Sutures were removed without difficulty . I believe that the central portion of the wound did not heal due to some tension as well as the postoperat cintia bleeding. Overall it is healing well. I did discuss with the patient, who is anxious to have access replaced, that a PICC may be a better option due to risk of skin breakdown. Will explore the possibilit y of a PICC port placement by [facility] at [facility]. [id number] Narda Bonilla MD [facility] [address] [facility] [place] [address] 03/15/2023 11:28:26 03/15/2023 12:04:50 Skin reaction to suture material [id number] T81.89XA I removed the protruding suture. This is absorbable , although she is having some inflammati on and drainage related to this. Due to the port erosion and history of Lamar-Axel los syndrome, she is received a referral to [facility] for PICC port placement by [facility]. She is not been contacted about this yet, will follow-up [id number] Hemalatha Lam PA-C [facility] [address] [place] [address] 07/20/2023 10:50:47 07/20/2023 11:13:14 von Willebrand disorder [id number] D68.00 Patient diagnosed with von Willebrand 's disease at . Patient's father has history of type 2A von Willebrand 's disease. Patient has been treated as type 2A von Willebrand 's disease. Prior gene testing and patient reports potential mixed type of von Willebrand 's disease. She previously followed with Hematology at [facility] . Will request records from [facility] . She does bruise easily and has had epistaxis episodes that are controlled at home her whole life. She is taking tranexamic acid with control of bleeding. upcoming teeth extraction needed. Will provide Humate-P dosing on day of procedure which is January 05, 2023 as well as day after procedure on January 06, 2023. Patient with planned dental extraction in would treat as major risk of bleeding. Dosing of von Willebrand 's factor at 60 units per kg. Patient weighs 80 kg. Dose of Humate-P will be 4800 units IV on 01-05-23 amd 01-06-23. Patient returns on July 20, 2023. Patient has erosion of her port a cath through the skin January 2023 and had the port removed. Patient was planning on a dental procedure with potential tooth extraction but she hasn't had it done yet. If she does reschedule this procedure will plan to provide Humate-P the day of and potentiall y day after procedure if needed. Patient denies any other new complaints at this time. Will follow up labs today. Maintenance of device 13 [id number] Z45.1 Right subclavian Port-A-Cat h in place. Patient asking about home Humate-P infusion. Will likely been able to obtain prior to upcoming surgery however can look into in the future. Will plan to dose in the infusion area. Patient returns on July 20, 2023. Patient has erosion of her port a cath through the skin January 2023 and had the port removed. 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 Patient with teeth fragility as a result. Dental extraction planned. Extraction of tooth needed [id number] Z76.89 Patient has type 2 a von Willebrand 's disease and upcoming teeth extraction needed. Will provide Humate-P dosing on day of procedure which is January 05, 2023 as well as day after procedure on January 06, 2023. [id number] Hemalatha Lam PA-C [facility] [address] [place] [address] 07/22/2023 10:29:47 07/22/2023 10:35:16 Anemia [id number] D64.9 [id number] Hemalatha Lam PA-C [facility] [address] [place] [address] 08/05/2023 11:29:58 08/05/2023 12:33:41 von Willebrand disorder [id number] D68.00 Patient diagnosed with von Willebrand 's disease at . Patient's father has history of type 2A von Willebrand 's disease. Patient has been treated as type 2A von Willebrand 's disease. Prior gene testing and patient reports potential mixed type of von Willebrand 's disease. She previously followed with Hematology at [facility] . Will request records from [facility] . She does bruise easily and has had epistaxis episodes that are controlled at home her whole life. She is taking tranexamic acid with control of bleeding. upcoming teeth extraction needed. Will provide Humate-P dosing on day of procedure which is January 05, 2023 as well as day after procedure on January 06, 2023. Patient with planned dental extraction in would treat as major risk of bleeding. Dosing of von Willebrand 's factor at 60 units per kg. Patient weighs 80 kg. Dose of Humate-P will be 4800 units IV on 01-05-23 amd 01-06-23. Labs on July 22, 2023 consistent with iron deficiency vitamin B12 and folic acid deficiency . serum iron 13 and iron saturation 2%. Ferritin 4. Vitamin B12 161. Folic acid 5.7. Patient started oral iron monthly vitamin B12 injections and folic acid 1 mg daily. Patient returns for follow-up on August 05, 2023. She is having difficulty tolerating oral iron. She is having nausea. Discussed will continue oral iron and proceed with infusional iron. Will follow-up Maintenance of device 13 [id number] Z45.1 Right subclavian Port-A-Cat h in place. Patient asking about home Humate-P infusion. Will likely been able to obtain prior to upcoming surgery however can look into in the future. Will plan to dose in the infusion area. Patient returns on July 20, 2023. Patient has erosion of her port a cath through the skin January 2023 and had the port removed. 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 Patient with teeth fragility as a result. Dental extraction planned. Extraction of tooth needed [id number] Z76.89 Patient has type 2 a von Willebrand 's disease and upcoming teeth extraction needed. Will provide Humate-P dosing on day of procedure which is January 05, 2023 as well as day after procedure on January 06, 2023. Cobalamin deficiency 190 450495 E53.8 Labs on July 22, 2023 consistent with iron deficiency vitamin B12 and folic acid deficiency . serum iron 13 and iron saturation 2%. Ferritin 4. Vitamin B12 161. Folic acid 5.7. Patient started oral iron monthly vitamin B12 injections and folic acid 1 mg daily. Patient returns for follow-up on August 05, 2023. She is having difficulty tolerating oral iron. She is having nausea. Discussed will continue oral iron and proceed with infusional iron. Will follow-up Folic acid deficiency 19 2723084 E53.8 Labs on July 22, 2023 consistent with Folic acid 5.7. Patient started folic acid 1 mg daily. Vitamin B1 2 deficiency (non anemic) 70356764 E53.8 Labs on July 22, 2023 consistent with iron deficiency vitamin B12. Vitamin B12 161. Patient started oral iron monthly vitamin B12 injections . Iron defic iency anemia 40884010 D50.9 Labs on July 22, 2023 consistent with iron deficiency vitamin B12 and folic acid deficiency . serum iron 13 and iron saturation 2%. Ferritin 4. Vitamin B12 161. Folic acid 5.7. Patient started oral iron monthly vitamin B12 injections and folic acid 1 mg daily. Patient returns for follow-up on August 05, 2023. She is having difficulty tolerating oral iron. She is having nausea. Discussed will continue oral iron and proceed with infusional iron. Will follow-up [id number] Hemalatha Lam PA-C [facility] [address] [address] [place] [address] 09/02/2023 11:33:51 09/02/2023 11:55:28 Cobalamin deficiency [id number] E53.8 Labs on July 22, 2023 consistent with iron deficiency vitamin B12 and folic acid deficiency . serum iron 13 and iron saturation 2%. Ferritin 4. Vitamin B12 161. Folic acid 5.7. Patient started oral iron monthly vitamin B12 injections and folic acid 1 mg daily. Patient returns for follow-up on August 05, 2023. She is having difficulty tolerating oral iron. She is having nausea. Discussed will continue oral iron and proceed with infusional iron. Will follow-up [id number] Charli Nagel MD [facility] [address] [place] [address] 09/14/2023 14:08:00 09/14/2023 15:21:40 von Willebrand disorder [id number] D68.00 Patient diagnosed with von Willebrand 's disease at . Patient's father has history of type 2A von Willebrand 's disease. Patient has been treated as type 2A von Willebrand 's disease. Prior gene testing and patient reports potential mixed type of von Willebrand 's disease. She previously followed with Hematology at [facility] . Will request records from [facility] . She does bruise easily and has had epistaxis episodes that are controlled at home her whole life. She is taking tranexamic acid with control of bleeding. upcoming teeth extraction needed. Will provide Humate-P dosing on day of procedure which is January 05, 2023 as well as day after procedure on January 06, 2023. Patient with planned dental extraction in would treat as major risk of bleeding. Dosing of von Willebrand 's factor at 60 units per kg. Patient weighs 80 kg. Dose of Humate-P will be 4800 units IV on 01-05-23 amd 01-06-23. Labs on July 22, 2023 consistent with iron deficiency vitamin B12 and folic acid deficiency . serum iron 13 and iron saturation 2%. Ferritin 4. Vitamin B12 161. Folic acid 5.7. Patient started oral iron monthly vitamin B12 injections and folic acid 1 mg daily. Patient has upcoming Port-A-Cat h placement at [facility]. Patient will need Humate-P prior to and after port placement. Would plan for dosing prior to procedure previous dose of 4800 units IV of Humate-P with plan for 2nd dose the next day. Will follow-up labs today. Maintenance of device 13 [id number] Z45.1 Right subclavian Port-A-Cat h in place. Patient asking about home Humate-P infusion. Will likely been able to obtain prior to upcoming surgery however can look into in the future. Will plan to dose in the infusion area. Patient returns on July 20, 2023. Patient has erosion of her port a cath through the skin January 2023 and had the port removed. Extraction of tooth needed [id number] Z76.89 Patient has type 2 a von Willebrand 's disease and upcoming teeth extraction needed. Will provide Humate-P dosing on day of procedure which is January 05, 2023 as well as day after procedure on January 06, 2023. Cobalamin deficiency 190 620203 E53.8 Labs on July 22, 2023 consistent with iron deficiency vitamin B12 and folic acid deficiency . serum iron 13 and iron saturation 2%. Ferritin 4. Vitamin B12 161. Folic acid 5.7. Patient started oral iron monthly vitamin B12 injections and folic acid 1 mg daily. Patient returns for follow-up on August 05, 2023. She is having difficulty tolerating oral iron. She is having nausea. Discussed will continue oral iron and proceed with infusional iron. Will follow-up Folic acid deficiency 19 0111972 E53.8 Labs on July 22, 2023 consistent with Folic acid 5.7. Patient started folic acid 1 mg daily. Vitamin B1 2 deficiency (non anemic) 88995927 E53.8 Labs on July 22, 2023 consistent with iron deficiency vitamin B12. Vitamin B12 161. Patient started oral iron monthly vitamin B12 injections . Iron defic iency anemia 57873862 D50.9 Labs on July 22, 2023 consistent with iron deficiency vitamin B12 and folic acid deficiency . serum iron 13 and iron saturation 2%. Ferritin 4. Vitamin B12 161. Folic acid 5.7. Patient started oral iron monthly vitamin B12 injections and folic acid 1 mg daily. Patient returns for follow-up on August 05, 2023. She is having difficulty tolerating oral iron. She is having nausea. Discussed will continue oral iron and proceed with infusional iron. Will follow-up [id number] Ignacio Yi PA-C [facility] [address] [address] 09/16/2023 09:20:08 09/16/2023 10:10:23 Abdominal pain 11096938 R10.9 Irritable bowel syndrome characterized by alternating bowel habit [id number] K58.9 [id number] Hemalatha Lam PA-C [facility] [address] [facility] [address] [place] [address] 10/05/2023 11:01:33 10/05/2023 11:13:19 Cobalamin deficiency 504049029 E53.8 Labs on July 22, 2023 consistent with iron deficiency vitamin B12 and folic acid deficiency . serum iron 13 and iron saturation 2%. Ferritin 4. Vitamin B12 161. Folic acid 5.7. Patient started oral iron monthly vitamin B12 injections and folic acid 1 mg daily. Patient returns for follow-up on August 05, 2023. She is having difficulty tolerating oral iron. She is having nausea. Discussed will continue oral iron and proceed with infusional iron. Will follow-up [id number] Charli Nagel MD [facility] [address] [address] [place] [address] 11/09/2023 14:09:15 11/09/2023 15:34:52 von Willebrand disorder [id number] D68.00 Patient diagnosed with von Willebrand 's disease at . Patient's father has history of type 2A von Willebrand 's disease. Patient has been treated as type 2A von Willebrand 's disease. Prior gene testing and patient reports potential mixed type of von Willebrand 's disease. She previously followed with Hematology at [facility] . Will request records from [facility] . She does bruise easily and has had epistaxis episodes that are controlled at home her whole life. She is taking tranexamic acid with control of bleeding. upcoming teeth extraction needed. Will provide Humate-P dosing on day of procedure which is January 05, 2023 as well as day after procedure on January 06, 2023. Patient with planned dental extraction in would treat as major risk of bleeding. Dosing of von Willebrand 's factor at 60 units per kg. Patient weighs 80 kg. Dose of Humate-P will be 4800 units IV on 01-05-23 amd 01-06-23. Labs on July 22, 2023 consistent with iron deficiency vitamin B12 and folic acid deficiency . serum iron 13 and iron saturation 2%. Ferritin 4. Vitamin B12 161. Folic acid 5.7. Patient started oral iron monthly vitamin B12 injections and folic acid 1 mg daily. Patient has upcoming Port-A-Cat h placement at [facility]. Patient will need Humate-P prior to and after port placement. Would plan for dosing prior to procedure previous dose of 4800 units IV of Humate-P with plan for 2nd dose the next day. Will follow-up labs today. Maintenance of device 13 [id number] Z45.1 Right subclavian Port-A-Cat h in place. Patient asking about home Humate-P infusion. Will likely been able to obtain prior to upcoming surgery however can look into in the future. Will plan to dose in the infusion area. Patient returns on July 20, 2023. Patient has erosion of her port a cath through the skin January 2023 and had the port removed.Ne w Port-A-Cat h placed. No issues. Cobalamin deficiency 190 094988 E53.8 Labs on July 22, 2023 consistent with iron deficiency vitamin B12 and folic acid deficiency . serum iron 13 and iron saturation 2%. Ferritin 4. Vitamin B12 161. Folic acid 5.7. Patient started oral iron monthly vitamin B12 injections and folic acid 1 mg daily. Patient returns for follow-up on August 05, 2023. She is having difficulty tolerating oral iron. She is having nausea. Discussed will continue oral iron and proceed with infusional iron. Will follow-up Folic acid deficiency 19 0735524 E53.8 Labs on July 22, 2023 consistent with Folic acid 5.7. Patient started folic acid 1 mg daily. Vitamin B1 2 deficiency (non anemic) 55389764 E53.8 Labs on July 22, 2023 consistent with iron deficiency vitamin B12. Vitamin B12 161. Patient started oral iron monthly vitamin B12 injections . Iron defic iency anemia 02155723 D50.9 Labs on July 22, 2023 consistent with iron deficiency vitamin B12 and folic acid deficiency . serum iron 13 and iron saturation 2%. Ferritin 4. Vitamin B12 161. Folic acid 5.7. Patient started oral iron monthly vitamin B12 injections and folic acid 1 mg daily. Labs on September 14, 2023 with white blood cell count 5.4. Red blood cell count 5.2. Hemoglobin 11.3 and hematocrit 37.5. MCV 72.5. Platelet count 596802. Normal cell differenti al. Normal serum iron 126. Normal iron saturation at 27. Normal ferritin 97. B12 level low at 313. Folate level normal. Patient returns on November 09, 2023. Discussed repeat labs today. Patient continues on monthly B12 injections . Patient continues on folic acid supplement ation. Will follow-up iron studies. Patient left today prior to getting labs. Of note patient showed up with Port-A-Cat h RA accessed. Concerning as apparently she accessed her own Port-A-Cat h at home. Will follow-up labs when they can be drawn. [id number] Hemalatha Lam PA-C [facility] [address] [facility] [address] [place] [address] 11/15/2023 14:32:58 11/15/2023 15:02:55 Cobalamin deficiency 284398745 E53.8 Labs on July 22, 2023 consistent with iron deficiency vitamin B12 and folic acid deficiency . serum iron 13 and iron saturation 2%. Ferritin 4. Vitamin B12 161. Folic acid 5.7. Patient started oral iron monthly vitamin B12 injections and folic acid 1 mg daily. Patient returns for follow-up on August 05, 2023. She is having difficulty tolerating oral iron. She is having nausea. Discussed will continue oral iron and proceed with infusional iron. Will follow-up [id number] Ignacio Yi PA-C [facility] [address] [facility] [address] [place] [address] 01/19/2024 15:37:19 01/19/2024 16:40:53 Abdominal pain 51506545 R10.9 Irritable bowel syndrome with diarrhea 101524950 K58.0 Nausea and vomiting 1693 1999 R11.2 [id number] Hemalatha Lam PA-C [facility] [address] [facility] [address] [place] [address] 03/13/2024 13:56:53 03/13/2024 14:26:10 Iron deficiency anemia 47874120 D50.9 Labs on July 22, 2023 consistent with iron deficiency vitamin B12 and folic acid deficiency . serum iron 13 and iron saturation 2%. Ferritin 4. Vitamin B12 161. Folic acid 5.7. Patient started oral iron monthly vitamin B12 injections and folic acid 1 mg daily. Labs on September 14, 2023 with white blood cell count 5.4. Red blood cell count 5.2. Hemoglobin 11.3 and hematocrit 37.5. MCV 72.5. Platelet count 477762. Normal cell differenti al. Normal serum iron 126. Normal iron saturation at 27. Normal ferritin 97. B12 level low at 313. Folate level normal. Labs on November 15, 2023 with white blood cell count 6.2. Red blood cell count 5. Hemoglobin 12.7 and hematocrit 39.7. MCV 79.6. Platelet count 407018. Normal cell differenti al. Normal serum iron 37. Normal iron saturation at 8%. Normal ferritin 10. B12 level low at 275. Folate level normal. Patient returns on March 13, 2024. Discussed repeat labs today. Patient will receive monthly B12 injection today. Patient continues on folic acid supplement ation. Will follow-up iron studies. von Willesuleman rand disorder [id number] D68.00 Patient diagnosed with von Willebrand 's disease at . Patient's father has history of type 2A von Willebrand 's disease. Patient has been treated as type 2A von Willebrand 's disease. Prior gene testing and patient reports potential mixed type of von Willebrand 's disease. She previously followed with Hematology at [facility] . Will request records from [facility] . She does bruise easily and has had epistaxis episodes that are controlled at home her whole life. She is taking tranexamic acid with control of bleeding. upcoming teeth extraction needed. Will provide Humate-P dosing on day of procedure which is January 05, 2023 as well as day after procedure on January 06, 2023. Patient with planned dental extraction in would treat as major risk of bleeding. Dosing of von Willebrand 's factor at 60 units per kg. Patient weighs 80 kg. Dose of Humate-P will be 4800 units IV on 01-05-23 amd 01-06-23. Labs on July 22, 2023 consistent with iron deficiency vitamin B12 and folic acid deficiency . serum iron 13 and iron saturation 2%. Ferritin 4. Vitamin B12 161. Folic acid 5.7. Patient started oral iron monthly vitamin B12 injections and folic acid 1 mg daily. Patient has upcoming Port-A-Cat h placement at [facility]. Patient will need Humate-P prior to and after port placement. Would plan for dosing prior to procedure previous dose of 4800 units IV of Humate-P with plan for 2nd dose the next day. Will follow-up labs today. Maintenance of device 13 [id number] Z45.1 Right subclavian Port-A-Cat h in place. Patient asking about home Humate-P infusion. Will likely been able to obtain prior to upcoming surgery however can look into in the future. Will plan to dose in the infusion area. Patient returns on July 20, 2023. Patient has erosion of her port a cath through the skin January 2023 and had the port removed.Ne w Port-A-Cat h placed. No issues. Cobalamin deficiency 190 909947 E53.8 Labs on July 22, 2023 consistent with iron deficiency vitamin B12 and folic acid deficiency . serum iron 13 and iron saturation 2%. Ferritin 4. Vitamin B12 161. Folic acid 5.7. Patient started oral iron monthly vitamin B12 injections and folic acid 1 mg daily. Patient returns for follow-up on August 05, 2023. She is having difficulty tolerating oral iron. She is having nausea. Discussed will continue oral iron and proceed with infusional iron. Will follow-up Labs on November 15, 2023 with B12 level low at 275. Patient returns on March 13, 2024.Bruce montiel will receive monthly B12 injection today. Folic acid deficiency 19 4676069 E53.8 Labs on July 22, 2023 consistent with Folic acid 5.7. Patient started folic acid 1 mg daily. Vitamin B1 2 deficiency (non anemic) [id number] E53.8 Labs on July 22, 2023 consistent with iron deficiency vitamin B12. Vitamin B12 161. Patient started oral iron monthly vitamin B12 injections . [id number] Ignacio Yi PA-C [facility] [address] [facility] [address] [place] [address] 03/12/2024 15:31:22 03/15/2024 14:55:40 Abdominal pain [id number] R10.9 Irritable bowel syndrome with diarrhea [id number] K58.0 Nausea and vomiting 1693 2000 R11.2 [id number] Hemalatha Lam PA-C [facility] [address] [facility] [address] [place] [address] 12/20/2024 13:05:10 12/20/2024 13:52:17 Iron deficiency anemia [id number] D50.9 Labs on July 22, 2023 consistent with iron deficiency vitamin B12 and folic acid deficiency . serum iron 13 and iron saturation 2%. Ferritin 4. Vitamin B12 161. Folic acid 5.7. Patient started oral iron monthly vitamin B12 injections and folic acid 1 mg daily. Labs on September 14, 2023 with white blood cell count 5.4. Red blood cell count 5.2. Hemoglobin 11.3 and hematocrit 37.5. MCV 72.5. Platelet count [id number]. Normal cell differenti al. Normal serum iron 126. Normal iron saturation at 27. Normal ferritin 97. B12 level low at 313. Folate level normal. Labs on November 15, 2023 with white blood cell count 6.2. Red blood cell count 5. Hemoglobin 12.7 and hematocrit 39.7. MCV 79.6. Platelet count 944289. Normal cell differenti al. Normal serum iron 37. Normal iron saturation at 8%. Normal ferritin 10. B12 level low at 275. Folate level normal. Stable iron levels March 13, 2024. Will follow-up iron studies today. von Willeb rand disorder [id number] D68.00 Patient diagnosed with von Willebrand 's disease at . Patient's father has history of type 2A von Willebrand 's disease. Patient has been treated as type 2A von Willebrand 's disease. Prior gene testing and patient reports potential mixed type of von Willebrand 's disease. She previously followed with Hematology at [facility] . Will request records from [facility] . She does bruise easily and has had epistaxis episodes that are controlled at home her whole life. She is taking tranexamic acid with control of bleeding. upcoming teeth extraction needed. Will provide Humate-P dosing on day of procedure which is January 05, 2023 as well as day after procedure on January 06, 2023. Patient with planned dental extraction in would treat as major risk of bleeding. Dosing of von Willebrand 's factor at 60 units per kg. Patient weighs 80 kg. Dose of Humate-P will be 4800 units IV on 01-05-23 amd 01-06-23. Labs on July 22, 2023 consistent with iron deficiency vitamin B12 and folic acid deficiency . serum iron 13 and iron saturation 2%. Ferritin 4. Vitamin B12 161. Folic acid 5.7. Patient started oral iron monthly vitamin B12 injections and folic acid 1 mg daily. Patient has upcoming Port-A-Cat h placement at [facility]. Patient will need Humate-P prior to and after port placement. Would plan for dosing prior to procedure previous dose of 4800 units IV of Humate-P with plan for 2nd dose the next day. Will follow-up labs today. Patient returns on December 20, 2024. She is taking Lysteda for bleeding as needed. Her primary care provider has been cam g this but she states she needs a refill. Will send refill today. She states her menstrual cycles have been heavier recently. She is scheduled to follow up with Gynecology . Maintenance of device 13 [id number] Z45.1 Right subclavian Port-A-Cat h in place. Patient asking about home Humate-P infusion. Will likely been able to obtain prior to upcoming surgery however can look into in the future. Will plan to dose in the infusion area. Patient returns on July 20, 2023. Patient has erosion of her port a cath through the skin January 2023 and had the port removed.Ne w Port-A-Cat h placed. No issues. Folic acid deficiency 19 [id number] E53.8 Labs on July 22, 2023 consistent with Folic acid 5.7. Patient started folic acid 1 mg daily. Will follow up labs today. Vitamin B1 2 deficiency (non anemic) [id number] E53.8 Labs on July 22, 2023 consistent with iron deficiency vitamin B12. Vitamin B12 161. Labs on November 15, 2023 with B12 level low at 275. Will follow up labs today. Health Concerns Section Related Observation LastModified by Organization Detai ls LastModified Time None Recorded Concern Status LastModified by Organization Details LastModified Time None Recorded Advance Directives Directive None Recorded Payers Insurance Date Sequence Insurance Name Policy Number Policy Moss Covered Member ID Moss Member ID Guarantor Name 12/20/2024 1 AETNA [facility] (MEDICAID HMO) Zakia Smith [id number] Zakia Smith Notes Date Note Type Note Provider Name and Address Organization Details Recorded Time 01/19/2024 text/html PREVIOUS (06/04/22 Dr. Burciaga): The patient is a very pleasant 26-year-old female with abdominal pain, hematochezia, and diarrhea. Cross-sectional imaging in the abdomen shows expansive subserosal colonic fat thickening. EGD and colonoscopy normal. The patient describes suspected dehydration with multiple visits to the emergency department. she has paresthesias during these episodes. IV fluids are helpful PREVIOUS (08/31/23 Andrew. Kd): Ms. Smith presents to the office today for hospital follow-up. She was admitted last month with acute abdominal pain and vomiting. CT abdomen and pelvis at that time showed no acute pathology. She was suspected to have gastroenteritis. She states that she is scheduled to have a port placed at for long term care pharmacist IV fluids. She complains of chronic abdominal pain that is alleviated with BMs. She notes occasional abdominal distension that also improves with BMs. She takes dicyclomine which does help with abdominal discomfort. She has never tried laxatives. CURRENT (01/19/24): Ms. Smith returns to the office today for follow-up regarding acute on chronic abdominal pain, nausea, vomiting, and altered bowel habits. She has a history of normal EGD and colonoscopy during exacerbations of symptoms. She is felt to have functional abdominal pain. She is struggling to stay comfortable and states she has an upcoming appointment to establish care with pain management. She has had a 13 lb unintentional weight loss over the past 2 months. She also reports unpredictable bowel patterns, with lots of loose stools. CT was performed recently in the ED with unremarkable findings. I have personally reviewed those images and there was no evidence of constipation noted. She notes excessive bloating. She has had a difficult time finding dietary triggers for her symptoms, but dairy has stood out as a problem. Ignacio Yi PA-C [address] [facility], [place], [address], [place] - [place] - [place] & [place] 01/19/2024 22:59:07 03/12/2024 text/html PREVIOUS (01/19/24): Ms. Smith returns to the office today for follow-up regarding acute on chronic abdominal pain, nausea, vomiting, and altered bowel habits. She has a history of normal EGD and colonoscopy during exacerbations of symptoms. She is felt to have functional abdominal pain. She is struggling to stay comfortable and states she has an upcoming appointment to establish care with pain management. She has had a 13 lb unintentional weight loss over the past 2 months. She also reports unpredictable bowel patterns, with lots of loose stools. CT was performed recently in the ED with unremarkable findings. I have personally reviewed those images and there was no evidence of constipation noted. She notes excessive bloating. She has had a difficult time finding dietary triggers for her symptoms, but dairy has stood out as a problem. CURRENT (03/12/24): Ms. Smith returns to the office today for follow-up. She states she was not able to obtain Xifaxan due to issue with her pharmacy. She would like for this to be resent. She underwent gastric emptying study recently that showed 6% gastric retention after 1 hour, 3% after 2 hours, and 1 % after 4 hours. She states she performed and mailed out the sucrose breath test, but we have not received results. Her primary complaint today is continued nausea and bloating. She states her diarrhea is currently manageable. Ignacio Yi PA-C [address] [facility], [place], [address], [facility] - [place] - [place] & [place] 03/12/2024 18:31:27 03/13/2024 text/html 28-year-old female returns for evaluation of von Willebrand's and iron deficiency anemia. Patient was diagnosed with von Willebrand's at age 7. She previously followed with Hematology at [facility]. Will request records from [facility]. She does bruise easily and has had epistaxis episodes that are controlled at home her whole life. She is taking tranexamic acid with control of bleeding. She takes Humate P before and after surgeries. She is thinking about getting a Port-A-Cath. She does not have this scheduled yet but she will let us know if she schedules it and we will give her instructions on Humate P. Labs on June 22, 2022 with factor 8 activity level at 32%. Von Willebrand factor activity less than 10%. Von Willebrand factor antigen at 51%. Patient returns on July 20, 2023. Patient has erosion of her port a cath through the skin January 2023 and had the port removed. Patient was planning on a dental procedure with potential tooth extraction but she hasn't had it done yet. If she does reschedule this procedure will plan to provide Humate-P the day of and potentially day after procedure if needed. Patient denies any other new complaints at this time. Will follow up labs today. Labs on July 22, 2023 consistent with iron deficiency vitamin B12 and folic acid deficiency. serum iron 13 and iron saturation 2%. Ferritin 4. Vitamin B12 161. Folic acid 5.7. Patient started oral iron monthly vitamin B12 injections and folic acid 1 mg daily. Patient returns for follow-up on August 05, 2023. She is having difficulty tolerating oral iron. She is having nausea. Discussed will continue oral iron and proceed with infusional iron. Will follow-up Patient returns on September 14, 2023. Patient continues on B12 supplementation. Patient has upcoming dental procedure in would plan to give desmopressin prior to procedure. Treated with infusional iron therapy. Will repeat labs today. Labs on September 14, 2023 with white blood cell count 5.4. Red blood cell count 5.2. Hemoglobin 11.3 and hematocrit 37.5. MCV 72.5. Platelet count 043514. Normal cell differential. Normal serum iron 126. Normal iron saturation at 27. Normal ferritin 97. B12 level low at 313. Folate level normal. Labs on November 15, 2023 with white blood cell count 6.2. Red blood cell count 5. Hemoglobin 12.7 and hematocrit 39.7. MCV 79.6. Platelet count 852479. Normal cell differential. Normal serum iron 37. Normal iron saturation at 8%. Normal ferritin 10. B12 level low at 275. Folate level normal. Patient returns on March 13, 2024. Discussed repeat labs today. Patient will receive monthly B12 injection today. Patient continues on folic acid supplementation. Will follow-up iron studies. Hemalatha Lam PA-C [address] [facility], [place], [address], [facility] - [place] & [place] 03/13/2024 14:55:06 12/20/2024 text/html 29-year-old female returns for evaluation of von Willebrand's and iron deficiency anemia. Patient was diagnosed with von Willebrand's at age 7. She previously followed with Hematology at [facility]. Will request records from [facility]. She does bruise easily and has had epistaxis episodes that are controlled at home her whole life. She is taking tranexamic acid with control of bleeding. She takes Humate P before and after surgeries. She is thinking about getting a Port-A-Cath. She does not have this scheduled yet but she will let us know if she schedules it and we will give her instructions on Humate P. Labs on June 22, 2022 with factor 8 activity level at 32%. Von Willebrand factor activity less than 10%. Von Willebrand factor antigen at 51%. Patient returns on July 20, 2023. Patient has erosion of her port a cath through the skin January 2023 and had the port removed. Patient was planning on a dental procedure with potential tooth extraction but she hasn't had it done yet. If she does reschedule this procedure will plan to provide Humate-P the day of and potentially day after procedure if needed. Patient denies any other new complaints at this time. Will follow up labs today. Labs on July 22, 2023 consistent with iron deficiency vitamin B12 and folic acid deficiency. serum iron 13 and iron saturation 2%. Ferritin 4. Vitamin B12 161. Folic acid 5.7. Patient started oral iron monthly vitamin B12 injections and folic acid 1 mg daily. Patient returns for follow-up on August 05, 2023. She is having difficulty tolerating oral iron. She is having nausea. Discussed will continue oral iron and proceed with infusional iron. Will follow-up Patient returns on September 14, 2023. Patient continues on B12 supplementation. Patient has upcoming dental procedure in would plan to give desmopressin prior to procedure. Treated with infusional iron therapy. Will repeat labs today. Labs on September 14, 2023 with white blood cell count 5.4. Red blood cell count 5.2. Hemoglobin 11.3 and hematocrit 37.5. MCV 72.5. Platelet count 678987. Normal cell differential. Normal serum iron 126. Normal iron saturation at 27. Normal ferritin 97. B12 level low at 313. Folate level normal. Labs on November 15, 2023 with white blood cell count 6.2. Red blood cell count 5. Hemoglobin 12.7 and hematocrit 39.7. MCV 79.6. Platelet count 134290. Normal cell differential. Normal serum iron 37. Normal iron saturation at 8%. Normal ferritin 10. B12 level low at 275. Folate level normal. Patient returns on December 20, 2024. Stable labs on March 13, 2024. Discussed repeat labs today. Patient continues on folic acid supplementation. She is taking Lysteda for bleeding as needed. Her primary care provider has been prescribing this but she states she needs a refill. Will send refill today. She states she needs to have her teeth extracted but she has not scheduled this yet. She states her menstrual cycles have been heavier recently. She is scheduled to follow up with Gynecology. Will follow-up labs today. Hemalatha Lam PA-C [address], [place], [address], [place] - [place] & [place] 12/20/2024 14:01:00 OBGyn Episode No OBEpisode recorded.
--- OUTSIDE RECORDS SUMMARY | 2025-02-23 23:12 | XMS_ITS | Clinical Summary ---
Author Organization [facility] Address [address] [place], [place] [id number] Care Team Providers Care Automatic Mold Sander Name Role Phone Justino Zheng MD Primary Care Provider [phone] Source Comments [facility] is fully rolled out with thefollowing exceptions:General Clinical Research [facility] Allergies Active Allergy Reactions Criticality Noted Date Comments Amoxicillin Vomiting 08/08/2015 Calcium Acetylsalicylate 05/07/2015 Banana Anaphylaxis 05/07/2015 Duloxetine Hcl Hives 05/07/2015 Desmopressin 12/10/2016 Food Anaphylaxis 05/07/2015 Strawberries, Kiwi, tomatoes Grapefruit Extract Anaphylaxis 05/07/2015 Latex Anaphylaxis 05/07/2015 Motrin Ib 09/10/2015 Oxycodone-Acetaminophen Vomiting 05/07/2015 Toradol 09/10/2015 Cetirizine Bleeding 08/08/2015 Nose Bleeds Medications lamoTRIgine (LaMICtal) 150 MG tablet Take 150 mg by mouth 1 time a day. Active von Willebrand factor (HUMATE-P) 500-1200 UNITS injection 4,000 Units by Intravenous route 1 time as needed (bleed). Active ondansetron (ZOFRAN ODT) 8 MG orally disintegrating tablet Take 1 Tab (8 mg total) by mouth every 8 hours as needed for nausea. 25 Tab 0 05/15/19 16 Active von Willebrand factor (HUMATE-P) 500-1200 UNITS injection 4,000 Units by Intravenous route 1 time as needed (bleed). 4000 Units 0 05/24/19 16 Active acetaminophen (TYLENOL EXTRA STRENGTH) 500 MG tablet Take 1,000 mg by mouth. Active zolpidem (AMBIEN) 5 MG tabletIndications: Cluster headache, not intractable, unspecified chronicity pattern Take 10 mg by mouth at bedtime. Active amitriptyline (ELAVIL) 10 MG tabletIndications: Complex regional pain syndrome type 1 of left lower extremity 40 mg every evening. Active meloxicam (MOBIC) 15 MG tablet TAKE ONE TABLET BY MOUTH EVERY DAY FOR PAIN AND INFLAMMATION TAKE WITH FOOD Rfs rem none 30 Tab 11/10/19 17 Active tiZANidine (ZANAFLEX) 4 MG tablet Take 4 mg by mouth 1 time a day. Active gabapentin (NEURONTIN) 300 MG capsuleIndications :Lamar-Danlos syndrome, benign hypermobile form,Hypermobility arthralgia,Fibromy algia Take 2 Caps (600 mg total) by mouth 3 times a day. 180 Cap 3 09/08/19 18 Active celecoxib (CeleBREX) 200 MG capsuleIndications :Lamar-Danlos syndrome, benign hypermobile form,Hypermobility arthralgia Take 1 Cap (200 mg total) by mouth 1 time a day. Last refill until seen 30 Cap 3 09/08/19 18 Active tranexamic acid (LYSTEDA) 650 MG tabletIndications: Von Willebrand's disease Take 2 Tabs (1,300 mg total) by mouth 3 times a day as needed (for excess bleeding). 30 Tab 11 01/04/20 20 Active Active Problems Problem Noted Date Diagnosed Date Ankle pain 09/11/2015 Muscle weakness (generalized) 06/23/2015 Low vitamin D level 05/23/2015 Hypocalcemia 05/23/2015 Fibromyalgia 05/23/2015 Muscle spasms entire body 05/22/2015 C. 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 Yes [...] to use them as an additional resource. Resolved Problems Problem Noted Date Diagnosed Date Resolved Date Nephrotic range proteinuria (0.5) 05/14/2015 05/14/2015 Hypernatremia 05/14/2015 05/15/2015 Hypophosphatemia 05/14/2015 05/15/2015 Proteinuria 05/13/2015 05/14/2015 Encounters Date Type Department Care Team Description 02/08/2025 12:30 PM EDT Immunization [facility] [address] [place] [address] Larry Baltazar Jr., MD/MPH Discharge Disposition: Home or Self Care from Last 3 Months Immunizations Immunization Administration Dates Next Due Influenza Vaccine 0.5 mL - f or patients 6 months and older 02/08/2025,04/14/2023 Family History Medical History Relation Name Comments Bleeding Disorder Father VWD type 2 A Thyroid Disease Mother Childhood Heart Disease Sister Julia Hays-Erin rederic BAV, CoA Relation Name Status Comments Father Mother Sister Julia Shahid Alive Social History Tobacco Use Types Packs/Day Years [...] relationship 11/24/2017 Safety and Environment Answer Date Tevni rded Do you have any concerns of [...] Sign Reading Time Taken Comments Blood Pressure 118/78 11/24/2017 9:10 PM EDT Pulse 121 11/24/2017 9:10 PM EDT Temperature 36.5 C (97.7 F) 05/26/2016 12:59 PM EST Respiratory Rate 23 11/24/2017 9:10 PM EDT Oxygen Saturation 99% 11/24/2017 9:10 PM EDT Inhaled Oxygen Concentration - - Weight 97.5 kg (214 lb 15.2 oz) 11/24/2017 7:23 PM EDT Height 158.2 cm (5' 2.28 ) 09/08/2017 8:34 AM ED T Body Mass Index 38.96 09/08/2017 8:34 AM EDT Plan of Treatment Health Maintenance Due Date Last Done Comments IPV IMMUNIZATION (2 of 3 - 4-dose series) 05/12/2001 04/14/2001 VARICELLA IMMUNIZATION (2 of 2 - 2-dose childhood series) 07/07/2001 04/14/2001 HEPATITIS B IMMUNIZATION (1 of 3 - 19+ 3-dose series) 2015 HPV IMMUNIZATION (1 - 3-dose SCDM series) 2023 COVID-19 Vaccine ( season) 2024 DTAP/Tdap/Td IMMUNIZATION (4 - Td or Tdap) 02/06/2032 02/05/2022, 09/09/2008, 04/14/2001 HIB IMMUNIZATION Completed 04/14/2001 MMR IMMUNIZATION Completed 04/14/2001 AMB SEASONAL FLU VACCINE Completed 025, 12/21/2023, 04/14/2023, Additional history exists MCV4 IMMUNIZATION Aged Out No longer eligible based on patient's age to complete this topic MENINGOCOCCAL B VACCINE Aged Out No l onger eligible based on patient's age to complete this topic PNEUMOCOCCAL IMMUNIZATION Aged Out No longer eligible based on patient's age to complete this topic Respiratory Syncytial Virus (RSV) <20mo Aged Out No longer eligible based on patient's age to complete this topic Insurance AETNA [facility] Care Teams Automatic Mold Sander Relationship Specialty Start Date End Date Justino Zheng MD [address] [facility] [address], [place] [address] PCP - General 08/05/15
--- OUTSIDE RECORDS SUMMARY | 2025-02-23 23:12 | XMS_ITS | Encounter Summary ---
Author Organization [facility] Address [address] [place] [address] Care Team Providers Care Media Production Operator Name Role Phone Justino Zheng MD Primary Care Provider [phone] Source Comments This information has been disclosed to you from confidential records protectfrom disclosure by state law. You shall make no further disclosure of thisinformation without the specific, written, and informed release of theindividual to whom it pertains, or as otherwise permitted by law. A generalauthorization for the release of medical or other information is not sufficientfor the purposes of the release of HIV test results or diagnoses. [id number] Health Encounter Details Date Type Department Care Team (Late st Contact Info) Description 12/29/2017 Orders Only [facility] [address] [place] [address] Justino Zheng MD [address] [place] [address] Social History Tobacco Use Types Packs/Day Years Used Date Smoking Tobacco: Never Smokeless Tobacco: Never Alcohol Use Standard Drinks/Week Comments No 0 (1 standard drink = 0.6 oz pur e alcohol) Comments No Sex and Gender Information Value Date Recorded Sex Assigned at Not on file Legal Sex Female 3:07 PM EDT Gender Identity Not on file Sexual Orientation Not on file documented as of this encounter Plan of Treatment Not on file documented as of this encounter Visit Diagnoses Not on filedocumented in this encounter Care Teams Media Production Operator Relationship Specialty Start Date End Date Justino Zheng MD [address] [place] [address] PCP - General Family Medicine 12/24/17 documented as of this encounter
--- OUTSIDE RECORDS SUMMARY | 2025-02-23 23:12 | XMS_ITS | Encounter Summary ---
Author Organization [facility] Address [address] [place] [address] Care Team Providers Care Topographical Drafter Name Role Phone Justino Zheng MD Primary Care Provider + Reason for Visit * Reason Onset Date Comments Med Refill 03/29/2022 Encounter Details Date Type Department Care Team (Late st Contact Info) Description 03/29/2022 Refill [facility] [address] [place] [address] Justino Zheng MD [address] [place] [address] Chronic subluxation of left hip, sequela Social History Tobacco Use Types Packs/Day Years Used Date Smoking Tobacco: Never Smokeless Tobacco: Never Alcohol Use Standard Drinks/Week Comments Yes 0 (1 standard drink = 0.6 oz pur e alcohol) rare PHQ-2 Answer Date Recorded Retired PHQ-9: Brief Depression Severity Measure Score 0 02/19/2022 Comments No Sex and Gender Information Value [...] Office Visit [facility] [address] [place] [address] Eliza Mckinney PA-C [address] [address] 05/23/2025 1:45 PM EST Office Visit [facility] [address] [place] [phone] Justino Zheng MD [address] [place] [address] documented as of this encounter Visit Diagnoses Diagnosis Chronic subluxation of left hip, sequela documented in this encounter Additional Health Concerns Infection Onset Date Last Indicated Resolved Time C.difficile (rule out) 01/21/2025 01/21/202501/26 9:08 PM EDT documented as of this encounter Care Teams Topographical Drafter Relationship Specialty Start Date End Date Justino Zheng MD [address] [place] [address] PCP - General Family Medicine 11/05/21 documented as of this encounter
--- OUTSIDE RECORDS SUMMARY | 2025-02-23 23:12 | XMS_ITS | Encounter Summary ---
Author Organization [facility] Address [address] [place] [address] Care Team Providers Care Apartment Coordinator Name Role Phone Justino Zheng MD Primary Care Provider + Reason for Visit * Reason Comments Med Refill Encounter Details Date Type Department Care Team (Late st Contact Info) Description 07/06/2023 Refill [facility] [address] [place] [address] Justino Zheng MD [address] [place] [address] Social History Tobacco Use Types [...] Description 04/16/2025 12:00 PM EST Office Visit [facility] [address] [address] Eliza Mciknney PA-C [address] [address] 05/23/2025 1:45 PM EST Office Visit [facility] [address] [facility] [place] [address] Justino Zheng MD [address] [place] [address] documented as of this encounter Visit Diagnoses Not on filedocumented in this encounter Additional Health Concerns Infection Onset Date Last Indicated Resolved Time C.difficile (rule out) 01/21/2025 01/21/202501/26 9:08 PM EDT Assessment Noted Time PHQ-2 Depression Total Score: 4 10/27/19 23 3:00 PM EDT documented as of this encounter Care Teams Apartment Coordinator Relationship Specialty Start Date End Date Justino Zheng MD [address] [place] [address] PCP - General Family Medicine 11/05/21 documented as of this encounter
--- OUTSIDE RECORDS SUMMARY | 2025-02-23 23:12 | XMS_ITS | Encounter Summary ---
Author Organization [facility] Address [address] [place] [address] Care Team Providers Care Tower Observer Name Role Phone Justino Zheng MD Primary Care Provider + Reason for Visit * Reason Onset Date Comments Med Refill 06/13/2023 Encounter Details Date Type Department Care Team ([facility] Contact Info) Description 06/13/2023 Refill [facility] [address] [place] [address] Justino Zheng MD [address] [place] [address] Fibromyalgia; Chronic subluxation of left hip, sequela; Irritable bowel syndrome, unspecified type Social History [...] Upcoming Encounters Date Type Department Care Team ([facility] Contact Info) Description 04/16/2025 12:00 PM EST Office Visit [facility] [address] [phone] Eliza Mckinney PA-C [address] [facility] [address] [place] [address] 05/23/2025 1:45 PM EST Office Visit [facility] [address] [place] [address] Justino Zheng MD [address] [place] [address] documented as of this encounter Visit Diagnoses Diagnosis Fibromyalgia Unspecified myalgia and myositis Chronic subluxation of left hip, sequela Irritable bowel syndrome, unspecified type documented in this encounter Additional Health Concerns Infection Onset Date Last Indicated Resolved Time C.difficile (rule out) 01/21/2025 01/21/202501/26 9:08 PM EDT Assessment Noted Time PHQ-2 Depression Total Score: 4 10/27/19 23 3:00 PM EDT documented as of this encounter Care Teams Tower Observer Relationship Specialty Start Date End Date Justino Zheng MD [address] [place] [address] PCP - General Family Medicine 11/05/21 documented as of this encounter
--- OUTSIDE RECORDS SUMMARY | 2025-02-23 23:12 | XMS_ITS | Encounter Summary ---
Author Organization [facility] Address [address] [place] [address] Care Team Providers Care Bilingual Trainer Name Role Phone Justino Zheng MD Primary Care Provider + Reason for Visit * Reason Onset Date Comments Med Refill 01/03/2025 Encounter Details Date Type Department Care Team (Late st Contact Info) Description 01/03/2025 Refill [facility] [address] [place] [address] Justino Zheng MD [address] [place] [address] Menorrhagia with irregular cycle Social History Tobacco Use Types Packs/Day Years [...] 12:00 PM EST Office Visit [facility] [address] [address] Eliza Mckinney PA-C [address] [address] 05/23/2025 1:45 PM EST Office Visit [facility] [address] [place] [address] Justino Zheng MD [address] [place] [address] documented as of this encounter Visit Diagnoses Diagnosis Menorrhagia with irregular cycle documented in this encounter Additional Health Concerns Assessment Noted Time PHQ-2 Depression Total Score: 1 11/17/19 24 8:48 AM EDT documented as of this encounter Care Teams Bilingual Trainer Relationship Specialty Start Date End Date Justino Zheng MD [address] [place] [address] PCP - General Family Medicine 11/05/21 documented as of this encounter
--- OUTSIDE RECORDS SUMMARY | 2025-02-23 23:12 | XMS_ITS | Clinical Summary ---
Author Organization [facility] Address [address] [place] [address] Care Team Providers Care Binder Stripper Hand Name Role Phone Justino Zheng MD Primary Care Provider [phone] Source Comments This information has been disclosed to you from confidential records protectedfrom disclosure by state law. You shall make no further disclosure of thisinformation without the specific, written, and informed release of theindividual to whom it pertains, or as otherwise permitted by law. A generalauthorization for the release of medical or other information is not sufficientfor the purposes of therelease of HIV test results or diagnoses. [id number] [facility] Allergies Active Allergy Reactions Criticality Noted Date Comments Amoxicillin 11/24/2017 Aspirin 10/23/2015 Banana 11/24/2017 Duloxetine 10/23/2015 Desmopressin 11/24/2017 Bkmznqklb-P-Ymttcno-Selen-B rom Anaphylaxis High 05/07/2015 Strawberries, Kiwi, tomatoes Grapefruit 11/24/2017 Ibuprofen 10/23/2015 Latex, Natural Rubber 10/23/2015 Oxycodone-Acetaminophen 11/24/2017 [place] 11/24/2017 Ketorolac 10/23/2015 Cetirizine 10/23/2015 Medications gabapentin (NEURONTIN) 300 MG capsule Take 1,800 mg by mouth daily. 6 Active lamoTRIgine (LAMICTAL) 150 MG tablet Take 150 mg by mouth daily. Active tamsulosin (FLOMAX) 0.4 mg Cp24 Take 0.4 mg by mouth at bedtime. Active tranexamic acid (LYSTEDA) 650 mg Tab Take 650 mg by mouth as needed. Active ANTIHEMOPHILIC FACTOR/VWF (HUMATE-P IV) Inject 4,000 Units into the vein as needed. Active zolpidem (AMBIEN) 5 MG tablet Take 10 mg by mouth at bedtime. Active SUMAtriptan (IMITREX) 100 MG tabletIndication s:migraine 1 tab (100mg) prn migraine not to exceed 1 per day or 2 days per week Indications: Migraine 10 tablet 6 7 Active acetaminophen (TYLENOL) 500 MG tablet Take by mouth. Active celecoxib (CELEBREX) 200 MG capsule Take 200 mg by mouth daily. 8 Active diazePAM (VALIUM) 5 MG tablet Take 5 mg by mouth if needed. 8 Active NUVARING 0.12-0.015 mg/24 hr vaginal ring 8 Active tiZANidine (ZANAFLEX) 4 MG tablet Take 4 mg by mouth 3 times a day. Takes 1/4 Tablet am prn, 1 tablet QHS Active HYDROcodone-acet aminophen (NORCO) 7.5-325 mg per tablet 8 Active amitriptyline (ELAVIL) 50 MG tabletIndication s:Intractable migraine without aura and without status migrainosus TAKE ONE TABLET BY MOUTH AT BEDTIME 30 tablet 3 8 Active amitriptyline (ELAVIL) 50 MG tabletIndication s:Intractable migraine without aura and without status migrainosus TAKE ONE TABLET BY MOUTH EVERY NIGHT AT BEDTIME 30 tablet 3 9 Active Active Problems Patient Care Coordination No te Formatting of this note is d ifferent from the original. Justino Zheng MD [address] [place] [address], [facility] [address] [place] [address] Problem Noted Date Diagnosed Date Seizure 11/24/2017 Family History Medical History Relation Comments Other Father vonWille Brands Type 2A Cancer Maternal Grandfather Breast Cancer Maternal Grandmother Cancer Maternal Grandmother Relation Status Comments Father Alive Maternal Grandfather Maternal Grandmother Mother Alive Social History Tobacco Use Types Packs/Day Years Used Date Smoking Tobacco: Never Smokeless Tobacco: Never Tobacco Cessation:Counseling Given: Yes Alcohol Use Standard Drinks/Week Comments No 0 (1 standard drink = 0.6 oz pur e alcohol) Comments No Sex and Gender Information Value Date Recorded Sex Assigned at Not on file Legal Sex Female 3:07 PM EDT Gender Identity Not on file Sexual Orientation Not on file Last Filed Vital Signs Vital Sign Reading Time Taken Comments Blood Pressure 122/79 01/26/2018 1:18 PM EDT Pulse 100 01/26/2018 1:18 PM EDT Temperature 37.2 C (98.9 F) 11/25/2017 4:47 PM EDT Respiratory Rate 20 11/25/2017 4:47 PM EDT Oxygen Saturation 99% 11/25/2017 4:47 PM EDT Inhaled Oxygen Concentration 99% 11/25/2017 4 :47 PM EDT Weight 102.1 kg (225 lb) 01/26/2018 1:18 PM EDT Height 154.9 cm (5' 1 ) 01/26/2018 1:18 PM EDT Body Mass Index 42.51 01/26/2018 1:18 PM EDT Plan of Treatment Not on file Insurance [employer] [address] MANAGED MEDICAID Advance Directives For more information, please contact: [phone] * Full Code (Latest Code Status on File) Date Activated Date Inactivated Comments 11/24/2017 9:59 PM 11/25/2017 10:02 PM Care Teams Binder Stripper Hand Relationship Specialty Start Date End Date Justino Zheng MD [address] [place] [address] PCP - General Family Medicine 12/24/17
--- OUTSIDE RECORDS SUMMARY | 2025-02-23 23:12 | XMS_ITS | Encounter Summary ---
Author Organization [facility] Address [address] [place] [address] Care Team Providers Care Wood Casket Assembler Name Role Phone Justino Zheng MD Primary Care Provider + Reason for Visit * Reason Comments Med Refill Encounter Details Date Type Department Care Team (Late st Contact Info) Description 01/03/2025 Refill [facility] [address] [place] [address] Justino Zheng MD [address] [place] [address] Irritable bowel syndrome, unspecified type [...] Visit [facility] [address] [address] Eliza Mckinney PA-C [address] [address] 05/23/2025 1:45 PM EST Office Visit [facility] 210 [facility] [place] [address] Justino Zheng MD [address] [place] [address] documented as of this encounter Visit Diagnoses Diagnosis Irritable bowel syndrome, unspecified type documented in this encounter Additional Health Concerns Assessment Noted Time PHQ-2 Depression Total Score: 1 11/17/19 24 8:48 AM EDT documented as of this encounter Care Teams Wood Casket Assembler Relationship Specialty Start Date End Date Justino Zheng MD [address] [place] [address] PCP - General Family Medicine 11/05/21 documented as of this encounter
--- NOTE | 2025-02-23 23:18 | XR_ITS ---
PROCEDURE INFORMATION: Exam: XR Chest Exam date and time: 02/23/2025 11:51 PM Age: 29 years old Clinical indication: Pain; Chest pressure; Additional info: Chest pain, recent port exchange TECHNIQUE: Imaging protocol: Radiologic exam of the chest. Views: 1 view. COMPARISON: CR XR CHEST 2V 04/22/2021 2:06 PM FINDINGS: Tubes, catheters and devices: Left IJ central line in place. Lungs: Unremarkable. No consolidation. Pleural spaces: Unremarkable. No pleural effusion. No pneumothorax. Heart/Mediastinum: Unremarkable. No cardiomegaly. Bones/joints: Unremarkable. IMPRESSION: No acute abnormality
[2025-02-23] MEDS: OXYCODONE 5MG IMMEDIATE RELEASE TABLET 5 MG PO (23:26)
[2025-02-24 00:14] VITALS: BP 158/88; PULSE 99; RESP 18; TEMP 36.8; O2SAT 98
== END 2025-02-24 00:15 | disposition home or self-care (01) ==
PROVIDERS: Emergency Provider Emergency Medicine; PCP Family Medicine
DX: R07.9 Chest pain, unspecified (principal)
CPT/HCPCS: 71045; 99282; 99283

== ENCOUNTER 2025-04-21 15:31 | Emergency (ER) | payer OTHER, SELFPAY ==
--- OUTSIDE RECORDS SUMMARY | 2025-02-22 10:18 | XMS_ITS | Encounter Summary ---
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 Name Role Phone Justino Zheng MD Primary Care Provider [phone] Reason for Referral * Consultation (Routine) - Closed Specialty Diagnoses / Procedures Referred By Contact Referred To Contact Interventional Radiology Diagnoses H/O insertion of central venous access port Von Willebrand's disease (CMS/HCC) Oswald Rizvi MD [address] [place] [address] Phone: tel:[phone] fax:[phone] [facility] Interventional Radiology [address] [place] [address] Phone: tel: Referral ID Status Reason Start Date Expiration Date V isits Requested Visits Authorized [id number] Closed Specialty Services Required 02/22/2025 08/24/2026 1 1 * Episode Based Medications (Routine) - Pending Review Specialty Diagnoses / Procedures Referred By Contac t Referred To Contact Diagnoses Other skin changes Sami Cantu MD [address] [place] [address] Phone: tel: fax: [facility] [address] [place] [address] Phone: tel: fax: Referral ID Status Reason Start Date Expiration Date V isits Requested Visits Authorized [id number] Pending Review 02/22/2025 08/24/2026 1 1 * Imaging (Routine) - Closed Specialty Diagnoses / Procedures Referred By Estefany t Referred To Contact Radiology Diagnoses H/O insertion of central venous access port Procedures IR Tunneled CVC Replacement Complete Glenn Delgado MD [address] [place] [address] Phone: tel: fax: Referral ID Status Reason Start Date Expiration Date Visits Re quested Visits Authorized [id number] Closed 02/05/2025 08/07/2026 1 1 Reason for Visit * Imaging (Routine) - Closed Specialty Diagnoses / Procedures Referred By Estefany stearns Referred To Contact Radiology Diagnoses H/O insertion of central venous access port Procedures IR Tunneled CVC Replacement Complete Glenn Delgado MD [address] [place] [phone] Phone: tel: fax: Referral ID Status Reason Start Date Expiration Date Visits Re quested Visits Authorized [id number] Closed 02/05/2025 08/07/2026 1 1 Encounter Details Date Type Department Care Team (Late st Contact Info) Description 02/22/2025 11:18 AM EDT - 02/22/2025 5:10 PM EDT Hospital Encounter [facility] Interventional Radiology [address] [place] [id number] Oswald Rizvi MD [address] [place] [phone] Samantha Jones RN [facility] INTERVENTIONAL RADIOLOGY None Sami Cantu MD [address] [place] [phone] Court Torre RN None None Von Willebrand's disease (CMS/HCC) (Primary Dx); H/O insertion of central venous access port Discharge Disposition: Home or Self Care Social [...] Sign Reading Time Taken Comments Blood Pressure 138/92 02/22/2025 4:45 PM EDT Pulse 75 02/22/2025 4:45 PM EDT Temperature 36.7 C (98 F) 02/22/2025 3:05 PM EDT Respiratory Rate 14 02/22/2025 4:45 PM EDT Oxygen Saturation 95% 02/22/2025 4:45 PM EDT Inhaled Oxygen Concentration - - Weight 92.6 kg (204 lb 2.3 oz) 02/22/2025 12:05 PM EDT Height 154.9 cm (5' 1 ) 02/22/2025 12:05 PM EDT Body Mass Index 38.57 02/22/2025 12:05 PM EDT documented in this encounter Discharge Instructions * Discharge Instructions* Samantha Jones RN - 02/22/2025 3:09 PM EDT *Interventional Radiology* (IR) Questions/Concerns & Appointments If there are questions or concerns after discharge please call: [facility] at [phone] Tuesday - Tuesday 8:00 AM to 4:30 PM After hours, weekends, and holidays please call [phone] and ask for the Interventional Radiology provider/Resident on-call For Emergencies please go to the nearest Emergency Room or dial 911. Intervention Radiology Appointments: If you need to reschedule a procedure, please call our Schedulers at [phone], option [phone]. If you need to schedule or reschedule a clinic appointment, please call [phone]. [facility] [address] [place] [address] You had your port removed today. Please leave the dressing in place for 48 hours. You have a clear dressing called a tegaderm, you may shower tomorrow. Please keep the dressing clean and dry. If it becomes wet, alert the physician as this increases the potential for infection. After the dressing isremoved, please do not put any lotions, powders, or ointments on the site without the doctor's approval. You can shower but no tub bath, soaking, swimming, or submerging site until it is completely healed. Use soap and water to clean, pat dry, and place fresh band-aid if needed. No vacuuming, weight lifting, sports, or upper body workout for 2 weeks. No lifting more than 10 pounds for 2 weeks. Please call 911 for trouble breathing or chest pain. Report the following signs to the doctor: Fever above 100.5 Chills, Redness, Swelling Drainage, especially if it is foul smelling Severe bleeding Numbness or severe pain the arm the device was removed from. documented in this encounter Medications at Time of Discharge amitriptyline (Elavil) 50 MG tablet Take by mouth every night. ANTIHEMOPHILIC FACTOR-VWF IV Take by mouth every 6 (six) hours. 09/16/2017 celecoxib (CeleBREX) 200 MG capsule Take by mouth 1 (one) time each day. 11/14/2011 dicyclomine (Bentyl) 20 MG tablet Take by [...] by mouth 1 (one) time each day. gabapentin (Neurontin) 300 MG capsule Take 1 capsule (300 mg) by mouth. 2 capsules BID, 3 capsules QHS lamoTRIgine (LaMICtal) 200 MG tablet Take by [...] mouth 1 (one) time each day. 07/21/2021 tranexamic acid (Lysteda) 650 MG tablet tablet Take 2 tablets by mouth 3 times a day. Vortioxetine HBr (Trintellix,) 5 MG tablet Take 2 tablets (10 mg) by mouth 1 (one) time each day. clonazePAM (KlonoPIN) 0.5 MG disintegrating tablet Take 1 tablet (0.5 mg) by mouth 2 (two) times a day if needed for seizures. Daridorexant HCl (Quviviq) 50 MG tablet Take by mouth every night. diazePAM (Valium) 5 MG tablet Take by mouth every 6 (six) hours. 02/25/2020 fluconazole (Diflucan) 150 MG tablet Take by mouth every 6 (six) hours. 03/05/2020 GABAPENTIN 100 MG/ML ORAL SUSPENSION 11/14/2011 HYDROcodone-acetami nophen (Protivin) 5-325 MG tablet Take by mouth every 6 (six) hours if needed. hydrOXYzine HCl (Atarax) 25 MG tablet Take by mouth every 6 (six) hours. 02/25/2020 tiZANidine (Zanaflex) 4 MG capsule Take 1 capsule (4 mg) by mouth 3 (three) times a day. documented as of this encounter Miscellaneous Notes * Samantha Evans, RN - 02/22/2025 3:09 PM EDT Images from the original note were not included. [id number] PICC Line Care PICC stands for peripherally inserted central catheter. This is a short-term (temporary) tube that's used instead of a regular I.V. (intravenous) line. Reasons for using a PICC line A PICC line may be used because: ? It reduces the discomfort of putting in a new I.V. every time it's needed. ? Medicine or nutrition needs to be given over a period of weeks or even months. ? A PICC can stay in place longer than an I.V., so it reduces needle sticks. ? It reduces damage to small veins, where an I.V. is normally inserted. This can allow some substances that damage small veins to be infused safely and comfortably. ? A PICC may have more than one channel, so different fluids or medicines can be given at the same time. ? A PICC line allows for home therapy. Your PICC will need some care to keep it clean and working. This care includes: ? Changing the bandage (dressing). ? Flushing the catheter with fluids. ? Changing the cap on the end of the catheter. A nurse or other health care provider will teach you how to do each of these things. If you have any questions, contact your care team. Home care The following are general care guidelines that will help you care for your PICC line at home: ? You can use your arm. But stay away from any activity that causes pain. ? Don't pick at it or pull on the tubing. ? Don?t lift anything heavier than 10 pounds with the arm on the side of the PICC line. ? The PICC line and dressing should not get wet. When you bathe or shower, tape plastic wrap over the site to keep it dry. ? Don't put the PICC site under water. No swimming or hot tubs. If the dressing gets wet, change itright away if you've been trained to do so. If not, contact your care team. ? Always wash your hands with soap and clean, running water before and after touching any part of your PICC. ? Don't allow the tubing to hang freely. Make sure to keep the tubing covered and secured to your arm to prevent the PICC line from being pulled out by accident. ? Don?t use any sharp or pointy objects around the catheter. This includes scissors, pins, knives, and razors. The following tips will help you with dressing changes: ? Change the dressing over the site as directed. This is usually once a week. Change it sooner if the dressing gets wet or soiled. Check the dressing daily. ? You or a family member may be able to do the dressing change at home. Or you may be instructed toreturn to the office or clinic for dressing changes. ? Sterile technique must be used for PICC dressing change. If your dressing is changed at home, be sure you or your family member knows the sterile dressing technique. Contact your health care provider for instructions if you need them. Follow-up care Follow up as advised by your health care provider. When to get medical care Contact your health care provider right away if any of these occur: ? Fever of 100.4??F (38??C) or higher, or as advised by your provider ? Drainage from the PICC site ? Swelling or bulging around the PICC site, or anywhere above the insertion site ? Bleeding from the PICC site ? Skin pulling away from the PICC site ? Redness, warmth, or pus at the PICC site ? Tubing breaks, splits, or leaks ? More exposed tubing (tubing seems longer), or the tubing is pulled out completely ? Medicine or fluids don't drain from the bag into your PICC ? Coughing, wheezing, or shortness of breath ? A racing or irregular heartbeat ? Muscle stiffness or trouble moving the arm Last Reviewed Date: 2024 00:00:00 ?? [id number] [employer]. All rights reserved. This information is not intended as a substitute for professional medical care. Always follow your healthcare professional's instructions. * [facility] - Samantha Jones RN - 02/22/2025 3:08 PM EDT Images from the original note were not included. 113 Post-Anesthesia and Postoperative Instructions () In order to have a fast and comfortable recovery at home, please follow these instructions. ? A responsible adult must be present for you to be discharged. ? Do not drive, drink alcohol or make important decisions for 24 hours after surgery. ? You may feel like resting more than normal after surgery. Start slowly and be more active each day. ? Start slowly with liquids like 7-up, tea, apple juice or broth. Eat more as your stomach allows. If you feel sick to your stomach, go back to drinking liquids. ? You may feel some discomfort after surgery. Take the medicine as directed by your caregiver. If your medicine makes you drowsy, do not drink alcohol, drive or operate heavy equipment for at least 24 hours after use. ? If you are taking antibiotics, take them until they are all gone even if you feel well. ? Cover your wound or bandage when showering, unless your doctor tells you differently. ? A small amount of drainage on your bandage is normal. Do not remove your bandage unless your doctor tells you to. Please keep track of information about the medicines you take. Follow these tips to manage your medicines. ? Keep a list of all your medicines. Update the list when you start or stop taking a medicine. Write down changes in how you should take them. ? Carry your medicine list with you at all times. It will be needed if you have a health emergency . ? Give the list to your family doctor. Take the list to all your doctor visits. Call your doctor if you have any of the following ? Temperature higher than 101.5??F ? Chest pain or difficulty breathing ? Stomach sickness or throwing up that does not go away ? You cannot urinate by bedtime ? Pain is not helped by your medicine. ? Bandage becomes soaked with blood - Don't remove the bandage, reinforce only ? Swelling, redness, pain or pus from incision ? Questions or concerns about your surgery. In the event of an emergency, please go to the closest Emergency Room or call the Emergency Department at [phone]. Smoking and its health risks ? Smoking is the most preventable cause of illness and in the [place]. Cigarettes are filled with poison that goes into the lungs as you inhale. About 440,000 people every year from illnesses caused by smoking. People who smoke earlier than those who do not smoke. ? Heart and blood vessel disease, lung disease and ulcers are just some of the health problems thatmay be caused by smoking. Smoking also slows bone and wound healing and may slow your recovery fromsurgery. ? For help quitting smoking, call the [employer] [place]'s Quitline toll free at or ask your doctor for help. Weight Management ? Weighing too much is not good for your health. Being overweight increases your risk of health conditions such as heart problems, high blood pressure, type 2 diabetes, and certain types of cancer. Being overweight can also increase your risk for osteoarthritis (dr-ayp-rx-hky-PBSX-azb) (joint disease), sleep apnea (abnormal breathing at night) or other respiratory (breathing) problems. Being overweight may also cause a person to feel sad or be treated differently by others. ? The best way to lose weight is to eat fewer calories and get regular exercise. Eating more calories than you need will cause you to gain weight. Try to cut down your calories by 500 calories per day. For example, cut down on one soda (about 150 calories), a small bag of regular potato chips (about 150 calories) and one chocolate bar (about 250 calories). For most people, this change will resultin a slow weight loss of about one pound a week. Exercise (for example, walk, swim, or bicycle) forat least 30 minutes on most days of the week. You will be more likely to keep weight off if you make lifelong lifestyle changes. ? Aim for a slow, steady weight loss. Losing even a small amount of weight can lower your risk of health problems. Ask your dietitian, cross country/track and field coach or doctor about a weight loss goal that is right for you. 04/12 * Post-Procedure Note - Nadia Smith MD - 02/22/2025 12:30 PM EDT Vascular and Interventional Radiology Brief Postprocedure Note Attending: MD Belkys Right Of Way Buyer: MD Luis Pre-operative Diagnosis: VWD Post-operative Diagnosis: same Type of Anesthesia: General Description of Findings: see PACS Technical/Surgical Procedures Used: fluoro guided port removal and powerline placement Specimen Obtained: No Complications: None Estimated Blood Loss: minimal Procedure Events Event Event Time See detailed result report with images in PACS. The patient tolerated the procedure well without incident or complication and is in stable condition. * Pre-Procedure Note - Nadia Smith MD - 02/22/2025 12:30 PM EDT Images from the original note were not included. INTERVENTIONAL RADIOLOGY SEDATION PRE-PROCEDURAL ASSESSMENT AND PLAN OF CARE Indication for procedure: There were no encounter diagnoses. Planned Procedure: port removal and power line placement Relevant past medical history: None Previous problems with surgery, anesthesia or sedation: No Previous family history or problems with anesthesia or sedation: No History of tobacco use, alcohol use, or substance abuse: Tobacco Use History[1], Social History Substance and Sexual Activity Alcohol Use Not Currently , Social History Substance and Sexual Activity Drug Use Yes Types: Marijuana Comment: Drug use: Drug Use Height and Weight: There were no vitals taken for this visit. Allergies to medication: Banana, Food, Grapefruit extract, Latex, Other, Duloxetine hcl, Amoxicillin, Aspirin, Banana concentrate [flavoring agent (non- screening)], Cetirizine, Desmopressin, Duloxetine, Erythromycin, Ibuprofen, Ketorolac, Ketorolac tromethamine, Mayflower, and Mayflower extract Current medications: Current Medications[2] Relevant Labs: Lab Results Component Value Date CREATININE 0.9 01/21/2025 EGFR 89.5 01/21/2025 INR 09/13/2013 1.0 (NOTE) OPTIMAL INR RANGES FOR PATIENT ON ORAL ANTICOAGULANT THERAPY Prevention of venous thromboembolism INR 2.0 to 3.0 In patients with heart disease: Atrial fibrillation INR 2.0 to 3.0 Valvular heart disease INR 2.0 to 3.0 Tissue heart valves INR 2.0 to 3.0 Mechanical prosthetic valves INR 2.5 to 3.5 Prevention of recurrent PA INR 2.5 to 3.5 PREGTESTUR 10/14/2023 Negative - women after 7 weeks gestation and dilute urine (specific gravity <1.010) may have false negative results. Plasma HCG testing is recommended. Test performed at Point of Care. Planned Sedation/Anesthesia: Anesthesia Airway assessment: normal Mallampati Score: III (soft and hard palate and base of uvula visible) ASA: ASA 3 - Patient with moderate systemic disease with functional limitations Directed physical examination: There were no vitals filed for this visit. GENERAL: Awake, alert, NAD HEENT: NCAT NECK: No appreciable JVD CARDIAC: Regular rate, regular rhythm, normal S1/S2, no m/r/g, 2+ radial pulses bilaterally PULM: CTAB without increased work of breathing ABD: Soft, NT, ND EXT: Warm and well perfused, no LE edema SKIN: No rashes or lesions NEURO: A&Ox4, moving all extremities spontaneously Benefits, risks and alternatives of procedure and planned sedation have been discussed with the patient and/or their patient financial representative. All questions answered and they agree to proceed. [1] Social History Tobacco Use Smoking Status Never Passive exposure: Yes Smokeless Tobacco Never [2] Current Outpatient Medications Medication Sig Dispense Refill amitriptyline (Elavil) 50 MG tablet Take by mouth every night. ANTIHEMOPHILIC FACTOR-VWF IV Take by mouth every 6 (six) hours. celecoxib (CeleBREX) 200 MG capsule Take by mouth 1 (one) time each day. clonazePAM (KlonoPIN) 0.5 MG disintegrating tablet Take 1 tablet (0.5 mg) by mouth 2 (two) times a day if needed for seizures. Daridorexant HCl (Quviviq) 50 MG tablet Take by mouth every night. diazePAM (Valium) 5 MG tablet Take by mouth every 6 (six) hours. (Patient not taking: Reported on 09/08/2023) dicyclomine (Bentyl) 20 MG tablet Take by mouth 4 (four) times a day (before meals and nightly). EPINEPHrine (EPIPEN IJ) Take by mouth every 6 (six) hours. etonogestrel-ethinyl estradiol (Nuvaring) 0.12-0.015 MG/24HR vaginal ring Insert vaginally and leave in place for 3 consecutive weeks continuously. 1 each 3 famotidine (Pepcid) 20 MG tablet Take by mouth 1 (one) time each day. fluconazole (Diflucan) 150 MG tablet Take by mouth every 6 (six) hours. (Patient not taking: Reported on 02/05/2025) gabapentin (Neurontin) 300 MG capsule Take 1 capsule (300 mg) by mouth. 2 capsules BID, 3 capsules QHS GABAPENTIN 100 MG/ML ORAL SUSPENSION (Patient not taking: Reported on 09/08/2023) HYDROcodone-acetaminophen (Protivin) 5-325 MG tablet Take by mouth every 6 (six) hours if needed. hydrOXYzine HCl (Atarax) 25 MG tablet Take by mouth every 6 (six) hours. (Patient not taking: Reported on 09/08/2023) lamoTRIgine (LaMICtal) 200 MG tablet Take by mouth every night. omeprazole (PriLOSEC) [address] capsule Take 1 capsule (20 mg) by mouth 1 (one) time each day. Do not crush or chew. ondansetron (Zofran) 8 MG tablet Take by mouth every 8 (eight) hours if needed. OXcarbazepine (Trileptal) 300 MG tablet Take by mouth 2 (two) times a day. tamsulosin (Flomax) 0.4 MG 24 hr capsule Take by mouth 1 (one) time each day. tiZANidine (Zanaflex) 4 MG capsule Take 1 capsule (4 mg) by mouth 3 (three) times a day. tranexamic acid (Lysteda) 650 MG tablet tablet Take 2 tablets (1,300 mg) by mouth 3 (three) times aday. Vortioxetine HBr (Trintellix,) 5 MG tablet Take 2 tablets (10 mg) by mouth 1 (one) time each day. No current facility-administered medications for this visit. * H&P - Nadia Smith MD - 02/22/2025 12:30 PM EDT Images from the original note were not included. Subjective Chief complaint Port removal and powerline placement History Of Present Illness Merced Hays is a 29 y.o. year old female PMHx of ADHD, anxiety, chronic pain / fibromyalgia, HTN, migraines, OCD, PTSD, Lamar-Danlos syndrome, von Willebrand disease who receives needs custodial CVC for frequent infusions. She has had previous port placement in the past 06/2022 and removed 01/2023 - removed due to skin dehiscence. She lives with her mother who accesses the port for her infusions. [facility] On 12/26/2024 there was difficulty in accessing the port and it was reported that the port was manipulated without success and suspected the port was flipped. In VIR clinic 02/05/25 she had dehiscence and serous leakage from port pocket. Plan for right chest port removal and left powerline insertion for long - term infusions with GA Humate ordered for procedure. Medical/Surgical/Social/Family History I have reviewed and updated the patient history. Travel History Relevant International Travel History: Travel Screening No screening recorded since 02/20/25 1510 Travel History Travel since 01/22/25 No documented travel since 01/22/25 Relevant Domestic Travel History: none Immunizations Reviewed Allergies Banana, Food, Grapefruit extract, Latex, Other, Duloxetine hcl, Amoxicillin, Aspirin, Banana concentrate [flavoring agent (non-screening)], Cetirizine, Desmopressin, Duloxetine, Erythromycin, Ibuprofen, Ketorolac, Ketorolac tromethamine, Mayflower, and Mayflower extract Medications Current Medications[1] Objective Review of Systems A complete ROS was obtained. All were negative except as noted in HPI. Physical Exam General: resting comfortably, in no apparent distress HEENT: normocephalic, atraumatic, PERRL, conjunctiva clear, oropharynx unremarkable Cardiovascular: regular rate and rhythm. Respiratory: without signs of respiratory distress. Abdomen: soft, nontender, nondistended, without masses. Extremities: no gross deformities, intact range of motion, without cyanosis or edema. Neuro: normal reactivity for age. Last Recorded Vitals There were no vitals taken for this visit. Results Review I have reviewed the latest lab and imaging results. Assessment & Plan Merced Hays 29F w history of von Willebrand disease and lamar danlos presenting for port removal (placed 10/14/23) and left powerline insertion for custodial infusions. Will obtain consent. [1] Current Outpatient Medications Medication Sig Dispense Refill amitriptyline (Elavil) 50 MG tablet Take by mouth every night. ANTIHEMOPHILIC FACTOR-VWF IV Take by mouth every 6 (six) hours. celecoxib (CeleBREX) 200 MG capsule Take by mouth 1 (one) time each day. clonazePAM (KlonoPIN) 0.5 MG disintegrating tablet Take 1 tablet (0.5 mg) by mouth 2 (two) times a day if needed for seizures. Daridorexant HCl (Quviviq) 50 MG tablet Take by mouth every night. diazePAM (Valium) 5 MG tablet Take by mouth every 6 (six) hours. (Patient not taking: Reported on 09/08/2023) dicyclomine (Bentyl) 20 MG tablet Take by mouth 4 (four) times a day (before meals and nightly). EPINEPHrine (EPIPEN IJ) Take by mouth every 6 (six) hours. etonogestrel-ethinyl estradiol (Nuvaring) 0.12-0.015 MG/24HR vaginal ring Insert vaginally and leave in place for 3 consecutive weeks continuously. 1 each 3 famotidine (Pepcid) 20 MG tablet Take by mouth 1 (one) time each day. fluconazole (Diflucan) 150 MG tablet Take by mouth every 6 (six) hours. (Patient not taking: Reported on 02/05/2025) gabapentin (Neurontin) 300 MG capsule Take 1 capsule (300 mg) by mouth. 2 capsules BID, 3 capsules QHS GABAPENTIN 100 MG/ML ORAL SUSPENSION (Patient not taking: Reported on 09/08/2023) HYDROcodone-acetaminophen (Protivin) 5-325 MG tablet Take by mouth every 6 (six) hours if needed. hydrOXYzine HCl (Atarax) 25 MG tablet Take by mouth every 6 (six) hours. (Patient not taking: Reported on 09/08/2023) lamoTRIgine (LaMICtal) 200 MG tablet Take by mouth every night. omeprazole (PriLOSEC) [address] capsule Take 1 capsule (20 mg) by mouth 1 (one) time each day. Do not crush or chew. ondansetron (Zofran) 8 MG tablet Take by mouth every 8 (eight) hours if needed. OXcarbazepine (Trileptal) 300 MG tablet Take by mouth 2 (two) times a day. tamsulosin (Flomax) 0.4 MG 24 hr capsule Take by mouth 1 (one) time each day. tiZANidine (Zanaflex) 4 MG capsule Take 1 capsule (4 mg) by mouth 3 (three) times a day. tranexamic acid (Lysteda) 650 MG tablet tablet Take 2 tablets (1,300 mg) by mouth 3 (three) times aday. Vortioxetine HBr (Trintellix,) 5 MG tablet Take 2 tablets (10 mg) by mouth 1 (one) time each day. No current facility-administered medications for this visit. Cosigned by Oswald Rizvi MD at 02/23/2025 2:12 PM EDT Associated attestation - Oswald Rizvi MD - 02/23/2025 2:12 PM EDT Signature only. * Procedures - Cindy Bear RN - 02/22/2025 12:30 PM EDTAssociated Order(s): Insert peripheral IV Insert peripheral IV Performed by: Cindy Bear RN Authorized by: Oswald Rizvi MD Hand hygiene: Hand hygiene performed prior to insertion Inserted using aseptic techniques: Yes Preparation: Skin prepped with alcohol Orientation: Left and upper Location: Arm Catheter placed: Peripheral IV Catheter size: 20g/2.00in Line Technique: Ultrasound Guidance Number of attempts: 1 IV flushes: Without difficulty and positive blood return noted and IV luer locked Patient tolerance: Patient tolerated the procedure well, there were no complications and age appropriate response IV site covered with: Transparent semipermeable dressing documented in this encounter Plan of Treatment Scheduled Referrals Name Type Priority Associated Diagnoses Order Schedule Discharge Ambulatory referral to [facility] Clinic Outpatient Referral Routine H/O insertion of central venous access port Von Willebrand's disease (CMS/HCC) Expected: 03/08/2025, Expires: 08/26/2026 documented as of this encounter Goals Goal Patient Goal Type Associated Problems Recent Progress Patient-Stated? Author Alfie hunter Goal Care Plan Autogenerated Problem No Eliza Swanson documented as of this encounter Procedures Procedure Name Priority Date/Time Associated Diagnosis Comments POCT GLUCOSE METER UNSOLICITED RESULTS Routine 02/22/2025 11:49 PM EDT BLOOD GAS PANEL, ARTERIAL STAT 02/22/2025 3:32 PM EDT IR TUNNELED CVC REPLACEMENT COMPLETE Routine 02/22/2025 2:49 PM EDT H/O insertion of central venous access port INSERT PERIPHERAL IV Routine 02/22/2025 12:30 PM EDT POCT , URINE Routine 02/22/2025 11:50 AM EDT documented in this encounter Results * POCT glucose meter (02/22/2025 11:49 PM EDT) POCT Glucose 98 74 - 99 mg/dL 02/22/2025 11:51 PM EDT [facility] Comment:Accuracy of a glucos e result obtained from a capillary whole blood specimen relies upon adequate, non-compromised capillary blood flow. If the capillary glucose result is not consistent with the patient's clinical signs and symptoms, glucose testing should be repeated with either an arterial or venous sample on the glucometer or sent to the main labortory for testing. Comment 02/22/2025 11:51 PM EDT [facility] Photoengraving Retoucher ID Jack Thompson 02/22/2025 11:51 PM EDT [facility] Device ID [id number] 02/22/2025 11:51 PM EDT [facility] Specimen Type POC Capillary 02/22/2025 11:51 PM EDT [facility] Blood Capillary blood specimen / Unknown 02/22/2025 11:49 PM EDT 02/22/2025 11:51 PM EDT us Oswald Rizvi MD LAB POINT OF CARE TE ST DOCKED DEVICE UNSOLICITED RESULTS Final Result [facility] [address] [id number] * (ABNORMAL) Blood gas panel, arterial (02/22/2025 3:32 PM EDT) pH, Arterial 7.37 7.35 - 7.45 LAB HEMATOLOGY METHOD 02/22/2025 3:40 PM EDT [facility] pCO2, Arterial 40 35 - 48 mmHg LAB HEMATOLOGY METHOD 02/22/2025 3:40 PM EDT [facility] pO2, Arterial 307(H) 83 - 108 mmHg LAB HEMATOLOGY METHOD 02/22/2025 3:40 PM EDT [facility] SO2, Measured, Arterial 100(H) 94 - 98 % LAB HEMATOLOGY METHOD 02/22/2025 3:40 PM EDT [facility] Base Excess, Arterial -2.0 -2.0 - 3.0 mmol/L LAB HEMATOLOGY METHOD 02/22/2025 3:40 PM EDT [facility] Bicarbonate, Calculated, Arterial 23 22 - 26 mmol/L LAB HEMATOLOGY METHOD 02/22/2025 3:40 PM EDT [facility] Hematocrit, Whole Blood 34.0 34.0 - 45.0 % LAB HEMATOLOGY METHOD 02/22/2025 3:40 PM EDT [facility] Sodium, Whole Blood 127(L) 136 - 145 mmol/L LAB HEMATOLOGY METHOD 02/22/2025 3:40 PM EDT [facility] Potassium, Whole Blood 3.7 3.6 - 4.9 mmol/L LAB HEMATOLOGY METHOD 02/22/2025 3:40 PM EDT [facility] Chloride, Whole Blood 98 97 - 107 mmol/L LAB HEMATOLOGY METHOD 02/22/2025 3:40 PM EDT [facility] Glucose, Whole Blood 101(H) 74 - 99 mg/dL LAB HEMATOLOGY METHOD 02/22/2025 3:40 PM EDT [facility] Ionized Calcium, Whole Blood 4.6 4.6 - 5.1 mg/dL LAB HEMATOLOGY METHOD 02/22/2025 3:40 PM EDT [facility] Lactate, Arterial, Whole Blood 0.8 0.5 - 1.6 mmol/L LAB HEMATOLOGY METHOD 02/22/2025 3:40 PM EDT [facility] Blood Arterial blood specimen / Unknown Arterial Puncture / Unknown 02/22/2025 3:32 PM EDT 02/22/2025 3:38 PM EDT us Sami Cantu MD LAB BLOOD ORDERABLES Final Resul t [facility] [address] [place] [address] * IR Tunneled CVC Replacement Complete (02/22/2025 [...] 10/14/23 as well as powerline placement. TECHNIQUE: Certified Court/Medical Interpreter: Oswald Rizvi M.D. Rad Dose: 2 mGy [...] placed 10/14/23 as well aspowerline placement. TECHNIQUE: Certified Court/Medical Interpreter: Oswald Rizvi M.D. Rad Dose: 2 mGy [...] MD IMG IR PROCEDURES Final Resu lt * PERIPHERAL IV (SMARTFORM LINK) (02/22/2025 12:30 PM EDT) Narrative Cindy Bear RN - 02/22/2025 12:30 PM EDT Cindy Bear RN 02/22/2025 12:47 PM Insert peripheral IV Performed by: Cindy Bear, RN Authorized by: Oswald Rizvi MD Hand hygiene: Hand hygiene performed prior to insertion Inserted using aseptic techniques: Yes Preparation: Skin prepped with alcohol Orientation: Left and upper Location: Arm Catheter placed: Peripheral IV Catheter size: 20g/2.00in Line Technique: Ultrasound Guidance Number of attempts: 1 IV flushes: Without difficulty and positive blood return noted and IV luer locked Patient tolerance: Patient tolerated the procedure well, there were no complications and age appropriate response IV site covered with: Transparent semipermeable dressing Oswald Rizvi MD IV THERAPY ORDERABLES Final R esult * POCT , URINE (02/22/2025 11:50 AM EDT) POCT Test, Urine Negative Males and Non- Females: Negative 02/22/2025 11:56 AM EDT [facility] Photoengraving Retoucher ID Meghan Gamino 02/22/2025 11:56 AM EDT [facility] Device ID [id number] 02/22/2025 11:56 AM EDT [facility] Urine Urine specimen obtained by clean catch procedure / Unknown 02/22/2025 11:50 AM EDT 02/22/2025 11:56 AM EDT Oswald Rizvi MD LAB POINT OF CARE TE ST DOCKED DEVICE UNSOLICITED RESULTS Final Result [facility] [address] [place] [address] documented in this encounter Visit Diagnoses Diagnosis Von Willebrand's disease (CMS/HCC)- Primary Von Willebrand's disease H/O insertion of central venous access port documented in this encounter Administered Medications Inactive Administered Medications - up to 3 most recent administrations Medication Order MAR Action Action Date Dose Rate Site antihemophilic factor-vwf (Humate-P) 4,827 VWF:RCo Units IVPB 4,827 VWF:RCo Units, Intravenous, Once, 1 dose, On Tue02/22/25 at 1245, Routine, On Unit - Preprocedure Given 02/22/2025 1:00 PM EDT 4,827 VWF:RCo Units 240 mL/hr droperidol (Inapsine) injection 0.625 mg 0.625 mg, Intravenous, Once as needed, 1 dose, Starting on Tue02/22/25 at 1507, Until Tue02/22/25 at 1639, Routine, Recovery (Phase I only), nausea, vomiting Given 02/22/2025 4:39 PM EDT 0.625 mg lidocaine (Xylocaine) 1 % injection Intradermal, As needed, Starting on Tue02/22/25 at 1425, Until Tue02/22/25 at 1425, Routine, Intraprocedure Given 02/22/2025 2:25 PM EDT 10 mL midazolam (Versed) 1 MG/ML injection - Pyxis Override Pull 1 dose, Starting on Tue02/22/25 at 1525, Until Tue02/22/25 at 1535 midazolam (Versed) injection 2 mg 2 mg, Intravenous, Once, 1 dose, On Tue02/22/25 at 1715, STAT, Recovery (Phase I only) Given 02/22/2025 3:35 PM EDT 2 mg sodium chloride 0.9 % flush 10 mL 10 mL, Intravenous, Every 12 hours, First dose on Tue02/22/25 at 1215, Until Discontinued, Routine, Holding - Preprocedure Given 02/22/2025 3:07 PM EDT 10 mL documented in this encounter Additional Health Concerns Active Problems Noted Date Diagnosed Date Autogenerated Problem 02/06/2025 Assessment Noted Time A fall risk assessment has been complete d for the patient 10/30/2020 3:45 PM EDT A Body Mass Index follow-up plan has been documented for the patient 02/06/2025 11:15 AM EDT documented as of this encounter Care Teams Ordnance Handler Relationship Specialty Start Date End Date Justino Zheng MD [address] [facility] [place] [address] PCP - General 09/15/20 documented as of this encounter
--- OUTSIDE RECORDS SUMMARY | 2025-02-22 12:46 | XMS_ITS | Encounter Summary ---
Author Organization [facility] Address [address] [place] [address] Care Team Providers Care Vacation Guide Name Role Phone Justino Zheng MD Primary Care Provider [phone] Encounter Details Date Type Department Care Team ([facility] st Contact Info) Description 02/22/2025 1:46 PM EDT Anesthesia Event P[facility] A Interventional Radiology [address] [place] [address] Sami Cantu MD [address] [place] [address] Kathie Cummins CRNA [address] [place] [address] Anesthesia Record Procedure Summary Procedure Name Responsible Anesthesiologist Anesthesia Start Time Anesthesia Stop Time IR TUNNELED CVC REPLACEMENT COMPLETE Sami Cantu MD 02/22/25 1346 02/22/25 1506 Events Date Time Event Comment 02/22/2025 1330 1346 An Start The patient was reevaluated immediately before sedation and remains eligible for anesthesia plan. 1346 An Start Data 1348 an mo now 1354 An Induction The patient was reevaluated immediately before moderate or deep sedation use and before anesthesia induction. 1357 An Intubation 1416 Anesthesia Ready 1456 An Extubation 1459 an stop data 1506 Handoff to Receiving I compl eted my handoff to the receiving clinician during which we: 1. Identified the patient 2. Identified the responsible provider 3. Reviewed the pertinent medical history 4. Discussed the surgical course 5. Reviewed intra-op anesthesia management and issues during anesthesia 6. Set expectations for post-procedure period 7. Allowed opportunity for questions and acknowledgement of understanding. 1506 An Stop Meds Name Total midazolam (Versed) injection 1 mg/mL 2 m g fentaNYL (Sublimaze) injection 50 mcg/mL 200 mcg propofol (Diprivan) injection 10 mg/mL 2 00 mg rocuronium (ZeMuron) injection 10 mg/mL 50 mg ondansetron (Zofran) injection 2 mg/mL 4 mg sugammadex (Bridion) injection 100 mg/mL 200 mg Lidocaine HCl 100 MG/5ML 100 mg HYDROmorphone 1 MG/ML 0.5 mg propofol (Diprivan) infusion 10 mg/mL 98 1.56 mg lactated Ringer's infusion 600 mL * Agents Name O2 * Blood No blood administrations on file. Lines, Drains, and Airways Type Details Placement Removal CVC Single Lumen Placement Date: 02/22/25; Placement Time: 1433; Hand Hygiene: Yes; Site Prep: Chlorhexidine ; Site Prep Agent Dried: Yes; Sterile Barrier Used: Yes; Medical Reason for Not Performing Maximal Sterile Barrier Technique: Yes; Local Anesth: Injectable; Size: 5 Fr; Type: Tunneled; Line Length(cm): (24 CM); Orientation: Left; Location: Internal jugular; Technique: Guidewire; Inserted by: Oswald Rizvi; Insertion Attempts: 1; Securement: Transparent dressing, Catheter securement device; Placement Verification: X-ray 02/22/25 1433 by Karla Blue RN Wound 02/22/25; 1434; Yes; Neck; Left; powerline site 02/22/25 1434 by Karla Blue RN Wound 02/22/25; 1447; Yes; Chest; Right, Upper; old port site. 02/22/25 1447 by Karla Blue RN Single Lumen Implantable Port 10/14/23; 1125; Yes; Yes; Right (18.5CM of length); Chest; MD Wyatt/MD Kristian; 02/22/25; 1439 10/14/23 1125 by Shauna Odonnell RN 02/22/25 1439 by Karla Blue RN Peripheral IV Placement Date: 02/22/25; Placement Time: 1247 (created via procedure documentation); Catheter Size: 20 G; Orientation: Left, Upper; Location: Arm; Site Prep: Alcohol; Technique: Ultrasound guidance; Insertion Attempts: 1; Removal Date: 02/23/25; Removal Time: 0534 02/22/25 1247 by Cindy Bear RN 02/23/25 0534 by Tyra Avila ETT Placement Date: 02/22/25; Placement Time: 1357 (created via procedure documentation); Mask Ventilation: 0; Technique: Direct laryngoscopy; Type: ETT - single; Single Lumen Tube Size: 7 mm; Cuffed: Yes; Laryngoscope: Mckinney; Blade Size: 2; Location: Oral; Grade View: Grade I; Insertion Attempts: 1; Placement Verification: Auscultation, Capnometry; Placed by: DRAGAN; Removal Date: 02/22/25; Removal Time: 1456 02/22/25 1357 by Kathie Cummins CRNA 02/22/25 1456 by Kathie Cummins CRNA documented in this encounter Social History Tobacco Use Types Packs/Day Years [...] PM EDT documented as of this encounter Functional Status * Calculated C-SSRS Risk Score (Lifetime/Recent) Answer Date of Assessment Author No Risk Indicated 02/22/2025 5:17 PM EDT Alisa Rodrigues RN * Question Answer Date of Assessment Author 1. Wish to be (Past 1 Month) No 025 5:17 PM EDT Alisa Rodrigues RN 2. Non-Specific Active Suici kathy Thoughts (Past 1 Month) No 02/22/2025 5:17 PM EDT Frances Rodrigues RN 6. Suicidal Behavior (Lifetime) No 5:17 PM EDT Alisa Rodrigues RN documented as of this encounter Miscellaneous Notes * Anesthesia Postprocedure Evaluation - Kathie Cummins CRNA - 02/22/2025 3:06 PM EDT Patient: Merced Hays Anesthesia Type: general Vitals Value Taken Time BP 132/76 02/22/25 15:02 Temp 97 02/22/25 15:06 Pulse 79 02/22/25 15:05 Resp 14 02/22/25 15:05 SpO2 100 % 02/22/25 15:05 Vitals shown include unfiled device data. Anesthesia Post Evaluation Patient location during evaluation: PACU Patient participation: complete - patient participated Level of consciousness: awake and baseline Pain management: adequate (pain score 0-3) Airway patency: natural airway Cardiovascular status: acceptable Respiratory status: acceptable Hydration status: acceptable No notable events documented. * Anesthesia Procedure Notes - Kathie Cummins CRNA - 02/22/2025 2:16 PM EDT Associated Order(s): Airway Airway Date/Time: 02/22/2025 1:57 PM Reason: elective Airway not difficult General Information and Staff Patient location during procedure: OR CLEAN ROOM OPERATOR: Kathie Cummins CRNA Performed: CLEAN ROOM OPERATOR Patient Condition Indications for airway management: anesthesia and airway protection Final Airway Details Final airway type: endotracheal airway Successful airway: ETT Cuffed: yes Successful intubation technique: direct laryngoscopy Adjuncts used in placement: intubating stylet and cricoid pressure Endotracheal tube insertion site: oral Blade: Mckinney Blade size: #2 ETT size (mm): 7.0 Cormack-Lehane Classification: grade I - full view of glottis Placement verified by: chest auscultation and capnometry Measured from: lips * Anesthesia Preprocedure Evaluation - Sami Cantu MD - 02/22/2025 1:00 PM EDT Patient: Merced Hays HPI Merced Monet Lis is a 29 y.o. female with body mass index is 38.57 kg/m??. who presents with No Principal Problem: There is no principal problem currently on the Problem List. Please update the Problem List and refresh., now for Procedure Information Date/Time: 02/22/25 1230 Scheduled providers: Oswald Rizvi MD; Samantha Jones RN Procedure: IR TUNNELED CVC REPLACEMENT COMPLETE Location: [facility] A Interventional Radiology Relevant Problems Endo (+) Subclinical hyperthyroidism GI (+) C. difficile diarrhea Neuro/Psych (+) Headache (+) Seizure (CMS/HCC) ALLERGIES Per chart NPO STATUS NPO > 8h Date of Last Liquid: 02/21/25 Time of Last Liquid: 2354 Date of Last Solid: 02/21/25 Past Medical History[1] AIRWAY HISTORY Airway Detailed Review Displaying the 20 most recent records Date Difficult Airway Blade Size ETT Size C-L Class Final Type Intubation Method 10/14/23 No 3 7.0 endotracheal airway direct laryngoscopy MEDICATIONS Outpatient Current Outpatient Medications Medication Instructions amitriptyline (Elavil) 50 MG tablet Nightly ANTIHEMOPHILIC FACTOR-VWF IV Every 6 hours celecoxib (CeleBREX) 200 MG capsule Daily clonazePAM (KLONOPIN) 0.5 mg, Oral, 2 times daily PRN Daridorexant HCl (Quviviq) 50 MG tablet Oral, Nightly diazePAM (Valium) 5 MG tablet Every 6 hours dicyclomine (Bentyl) 20 MG tablet 4 times daily before meals and nightly EPINEPHrine (EPIPEN IJ) Every 6 hours etonogestrel-ethinyl estradiol (Nuvaring) 0.12-0.015 MG/24HR vaginal ring Insert vaginally and leave in place for 3 consecutive weeks continuously. famotidine (Pepcid) 20 MG tablet Daily fluconazole (Diflucan) 150 MG tablet Every 6 hours gabapentin (NEURONTIN) 300 mg GABAPENTIN 100 MG/ML ORAL SUSPENSION No dose, route, or frequency recorded. HYDROcodone-acetaminophen ([place]) 5-325 MG tablet Oral, Every 6 hours PRN hydrOXYzine HCl (Atarax) 25 MG tablet Every 6 hours lamoTRIgine (LaMICtal) 200 MG tablet Nightly omeprazole (PRILOSEC) 20 mg, Daily ondansetron (Zofran) 8 MG tablet Take by mouth every 8 (eight) hours if needed. OXcarbazepine (Trileptal) 300 MG tablet 2 times daily tamsulosin (Flomax) 0.4 MG 24 hr capsule Daily tiZANidine (ZANAFLEX) 4 mg, Oral, 3 times daily tranexamic acid (LYSTEDA) 1,300 mg, 3 times daily Vortioxetine HBr (TRINTELLIX)) 10 mg, Daily Scheduled Current Scheduled Medications[2] PRNs Current PRN Medications[3] SURGICAL HX: Surgical History[4] SOCIAL HX: Social History[5] OBJECTIVE DATA LABS Lab Results Component Value Date WBC 5.16 01/21/2025 HGB 12.7 01/21/2025 HCT 39.1 01/21/2025 MCV 85.9 01/21/2025 PLT 310 01/21/2025 Lab Results Component Value Date CALCIUM 9.0 01/21/2025 BUN 8.0 01/21/2025 CREATININE 0.90 01/21/2025 BCR 8.9 01/21/2025 NA 137 01/21/2025 K 4.2 01/21/2025 CL 106 01/21/2025 CO2 24 04/01/2015 CA 9.1 04/01/2015 Type and Screen No results found for: ABO No results found for: HGBA1C Lab Results Component Value Date GLUCOSE 84 01/21/2025 ABG No results found for: PHART , NIC5IOX , PO2ART , SO2ART , BEART , [id number] , HCTART , SODIUMART , POTASSIUMART , POCTCL , POCGLU , IONCALART , LACTATE No results found for: PH , PCO2 , PO2 , J5CLUWGX , BASEEXC , HCTSYR , KSYR , CLSYR , GLUSYR , CAION , LACTATE ECHO No echocardiogram results found for the past 12 months PFTs No results found for: NJC4MIG , SWK4AZVC , TMC8ZIB , FVCPRED BP Readings from Last 5 Encounters: 02/22/25 121/85 02/05/25 130/89 01/10/25 139/88 10/14/23 (!) 143/72 09/08/23 120/80 Physical Exam Airway Mallampati: II Mouth opening: normal TM distance: >3 FB Neck ROM: full Cardiovascular Rhythm: regular Rate: normal Dental (+) poor dentition Pulmonary Breath sounds clear to auscultation Neurological Skin Musculoskeletal Extremities Anesthesia Plan ASA 3 Plan was reviewed with: CLEAN ROOM OPERATOR Anesthesia technique(s) discussed with the patient/family: general Anesthesia plan agreed upon was: general Anesthetic plan and risks discussed with patient. The risks, options, and benefits of general anesthesia were discussed with the patient. All questions addressed. Rationale reviewed. Patient understands options prefers general anesthesia. Electronicconsent obtained. Anesthesia Evaluation Sami Cantu MD [1] Past Medical History: Diagnosis Date Acute bronchitis, unspecified Acute bronchitis Acute sinusitis, unspecified Acute sinusitis Acute suppurative otitis media without spontaneous rupture of ear drum, unspecified ear Acute suppurative otitis media Anemia Anxiety Bleeding disorder (CMS/HCC) 1996 Chills (without fever) Chills Coagulation defect, unspecified Blood clotting disorder Complex regional pain syndrome I 18 years old Conversions - Other Anxiety (Symptom) Conversions - Other Attention-deficit Hyperactivity Disorder Conversions - Other Depression Conversions - Other Nephrolithiasis Conversions - Other Von Willebrand's Disease Depression N/A Disease of stomach and duodenum, unspecified Stomach problems Dizziness and giddiness Dizziness Dysuria Dysuria Lamar-Danlos syndrome, unspecified Lamar-Danlos syndrome Encounter for contraceptive management, unspecified Contraception management Extremity pain Fibromyalgia, primary GERD (gastroesophageal reflux disease) Joint pain Kidney stone Leg pain Migraine, unspecified, not intractable, without status migrainosus Migraine Muscle weakness (generalized) 06/23/15 Neck pain Pain in unspecified foot Foot pain Personal history of diseases of the blood and blood-forming organs and certain disorders involving the immune mechanism History of coagulation defect Personal history of other (healed) physical injury and trauma History of sprain of ankle Personal history of other diseases of the digestive system History of gastroesophageal reflux (GERD) Personal history of other diseases of the musculoskeletal system and connective tissue History of joint pain Personal history of other diseases of the musculoskeletal system and connective tissue History of low back pain Personal history of other diseases of the nervous system and sense organs History of migraine Personal history of other mental and behavioral disorders History of depression Personal history of other specified conditions History of fever Personal history of urinary (tract) infections History of kidney infection Personal history of urinary (tract) infections History of UTI Personal history of urinary calculi History of renal calculi 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 [2] lidocaine PF, , , lidocaine-EPINEPHrine (PF), , , [COMPLETED] Insert peripheral IV, , , Once AND Saline lock IV, , , Once AND sodium chloride, 10 mL, Intravenous, q12h AND sodium chloride, 10 mL, Intravenous, PRN [3] PRN medications: lidocaine PF, lidocaine-EPINEPHrine (PF), [COMPLETED] Insert peripheral IV AND Saline lock IV AND sodium chloride AND sodium chloride [4] Past Surgical History: Procedure Laterality Date ANKLE SURGERY N/A Ankle Repair from [facility] CHOLECYSTECTOMY N/A Cholecystectomy Laparoscopic from [facility] ORAL SURGERY N/A Oral Surgery Tooth Extraction from [facility] ORTHOPEDIC SURGERY OTHER SURGICAL HISTORY N/A History of other surgery from [facility] OTHER SURGICAL HISTORY N/A History of oral surgery from [facility] OTHER SURGICAL HISTORY N/A History of rhinoplasty from [facility] OTHER SURGICAL HISTORY N/A History of ear surgery from [facility] OTHER SURGICAL HISTORY N/A History of throat surgery from [facility] OTHER SURGICAL HISTORY N/A History of laparoscopic cholecystectomy from [facility] PORTACATH PLACEMENT TRIGGER POINT INJECTION [5] Social History Tobacco Use Smoking status: Never Passive exposure: Yes Smokeless tobacco: Never Substance Use Topics Alcohol use: Not Currently Drug use: Yes Types: Marijuana Comment: Drug use: Drug Use documented in this encounter Plan of Treatment Not on file documented as of this encounter Goals Goal Patient Goal Type Associated Problems Recent Progress Patient-Stated? Author Autogenera elsa Goal Care Plan Autogenerated Problem No Eliza Swanson documented as of this encounter Procedures Procedure Name Priority Date/Time Associated Diagnosis Comments PB ANESTHESIA PLACEHOLDER Routine 02/22/2025 1:57 PM EDT HI AN ELECTIVE ENDOTRACHEAL AIRWAY Routine 02/22/2025 1:57 PM EDT documented in this encounter Results * HI AN ELECTIVE ENDOTRACHEAL AIRWAY, PB ANESTHESIA PLACEHOLDER (02/22/2025 1:57 PM EDT) Narrative Kathie Cummins CRNA - 02/22/2025 1:57 PM EDT Kathie Cummins CRNA 02/22/2025 2:17 PM Airway Date/Time: 02/22/2025 1:57 PM Reason: elective Airway not difficult General Information and Staff Patient location during procedure: OR CLEAN ROOM OPERATOR: Kathie Cummins CRNA Performed: CLEAN ROOM OPERATOR Patient Condition Indications for airway management: anesthesia and airway protection Final Airway Details Final airway type: endotracheal airway Successful airway: ETT Cuffed: yes Successful intubation technique: direct laryngoscopy Adjuncts used in placement: intubating stylet and cricoid pressure Endotracheal tube insertion site: oral Blade: Mckinney Blade size: #2 ETT size (mm): 7.0 Cormack-Lehane Classification: grade I - full view of glottis Placement verified by: chest auscultation and capnometry Measured from: lips Sami Cantu MD ANESTHESIA ORDERABLES Final Resu lt documented in this encounter Visit Diagnoses Not on filedocumented in this encounter Administered Medications Inactive Administered Medications - up to 3 most recent administrations Medication Order MAR Action Action Date Dose Rate Site fentaNYL (Sublimaze) injection Intravenous, As needed, Starting on Tue02/22/25 at 1348, Until Tue02/22/25 at 1506, Routine, Anesthesia Intraprocedure Given 02/22/2025 2:56 PM EDT 50 mcg Given 02/22/2025 2:46 PM EDT 50 mcg Given 02/22/2025 1:48 PM EDT 100 mcg HYDROmorphone (Dilaudid) injection Intravenous, As needed, Starting on Tue02/22/25 at 1413, Until Tue02/22/25 at 1506, Routine, Anesthesia Intraprocedure Given 02/22/2025 2:13 PM EDT 0.5 mg lactated Ringer's infusion Intravenous, Continuous PRN, Starting on Tue02/22/25 at 1346, Until Tue02/22/25 at 1506, Routine New Bag 02/22/2025 1:46 PM EDT Lidocaine HCl prefilled syringe Buccal, As needed, Starting on Tue02/22/25 at 1354, Anesthesia Intraprocedure Given 02/22/2025 1:54 PM EDT 100 mg midazolam (Versed) injection Intravenous, As needed, Starting on Tue02/22/25 at 1346, Until Tue02/22/25 at 1506, Routine, Anesthesia Intraprocedure Given 02/22/2025 1:46 PM EDT 2 mg ondansetron (Zofran) injection Intravenous, As needed, Starting on Tue02/22/25 at 1355, Until Tue02/22/25 at 1506, Routine, Anesthesia Intraprocedure Given 02/22/2025 1:55 PM EDT 4 mg propofol (Diprivan) infusion 10 mg/mL Intravenous, Continuous PRN, Starting on Tue02/22/25 at 1354, Until Tue02/22/25 at 1506, Routine New Bag 02/22/2025 1:54 PM EDT 200 mcg/kg/min 111.12 mL/hr propofol (Diprivan) injection Intravenous, As needed, Starting on Tue02/22/25 at 1354, Until Tue02/22/25 at 1506, Routine, Anesthesia Intraprocedure Given 02/22/2025 1:54 PM EDT 200 mg rocuronium (ZeMuron) injection Intravenous, As needed, Starting on Tue02/22/25 at 1354, Until Tue02/22/25 at 1506, Routine, Anesthesia Intraprocedure Given 02/22/2025 1:54 PM EDT 50 mg sugammadex (Bridion) 100 MG/ML injection Intravenous, As needed, Starting on Tue02/22/25 at 1451, Until Tue02/22/25 at 1506, Routine, Anesthesia Intraprocedure Given 02/22/2025 2:51 PM EDT 200 mg documented in this encounter Additional Health Concerns Active Problems Noted Date Diagnosed Date Autogenerated Problem 02/06/2025 Assessment Noted Time A fall risk assessment has been complete d for the patient 10/30/2020 3:45 PM EDT A Body Mass Index follow-up plan has been documented for the patient 02/06/2025 11:15 AM EDT documented as of this encounter Care Teams Vacation Guide Relationship Specialty Start Date End Date Justino Zheng MD [facility][note 3] [place] [address] PCP - General 09/15/20 documented as of this encounter
--- OUTSIDE RECORDS SUMMARY | 2025-02-22 16:11 | XMS_ITS | Encounter Summary ---
Author Organization [facility] Address [address] [place] [address] Care Team Providers Care Director Talent Acquisition Name Role Phone Justino Zheng MD Primary Care Provider [phone] Reason for Visit * Reason Comments Seizures Encounter Details Date Type Department Care Team ([facility] Contact Info) Description 02/22/2025 5:11 PM EDT - 02/23/2025 5:34 AM EDT Emergency [facility] Emergency Department [address] [place] [address] Bina Keith DO [address] [place] [address] Sander Schwarz MD [address] [place] [address] Seizure-like activity (CMS/HCC) (Primary Dx) Discharge Disposition: Home or Self Care Social [...] Sign Reading Time Taken Comments Blood Pressure 125/108 02/23/2025 5:10 AM EDT Pulse 92 02/23/2025 5:10 AM EDT Temperature 36.7 C (98 F) 02/23/2025 5:10 AM EDT Respiratory Rate 27 02/23/2025 5:10 AM EDT Oxygen Saturation 97% 02/23/2025 5:10 AM EDT Inhaled Oxygen Concentration - - Weight 101 kg (222 lb 10.6 oz) 02/22/2025 5:12 P M EDT Height - - Body Mass Index 42.07 02/22/2025 12:05 PM EDT documented in this encounter Functional Status * Calculated C-SSRS Risk Score (Lifetime/Recent) Answer Date of Assessment Author No Risk Indicated 02/22/2025 5:17 PM EDT Alisa Rodrigues RN * Question Answer Date of Assessment Author 1. Wish to be (Past 1 Month) No 5:17 PM EDT Alisa Rodrigues RN 2. Non-Specific Active Suici kathy Thoughts (Past 1 Month) No 02/22/2025 5:17 PM EDT Frances Rodrigues RN 6. Suicidal Behavior (Lifetime) No 5:17 PM EDT Alisa Rodrigues RN documented as of this encounter Discharge Instructions * Discharge Instructions* Jad Arellano MD - 02/23/2025 5:16 AM EDT You were seen emergency department for evaluation of seizure like activity. At this time no furtheremergent workup is indicated. Please return to ED if your symptoms worsen, change in location, change in severity, new symptoms develop or if you become concerned for your health. It is important to follow-up with your primary care physician PETER and let them know that you were seen in the emergency department today. Thank you. documented in this encounter Medications at Time [...] 100 MG/ML ORAL SUSPENSION 11/14/2011 HYDROcodone-acetami nophen ([facility]) 5-325 MG tablet Take by mouth every 6 (six) hours if needed. hydrOXYzine HCl (Atarax) 25 MG tablet Take by mouth every 6 (six) hours. 02/25/2020 tiZANidine (Zanaflex) 4 MG capsule Take 1 capsule (4 mg) by mouth 3 (three) times a day. documented as of this encounter Miscellaneous Notes * Consults - Emmanuelle Marie MD - 02/23/2025 2:46 AM EDTAssociated Order(s): Consult to Neurology Consult to Neurology Consult performed by: Emmanuelle Marie MD Consult ordered by: Bina Keith DO Reason For Consult: seizure-like episodes Requesting Service: ED Requested Date/Time: 02/23/2025 2:47 AM Subjective History of presenting illness: Merced Hays is a 29 y.o. female with PMH Lamar-Danlos, Von Willebrand's, PNES, fibromyalgia, and hypertension who presented to the ED from the IR suite for seizure-like activity after a right chest wall port removal and left chest wall tunneled catheter placement. Patient was evaluated with friend at bedside. Patient reports that she does not remember what happened and is here because she was told she had a seizure. Per friend, patient was in IR recovery and friend and patient's mother were in the waiting room when the nurse came out and said the patient hada seizure and they almost had to intubate her. This was around 3:45 PM on 02/22. Friend and patient do not know any other information other than that the patient received versed. Patient's friend notes that since being in the ED, the patient has had several seizure episodes. Friend describes that the patients arms get rigid and her eyes roll to the left. She seems out of it for about a minute. Patient does not recall these episodes. She denies a current headache but says that she does get a mild one after these episodes. Per ED note, ED resident evaluated the patient during once of these episodes. She notes that the patient had gaze deviation and immediately returned to baseline after verbal reassurance and that the patient was able to communicate immediately after the episode. Patient reports that she has a history of seizure like episodes. She is unable to describe how often or what exactly her seizures are like as she notes she does not remember when they happen. However, she states that she believes she shakes and they last about 30 seconds to 2 minutes. She describes a period of 1 minute afterwards in which her head feels fuzzy but then she returns to baseline.She reports that she has previously been on a seizure medication that starts with a T but think she stopped it about 6 months ago. Upon chart review, patient has been prescribed Trileptal 300 mg BID from her family medicine doctor. The most recent note from November 2024 still lists Trileptal as anactive medication. History of Present Illness She has a past medical history of Acute bronchitis, unspecified, Acute sinusitis, unspecified, Acute suppurative otitis media without spontaneous rupture of ear drum, unspecified ear, Anemia, Anxiety, Bleeding disorder ([facility]) ( 1996), Chills (without fever), Coagulation defect, [...] (tract) infections, Personal history of urinary (tract) infec tions, Personal history of urinary calculi, TMJ dysfunction, and Tuberculosis of spine. She has a past surgical history that includes Ankle surgery (N/A); Cholecystectomy (N/A); oral surgery (N/A); Other surgical history (N/A); Other surgical history (N/A); Other surgical history (N/A);Other surgical history (N/A); Other surgical history (N/A); Other surgical history (N/A); Portacath placement; orthopedic surgery; and Trigger point injection. She has a family history includes Alcohol abuse in her maternal grandfather; Anxiety disorder in another family member; Arthritis in her maternal grandfather, maternal grandmother, and another family member; Asthma in her maternal grandmother and another family member; Autoimmune disease in her mother and sister; Breast cancer in an other family member; COPD in her maternal grandfather; Cancer in her maternal grandmother; Clotting disorder in an other family member; Conversions - Other in her father, mother, and another family member; Depression in her [...] her mother; Vision loss in her sister. She reports that she has never smoked. She has been exposed to tobacco smoke. She has never used smokeless tobacco. She reports that she does not currently use alcohol. She reports current drug use. Drug: Marijuana. Allergies: Banana, Food, Grapefruit extract, Latex, Other, Duloxetine hcl, Amoxicillin, Aspirin, Banana concentrate [flavoring agent (non-screening)], Cetirizine, Desmopressin, Duloxetine, Erythromycin, Ibuprofen, Ketorolac, Ketorolac tromethamine, Olyphant, and Olyphant extract Medications: Medications Ordered Prior to Encounter[1] 14-point Review of Systems: Negative except those noted in current and interim history Objective Blood pressure (!) 140/97, pulse 77, temperature 36.7 ??C (98.1 ??F), temperature source Oral, resp. rate 17, weight 101 kg (222 lb 10.6 oz), SpO2 100%. Physical Exam: Constitutional: in no acute distress HENT: normocephalic, non-erythematous oropharynx, anicteric sclera Cardiovascular: no appreciable murmurs, gallops, or rubs Respiratory: symmetric chest expansion, non-labored breathing Gastrointestinal: abdomen is soft, not distended, non-tender Musculoskeletal: no appreciable joint swelling, no appreciable LE warmth or erythema Psychiatric: appropriate mood and affect, cooperative Skin: surgical wounds present on left and right chest Neurological: Mental Status: The patient is alert and interactive, able to follow commands. Oriented to person, place, and time, Speech: Intact Articulation, Fluent language CN: II - PERRLA, Visual martinez: full III, IV, - EOMI V - Facial sensation intact VII - Brow raise and smile symmetrical VIII - Auditory acuity intact IX, X - Palate elevation symmetric, uvula midline XI - SCM and Trapezius strength intact XII - Tongue protrudes midline Motor: Normal bulk and tone RUE: 5/5 strength LUE: 5/5 strength RLE: 5/5 strength LLE: 5/5 strength Reflexes: Reflexes 2+ and symmetric throughout. No ankle clonus. Plantar reflex downgoing. Sensory: Sensation to light touch in all four extremities intact and symmetric. Coordination: No limb ataxia with [id number] or rvre-[id number]. Cortical: No Extinction Gait: Normal Pertinent results from the prior day, personally reviewed and interpreted: Results Vitals: Visit Vitals BP (!) 140/97 (BP Location: Right arm, Patient Position: Lying) Pulse 77 Temp 36.7 ??C (98.1 ??F) (Oral) Resp 17 Lab: Labs in last 18 hours CBC WBC 9.84 Hb 11.1 (L) Plt 244 Hct 33.0 (L) ANC 7.78 (H) INR ??, PTT ??, Anti-Xa ?? BMP Na 125 (L) Cl 95 (L) BUN 5 (L) Glu 107 (H) K 4.5 Co2 18 (L) Cr 0.55 (L) Ca 8.7 (L) iCa 4.6 Mg 1.5 (L), Phos 3.1 Lactate 0.8 LFT AST 23 AlkPhos 140 (H) T Prot 6.6 ALK 8 (L) Bili 0.3 Alb ?? D.Bili ?? Imaging: XR Chest 1 View Result Date: 02/22/2025 Impression: Interval removal of right chest wall Port-A-Cath with placement of the left central venous catheter with tip in the lower SVC. Cardiomediastinal silhouette is within normal limits. No focal consolidation, pleural effusion, or discrete pneumothorax. No acute osseous abnormality. CRITICALRESULT: No. COMMUNICATION: Per this written report. ATTESTATION: Not applicable. Drafted by Magaly Sandoval MD on 02/22/2025 8:39 PM Final report signed by Magaly Sandoval MD on 02/22/2025 8:40 PM Assessment & Plan #Seizure-Like Activity - Patient has a history of PNES, reports that she has been off anti-seizure medication for >6 months at the direction of her PCP, has been on Trileptal in the past, has not had an episode for >6 months - In the IR recovery suite after right chest wall port removal and left chest wall tunneled catheter placement, patient had a seizure-like episode that lasted 2 minutes, received versed - Per patient's friend, patient has had several seizure episodes while in the ED, describes that patients arms get rigid and her eyes roll to the left - One of these episodes was witnessed by ED resident who noted that the patient had gaze deviation and immediately returned to baseline after verbal reassurance and that the patient was able to communicate immediately after the episode - The clinical semiology of these episodes do not fit with a seizure. If these episodes change in semiology, increase in frequency, or patient has generalized tonic clonic seizures, we would recommend she return to the ED. Plan - routine EEG outpatient - follow up outpatient in Neurology clinic. Patient would like referral to [facility]. Thank you for this consult. This patient was discussed with the attending on service. Patient was staffed with Dr. Sheehan. Emmanuelle Marie MD PGY-1 [1] Current Facility-Administered Medications on File Prior to Encounter: [COMPLETED] Antihemophilic Factor -VWF- Humate P) Injeciton [COMPLETED] droperidol [COMPLETED] lidocaine [COMPLETED] midazolam [DISCONTINUED] albuterol [DISCONTINUED] antihemophilic factor-vwf [DISCONTINUED] fentaNYL OR [DISCONTINUED] fentaNYL [DISCONTINUED] fentaNYL [DISCONTINUED] HYDROmorphone [DISCONTINUED] lactated Ringer's [DISCONTINUED] Lidocaine HCl [DISCONTINUED] lidocaine PF [DISCONTINUED] lidocaine-EPINEPHrine (PF) [DISCONTINUED] midazolam [DISCONTINUED] naloxone [DISCONTINUED] ondansetron [DISCONTINUED] ondansetron [DISCONTINUED] oxyCODONE OR [DISCONTINUED] oxyCODONE [DISCONTINUED] promethazine [DISCONTINUED] propofol [DISCONTINUED] propofol [DISCONTINUED] rocuronium [COMPLETED] Insert peripheral IV AND [CANCELED] Saline lock IV AND [DISCONTINUED] sodium chloride AND [DISCONTINUED] sodium chloride [DISCONTINUED] sugammadex Current Outpatient Medications on File Prior to Encounter: amitriptyline, Take by mouth every night. ANTIHEMOPHILIC FACTOR-VWF IV, Take by mouth every 6 (six) hours. celecoxib, Take by mouth 1 (one) time each day. clonazePAM, Take 1 tablet (0.5 mg) by mouth 2 (two) times a day if needed for seizures. Quviviq, Take by mouth every night. diazePAM, Take by mouth every 6 (six) hours. (Patient not taking: Reported on 09/08/2023) dicyclomine, Take by mouth 4 (four) times a day (before meals and nightly). EPINEPHrine (EPIPEN IJ), Take by mouth every 6 (six) hours. etonogestrel-ethinyl estradiol, Insert vaginally and leave in place for 3 consecutive weeks continuously. famotidine, Take by mouth 1 (one) time each day. fluconazole, Take by mouth every 6 (six) hours. (Patient not taking: Reported on 02/05/2025) gabapentin, Take 1 capsule (300 mg) by mouth. 2 capsules BID, 3 capsules QHS GABAPENTIN 100 MG/ML ORAL SUSPENSION, HYDROcodone-acetaminophen, Take by mouth every 6 (six) hours if needed. hydrOXYzine HCl, Take by mouth every 6 (six) hours. (Patient not taking: Reported on 09/08/2023) lamoTRIgine, Take by mouth every night. omeprazole, Take 1 capsule (20 mg) by mouth 1 (one) time each day. Do not crush or chew. ondansetron, Take by mouth every 8 (eight) hours if needed. OXcarbazepine, Take by mouth 2 (two) times a day. tamsulosin, Take by mouth 1 (one) time each day. tiZANidine, Take 1 capsule (4 mg) by mouth 3 (three) times a day. tranexamic acid, Take 2 tablets by mouth 3 times a day. Vortioxetine HBr, Take 2 tablets (10 mg) by mouth 1 (one) time each day. Cosigned by Mima Sheehan MD at 02/23/2025 2:42 PM EDT Associated attestation - Mima Sheehan MD - 02/23/2025 2:42 PM EDT Signature only. * ED Provider Notes - Maye Munson DO - 02/22/2025 5:09 PM EDT - HPI Chief Complaint Patient presents with Seizures 29-year-old female with past medical history Lamar-Danlos, Von Willebrand's, PNES, fibromyalgia, and hypertension, Pt presents from IR suite for possible seizure activity. Patient states that she was having right-sided port removed and left-sided IR CVC placed states that she has had vomiting today x2. Unknown events surrounding seizure. Patient states that she has a history of nonepileptic seizures does not know if she had 1 episode today. Patient History Past Medical History[1] Surgical History[2] Family History[3] Social History[4] Allergies: Sig list see prev records Physical Exam ED Triage Vitals [02/22/25 1712] Temp Heart Rate Resp BP 36.6 ??C (97.9 ??F) 80 11 (!) 140/100 SpO2 Temp Source Heart Rate Source Patient Position 95 % Oral Monitor -- BP Location FiO2 (%) -- -- Physical Exam Vitals and nursing note reviewed. Constitutional: General: She is not in acute distress. Appearance: She is well-developed. HENT: Head: Normocephalic and atraumatic. Eyes: Conjunctiva/sclera: Conjunctivae normal. Cardiovascular: Rate and Rhythm: Normal rate and regular rhythm. Heart sounds: No murmur heard. Pulmonary: Effort: Pulmonary effort is normal. No respiratory distress. Breath sounds: Normal breath sounds. Abdominal: Palpations: Abdomen is soft. Tenderness: There is no abdominal tenderness. Musculoskeletal: General: No swelling. Cervical back: Neck supple. Skin: General: Skin is warm and dry. Capillary Refill: Capillary refill takes less than 2 seconds. Findings: Bruising present. Neurological: General: No focal deficit present. Mental Status: She is alert. Cranial Nerves: No cranial nerve deficit. Motor: No weakness. Psychiatric: Mood and Affect: Mood normal. Tyler Coma Scale Score: 15 ED Course & MDM - Assessment: 29 y.o. female presents to ED with complaint of seizure. It should be noted that the chronic conditions includes Lamar-Danlos, Von Willebrand's, PFTS, fibromyalgia, and hypertension, PNS , which currently is not at goal therapy. This complicates the clinical picture because it Comorbidities: may be exacerbating symptoms Differential Diagnosis: PNES, seizure, electrolyte derangement, In order to fully explore the differential diagnosis the following treatments and tests were ordered: ED Medication Administration from 02/22/2025 1622 to 02/23/2025 0054 Date/Time Order Dose Route Action 02/22/2025 1753 EDT lactated Ringer's infusion 1,000 mL 1,000 mL Intravenous New Bag 02/22/2025 1809 EDT ondansetron (Zofran) injection 4 mg 4 mg Intravenous Given 02/22/2025 1933 EDT ondansetron (Zofran) injection 4 mg 4 mg Intravenous Given 02/22/2025 194 EDT lactated Ringer's infusion 1,000 mL 0 mL Intravenous Stopped All Other Orders Ordered Status Ordering Provider 02/22/252233 Consult to Neurology Once Specialty: Neurology Provider: (Not yet assigned) Acknowledged MAYE MUNSON 02/22/25 2210 CMP STAT Final result MAYE MUNSON 02/22/25 194 XR Chest 1 View One time imaging Final result MAYE MUNSON 02/22/25 1743 hCG qualitative STAT Final result TANIYA KEITHICA L 02/22/25 1743 CMP STAT Final result CONSTANZA KEITHSSICA L 02/22/25 1743 Magnesium STAT Final result CONSTANZA KEITHSSICA L 02/22/25 1743 Phosphorus STAT Final result BINA KEITH 02/22/25 1743 CBC w/diff STAT Final result BINA KEITH 02/22/25 1743 Lactic acid, venous STAT Final result BINA KEITH ED Course as of 02/23/25 0054 TueFeb 22, 2025 2100 XR Chest 1 View No PTX, or focal consolidation [] 2208 CBC w/diff(!) [SM] 2209 XR Chest 1 View [SM] 2242 CMP(!) All labs look significantly deranged from previous lab draw, we will repeat CMP to verify accurate test. [SM] ED Course User Index [SM] Maye Munson DO While in the emergency department the patient did experience an episode that her family described as a seizure. On my evaluation in the room the patient had gaze deviation however had intact corneal reflexes with no tachycardia noted. There was no hypoxia. Patient immediately returned to baseline after I gave her verbal reassurance and was able to communicate with me immediately after episode. Total duration of event was approximately 1 minute. Pupils remained even and reactive to light. Patient did not have any obvious focal deficit during or after this time. Patient states that her head is aching and that she has pain over her port excision site that she had done earlier today. I have low concern that she has an acute neurologic emergency however given her chronic history and risk of possible conversion in the setting of previous neurogenic and hematologic disease we will consult Neurology for evaluation and their recommendations. Social Determinates of Health Risks (including Economic Stability, Education and level of understanding, Healthcare access and quality and concerning social factors): Poor social support Ultimately, this patient was was [facility] ([facility]igned Out) Patient care assumed by [facility] provider, Dr Arellano, at shift change, tentative plan at the time of sign-out was evaluation by Neurology likely admission for possible seizure disorder versus PNES ED Prescriptions None - [1] Past Medical History: Diagnosis Date Acute bronchitis, unspecified Acute bronchitis Acute sinusitis, unspecified Acute sinusitis Acute suppurative otitis media without spontaneous rupture of ear drum, unspecified ear Acute suppurative otitis media Anemia Anxiety Bleeding disorder ([facility] 1996 Chills (without fever) Chills Coagulation defect, [...] dysfunction Tuberculosis of spine Holder disease [2] Past Surgical History: Procedure Laterality Date ANKLE SURGERY N/A Ankle Repair from [facility] CHOLECYSTECTOMY N/A Cholecystectomy Laparoscopic from [facility] ORAL SURGERY N/A Oral Surgery Tooth Extraction from [facility] ORTHOPEDIC SURGERY OTHER SURGICAL HISTORY N/A History of other surgery from [facility] OTHER SURGICAL HISTORY N/A History of oral surgery from [facility] OTHER SURGICAL HISTORY N/A History of rhinoplasty from [facility] OTHER SURGICAL HISTORY N/A History of ear surgery from [facility] OTHER SURGICAL HISTORY N/A History of throat surgery from [facility] OTHER SURGICAL HISTORY N/A History of laparoscopic cholecystectomy from [facility] PORTACATH PLACEMENT TRIGGER POINT INJECTION [3] Family History Problem Relation Name Age of Onset Anxiety disorder Other Conversions - Other Mother Michelle Calcium nephrolithiasis Depression Mother Michelle Endometriosis Mother Michelle Thyroid disease Mother Michelle Migraines Mother Michelle Autoimmune disease Mother Michelle Miscarriages / Stillbirths Mother Michelle Conversions - Other Other Factor VIII deficiency hemophilia Arthritis Other Asthma Other Clotting disorder Other Kidney Infection Other Breast cancer Other Seizures Sister Julia Autoimmune disease Sister Julia Hearing loss Sister Julia Heart disease Sister Julia Intellectual Disability Sister Julia Vision loss Sister Julia Developmental delay Sister Julia Joint pain/problems Other Conversions - Other Father Von Willebrand's Disease Alcohol abuse Maternal Grandfather Edison Arthritis Maternal Grandfather Edison Drug abuse Maternal Grandfather Edison Hearing loss Maternal Grandfather Edison Mental illness Maternal Grandfather Edison COPD Maternal Grandfather Edison Arthritis Maternal Grandmother Amee Asthma Maternal Grandmother Amee Cancer Maternal Grandmother Amee Mental illness Paternal Grandmother N/A [4] Tobacco Use Smoking status: Never Passive exposure: Yes Smokeless tobacco: Never Substance Use Topics Alcohol use: Not Currently Drug use: Yes Types: Marijuana Comment: Drug use: Drug Use Maye Munson DO Resident 02/23/25 005 Cosigned by Bina Keith DO at 02/23/2025 3:10 PM EDT Associated attestation - Bina Keith DO - 02/23/2025 3:10 PM EDT I saw and evaluated the patient with the resident/fellow. I discussed the case with the resident/fellow and agree with the findings and plan as documented. * ED Triage Notes - Alisa Rodrigues RN - 02/22/2025 5:09 PM EDT Pt from IR recovery after extended recovery time and seizure lasting ~2 minutes. Pt was given 2.5mgversed during seizure and droperidol for nausea. Pt had right chest wall PORT removed and left chest wall tunneled cath placed. Pt arrives drowsy but EMV-15 with NS running. Pt had one episode of vomiting upon arrival to ED. * Progress Notes - Jad Arellano MD - 02/22/2025 5:09 PM EDT ED TRANSFER OF CARE NOTE Transferring provider: Arpit Pelaez attending: George HENDRICKS Time: 11:34pm I received sign-out and accepted care of this patient from the previous ED providers caring for this patient. I reviewed the patient's history, exam, work- up, and treatment plan up to this point. Please see the primary ED Provider Note for complete elements of the history, physical exam, and ED course. PERTINENT HISTORY: In brief, Merced Hays is a 29 y.o. female with relevant PMH of POTS, fibromyalgia, PNES and EDS who presented to the ED for evaluation of a shaking episode. Patient has been off AEDs for >1 year. No seizure activity here. Neuro called to further differentiate seizuresemiology. PENDING: I accepted care of this patient from the previous provider while waiting for evaluation and/or recommendations from: Neurology. Ultimately, the aforementioned service recommended discharge ED Medication Administration from 02/22/2025 1622 to 02/22/2025 2334 Date/Time Order Dose Route Action 02/22/2025 1753 EDT lactated Ringer's infusion 1,000 mL 1,000 mL Intravenous New Bag 02/22/2025 1809 EDT ondansetron (Zofran) injection 4 mg 4 mg Intravenous Given 02/22/2025 1933 EDT ondansetron (Zofran) injection 4 mg 4 mg Intravenous Given 02/22/2025 194 EDT lactated Ringer's infusion 1,000 mL 0 mL Intravenous Stopped ED COURSE: ED Course as of 02/23/25 164TueFeb 22, 2025 2100 XR Chest 1 View No PTX, or focal consolidation [] 2207 CBC w/diff(!) [] 2208 XR Chest 1 View [] 2241 CMP(!) All labs look significantly deranged from previous lab draw, we will repeat CMP to verify accurate test. [] ED Course User Index [] Maye Munson, DO Clinical Impressions as of 02/23/25 1644 Seizure-like activity (CMS/HCC) Ultimately, this patient Was discharged Home (Discharge) The encounter diagnosis was Seizure-like activity (CMS/HCC). . Patient was counseled onthe diagnoses. Discharge medications if any are listed below. Listed medications are thought be either curative for listed diagnoses or will help control ongoing symptoms. Patient is requested to follow up with Patient's Primary Care Provider in order to obtain routine follow-up. Instructions on follow up as well as precautions to return to the ER provided verbally by the EM provider, as well as written in patients discharge education packet. ED Prescriptions None - Jad Arellano MD Cosigned by Sander Schwarz MD at 02/24/2025 3:58 AM EDT Associated attestation - Sander Schwarz MD - 02/24/2025 3:58 AM EDT Seen by resident only. documented in this encounter Plan of Treatment Not on file documented as of this encounter Goals Goal Patient Goal Type Associated Problems Recent Progress Patient-Stated? Author Autogenera elsa Goal Care Plan Autogenerated Problem No SkyJungEliza K documented as of this encounter Procedures Procedure Name Priority Date/Time Associated Diagnosis Comments COMPREHENSIVE METABOLIC PANEL, PLASMA STAT 02/22/2025 10:17 PM EDT XR CHEST 1 VIEW STAT 02/22/2025 8:26 PM EDT LACTATE, VENOUS STAT 02/22/2025 5:53 PM EDT CBC WITH AUTO DIFFERENTIAL STAT 02/22/2025 5:53 PM EDT TEST QUALITATIVE PLASMA STAT 02/22/2025 5:53 PM EDT PHOSPHORUS, PLASMA STAT 02/22/2025 5: 53 PM EDT MAGNESIUM, PLASMA STAT 02/22/2025 5:5 3 PM EDT COMPREHENSIVE METABOLIC PANEL, PLASMA STAT 02/22/2025 5:53 PM EDT documented in this encounter Results * (ABNORMAL) CMP (02/22/2025 10:17 PM EDT) Glucose, Plasma 107(H) 74 - 99 mg/dL 02/22/2025 10:[address] [facility] BUN, Plasma 5(L) 7 - 21 mg/dL 02/22/2025 10:[address] [facility] Creatinine, Plasma 0.55(L) 0.60 - 1.10 mg/dL 02/22/2025 10:[address] [facility] BUN/Creatinine Ratio 9 02/22/2025 10:[address] [facility] Sodium, Plasma 125(L) 136 - 145 mmol/L 02/22/2025 10:[address] [facility] Potassium, Plasma 4.5 3.6 - 4.9 mmol/L 02/22/2025 10:[address] [facility] Comment:Hemolyzed - Potassiu m may be falsely elevated by approximately 0.4-0.7 mmol/L. Chloride, Plasma 95(L) 97 - 107 mmol/L 02/22/2025 10:[address] [facility] CO2, Plasma 18(L) 22 - 29 mmol/L 02/22/2025 10:[address] [facility] Anion Gap 12 6 - 16 mmol/L 02/22/2025 10:[address] [facility] Total Calcium, Plasma 8.7(L) 8.9 - 10.2 mg/dL 02/22/2025 10:[address] [facility] Total Protein 6.6 6.3 - 7.9 g/dL 02/22/2025 10:[address] [facility] Albumin, Plasma 3.7 3.5 - 5.2 g/dL 02/22/2025 10:[address] [facility] AST, Plasma 23 10 - 35 U/L 02/22/2025 10:[address] [facility] Comment:Hemolyzed, result ma y be falsely increased. ALT, Plasma 8(L) 10 - 35 U/L 02/22/2025 10:[address] [facility] Alkaline Phosphatase, Plasma 140(H) 35 - 104 U/L 02/22/2025 10:[address] [facility] Total Bilirubin, Plasma 0.3 0.2 - 1.1 mg/dL 02/22/2025 10:[address] [facility] eGFRcr 128.2 mL/min/1. 73m*2 02/22/2025 10:[address] [facility] Comment:Reported eGFRcr in m L/min/1.73m2 is based the CKD-EPI 2020 equation that does not use a race coefficient. Blood Venous blood specimen / Unknown Venipuncture / Unknown 02/22/2025 10:17 PM EDT 02/22/2025 10:22 PM EDT us Bina Keith DO LAB BLOOD ORDERABLES Final Re sult [facility] [address] [place] [address] * XR Chest 1 View (02/22/2025 8:26 PM EDT) Anatomical Region Laterality Modality Chest Digital Radiogra phy Impressions 02/22/2025 8:40 PM EDT Interval removal of right chest wall Port-A-Cath with placement of the left central venous catheter with tip in the lower SVC. Cardiomediastinal silhouette is within normal limits. No focal consolidation, pleural effusion, or discrete pneumothorax. No acute osseous abnormality. CRITICAL RESULT: No. COMMUNICATION: Per this written report. ATTESTATION: Not applicable. Drafted by Magaly Sandoval MD on 02/22/2025 8:39 PM Final report signed by Magaly Sandoval MD on 02/22/2025 8:40 PM Narrative 02/22/2025 8:40 PM EDT CLINICAL INDICATION: recent cVc placement TECHNIQUE: XR CHEST 1 VIEW COMPARISON: 01/10/2025 FINDINGS: Interval removal of right chest wall Port-A-Cath with placement of the left central venous catheter with tip in the lower SVC. Cardiomediastinal silhouette is within normal limits. No focal consolidation, pleural effusion, or discrete pneumothorax. No acute osseous abnormality. Procedure Note Magaly Sandoval MD - 02/22/2025 CLINICAL INDICATION: recent cVc placement TECHNIQUE: XR CHEST 1 VIEW COMPARISON: 01/10/2025 FINDINGS: Interval removal of right chest wall Port-A-Cath with placement of theleft central venous catheter with tip in the lower SVC. Cardiomediastinalsilhouette is within normal limits. No focal consolidation, pleuraleffusion, or discrete pneumothorax. No acute osseous abnormality. IMPRESSION: Interval removal of right chest wall Port-A-Cath with placement of theleft central venous catheter with tip in the lower SVC. Cardiomediastinalsilhouette is within normal limits. No focal consolidation, pleuraleffusion, or discrete pneumothorax. No acute osseous abnormality. CRITICAL RESULT: No. COMMUNICATION: Per this written report. ATTESTATION: Not applicable. Drafted by Magaly Sandoval MD on 02/22/2025 8:39 PM Final report signed by Magaly Sandoval MD on 02/22/2025 8:40 PM us Bina Keith DO IMG XR PROCEDURES Final Resul t * hCG qualitative (02/22/2025 5:53 PM EDT) Test Negative Negative 02/22/2025 6:[address] [facility] Blood Venous blood specimen / Unknown Venipuncture / Unknown 02/22/2025 5:53 PM EDT 02/22/2025 5:[address] [facility] - 02/22/2025 6:21 PM EDT Reference Range: Males and non- females: Negative. us Bina Keith DO LAB BLOOD ORDERABLES Final Re sult [facility] [address] [place] [address] * (ABNORMAL) Lactic acid, venous (02/22/2025 5:53 PM EDT) Lactate, Venous, Whole Blood <0.4(L) 0.5 - 2.2 mmol/L LAB HEMATOLOGY METHOD 02/22/2025 6:[address] [facility] Blood Venous blood specimen / Unknown Venipuncture / Unknown 02/22/2025 5:53 PM EDT 02/22/2025 5:55 PM EDT us Bina Keith DO LAB BLOOD ORDERABLES Final Re sult [facility] [address] [place] [address] * (ABNORMAL) CBC w/diff (02/22/2025 5:53 PM EDT) Pathologist [facility] WBC Count 9.84 3.70 - 10.30 10*3/uL LAB HEMATOLOGY METHOD 02/22/2025 5:[address] [facility] RBC Count 4.13 3.90 - 5.20 10*6/uL LAB HEMATOLOGY METHOD 02/22/2025 5:[address] [facility] HGB 11.1(L) 11.2 - 15.7 g/dL LAB HEMATOLOGY METHOD 02/22/2025 5:[address] [facility] HCT 33.0(L) 34.0 - 45.0 % LAB HEMATOLOGY METHOD 02/22/2025 5:[address] [facility] Platelet Count 244 155 - 369 10*3/uL LAB HEMATOLOGY METHOD 02/22/2025 5:[address] [facility] MCV 80 79 - 98 fL LAB HEMATOLOGY METHOD 02/22/2025 5:[address] [facility] MCH 26.9 26.0 - 32.0 pg LAB HEMATOLOGY METHOD 02/22/2025 5:[address] [facility] MCHC 33.6 30.7 - 35.5 g/dL LAB HEMATOLOGY METHOD 02/22/2025 5:[address] [facility] RDW 12.1 11.5 - 14.5 % LAB HEMATOLOGY METHOD 02/22/2025 5:[address] [facility] MPV 9.7 8.8 - 12.5 fL LAB HEMATOLOGY METHOD 02/22/2025 5:[address] [facility] nRBC 0.0 <=0.0 per 100 WBCs LAB HEMATOLOGY METHOD 02/22/2025 5:[address] [facility] Differential Type Automated LAB HEMATOLOGY METHOD 02/22/2025 5:[address] [facility] Neutrophils % 80 % LAB HEMATOLOGY METHOD 02/22/2025 5:[address] [facility] Lymphocytes % 13 % LAB HEMATOLOGY METHOD 02/22/2025 5:[address] [facility] Monocytes % 7 % LAB HEMATOLOGY METHOD 02/22/2025 5:[address] [facility] Eosinophils % 0 % LAB HEMATOLOGY METHOD 02/22/2025 5:[address] [facility] Basophils % 0 % LAB HEMATOLOGY METHOD 02/22/2025 5:[address] [facility] Immature Granulocytes % 0 % LAB HEMATOLOGY METHOD 02/22/2025 5:[address] [facility] Neutrophils Absolute 7.78(H) 1.60 - 6.10 10*3/uL LAB HEMATOLOGY METHOD 02/22/2025 5:[address] [facility] Lymphocytes Absolute 1.25 1.20 - 3.90 10*3/uL LAB HEMATOLOGY METHOD 02/22/2025 5:[address] [facility] Monocytes Absolute 0.71 0.30 - 0.90 10*3/uL LAB HEMATOLOGY METHOD 02/22/2025 5:[address] [facility] Eosinophils Absolute 0.03 0.00 - 0.50 10*3/uL LAB HEMATOLOGY METHOD 02/22/2025 5:[address] [facility] Basophils Absolute 0.03 0.00 - 0.10 10*3/uL LAB HEMATOLOGY METHOD 02/22/2025 5:[address] [facility] Immature Granulocytes Absolute 0.04 0.00 - 0.06 10*3/uL LAB HEMATOLOGY METHOD 02/22/2025 5:[address] [facility] Blood Venous blood specimen / Unknown Venipuncture / Unknown 02/22/2025 5:53 PM EDT 02/22/2025 5:[address] [facility] - 02/22/2025 5:57 PM EDT Therapeutic decision making should be based on absolute values, rather than percentages. us Bina Narayanan [employer] DO LAB BLOOD ORDERABLES Final Re sult Performing Organization Address [facility]/State/ZIP Co de Phone Number [facility] [address] [place] [address] * Phosphorus (02/22/2025 5:53 PM EDT) Phosphorus, Plasma 3.1 2.5 - 4.5 mg/dL 02/22/2025 6:[address] [facility] Blood Venous blood specimen / Unknown Venipuncture / Unknown 02/22/2025 5:53 PM EDT 02/22/2025 5:55 PM EDT us Bina Narayanan [employer] DO LAB BLOOD ORDERABLES Final Re sult Performing Organization Address [facility]/ZIP Co de Phone Number [facility] [address] [place] [address] * (ABNORMAL) Magnesium (02/22/2025 5:53 PM EDT) Magnesium, Plasma 1.5(L) 1.9 - 2.4 mg/dL 02/22/2025 6:21 PM EDT [facility] Blood Venous blood specimen / Unknown Venipuncture / Unknown 02/22/2025 5:53 PM EDT 02/22/2025 5:55 PM EDT Bina Lady [employer] DO LAB BLOOD ORDERABLES Final Re sult [facility] [address] [place] [address] * (ABNORMAL) CMP (02/22/2025 5:53 PM EDT) Glucose, Plasma 89 74 - 99 mg/dL 02/22/2025 6:[address] [facility] BUN, Plasma 5(L) 7 - 21 mg/dL 02/22/2025 6:[address] [facility] Creatinine, Plasma 0.65 0.60 - 1.10 mg/dL 02/22/2025 6:[address] [facility] BUN/Creatinine Ratio 8 02/22/2025 6:[address] [facility] Sodium, Plasma 127(L) 136 - 145 mmol/L 02/22/2025 6:[address] [facility] Potassium, Plasma 3.7 3.6 - 4.9 mmol/L 02/22/2025 6:[address] [facility] Chloride, Plasma 96(L) 97 - 107 mmol/L 02/22/2025 6:[address] [facility] CO2, Plasma 22 22 - 29 mmol/L 02/22/2025 6:[address] [facility] Anion Gap 9 6 - 16 mmol/L 02/22/2025 6:[address] [facility] Total Calcium, Plasma 8.4(L) 8.9 - 10.2 mg/dL 02/22/2025 6:[address] [facility] Total Protein 6.1(L) 6.3 - 7.9 g/dL 02/22/2025 6:[address] [facility] Albumin, Plasma 3.5 3.5 - 5.2 g/dL 02/22/2025 6:[address] [facility] AST, Plasma 14 10 - 35 U/L 02/22/2025 6:[address] [facility] ALT, Plasma 7(L) 10 - 35 U/L 02/22/2025 6:[address] [facility] Alkaline Phosphatase, Plasma 122(H) 35 - 104 U/L 02/22/2025 6:[address] [facility] Total Bilirubin, Plasma 0.2 0.2 - 1.1 mg/dL 02/22/2025 6:[address] [facility] eGFRcr 123.2 mL/min/1.7 3m*2 02/22/2025 6:[address] [facility] Comment:Reported eGFRcr in m L/min/1.73m2 is based the CKD-EPI 2020 equation that does not use a race coefficient. Blood Venous blood specimen / Unknown Venipuncture / Unknown 02/22/2025 5:53 PM EDT 02/22/2025 5:55 PM EDT us Binavaleriy Keith DO LAB BLOOD ORDERABLES Final Re sult [facility] [address] [place] [address] documented in this encounter Visit Diagnoses Diagnosis Seizure-like activity (CMS/HCC)- Primary documented in this encounter Administered Medications Inactive Administered Medications - up to 3 most recent administrations Medication Order MAR Action Action Date Dose Rate Site acetaminophen (Tylenol) tablet 650 mg 650 mg, Oral, Once, 1 dose, On 02/23/25 at 0410, STAT Given 02/23/2025 4:31 AM EDT 650 mg lactated Ringer's infusion 1,000 mL 1,000 mL, Intravenous, Once, 1 dose, On Tue02/22/25 at 1745, STAT New Bag 02/22/2025 5:53 PM EDT 1,000 mL ondansetron (Zofran) injection 4 mg 4 mg, Intravenous, Once, 1 dose, On Tue02/22/25 at 1805, STAT Given 02/22/2025 6:09 PM EDT 4 mg ondansetron (Zofran) injection 4 mg 4 mg, Intravenous, Once, 1 dose, On Tue02/22/25 at 1910, STAT Given 02/22/2025 7:33 PM EDT 4 mg documented in this encounter Active and Recently Administered Medications Times are shown in EDT. Scheduled Medication Order 02/21/2025 02/22/2025 02/23/2025 acetaminophen (Tylenol) tablet 650 mg (COMPLETED) 650 mg, Oral, Once, 1 dose, On 02/23/25 at 0410, STAT 0431 (Given - Provid er: Tyra Avila) lactated Ringer's infusion 1,000 mL (COMPLETED) 1,000 mL, Intravenous, Once, 1 dose, On Tue02/22/25 at 1745, STAT 1753 (New Bag - Provider: Alisa Rodrigues RN)1945 (Stopped - Provider: Tyra Avila) ondansetron (Zofran) injection 4 mg (COMPLETED) 4 mg, Intravenous, Once, 1 dose, On Tue02/22/25 at 1805, STAT 1809 (Given - Provider: Alisa Rodrigues RN) ondansetron (Zofran) injection 4 mg (COMPLETED) 4 mg, Intravenous, Once, 1 dose, On Tue02/22/25 at 1910, STAT 1933 (Given - Provider: Tyra Avila) documented in this encounter Additional Health Concerns Active Problems Noted Date Diagnosed Date Autogenerated Problem 02/06/2025 Assessment Noted Time A fall risk assessment has been complete d for the patient 10/30/2020 3:45 PM EDT A Body Mass Index follow-up plan has been documented for the patient 02/06/2025 11:15 AM EDT documented as of this encounter Care Teams Director Talent Acquisition Relationship Specialty Start Date End Date Justino Zheng MD [address] [place] [address] PCP - General 09/15/20 documented as of this encounter
--- OUTSIDE RECORDS SUMMARY | 2025-03-07 15:00 | XMS_ITS | Encounter Summary ---
Author Organization [facility] Address [address] [place] [address] Care Team Providers Care Class C Truck Driver Name Role Phone Justino Zheng MD Primary Care Provider [phone] Reason for Visit * Consultation (Routine) - Closed Specialty Diagnoses / Procedures Referred By Contact Referred To Contact Interventional Radiology Diagnoses H/O insertion of central venous access port Von Willebrand's disease (CMS/HCC) Oswald Rizvi MD [address] [place] [address] Phone: tel:[phone] fax:[phone] [facility] Vascular Interventional Radiology [address] [facility] [address] [address] Phone: tel: Referral ID Status Reason Start Date Expiration Date V isits Requested Visits Authorized [id number] Closed Specialty Services Required 02/22/2025 08/24/2026 1 1 Encounter Details Date Type Department Care Team (Latest Contact Info) Description 03/07/2025 3:00 PM EST Office Visit [facility] Interventional Radiology [address] [facility] [address] [address] Marcella Carter APRN [address] [place] [address] Wound check, abscess (Primary Dx) Social History Tobacco Use Types [...] Reading Time Taken Comments Blood Pressure 138/92 03/07/2025 3:11 PM EST Pulse 122 03/07/2025 3:11 PM EST Temperature - - Respiratory Rate - - Oxygen Saturation 99% 03/07/2025 3:11 PM EST Inhaled Oxygen Concentration - - Weight - - Height 154.9 cm (5' 1 ) 03/07/2025 3:11 PM EST Body Mass Index - - documented in this encounter Miscellaneous Notes * Progress Notes - Marcella Carter, MATTI - 03/07/2025 3:00 PM EST Images from the original note were not included. Subjective History of Present Illness: NINA Phamvera Hays is a 29 y.o. year old female with ADHD, anxiety, chronic pain / fibromyalgia,HTN, migraines, OCD, PTSD, Lamar-Danlos syndrome, von Willebrand disease who receives needs manager intermediate CVC for frequent infusions. She has had previous port placement in the past 06/2022 and removed 01/2023 - removed due to skin dehiscence. She lives with her mother who accesses the port for her infusions. She was referred to [facility] for Port placement on 10/14/2023 with GA. She had port removed on 02/22 for dehiscence. She presents today due to port removal site dehiscence. She presents with her dog and her mother. She reports she had been placing triple antibiotic cream over her port site. She states yesterday shenoted there was a whole over the port removal site with drainage. Pt denies fever, chills, nausea, vomiting, or abdominal pain. Allergies: Banana, Food, Grapefruit extract, Latex, Other, Duloxetine hcl, Amoxicillin, Aspirin, Banana concentrate [flavoring agent (non-screening)], Cetirizine, Desmopressin, Duloxetine, Erythromycin, Ibuprofen, Ketorolac, Ketorolac tromethamine, [place], and [place] extract Medications: Current Medications[1] Past Surgical History: [...] drum, unspecified ear, Anemia, Anxiety, Bleeding disorder (CMS/HCC) ( 1996), Chills (without fever), Coagulation defect, [...] except for above. Objective Physical Exam: Vitals: 03/07/25 1511 BP: (!) 138/92 Pulse: (!) 122 SpO2: 99% Physical Exam Constitutional: Appearance: Normal appearance. Eyes: Pupils: Pupils are equal, round, and reactive to light. Cardiovascular: Rate and Rhythm: Regular rhythm. Pulmonary: Effort: Pulmonary effort is normal. Abdominal: Palpations: Abdomen is soft. Skin: General: Skin is warm. Comments: Port removal site with dehiscence, measuring approx 1 cm Neurological: General: No focal deficit present. Mental Status: She is alert and oriented to person, place, and time. Psychiatric: Mood and Affect: Mood normal. Behavior: Behavior normal. Imaging: IR Tunneled CVC Replacement Complete Narrative: CLINICAL INDICATION: 29 year old female PMHx of ADHD, anxiety, chronic pain / fibromyalgia, HTN, migraines, OCD, PTSD, Lamar-Danlos syndrome, von Willebrand disease presenting for tunneled port removal initially placed 10/14/23 as well as powerline placement. TECHNIQUE: Glass Cutter: Oswald Rizvi M.D. Rad Dose: 2 mGy [...] was exchanged over a wire for a peel-away sheath. The wire and inner dilator of the peel-away sheath were removed. Tunneled powerline was advanced through the peel- away sheath and the peel-away sheath removed. The tunneledcatheter was positioned such the tip was at [...] Patent left internal jugular vein. COMPLICATION: No. Impression: Successful right chest tunneled port removal, as [...] Oswald Rizvi MD on 02/23/2025 3:53 PM Labs: Labs in chart were reviewed. Lab Results Component Value Date WBC 9.84 02/22/2025 HGB 11.1 (L) 02/22/2025 HCT 33.0 (L) 02/22/2025 PLT 244 02/22/2025 Lab Results Component Value Date NA 125 (L) 02/22/2025 K 4.5 02/22/2025 CL 95 (L) 02/22/2025 CO2 18 (L) 02/22/2025 BUN 5 (L) 02/22/2025 CREATININE 0.55 (L) 02/22/2025 GLUCOSE 107 (H) 02/22/2025 Lab Results Component Value Date CALCIUM 8.7 (L) 02/22/2025 MG 1.5 (L) 02/22/2025 PHOS 3.1 02/22/2025 Lab Results Component Value Date AST 23 02/22/2025 ALT 8 (L) 02/22/2025 ALKPHOS 140 (H) 02/22/2025 Lab Results Component Value Date APTT 30 [...] INR 2.5 to 3.5 Prevention of recurrent [place] INR 2.5 to 3.5 Assessment/Plan Port removal site dehiscence Von Willebrand's disease Lamar danlos syndrome Chronic pain syndrome Difficult vascular access Frequent port infections - Requires frequent factor IV infusions. - 07/05/22: Port placement in [place]. - 02/04/23: Port removed due to dehiscence. Given Humate-P prior to procedure. - Reportedly, per mother and patient, she receives factor IV PRN and IV fluids 3 times a week. -Spiritism - patient had port placed with IR on 10/13 with GA - Assessed in VIR for port malfunction on 02/05/25. It was noted that her port had dehiscence and serous leakage from port pocket. - Port removed on 02/22, left internal jugular powerline placed - Pt picture loaded in media PLAN: - Pt reported using triple antibiotic cream, Do Not recommend using - Recommend wet to dry dressing daily until healed - Follow up in 2 weeks (pt will be out of town next week) - Return to care as needed Thank you for allowing me to participate in the care of Merced Hays. Marcella Carter, MATTI Vascular & Interventional Radiology [1] Current Outpatient Medications: amitriptyline (Elavil) 50 MG tablet, Take by mouth every night., Disp: , Rfl: ANTIHEMOPHILIC FACTOR-VWF IV, Take by mouth every 6 (six) hours., Disp: , Rfl: celecoxib (CeleBREX) 200 MG capsule, Take by mouth 1 (one) time each day., Disp: , Rfl: clonazePAM (KlonoPIN) 0.5 MG disintegrating tablet, Take 1 tablet (0.5 mg) by mouth 2 (two) times aday if needed for seizures., Disp: , Rfl: Daridorexant HCl (Quviviq) 50 MG tablet, Take by mouth every night., Disp: , Rfl: diazePAM (Valium) 5 MG tablet, Take by mouth every 6 (six) hours. (Patient not taking: Reported on 09/08/2023), Disp: , Rfl: dicyclomine (Bentyl) 20 MG [...] (one) time each day., Disp: , Rfl: fluconazole (Diflucan) 150 MG tablet, Take by mouth every 6 (six) hours. (Patient not taking: Reported on 02/05/2025), Disp: , Rfl: gabapentin (Neurontin) 300 MG capsule, Take 1 capsule (300 mg) by mouth. 2 capsules BID, 3 capsulesQHS, Disp: , Rfl: GABAPENTIN 100 MG/ML ORAL SUSPENSION, , Disp: , Rfl: HYDROcodone-acetaminophen ([place]) 5-325 MG tablet, Take by mouth every 6 (six) hours if needed., Disp: , Rfl: hydrOXYzine HCl (Atarax) 25 MG tablet, Take by mouth every 6 (six) hours. (Patient not taking: Reported on 09/08/2023), Disp: , Rfl: lamoTRIgine (LaMICtal) 200 MG [...] (one) time each day., Disp: , Rfl: tiZANidine (Zanaflex) 4 MG capsule, Take 1 capsule (4 mg) by mouth 3 (three) times a day., Disp: , Rfl: tranexamic acid (Lysteda) 650 MG tablet tablet, Take 2 tablets by mouth 3 times a day., Disp: , Rfl: Vortioxetine HBr (Trintellix,) 5 MG tablet, Take 2 tablets (10 mg) by mouth 1 (one) time each day.,Disp: , Rfl: documented in this encounter Plan of Treatment Not on file documented as of this encounter Goals Goal Patient Goal Type Associated Problems Recent Progress Patient-Stated? Author Autogenera elsa Goal Care Plan Autogenerated Problem No Eliza Swanson documented as of this encounter Visit Diagnoses Diagnosis Wound check, abscess- Primary documented in this encounter Additional Health Concerns Active Problems Noted Date Diagnosed Date Autogenerated Problem 02/06/2025 Assessment Noted Time A fall risk assessment has been complete d for the patient 10/30/2020 3:45 PM EDT A Body Mass Index follow-up plan has been documented for the patient 03/07/2025 3:42 PM EST documented as of this encounter Care Teams Class C Truck Driver Relationship Specialty Start Date End Date Justino Zheng MD [address] [place] [address] PCP - General 09/15/20 documented as of this encounter
--- OUTSIDE RECORDS SUMMARY | 2025-03-08 16:15 | XMS_ITS | Encounter Summary ---
[facility] [address] [place] [id number] Care Team Providers Care Machine Filler Shredder Name Role Phone Justino Zheng MD Primary Care Provider + Reason for Visit * Reason Comments Chest Pain Sternal pain Encounter Details Date Type Department Care Team (Late st Contact Info) Description 03/08/2025 4:15 PM EST Office Visit [facility] [address] [place] [address] Justino Zheng MD [address] [place] [address] Open wound of right chest wall, subsequent encounter (Primary Dx); Neuropathic pain of chest Social History Tobacco Use Types Packs/Day Years [...] Sign Reading Time Taken Comments Blood Pressure 130/100 03/08/2025 4:08 PM EST Pulse 123 03/08/2025 4:08 PM EST Temperature 36.5 C (97.7 F) 03/08/2025 4:08 PM EST Respiratory Rate 20 03/08/2025 4:08 PM EST Oxygen Saturation 99% 03/08/2025 4:08 PM EST Inhaled Oxygen Concentration - - Weight 89.9 kg (198 lb 3.2 oz) 03/08/2025 4:08 P M EST Height 154.9 cm (5' 1 ) 03/08/2025 4:08 PM EST Body Mass Index 37.45 03/08/2025 4:08 PM EST documented in this encounter Progress Notes * Justino Zheng MD - 03/08/2025 4:15 PM EST Chief Complaint Patient presents with Chest Pain Sternal pain Subjective Merced Hays is a 29 y.o. who presents for Burning stinging pain around the chest wound where shehad a Mediport removed. Patient and her family are packing the wound daily. Objective Vital Signs: BP 130/100 Pulse (!) 123 Temp 97.7 ??F (36.5 ??C) Resp 20 Ht 154.9 cm (61 ) Wt 89.9 kg (198 lb 3.2 oz) SpO2 99% BMI 37.45 kg/m?? Physical Exam Vitals reviewed. Skin: Comments: There is an 8 mm open wound in the right upper chest with iodoform gauze present. Neurological: Mental Status: She is alert. Result Review Assessment and Plan Diagnoses and all orders for this visit: 1. Open wound of right chest wall, subsequent encounter (Primary) - HYDROcodone-acetaminophen ([place]) 5-325 MG per tablet; Take 1 tablet by mouth Every 6 (Six) HoursAs Needed for Severe Pain. Dispense: 30 tablet; Refill: 0 2. Neuropathic pain of chest Plan: Patient will be given a limited supply of [place] that will not exceed 2 weeks in total. Patient has had pruritus with use of topical lidocaine in the past and this will be avoided. Follow Up No follow-ups on file. Patient was given instructions and counseling regarding her condition or for health maintenance advice. Please see specific information pulled into the AVS if appropriate. documented in this encounter Plan of Treatment Upcoming Encounters Date Type Department Care Team (Late st Contact Info) Description 05/23/2025 1:45 PM EST Office Visit [facility] [address] [place] [address] Justino Zheng MD [address] [place] [address] documented as of this encounter Visit Diagnoses Diagnosis Open wound of right chest wall, subsequent encounter- Primary Neuropathic pain of chest documented in this encounter Additional Health Concerns Assessment Noted Time PHQ-2 Depression Total Score: 1 11/17/19 24 8:48 AM EDT documented as of this encounter Care Teams Machine Filler Shredder Relationship Specialty Start Date End Date Justino Zheng MD [address] [place] [address] PCP - General Family Medicine 11/05/21 documented as of this encounter
--- OUTSIDE RECORDS SUMMARY | 2025-03-19 13:00 | XMS_ITS | Encounter Summary ---
Author Organization Healthcare Address [address] [place] [address] Care Team Providers Care Cashier Wrapper Name Role Phone Justino Zheng MD Primary Care Provider [phone] Encounter Details Date Type Department Care Team (Latest Contact Info) Description 03/19/2025 1:00 PM EST [facility] Visit [facility] [address] [place] [address] Deana Dwyer, TOE STRIPPER, [facility] [address] [place] [address] H/O insertion of central venous access port (Primary Dx); Wound check, abscess Social History Tobacco Use Types Packs/Day Years [...] Sign Reading Time Taken Comments Blood Pressure 142/97 03/19/2025 12:51 PM EST Pulse 139 03/19/2025 12:51 PM EST Temperature 36.7 C (98.1 F) 03/19/2025 12:51 PM EST Respiratory Rate - - Oxygen Saturation 98% 03/19/2025 12:51 PM EST Inhaled Oxygen Concentration - - Weight 89.9 kg (198 lb 3.1 oz) 03/19/2025 12:51 PM EST Height - - Body Mass Index 37.45 03/07/2025 3:11 PM EST documented in this encounter Miscellaneous Notes * Progress Notes - Deana Dwyer, TOE STRIPPER, DNP - 03/19/2025 1:00 PM EST Images from the original note were not included. Subjective History of Present Illness: Merced Hays is a 29 y.o. year old female with ADHD, anxiety, chronic pain / fibromyalgia,HTN, migraines, OCD, PTSD, CRPS, Lamar-Danlos syndrome, von Willebrand disease who receives needs nursing home CVC for frequent infusions. She has had previous port placement in the past 06/2022 and removed 01/2023 - removed due to skin dehiscence. She lives with her mother who accesses the port for her infusions. She was referred to [facility] for Port placement on 10/14/2023 with [place]. She had port removed on 02/22/25 with [place] for dehiscence. She was seen for follow up on 03/07/25 and was noted to have dehiscence of the post removal incision, so wound was packed at that time. Her mother has continued packing and the wound is decreasing in size. Denies fever, chills, purulent drainage, redness or increase d tenderness at site. Allergies: Banana, Food, Grapefruit extract, Latex, Other, Duloxetine hcl, Amoxicillin, Aspirin, Banana concentrate [flavoring agent (non-screening)], Cetirizine, Desmopressin, Duloxetine, Erythromycin, Ibuprofen, Ketorolac, Ketorolac tromethamine, [place], and [place] extract Medications: Current Medications[1] Past Surgical History: [...] drum, unspecified ear, Anemia, Anxiety, Bleeding disorder ([facility]) ( 1996), Chills (without fever), Coagulation [...] except for above. Objective Physical Exam: Vitals: 03/19/25 1251 BP: (!) 142/97 Pulse: (!) 139 Temp: 36.7 ??C (98.1 ??F) SpO2: 98% Physical Exam Constitutional: Appearance: Normal appearance. Eyes: Pupils: Pupils are equal, round, and reactive to light. Cardiovascular: Rate and Rhythm: Regular rhythm. Pulmonary: Effort: Pulmonary effort is normal. Abdominal: Palpations: Abdomen is soft. Skin: General: Skin is warm. Comments: Port removal site with dehiscence Neurological: General: No focal deficit present. Mental [...] 10/14/23 as well as powerline placement. TECHNIQUE: Candy Separator Hard: Oswald Rizvi M.D. Rad Dose: 2 mGy [...] INR 2.5 to 3.5 Prevention of recurrent NM INR 2.5 to 3.5 Assessment/Plan Port removal site dehiscence Von Willebrand's disease Lamar danlos syndrome Chronic pain syndrome Difficult vascular access Frequent port infections - Requires frequent factor IV infusions. - 07/05/22: Port placement in [place]. - 02/04/23: Port removed due to dehiscence. Given Humate-P prior to procedure. - Reportedly, per mother and patient, she receives factor IV PRN and IV fluids 3 times a week. -Gnosticist - patient had port placed with IR on 10/13 with GA - Assessed in VIR for port malfunction on 02/05/25. It was noted that her port had dehiscence and serous leakage from port pocket. - Port removed on 02/22, left internal jugular powerline placed - She had port removed on 02/22/25 with GA for dehiscence - She was seen for follow up on 03/07/25 and was noted to have dehiscence of the post removal incision, so wound was packed at that time - Mother has continued packing and the wound is decreasing in size - Denies fever, chills, purulent drainage, redness or increased tenderness at site PLAN: - Continue wet to dry dressing daily until healed - Follow up in 1 month - Return to care as needed I spent 38 minutes on this encounter; including preparing to see the patient, which involved review/interpretation of diagnostics and reports, obtaining and/or reviewing separately obtained history, performing appropriate physical exam, communicating findings, reviewing labs/imaging, counseling/educating the patient, discussing potential complications (bleeding, infection, damage to surrounding structures), documentation in EMR and formulating subsequent treatment plan. This note was generated, at least in part, by Voice Recognition Technology in combination with keyboard input. It has been reviewed by the undersigned; however, may still contain unintended errors. Thank you for allowing me to participate in the care of Merced Hays. Deana Dwyer APRN, DNP Vascular & Interventional Radiology [1] Current Outpatient [...] ORAL SUSPENSION, , Disp: , Rfl: HYDROcodone-acetaminophen ([place]) 5-325 MG tablet, Take by mouth every [...] as of this encounter Visit Diagnoses Diagnosis H/O insertion of central venous access port- Primary Wound check, abscess documented in this encounter Additional Health Concerns Active Problems Noted Date Diagnosed Date Autogenerated Problem 02/06/2025 Assessment Noted Time A fall risk assessment has been complete d for the patient 10/30/2020 3:45 PM EDT A Body Mass Index follow-up plan has been documented for the patient 03/19/2025 1:30 PM EST documented as of this encounter Care Teams Cashier Wrapper Relationship Specialty Start Date End Date Justino Zheng MD [address] [place] [address] PCP - General 09/15/20 documented as of this encounter
--- OUTSIDE RECORDS SUMMARY | 2025-03-21 05:07 | XMS_ITS | Continuity of Care Document ---
Author Organization [facility] Phone Care Team Providers Care Dock Grader Name Role Phone CIERRA ASHLEY Admitting Unavailable SILVINO ANN Primary Care Unavailable CIERRA ASHLEY Primary Attending Unavailable ALLERGIES AND ADVERSE REACTIONS ALLERGIES AND ADVERSE REACTIONS Code System Allergy Substance Adverse Reaction Date Reaction (Severity) Comment Status Reported By Updated By 5640 RXNorm Motrin Rash (Severe) Shock active [id number] on March 20, 2025 12:59:35 AM UTC 1191 RXNorm Aspirin Rash (Severe) Shock active [id number] on March 20, 2025 12:59:35 AM UTC 84547 RXNorm Zyrtec Rash (Severe) Shock active [id number] on March 20, 2025 12:59:35 AM UTC LATEX (Free Text Allergy) Rash (Severe) Shock active [id number] on March 20, 2025 12:59:35 AM UTC 723 RXNorm Amoxicillin Adverse reaction to substance Not Specified active [id number] on March 20, 2025 12:59:35 AM UTC Strawberries (Free Text Allergy) Adverse reaction to substance Not Specified active [id number] on March 20, 2025 12:59:35 AM UTC 88545 RXNorm DULoxetine Adverse reaction to substance Not Specified active [id number] on March 20, 2025 12:59:35 AM UTC 90040 RXNorm Ketorolac Adverse reaction to substance Not Specified active [id number] on March 20, 2025 12:59:35 AM UTC Banana (Free Text Allergy) Adverse reaction to substance Not Specified active [id number] on March 20, 2025 12:59:35 AM UTC Kiwi (Actinidia Chinensis) (Free Text Allergy) Adverse reaction to substance Not Specified active [id number] on March 20, 2025 12:59:35 AM UTC Grapefruit (Free Text Allergy) Adverse reaction to substance Not Specified active [id number] on March 20, 2025 12:59:35 AM UTC BLOOD THINNERS (Free Text Allergy) Adverse reaction to substance (Moderate) Has factor 8 active [id number] on March 20, 2025 12:59:35 AM UTC 7984 RXNorm PENICILLIN Rash (Moderate) Shock active [id number] on March 20, 2025 12:59:35 AM UTC tomatoes (Free Text Allergy) Anaphylaxis due to substance (Severe) Adverse reaction to substance (Severe) Shock active [id number] on March 20, 2025 12:59:35 AM UTC HEPARIN Adverse reaction to substance (Moderate) BLOOD THINNERS HAS FACTOR 8 active [id number] on March 20, 2025 12:59:35 AM UTC 8410 RXNorm ALTEPLASE Adverse reaction to substance (Moderate) BLOOD THINNERS-H FACTOR 8 active [id number] on March 20, 2025 12:59:35 AM UTC 52414 RXNorm COUMADIN Adverse reaction to substance (Moderate) BLOOD THINNERS-H FACTOR 8 active [id number] on March 20, 2025 12:59:35 AM UTC 6469466 RXNorm ELIQUIS Adverse reaction to substance (Moderate) BLOOD THINNERS-H FACTOR 8 active [id number] on March 20, 2025 12:59:35 AM UT FAMILY HISTORY RELATION: Father Status: LIVING SNOMED-CT Diagnosis Age At Onset [id number] von Willebrand disorder RELATION: Mother Status: LIVING SNOMED-CT Diagnosis Age At Onset [id number] Disorder of thyroid gland [id number] Sleep apnea RESULTS Patient: LUIS Fry Date of : 1995 LABORATORY RESULTS ORDER 100: CBC AUTO W DIFF ( LOINC: 76011-0) ORDER DATE: March 20, 2025 12:24:00 AM UT Specimen Source: EDTA Specimen Type: Blood specime n with EDTA PERFORMING LAB: [address] [id number] Result Comment: Final Result Date: March 20, 2025 12:39:00 AM UT (TECH: VT) LOINC TEST FLAG RESULT REFERENCE RANGE UPDA SHANE BY 6690-2 Leukocytes [#/volume] in Blood by Automated count N 8.2 K/ul 4.0 K/ul - 10.5 K/ul March 20, 2025 12:39:00 AM UTC ([employer]) 789-8 Erythrocytes [#/volume] in Blood by Automated count N 4.5 M/mm3 4.2 M/mm3 - 6.4 M/mm3 March 20, 2025 12:39:00 AM UTC ([employer]) 718-7 Hemoglobin [Mass/volume] in Blood L 11.9 gm/dl 12.5 gm/dl - 16.0 gm/dl March 20, 2025 12:39:00 AM UTC ([employer]) 79375-7 Hematocrit [Volume Fraction] of Blood L 36.8 % 37.0 % - 47.0 % March 20, 2025 12:39:00 AM UTC ([employer]) 787-2 Erythrocyte mean corpuscular volume [Entitic volume] by Automated count N 82.0 fl 78 fl - 100 fl March 20, 2025 12:39:00 AM UTC ([employer]) 785-6 Erythrocyte mean corpuscular hemoglobin [Entitic mass] by Automated count L 26.5 pg 27 pg - 31 pg March 20, 2025 12:39:00 AM UTC ([employer]) 786-4 Erythrocyte mean corpuscular hemoglobin concentration [Mass/volume] by Automated count N 32.3 g/dl 32 g/dl - 36 g/dl March 20, 2025 12:39:00 AM UTC ([employer]) 64419-4 Erythrocyte distribution width [Ratio] N 13.2 % 11.5 % - 14.0 % March 20, 2025 12:39:00 AM UTC ([employer]) 777-3 Platelets [#/volume] in Blood by Automated count N 302 K/ul 150 K/ul - 450 K/ul March 20, 2025 12:39:00 AM UTC ([employer]) 86763-4 Platelet mean volume [Entitic volume] in Blood by Automated count H 10.5 fl 6 fl - 9.5 fl March 20, 2025 12:39:00 AM UTC ([employer]) 80896-8 Neutrophils/100 leukocytes in Blood N 57.4 % 43 % - 65 % March 20, 2025 12:39:00 AM UTC (TECH: ME) 736-9 Lymphocytes/100 leukocytes in Blood by Automated count N 30.2 % 20.5 % - 45.5 % March 20, 2025 12:39:00 AM UTC (TECH: ME) 5905-5 Monocytes/100 leukocytes in Blood by Automated count N 8.9 % 5.5 % - 11.7 % March 20, 2025 12:39:00 AM UTC (TECH: ME) 713-8 Eosinophils/100 leukocytes in Blood by Automated count N 2.6 % 0.9 % - 2.9 % March 20, 2025 12:39:00 AM UTC (TECH: ME) 706-2 Basophils/100 leukocytes in Blood by Automated count N 0.5 % 0.2 % - 1.0 % March 20, 2025 12:39:00 AM UTC (TECH: ME) 86344-1 Immature granulocytes/100 leukocytes in Blood by Automated count N 0.4 % 0.0 % - 0.8 % March 20, 2025 12:39:00 AM UTC (TECH: ME) 97572-2 Nucleated cells [#/volume] in Blood N 0.0 % March 20, 2025 12:39:00 AM UTC (TECH: ME) 92690-4 Neutrophils [#/volume] in Blood N 4.7 K/uL 2.2 K/uL - 4.8 K/uL March 20, 2025 12:39:00 AM UTC (TECH: ME) 731-0 Lymphocytes [#/volume] in Blood by Automated count N 2.5 CELL/MCL 1.3 CELL/MCL - 2.9 CELL/MCL March 20, 2025 12:39:00 AM UTC (TECH: ME) 742-7 Monocytes [#/volume] in Blood by Automated count N 0.7 CELL/MCL 0.3 CELL/MCL - 0.8 CELL/MCL March 20, 2025 12:39:00 AM UTC (TECH: ME) 711-2 Eosinophils [#/volume] in Blood by Automated count N 0.2 CELL/MCL 0 CELL/MCL - 0.2 CELL/MCL March 20, 2025 12:39:00 AM UTC (TECH: ME) 704-7 Basophils [#/volume] in Blood by Automated count N 0.0 CELL/MCL 0.0 CELL/MCL - 1.0 CELL/MCL March 20, 2025 12:39:00 AM UT (TECH: ME) 13584-8 Immature granulocytes [#/volume] in Blood N 0.03 K/ul March 20, 2025 12:39:00 AM UT (TECH: ME) 40094-2 Nucleated cells [#/volume] in Blood N 0.00 K/uL March 20, 2025 12:39:00 AM UT (TECH: ME) 59626-8 Manual Differential panel - Blood N NO March 20, 2025 12:39:00 AM UT (TECH: ME) ORDER 200: COMP METABOLIC PA SOTERO (LOINC: 12057-3) ORDER DATE: March 20, 2025 12:24:00 AM UT Specimen Source: PLASMA Specimen Type: Plasma specim en PERFORMING LAB: [address] [id number] Result Comment: Final Result Date: March 20, 2025 12:56:00 AM UT (TECH: AY) LOINC TEST FLAG RESULT REFERENCE RANGE UPDA SHANE BY 2951-2 Sodium [Moles/volume ] in Serum or Plasma N 139 mmol/L 136 mmol/L - 145 mmol/L March 20, 2025 12:52:00 AM UT (TECH: ME) 2823-3 Potassium [Moles/volume] in Serum or Plasma N 4.0 mmol/L 3.6 mmol/L - 5.0 mmol/L March 20, 2025 12:52:00 AM UT (TECH: ME) 5-0 Chloride [Moles/volume] in Serum or Plasma N 102 mmol/L 98 mmol/L - 107 mmol/L March 20, 2025 12:52:00 AM UT (TECH: ME) 8-9 Carbon dioxide, tota l [Moles/volume] in Serum or Plasma N 27.9 mmol/L 21.0 mmol/L - 32.0 mmol/L March 20, 2025 12:52:00 AM UT (TECH: ME) 48825-1 Anion gap in Blood N 13.1 N ov2024 12:52:00 AM UTC (TECH: ME) 2345-7 Glucose [Mass/volume ] in Serum or Plasma N 99 mg/dl 70 mg/dl - 120 mg/dl March 20, 2025 12:52:00 AM [facility] (TECH: ME) 6299-2 Urea nitrogen [Mass/volume] in Blood L 3 mg/dL 7 mg/dL - 18 mg/dL March 20, 2025 12:52:00 AM [facility] (TECH: ME) 93060-1 Creatinine [Moles/volume] in Blood N 1.1 mg/dL 0.6 mg/dL - 1.3 mg/dL March 20, 2025 12:52:00 AM [facility] (TECH: ME) 66427-7 Glomerular filtratio n rate/1.73 sq M.predicted by Creatinine-based formula (MDRD) N 70 mlpermin 60 mlpermin March 20, 2025 12:52:00 AM [facility] (TECH: ME) 80488-4 Osmolality of Serum or Plasma by calculated by sum of electrolytes N 286 mosm/kg 275 mosm/kg - 301 mosm/kg March 20, 2025 12:52:00 AM [facility] (TECH: ME) 2885-2 Protein [Mass/volume ] in Serum or Plasma N 7.2 g/dl 6.4 g/dl - 8.2 g/dl March 20, 2025 12:56:00 AM [facility] (TECH: AY) 1751-7 Albumin [Mass/volume ] in Serum or Plasma N 3.4 g/dl 3.4 g/dl - 5.0 g/dl March 20, 2025 12:56:00 AM [facility] (TECH: AY) 2336-6 Globulin [Mass/volum e] in Serum N 3.8 March 20, 2025 12:56:00 AM [facility] (TECH: AY) 1759-0 Albumin/Globulin [Ma ss Ratio] in Serum or Plasma N 0.9 0.7 - 2 March 20, 2025 12:56:00 AM [facility] (TECH: AY) 70609-6 Calcium [Mass/volume ] in Serum or Plasma N 9.0 mg/dl 8.5 mg/dl - 10.5 mg/dl March 20, 2025 12:52:00 AM [facility] (TECH: ME) 1975-2 Bilirubin.total [Mass/volume] in Serum or Plasma N 0.30 mg/dL 0.10 mg/dL - 1.00 mg/dL March 20, 2025 12:56:00 AM UTC (TECH: AY) 1920-8 Aspartate aminotransferase [Enzymatic activity/volume] in Serum or Plasma N 15 U/L 0 U/L - 37 U/L March 20, 2025 12:56:00 AM UTC (TECH: AY) 1742-6 Alanine aminotransferase [Enzymatic activity/volume] in Serum or Plasma N 22 U/L 0 U/L - 65 U/L March 20, 2025 12:56:00 AM UTC (TECH: AY) 6768-6 Alkaline phosphatase [Enzymatic activity/volume] in Serum or Plasma H 131 U/L 46 U/L - 116 U/L March 20, 2025 12:56:00 AM UT (TECH: AY) ORDER 300: MAGNESIUM (LOINC: 15004-0) ORDER DATE: March 20, 2025 12:24:00 AM UT Specimen Source: PLASMA Specimen Type: Plasma specim en PERFORMING LAB: [address] [id number] Result Comment: Final Result Date: March 20, 2025 12:57:00 AM UT (TECH: AY) LOINC TEST FLAG [place] [address]-2 Magnesium [Mass/volume] in Serum or Plasma N 1.9 MG/DL 1.8 MG/DL - 2.4 MG/DL March 20, 2025 12:57:00 AM UT (TECH: AY) ORDER 600: LIPASE (LOINC: 30 40-3) ORDER DATE: March 20, 2025 12:24:00 AM UT Specimen Source: PLASMA Specimen Type: Plasma specim en PERFORMING LAB: [address] [id number] Result Comment: Final Result Date: March 20, 2025 12:57:00 AM UT (TECH: AY) LOINC TEST FLAG RESULT REFERENCE RANGE UPDA SHANE BY 3040-3 Lipase [Enzymatic activity/volume] in Serum or Plasma N 20 U/L 16 U/L - 77 U/L March 20 12:57:00 AM UT (TECH: AY) LABORATORY NARRATIVE RESULTS Information is not available RADIOLOGY RESULTS Information is not available PATHOLOGY NARRATIVE RESULTS Information is not available MICROBIOLOGY RESULTS No Micro Labs/Results Exist for Patient BLOOD ADMIN RESULTS Information is not available MEDICATIONS HOME MEDICATIONS Status RXNORM [facility] Medication Dose Route Frequency Dates Comments Reported By Updated By Active 262827 45925 40834 1 amitriptylin e 50 mg tablet 50.0 MG ORAL BEDTIME Last Dose: [id number] on March 20, 2025 12:59:34 AM [facility] Active 685696 17381 59229 0 dicyclomine 20 mg tablet 20.0 MG ORAL QIDPRN Last Dose: [id number] on March 20, 2025 12:59:35 AM [facility] Active 2710900 01532 63712 6 etonogestrel -ethinyl estradiol 0.12-0.015 mg/24 hr Ring, 0.0 VAGINA L Last Dose: [id number] on March 20, 2025 12:59:35 AM [facility] Active 544409 71328 09587 2 famotidine 20 mg tablet 20.0 MG ORAL DAILY Last Dose: [id number] on March 20, 2025 12:59:35 AM [facility] Active 394970 81728 53337 1 folic acid (FOLATE) 1 MG 1.0 MG ORAL DAILY Last Dose: [id number] on March 20, 2025 12:59:35 AM [facility] Active 924809 90824 83010 9 gabapentin 300 mg capsule 600.0 MG ORAL DAILY Last Dose: [id number] on March 20, 2025 12:59:35 AM [facility] Active 6461198 79461 74308 2 HUMATE-P 937 IU 6000. 0 UNT INTRAV ENOUS PRN Last Dose: use when having a bleed [id number] on March 20, 2025 12:59:35 AM [facility] Active 990447 11312 47474 1 hydroxyzine HCl 50 mg tablet 50.0 MG ORAL PRN Last Dose: [id number] on March 20, 2025 12:59:36 AM UT Active 652544 80820 82012 0 lamotrigine 200 mg tablet 200.0 MG ORAL BEDTIME Last Dose: [id number] on March 20, 2025 12:59:36 AM [facility] Active FreeT extMe d Ondansetron HCl Tablet 4 MG 1.0 TAB ORAL TIDPRN Last Dose: [id number] on March 20, 2025 12:59:36 AM [facility] Active 518576 19806 68435 1 oxcarbazepin e 300 mg tablet 300.0 MG ORAL BID Last Dose: [id number] on March 20, 2025 12:59:36 AM [facility] Active 347821 67537 38688 0 sucralfate (CARAFATE) 1 GM 1.0 GM ORAL DAILY Last Dose: [id number] on March 20, 2025 12:59:36 AM [facility] Active 481123 86396 42637 8 tamsulosin (FLOMAX) 0.4 MG 0.4 MG ORAL DAILY Last Dose: [id number] on March 20, 2025 12:59:36 AM [facility] Active 709547 57141 84471 0 tranexamic acid (LYSTEDA) 650 MG 1300. 0 TAB ORAL TIDPRN Last Dose: bleeding [id number] on March 20, 2025 12:59:36 AM [facility] DISCHARGE MEDICATIONS Status RXNORM [facility] Medication Dose Route Frequency Dates Dis pense Data Comments Physician Updated By No Discharge Medication Info rmation Available INPATIENT MEDICATIONS Status RXNORM [facility] Medication Dose Route Frequency Rat e Quantity Dates Indication Dispense Data Comments Physician Updated By Discont inued [id number] 0051 7970 201 droperidol (INAPSINE) 2.5 MG/ML SOLN 5.0 MG INTRAV ENOUS ONE TIME ONLY (SCHEDULED DOSE) [facility] 12:26: 00 AM [facility] End: [facility] 12:26: 00 AM [facility] on March 20, 2025 12:25:00 AM [facility] Discont inued [id number] 8452 3050 601 dexamethaso ne (DECADRON) 10 MG/ML SOLN 10.0 MG INTRAV ENOUS ONE TIME ONLY (SCHEDULED DOSE) Start: [facility] 2024 1:49:0 0 AM UT End: [facility] 2024 1:49:0 0 AM [facility] on March 20, 2025 1:48:00 AM [facility] Discont inued 5915839 0051 7970 201 droperidol (INAPSINE) 2.5 MG/ML SOLN 5.0 MG INTRAV ENOUS ONE TIME ONLY (SCHEDULED DOSE) Start: [facility] 2024 1:59:0 0 AM [place] End: [facility], [facility]25 1:58:00 AM UT SOCIAL HISTORY SOCIAL HISTORY - Smoking Status SNOMED-CT Social History Element Description Effective Dates Offered Cessation Comment Updated By [id number] Current Tobacco smoking status Never Smoked [id number] on March 20, 2025 1:00:06 AM UT [id number] Historical Tobacco smoking status Unknown If Ever Smoked [id number] on November 06, 2024 8:05:16 AM UT SOCIAL HISTORY - Gender Sex: Female SOCIAL HISTORY - Status : status i nformation is not available Intention in Next Year: intention information is not available SOCIAL HISTORY - Assessments Code System Description Status Date Value of Assessment Updated By Comment Assessment Information is no t available SOCIAL HISTORY - Eek Affiliation Eek information is not av ailable SOCIAL HISTORY [...] value for each vital sign as of March 21, 2025 10:07:08 AM UT Loinc Code Vital Sign Activity Date Result Updated By 8302-2 Body height March 20 12:22:42 AM UT 162.56 cm (64.0 in) [id number] on March 20, 2025 12:22:42 [place] [address]-9 Body mass index (BMI ) [Ratio] March 20, 2025 12:22:42 AM UT 34.625 kg/m2 3140-1 Body Surface Area Derived From Formula March 20, 2025 12:22:42 AM UT 1.9632 m2 8310-5 Body temperature March 20 12:19:00 AM UTC 97.8 [degF] 02882-0 Body weight Measured March 12:22:42 AM UTC 91.5 kg (202.0 lb) [id number] on March 20, 2025 12:22:42 AM UT 8462-4 Diastolic blood pressure March 20, 2025 1:31:00 AM UT 125.0 mm[Hg] 8867-4 Heart rate March 20 2:00:00 AM UT 56 /min 29283-2 Oxygen saturation in Arterial blood by Pulse oximetry March 20, 2025 2:00:00 AM UT 95.0 % 9279-1 Respiratory rate March 20 2:00:00 AM UTC 13 /min 8480-6 Systolic blood pressure March 20, 2025 1:31:00 AM UT 166.0 mm[Hg] PEDIATRIC GROWTH CHART - VITAL SIGNS [...] INFORMATION Reason for Visit ABDOMINAL PAIN Admission March 20, 2025 12:21:[address] [address] Discharge March 20, 2025 2:16:00 AM [facility] DISCHARGED TO HOME OR SELF CARE ENCOUNTER DIAGNOSES Notes information is not rcistiano ilable. Code System Diagnosis Onset Date Diagnosis information is not available. ABSTRACT DIAGNOSES Code System Diagnosis Updated By Abatement Date R11.2 ICD10 NAUSEA WITH VOMI TING, UNSPECIFIED [id number] on March 21, 2025 10:06:26 AM [facility] R19.7 ICD10 DIARRHEA, UNSPECIFIED [id number] 8 on March 21, 2025 10:06:26 AM [facility] R10.9 ICD10 UNSPECIFIED ABDOMINAL PAIN N [id number] on March 21, 2025 10:06:26 AM [facility] R11.2 ICD10 NAUSEA WITH VOMI TING, UNSPECIFIED [id number] on March 21, 2025 10:06:26 AM [facility] R10.9 ICD10 UNSPECIFIED ABDOMINAL PAIN N [id number] on March 21, 2025 10:06:26 AM [facility] G89.29 ICD10 OTHER CHRONIC PAIN [id number] o n March 21, 2025 10:06:26 AM [facility] F32.A ICD10 DEPRESSION, UNSPECIFIED NTU3 998 on March 21, 2025 10:06:26 AM [facility] F41.9 ICD10 ANXIETY DISORDER, UNSPECIFIE D [id number] on March 21, 2025 10:06:26 AM UT Z90.49 ICD10 ACQUIRED ABSENCE OF OTHER SPECIFIED PARTS OF DIGESTIVE TRACT [id number] on March 21, 2025 10:06:26 AM UT Z88.0 ICD10 ALLERGY STATUS TO PENICILLIN [id number] on March 21, 2025 10:06:26 AM UT Z88.6 ICD10 ALLERGY STATUS T O ANALGESIC AGENT [id number] on March 21, 2025 10:06:26 AM UT Z88.8 ICD10 ALLERGY STATUS T O OTHER DRUGS, MEDICAMENTS AND BIOLOGICAL SUBSTANCES [id number] on March 21, 2025 10:06:26 AM UT Z91.040 ICD10 LATEX ALLERGY STATUS [id number] on March 21, 2025 10:06:26 AM [facility] Z88.1 ICD10 ALLERGY STATUS T O OTHER ANTIBIOTIC AGENTS [id number] on March 21, 2025 10:06:26 AM [facility] Z79.899 ICD10 OTHER WHEEL ADJUSTER (CURRENT) DRUG THERAPY [id number] on March 21, 2025 10:06:26 AM [facility] CARE TEAM Care Dock Grader Role CIERRA ASHLEY Admitting SILVINO ANN Primary Care CIERRA ASHLEY Primary Attending CARE TEAM CARE continuity clerk Role on Team Location Telecom Status Start Date End Branden e Updated By DION NORTON Attending normal March 20, 2025 12:45:52 AM [facility] March 20, 2025 2:16:00 AM [facility] [id number] on March 20, 2025 12:45:52 AM [facility] DION NORTON Admitting normal March 20, 2025 12:45:52 AM [facility] March 20, 2025 2:16:00 AM [facility] [id number] on March 20, 2025 12:45:52 AM [facility] normal March 20, 2025 12:21:31 AM [facility] March 20, 2025 2:16:00 AM [facility] [id number] on March 20, 2025 12:45:52 AM [facility]
--- OUTSIDE RECORDS SUMMARY | 2025-04-10 04:47 | XMS_ITS | Continuity of Care Document ---
Author Organization [facility] Phone Care Team Providers Care Health Care Liaison Name Role Phone SILVINO ANN Primary Care Unavailable NICHOLAS OLIVA Admitting Unavailable SILVINO ANN Unavailable Unavailable NICHOLAS OLIVA Primary Attending Unavailable ALLERGIES AND ADVERSE REACTIONS ALLERGIES AND ADVERSE REACTIONS Code System Allergy Substance Adverse Reaction Date Reaction (Severity) Comment Status Reported By Updated By 5640 RXNorm Motrin Rash (Severe) Shock active [id number] on April 08, 2025 8:15:45 PM UTC 1191 RXNorm Aspirin Rash (Severe) Shock active [id number] on April 08, 2025 8:15:45 PM UTC 05424 RXNorm Zyrtec Rash (Severe) Shock active GKP4882 on April 08, 2025 8:15:45 PM UTC LATEX (Free Text Allergy) Rash (Severe) Shock active RXQ0397 on April 08, 2025 8:15:45 PM UTC 723 RXNorm Amoxicillin Adverse reaction to substance Not Specified active XYQ2305 on April 08, 2025 8:15:45 PM UTC Strawberries (Free Text Allergy) Adverse reaction to substance Not Specified active UDN6082 on April 08, 2025 8:15:45 PM UTC 38820 RXNorm DULoxetine Adverse reaction to substance Not Specified active BXX6654 on April 08, 2025 8:15:45 PM UTC 00918 RXNorm Ketorolac Adverse reaction to substance Not Specified active BHQ8397 on April 08, 2025 8:15:45 PM UTC Banana (Free Text Allergy) Adverse reaction to substance Not Specified active ZFS5318 on April 08, 2025 8:15:45 PM UTC Kiwi (Actinidia Chinensis) (Free Text Allergy) Adverse reaction to substance Not Specified active LVO3239 on April 08, 2025 8:15:45 PM UTC Grapefruit (Free Text Allergy) Adverse reaction to substance Not Specified active NFV9337 on April 08, 2025 8:15:45 PM UTC BLOOD THINNERS (Free Text Allergy) Adverse reaction to substance (Moderate) Has factor 8 active NSQ7241 on April 08, 2025 8:15:45 PM UTC 7984 RXNorm PENICILLIN Rash (Moderate) Shock active HHB2035 on April 08, 2025 8:15:45 PM UTC tomatoes (Free Text Allergy) Anaphylaxis due to substance (Severe) Adverse reaction to substance (Severe) Shock active UBN2722 on April 08, 2025 8:15:45 PM UTC HEPARIN Adverse reaction to substance (Moderate) BLOOD THINNERS HAS FACTOR 8 active IYN1341 on April 08, 2025 8:15:45 PM UTC 8410 RXNorm ALTEPLASE Adverse reaction to substance (Moderate) BLOOD THINNERS-H FACTOR 8 active CTM4069 on April 08, 2025 8:15:45 PM UTC 08370 RXNorm COUMADIN Adverse reaction to substance (Moderate) BLOOD THINNERS-H FACTOR 8 active FGQ7536 on April 08, 2025 8:15:45 PM UTC 1476881 RXNorm ELIQUIS Adverse reaction to substance (Moderate) BLOOD THINNERS-H FACTOR 8 active LDU3432 on April 08, 2025 8:15:45 PM UTC FAMILY HISTORY RELATION: Father Status: LIVING SNOMED-CT Diagnosis Age At Onset [id number] von Willebrand disorder RELATION: Mother Status: LIVING SNOMED-CT Diagnosis Age At Onset [id number] Disorder of thyroid gland [id number] Sleep apnea RESULTS Patient: LUIS Fry Date of : 1995 LABORATORY RESULTS ORDER 100: CBC AUTO W DIFF ( LOINC: 99645-8) ORDER DATE: April 08, 2025 4:28:00 PM UTC Specimen Source: EDTA Specimen Type: Blood specime n with EDTA PERFORMING LAB: [address] [id number] Result Comment: Final Result Date: April 08, 2025 6:52:00 PM UT (TECH: DARLIN) LOINC TEST FLAG RESULT REFERENCE RANGE UPDA SHANE BY 6690-2 Leukocytes [#/volume] in Blood by Automated count N 7.2 K/ul 4.0 K/ul - 10.5 K/ul April 08, 2025 6:52:00 PM UTC (TECH: [employer] 789-8 Erythrocytes [#/volume] in Blood by Automated count N 4.7 M/mm3 4.2 M/mm3 - 6.4 M/mm3 April 08, 2025 6:52:00 PM UTC (TECH: [employer] 718-7 Hemoglobin [Mass/volume] in Blood L 12.0 gm/dl 12.5 gm/dl - 16.0 gm/dl April 08, 2025 6:52:00 PM UTC (TECH: [employer] 07820-9 Hematocrit [Volume Fraction] of Blood L 36.6 % 37.0 % - 47.0 % April 08, 2025 6:52:00 PM UTC (TECH: [employer] 787-2 Erythrocyte mean corpuscular volume [Entitic volume] by Automated count N 78.7 fl 78 fl - 100 fl April 08, 2025 6:52:00 PM UTC (TECH: [employer] 785-6 Erythrocyte mean corpuscular hemoglobin [Entitic mass] by Automated count L 25.8 pg 27 pg - 31 pg April 08, 2025 6:52:00 PM UTC (TECH: [employer] 786-4 Erythrocyte mean corpuscular hemoglobin concentration [Mass/volume] by Automated count N 32.8 g/dl 32 g/dl - 36 g/dl April 08, 2025 6:52:00 PM UTC (TECH: [employer] 48119-3 Erythrocyte distribution width [Ratio] N 13.6 % 11.5 % - 14.0 % April 08, 2025 6:52:00 PM UTC (TECH: [employer] 657-3 Platelets [#/volume] in Blood by Automated count N 287 K/ul 150 K/ul - 450 K/ul April 08, 2025 6:52:00 PM UTC (TECH: [employer] 65065-8 Platelet mean volume [Entitic volume] in Blood by Automated count H 9.7 fl 6 fl - 9.5 fl April 08, 2025 6:52:00 PM UTC (TECH: [employer] 83924-4 Neutrophils/100 leukocytes in Blood H 81.6 % 43 % - 65 % April 08, 2025 6:52:00 PM UTC (TECH: [employer] 736-9 Lymphocytes/100 leukocytes in Blood by Automated count L 10.1 % 20.5 % - 45.5 % April 08, 2025 6:52:00 PM UTC (TECH: [employer] 5905-5 Monocytes/100 leukocytes in Blood by Automated count N 7.8 % 5.5 % - 11.7 % April 08, 2025 6:52:00 PM UTC (TECH: [employer] 713-8 Eosinophils/100 leukocytes in Blood by Automated count L 0.1 % 0.9 % - 2.9 % April 08, 2025 6:52:00 PM UTC (TECH: [employer] 706-2 Basophils/100 leukocytes in Blood by Automated count L 0.1 % 0.2 % - 1.0 % April 08, 2025 6:52:00 PM UTC (TECH: [employer] 45697-1 Immature granulocytes/100 leukocytes in Blood by Automated count N 0.3 % 0.0 % - 0.8 % April 08, 2025 6:52:00 PM UTC (TECH: [employer] 82269-3 Nucleated cells [#/volume] in Blood N 0.0 % April 08, 2025 6:52:00 PM UTC (TECH: [employer] 84778-0 Neutrophils [#/volume] in Blood H 5.9 K/uL 2.2 K/uL - 4.8 K/uL April 08, 2025 6:52:00 PM UTC (TECH: [employer] 731-0 Lymphocytes [#/volume] in Blood by Automated count L 0.7 CELL/MCL 1.3 CELL/MCL - 2.9 CELL/MCL April 08, 2025 6:52:00 PM UTC (TECH: [employer] 742-7 Monocytes [#/volume] in Blood by Automated count N 0.6 CELL/MCL 0.3 CELL/MCL - 0.8 CELL/MCL April 08, 2025 6:52:00 PM UTC (TECH: [employer] 711-2 Eosinophils [#/volume] in Blood by Automated count N 0.0 CELL/MCL 0 CELL/MCL - 0.2 CELL/MCL April 08, 2025 6:52:00 PM UTC (TECH: [employer] 704-7 Basophils [#/volume] in Blood by Automated count N 0.0 CELL/MCL 0.0 CELL/MCL - 1.0 CELL/MCL April 08, 2025 6:52:00 PM UTC (TECH: [employer] 20423-4 Immature granulocytes [#/volume] in Blood N 0.02 K/ul April 08, 2025 6:52:00 PM UTC (TECH: [employer] 36672-8 Nucleated cells [#/volume] in Blood N 0.00 K/uL April 08, 2025 6:52:00 PM UT (TECH: [employer] 21108-8 Manual Differential panel - Blood N NO April 08, 2025 6:52:00 PM UT (TECH: [employer] ORDER 200: COMP METABOLIC PA SOTERO (LOINC: 22508-5) ORDER DATE: April 08, 2025 4:28:00 PM UTC Specimen Source: PLASMA Specimen Type: Plasma specim en PERFORMING LAB: [address] [id number] Result Comment: Final Result Date: April 08, 2025 7:13:00 PM UT (TECH: ADB) LOINC TEST FLAG RESULT REFERENCE RANGE UPDA SHANE BY 2951-2 Sodium [Moles/volume ] in Serum or Plasma L 135 mmol/L 136 mmol/L - 145 mmol/L April 08, 2025 7:10:00 PM UT (TECH: ADB) 2823-3 Potassium [Moles/volume] in Serum or Plasma L 3.5 mmol/L 3.6 mmol/L - 5.0 mmol/L April 08, 2025 7:10:00 PM UT (TECH: ADB) 5-0 Chloride [Moles/volume] in Serum or Plasma N 101 mmol/L 98 mmol/L - 107 mmol/L April 08, 2025 7:10:00 PM UTC (TECH: ADB) 2028-01 Carbon dioxide, tota l [Moles/volume] in Serum or Plasma N 23.3 mmol/L 21.0 mmol/L - 32.0 mmol/L April 08, 2025 7:10:00 PM UTC (TECH: ADB) 61828-1 Anion gap in Blood N 14.2 D ec2024 7:10:00 PM UTC (TECH: ADB) 2345-7 Glucose [Mass/volume ] in Serum or Plasma N 118 mg/dl 70 mg/dl - 120 mg/dl April 08, 2025 7:10:00 PM UTC (TECH: ADB) 6299-2 Urea nitrogen [Mass/volume] in Blood L 5 mg/dL 7 mg/dL - 18 mg/dL April 08, 2025 7:10:00 PM UTC (TECH: ADB) 12143-2 Creatinine [Moles/volume] in Blood N 0.6 mg/dL 0.6 mg/dL - 1.3 mg/dL April 08, 2025 7:10:00 PM UTC (TECH: ADB) 95703-1 Glomerular filtratio n rate/1.73 sq M.predicted by Creatinine-based formula (MDRD) N 125 mlpermin 60 mlpermin April 08, 2025 7:10:00 PM UTC (TECH: ADB) 84319-2 Osmolality of Serum or Plasma by calculated by sum of electrolytes N 279 mosm/kg 275 mosm/kg - 301 mosm/kg April 08, 2025 7:10:00 PM UTC (TECH: ADB) 2885-2 Protein [Mass/volume ] in Serum or Plasma N 6.9 g/dl 6.4 g/dl - 8.2 g/dl April 08, 2025 7:13:00 PM UTC (TECH: ADB) 1751-7 Albumin [Mass/volume ] in Serum or Plasma L 3.3 g/dl 3.4 g/dl - 5.0 g/dl April 08, 2025 7:13:00 PM UTC (TECH: ADB) 2336-6 Globulin [Mass/volum e] in Serum N 3.6 April 08, 2025 7:13:00 PM UTC (TECH: ADB) 1759-0 Albumin/Globulin [Ma ss Ratio] in Serum or Plasma N 0.9 0.7 - 2 April 08, 2025 7:13:00 PM UTC (TECH: ADB) 90985-6 Calcium [Mass/volume ] in Serum or Plasma N 8.8 mg/dl 8.5 mg/dl - 10.5 mg/dl April 08, 2025 7:10:00 PM UTC (TECH: ADB) 1975-2 Bilirubin.total [Mass/volume] in Serum or Plasma N 0.20 mg/dL 0.10 mg/dL - 1.00 mg/dL April 08, 2025 7:13:00 PM UTC (TECH: ADB) 1920-8 Aspartate aminotransferase [Enzymatic activity/volume] in Serum or Plasma N 10 U/L 0 U/L - 37 U/L April 08, 2025 7:13:00 PM UTC (TECH: ADB) 1742-6 Alanine aminotransferase [Enzymatic activity/volume] in Serum or Plasma N 17 U/L 0 U/L - 65 U/L April 08, 2025 7:13:00 PM UTC (TECH: ADB) 6768-6 Alkaline phosphatase [Enzymatic activity/volume] in Serum or Plasma N 91 U/L 46 U/L - 116 U/L April 08, 2025 7:13:00 PM UTC (TECH: ADB) ORDER 300: LIPASE (LOINC: 30 40-3) ORDER DATE: April 08, 2025 4:28:00 PM UTC Specimen Source: PLASMA Specimen Type: Plasma specim en PERFORMING LAB: [address] [id number] Result Comment: Final Result Date: April 08, 2025 7:19:00 PM UT (TECH: ADB) LOINC TEST FLAG RESULT REFERENCE RANGE UPDA SHANE BY 3040-3 Lipase [Enzymatic activity/volume] in Serum or Plasma N 22 U/L 16 U/L - 77 U/L April 08, 2025 7:19:00 PM UT (TECH: ADB) ORDER 400: URINALYSIS REFLEX MICROSCOPIC (LOINC: 66560-4) ORDER DATE: April 08, 2025 4:28:00 PM UTC Specimen Source: URINE Specimen Type: Urine specime n PERFORMING LAB: [address] [id number] Result Comment: Final Result Date: April 08, 2025 6:57:00 PM UTC (TECH: JNJ) LOINC TEST FLAG RESULT REFERENCE RANGE UPDA SHANE BY 5778-6 Color of Urine N YELLOW YELLOW Decem 2024 6:57:00 PM UTC (TECH: JNJ) 5767-9 Appearance of Urine N HAZY CLEAR April 08, 2025 6:57:00 PM UTC (TECH: [employer] 5792-7 Glucose [Mass/volume ] in Urine by Test strip N norm NORMAL April 08, 2025 6:57:00 PM UTC (TECH: [employer] 68296-8 Bilirubin.total [Mass/volume] in Urine by Automated test strip N NEGATIVE NEGATIVE April 08, 2025 6:57:00 PM UTC (TECH: Data MaidJ) 5797-6 Ketones [Mass/volume ] in Urine by Test strip 5 NEGATIVE April 08, 2025 6:57:00 PM UTC (TECH: [employer] 2965-2 Specific gravity of Urine N 1.020 1.01 6 - 1.022 April 08, 2025 6:57:00 PM UTC (TECH: Data Maid[employer]) 72600-8 Erythrocytes [#/volu me] in Urine by Automated test strip 50 NEGATIVE April 08, 2025 6:57:00 PM UTC (TECH: [employer] 79654-0 pH of Urine by Autom ated test strip N 6 5 - 9 April 08, 2025 6:57:00 PM UTC (TECH: JNJ) 58286-9 Protein [Presence] i n Urine by Test strip N TNP NEGATIVE April 08, 2025 6:57:00 PM UTC (TECH: Data [employer]) 80320-9 Urobilinogen [Mass/volume] in Urine by Automated test strip N norm NORMAL April 08, 2025 6:57:00 PM UTC (TECH: Data MaidJ) 75248-9 Nitrate [Presence] i n Urine N NEGATIVE NEGATIVE April 08, 2025 6:57:00 PM UTC (TECH: JNJ) 64504-7 Leukocytes [#/volume ] in Urine by Test strip 25 NEGATIVE April 08, 2025 6:57:00 PM UTC (TECH: JNJ) 34887-3 Urinalysis dipstick W Reflex Culture panel - Urine N NO April 08, 2025 6:57:00 PM UTC (TECH: JNJ) 64648-6 Erythrocytes [#/area ] in Urine sediment by Microscopy high power field N NONE SEEN NONE SEEN April 08, 2025 6:57:00 PM UTC (TECH: JNJ) 5821-4 Leukocytes [#/area] in Urine sediment by Microscopy high power field N 1-5 NONE SEEN April 08, 2025 6:57:00 PM UTC (TECH: [employer] 74871-6 Epithelial cells.squ amous [#/area] in Urine sediment by Microscopy high power field N 6-10 NONE SEEN April 08 6:57:00 PM UTC (TECH: [employer] 5769-5 Bacteria [#/area] in Urine sediment by Microscopy high power field N TRACE NONE SEEN April 08, 2025 6:57:00 PM UTC (TECH: [employer] 23627-6 Mucus [#/area] in Ur ine sediment by Microscopy low power field N TRACE NONE SEEN April 08, 2025 6:57:00 PM UTC (TECH: [employer] LABORATORY NARRATIVE RESULTS Information is not available RADIOLOGY RESULTS Information is not available PATHOLOGY NARRATIVE RESULTS Information is not available MICROBIOLOGY RESULTS No Micro Labs/Results Exist for Patient BLOOD ADMIN RESULTS Information is not available MEDICATIONS HOME MEDICATIONS Status RXNORM NDC Medication Dose Route Frequency Dates Comments Reported By Updated By Drug Treatment Unknown DISCHARGE MEDICATIONS Status RXNORM NDC Medication Dose Route Frequency Dates Dis pense Data Comments Physician Updated By No Discharge Medication Info rmation Available INPATIENT MEDICATIONS Status RXNORM NDC Medication Dose Route Frequency Rat e Quantity Dates Indication Dispense Data Comments [facility]ician [id number] droperidol (INAPSINE) 2.5 MG/ML SOLN 5.0 MG INTRAV ENOUS ONE TIME ONLY (SCHEDULED DOSE) Start: [facility] er 2024 4:35:0 0 PM UT End: [facility] 2024 4:35:0 0 PM UT Fill Status = Completed , Repeat Number = 0, Quantity = 1.000 [facility] on April 08, 2025 4:34:00 PM UT SOCIAL HISTORY SOCIAL HISTORY - Smoking Status SNOMED-CT Social History Element Description Effective Dates Offered Cessation Comment Updated By [id number] Current Tobacco smoking status Never Smoked [id number] on April 08, 2025 8:15:55 PM UT [id number] Historical Tobacco smoking status Unknown If Ever Smoked [id number] on November 06, 2024 8:05:16 AM [facility] SOCIAL HISTORY - Gender Sex: Female SOCIAL HISTORY - Status : status i nformation is not available Intention in Next Year: intention information is not available SOCIAL HISTORY - Assessments Code System Description Status Date Value of Assessment Updated By Comment Assessment Information is no t available SOCIAL HISTORY - [place] Affiliation [place] information is not av ailable SOCIAL HISTORY - Legal Sex Legal Sex : Female (finding) SOCIAL HISTORY - Sexual Behavior Sexual Orientation Gender Identity SNOMED-CT Description SNO MED -CT Description Activity Level No of Partners Partner Type UpdatedBy Information is not available SOCIAL HISTORY - Occupation Occupation information is no t available VITAL SIGNS PATIENT VITAL SIGNS This section displays the mo st recent value for each vital sign as of April 10, 2025 9:47:57 AM [facility] Loinc Code Vital Sign Activity Date Result Updated By 8462-4 Diastolic blood pressure April 08, 2025 8:15:00 PM UT 84.0 mm[Hg] [id number] on April 08, 2025 8:19:48 PM [facility] 8867-4 Heart rate April 08, 2025 8:15:00 PM UT 68 /min [id number] on April 08, 2025 8:19:48 PM [facility] 94539-0 Oxygen saturation in Arterial blood by Pulse oximetry April 08, 2025 8:15:00 PM UT 100.0 % [id number] on April 08, 2025 8:19:48 PM [facility] 8480-6 Systolic blood pressure April 08, 2025 8:15:00 PM UT 129.0 mm[Hg] [id number] on April 08, 2025 8:19:48 PM [facility] PEDIATRIC GROWTH CHART - VITAL SIGNS This section displays Head C ircumference Percentile, Weight for Length Percentile and BMI Percentile Loinc Code Pediatric Measure Age (Months) Result Updat ed By No Pediatric Growth Chart Pe rcentile Information Available. ENCOUNTERS ENCOUNTER INFORMATION Reason for Visit ABDOMINAL PAIN Admission April 08, 2025 4:17:[address] [id number] Discharge April 08, 2025 8:30:00 PM [facility] DISCHARGED TO HOME OR SELF CARE ENCOUNTER DIAGNOSES Notes information is not cristiano ilable. Code System Diagnosis Onset Date Diagnosis information is not available. ABSTRACT DIAGNOSES Code System Diagnosis Updated By Abatement Date R10.9 ICD10 UNSPECIFIED ABDOMINAL PAIN B [id number] on April 10, 2025 9:45:24 AM UT R11.2 ICD10 NAUSEA WITH VOMI TING, UNSPECIFIED [id number] on April 10, 2025 9:45:24 AM UTC R10.9 ICD10 UNSPECIFIED ABDOMINAL PAIN B ZR2209 on April 10, 2025 9:45:24 AM UTC Z88.8 ICD10 ALLERGY STATUS T O OTHER DRUGS, MEDICAMENTS AND BIOLOGICAL SUBSTANCES [id number] on April 10, 2025 9:45:24 AM UTC Z88.0 ICD10 ALLERGY STATUS TO PENICILLIN [id number] on April 10, 2025 9:45:24 AM UTC Z88.6 ICD10 ALLERGY STATUS T O ANALGESIC AGENT [id number] on April 10, 2025 9:45:24 AM UTC Z91.040 ICD10 LATEX ALLERGY STATUS [id number] on April 10, 2025 9:45:24 AM UTC CARE TEAM Care Health Care Liaison Role SILVINO ANN Primary Care NICHOLAS OLIVA Admitting SILVINO ANN Referring NICHOLAS OLIVA Primary Attending CARE TEAM CARE caddie supervisor Role on Team Location Telecom Status Start Date End Branden e Updated By MARISSA DUBOIS Referring [address] [place], [address] normal April 08, 2025 5:30:08 PM UTC April 08, 2025 8:30:00 PM UT [id number] on April 08, 2025 5:30:08 PM UTC PJ PRIETO Attending [address] [place] [address], [id number] normal April 08, 2025 5:30:08 PM UTC April 08, 2025 8:30:00 PM UTC [id number] on April 08, 2025 5:30:08 PM UTC PJ PRIETO Admitting [address] [place] [address], [id number] normal April 08, 2025 5:30:08 PM UTC April 08, 2025 8:30:00 PM UTC [id number] on April 08, 2025 5:30:08 PM UT MARISSA DUBOIS PCP [address], [place], [address] normal April 08, 2025 4:17:51 PM UTC April 08, 2025 8:30:00 PM UTC [id number] on April 08, 2025 5:30:08 PM UT 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
--- NOTE | 2025-04-21 15:35 | HMH.EDGENADL ---
Discharge Plan Disposition Patient Disposition: Home, Self-Care Condition: Fair Prescriptions Prescriptions: New lidocaine 4 % adhesive patch,medicated 1 patch topical Q8H PRN (Reason: pain) Qty: 10 0RF methocarbamol 750 mg tablet 750 mg PO Q8H Qty: 30 0RF No Action celecoxib 200 mg capsule 200 mg PO BID etonogestrel-ethinyl estradiol 0.12-0.015 mg/24 hr ring 1 vag ring vaginal DIRECTED alprazolam [Xanax] 0.25 mg tablet 0.25 mg PO TID PRN (Reason: anxiety) Qty: 90 1RF amitriptyline 50 mg tablet 50 mg PO DAILY Qty: 30 1RF lamotrigine 150 mg tablet 150 mg PO BID Qty: 60 1RF quetiapine 100 mg tablet 100 mg PO HS Qty: 30 1RF vortioxetine 20 mg tablet 20 mg PO DAILY Qty: 30 1RF oxcarbazepine 300 mg tablet 300 mg PO BID Qty: 60 1RF tamsulosin 0.4 MG capsule 0.4 mg PO HS tranexamic acid 650 MG tablet 1,300 mg PO DAILY PRN (Reason: factor 8 deficiency) gabapentin 300 mg capsule 600 mg PO TID cephalexin 500 mg capsule 500 mg PO QID 7 Days Qty: 28 0RF antihemophilic factor-vWF 1 EACH recon soln 1,200 units IV NEEDED PRN (Reason: Bleeding) sucralfate 1 GM tablet 1 g PO ACHS Qty: 28 0RF pantoprazole 40 MG tablet,delayed release (DR/EC) 40 mg PO HS Qty: 30 0RF Referrals Follow up/Referrals: Justino Zheng MD [Primary Care Provider, Medical] - See instructions Print Language Print Language: Guinean Discharge ED Provider: Zhanna Malik General Adult HPI General Chief complaint: PAIN Stated complaint: AO 04/20/25 1340 Injury right wrist Time Seen by Provider: 04/21/25 15:35 History of Present Illness HPI narrative: Patient is a 29-year-old with past medical history significant for POTS, Lamar-Danlos syndrome presents to the ER aftera fall. Pt tripped while trying to put on pants yesterday and felt her wrist bend backwards but then was able to put it back into place . Pt says it has been more swollen than when she usually dislocates and relocates joints. Patient denies hitting head but says she felt like she blacked out becuase of her pots after the fall. No numbness tingling or weakness. 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 04/27/22 deficiency gabapentin 300 mg capsule 600 mg PO TID Pain 03/15/18 04/27/22 celecoxib 200 mg capsule 200 mg PO BID Pain 02/27/20 04/27/22 etonogestrel 0.12 mg-ethinyl 1 vag ring vaginal DIRECTED 02/27/20 04/27/22 estradiol 0.015 mg/24 hr vaginal control ring antihemophilic factor-vWF 500 1,200 units IV NEEDED PRN 09/29/21 04/27/22 unit-1,200 unit intravenous Bleeding solution Previous Rx's ?Medication ?Instructions ?Recorded pantoprazole 40 mg tablet,delayed 40 mg PO HS #30 tabs 09/30/21 release sucralfate 1 gram tablet 1 g PO ACHS #28 tabs 09/30/21 cephalexin 500 mg capsule 500 mg PO QID 7 days #28 caps 02/05/22 alprazolam 0.25 mg tablet (Xanax) 0.25 mg PO TID PRN anxiety #90 tabs 09/28/22 amitriptyline 50 mg tablet 50 mg PO DAILY sleep #30 tabs 09/28/22 lamotrigine 150 mg tablet 150 mg PO BID SEIZURES #60 tabs 09/28/22 quetiapine 100 mg tablet 100 mg PO HS MOOD #30 tabs 09/28/22 vortioxetine 20 mg tablet 20 mg PO DAILY MOOD #30 tabs 09/28/22 oxcarbazepine 300 mg tablet 300 mg PO BID SEIZURES #60 tabs 10/04/22 lidocaine 4 % topical patch 1 patch topical Q8H PRN pain #10 ea 04/21/25 methocarbamol 750 mg tablet 750 mg PO Q8H #30 tabs 04/21/25 Allergies Allergy/AdvReac Type Severity Reaction Status Date / Time latex (LATEX) Allergy Severe anaphalysis Verified 02/05/22 16:40 strawberry Allergy Severe Anaphylaxis Verified 02/05/22 16:40 duloxetine (From CYMBALTA) Allergy Intermediate hives; she Verified 02/05/22 16:40 has scars from the hives when she took this aspirin (ASPIRIN) Allergy Mild Verified 02/05/22 16:40 cetirizine (From ZYRTEC) Allergy Mild Verified 02/05/22 16:40 amoxicillin (AMOXICILLIN) Allergy Unknown VOMITING Verified 02/05/22 16:40 ketorolac (From TORADOL) Allergy Unknown Verified 02/05/22 16:40 banana AdvReac Severe Anaphylaxis Verified 02/05/22 16:40 kiwi AdvReac Severe Anaphylaxis Verified 02/05/22 16:40 tomato AdvReac Severe Anaphylaxis Verified 02/05/22 16:40 grapefruit AdvReac Unknown Verified 02/05/22 16:40 [facility] Disclaimer: The information contained in this section may have been updated after the patient was seen, as this information can be updated by other users. Medical History Bipolar II disorder Lamar-Danlos syndrome Generalized anxiety disorder POTS (postural orthostatic tachycardia syndrome) Sinus tachycardia Social History Smoking Status: Current every day smoker alcohol intake: never substance use type: marijuana current occupational status: other Travel in the last 8 weeks?: None household members: family housing: house number of children: 0 caffeine: No Have you lived/traveled outside US in past 30 days?: No Contact w/someone who lives/traveled outside US past 30 days?: No Exposure to someone with infectious disease in past 14 days?: No Do you have a fever (greater than 100.4 F or 38 C)?: No Have you tested positive for COVID-19?: No Exposed to someone with COVID-19 in past 14 days?: No Do you have a sore throat?: No Do you have a cough?: No Do you have any weakness?: No Do you have any diarrhea?: No Are you experiencing any unusual bleeding?: No Do you have any muscle aches/pain?: No Do you have any abdominal pain?: No Are you experiencing loss of taste or smell?: No Other Medical History Have you received the Flu Vaccine for this season: No Have you received the Pneumonia Vaccine: No ROS Obtained: Yes All systems reviewed & no additional complaints except as documented Physical Exam General General appearance: alert and in no apparent distress Head Head exam: atraumatic Eye Eye exam: Present PERRL ENT ENT exam: Present normal exam Neck Neck exam: Present full ROM; Absent tenderness Chest Chest inspection: Present symmetric chest wall rise Respiratory Respiratory exam: Absent respiratory distress Cardiovascular Cardiovascular exam: Present regular rate Abdominal Exam Abdominal exam: Present soft; Absent tenderness Extremities Exam Extremities exam: Present normal inspection Back Exam Back exam: Present tenderness (right wrist with bruising, no deformity, no significant swelling, neurovascularly intact distal to injury RUE) Neurological Exam Neurological exam: Present alert and oriented X3 Medical Decision Making Medical Records Screening: Per USPSTF and CDC recommendations, given the prevalence of disease in our region, it is our hospital?s policy to screen for HIV and viral Hepatitis for all patients aged 18 and over and those with ongoing risk factors. Tacho Inquiry Pt receiving controlled substance: No Vital Signs: 04/21/25 15:39 04/21/25 15:41 04/21/25 16:00 Temperature 97.6 F Temperature Source Oral Pulse Rate 89 86 Pulse Rate [Right] 92 H Respiratory Rate 18 Blood Pressure 134/95 H Blood Pressure [Right Arm] 134/95 H Blood Pressure Mean [Right Arm] 108 Blood Pressure Source [Right Arm] Automatic Cuff Blood Pressure Position [Right Arm] Sitting 02 Sat by Pulse Oximetry 99 99 98 Oxygen Delivery Method Room Air Orders (Tests/Meds): ED MEDICATIONS Discontinued Medications Generic Name Dose Route Start Last Admin Trade Name Carter PRN Reason Stop Dose Admin Oxycodone HCl 5 mg 04/21/25 15:41 04/21/25 16:01 Oxycodone 5mg Immediate Release Tablet PO 04/21/25 15:42 5 mg ONCE ONE Administration ORDERS Category Date Time Status Forearm XR right 2 views [XR forearm RT 2V] Stat Exams 04/21/25 15:40 Completed Hand XR right minimum 3 views [XR hand RT min 3V] Stat Exams 04/21/25 15:40 Completed Wrist XR right minimum 3 views [XR wrist RT min 3V] Exams 04/21/25 15:40 Completed Stat Medical Decision Narrative: In summary, this 29-year-old female presents to the emergency department today with right wrist pain. On initial evaluation patient is hemodynamically stable saturating appropriately on room air afebrile in no acute distress. Differential diagnosis includes but is not limited to fracture dislocation ligamentous or neurovascular injury. Based on these concerns, I ordered x-rays of the right forearm wrist hand. Patient received oxycodone for treatment. XR personally interpreted demonstrates noacute fx or dislocation. On repeat evaluation patient has persistent pain in the anatomic snuffbox of the right wrist. Patient came with a thumb spica wrist splint. Recommended continuing this spica splint and follow-up with PCP for evaluation of occult fracture in 1 week with repeat x-ray. Critical Care Critical Care Time Critical Care Time: No
[2025-04-21 15:39] VITALS: BP 134/95; PULSE 89; O2SAT 99
--- OUTSIDE RECORDS SUMMARY | 2025-04-21 15:39 | XMS_ITS | Encounter Summary ---
Author Organization [facility] Address [address] [place] [address] Care Team Providers Care Guidance Adviser Name Role Phone Justino Zheng MD Primary Care Provider [phone] Encounter Details Date Type Department Care Team (Latest Contact Info) Description 03/02/2025 Travel Social History Tobacco Use Types Packs/Day [...] documented as of this encounter Care Teams Guidance Adviser Relationship Specialty Start Date End Date Justino Zheng MD [address] [place] [address] PCP - General 09/15/20 documented as of this encounter
--- OUTSIDE RECORDS SUMMARY | 2025-04-21 15:39 | XMS_ITS | Encounter Summary ---
Author Organization [facility] Address [address] [place] [address] Care Team Providers Care It Program Manager Name Role Phone Justino Zheng MD Primary Care Provider + Reason for Visit * Reason Comments Med Refill Encounter Details Date Type Department Care Team (Late st Contact Info) Description 03/26/[address] [facility] FAMILY MEDICINE [address] [facility] [place] [address] Justino Zheng MD [address] [place] [address] Trauma and stressor-related disorder Social History Tobacco Use Types Packs/Day Years [...] Encounters Date Type Department Care Team (Late Contact Info) Description 05/23/2025 1:45 PM EST Office Visit [facility] [address] [place] [address] Justino Zheng MD [address] [place] [address] documented as of this encounter Visit Diagnoses Diagnosis Trauma and stressor-related disorder documented in this encounter Additional Health Concerns Assessment Noted Time PHQ-2 Depression Total Score: 1 11/17/19 24 8:48 AM EDT documented as of this encounter Care Teams It Program Manager Relationship Specialty Start Date End Date Justino Zheng MD [address] [place] [address] PCP - General Family Medicine 11/05/21 documented as of this encounter
--- OUTSIDE RECORDS SUMMARY | 2025-04-21 15:39 | XMS_ITS | Encounter Summary ---
Author Organization [facility] Address [address] [place] [address] Care Team Providers Care Bowling Ball Mold Assembler Name Role Phone Justino Zheng MD Primary Care Provider [phone] Reason for Visit * Reason Comments Med Refill Encounter Details Date Type Department Care Team ([facility] st Contact Info) Description 05/14/2021 Refill Medical Office Building Obstetrics and Gynecology [address] [facility], [address] [place] [address] Marnie Cr MD [address] [place] [address] Attention deficit disorder with hyperactivity [...] Dosage: Nuva Ring Preferred Pharmacy & Location: [facility] Days of medication remaining (if under 3 days please mo as urgent): Best contact number and optimal time of day to reach caller: [phone] Additional comments/information from caller: Patient is scheduled [...] will receive notification of the communication/outcome via Rerecipe. documented in this encounter Plan of Treatment Not on file documented as of this encounter Visit Diagnoses Diagnosis Attention deficit disorder with hyperactivity documented in this encounter Additional Health Concerns Assessment Noted Time A fall risk assessment has been complete d for the patient 10/30/2020 3:45 PM EDT documented as of this encounter Care Teams Bowling Ball Mold Assembler Relationship Specialty Start Date End Date Justino Zheng MD [address] [place] [address] [place] [address] PCP - General 09/15/20 documented as of this encounter
--- OUTSIDE RECORDS SUMMARY | 2025-04-21 15:39 | XMS_ITS | Encounter Summary ---
Author Organization [facility] Address [address] [place] [address] Care Team Providers Care Chalk Machine Operator Name Role Phone Justino Zheng MD Primary Care Provider + Reason for Visit * Reason Comments Med Refill Encounter Details Date Type Department Care Team (Late st Contact Info) Description 04/14/2025 Refill [facility] MEDICINE [address] [facility] [place] [address] Justino Zheng MD [address] [place] [address] Irritable bowel syndrome, unspecified type [...] Description 05/23/2025 1:45 PM EST Office Visit [facility] MED[facility]INE [address] [place] [address] Justino Zheng MD [address] [place] [address] documented as of this encounter Visit Diagnoses Diagnosis Irritable bowel syndrome, unspecified type documented in this encounter Additional Health Concerns Assessment Noted Time PHQ-2 Depression Total Score: 1 11/17/19 24 8:48 AM EDT documented as of this encounter Care Teams Chalk Machine Operator Relationship Specialty Start Date End Date Justino Zheng MD [address] [place] [address] PCP - General Family Medicine 11/05/21 documented as of this encounter
--- OUTSIDE RECORDS SUMMARY | 2025-04-21 15:39 | XMS_ITS | Encounter Summary ---
Author Organization [facility] Address [address] [place] [address] Care Team Providers Care Ventilating Expert Name Role Phone Justino Zheng MD Primary Care Provider [phone] Encounter Details Date Type Department Care Team (Latest Contact Info) Description 03/18/2025 Travel Social History Tobacco Use Types Packs/Day [...] documented as of this encounter Care Teams Ventilating Expert Relationship Specialty Start Date End Date Justino Zheng MD [address] [place] [address] PCP - General 09/15/20 documented as of this encounter
--- OUTSIDE RECORDS SUMMARY | 2025-04-21 15:39 | XMS_ITS | Encounter Summary ---
Author Organization Address [address] [place] [address] Care Team Providers Care Acute Care Occupational Therapist Name Role Phone Justino Zheng MD Primary Care Provider [phone] Reason for Visit * Reason Onset Date Comments HCN - Patient Message 03/07/2025 Encounter Details Date Type Department Care Team ([facility] st Contact Info) Description 03/07/2025 Telephone [facility] Interventional Radiology [address] [facility] [address] [place] [address] Malcolm Ibrahim MD [address] [place] [address] HCN - Patient Message Social History Tobacco Use Types Packs/Day Years [...] encounter Miscellaneous Notes * Telephone Encounter - Manda Burks - 03/07/2025 8:10 AM EST Patient Phone Message Reason for Call:she is asking for a call back. She had a port removed and placed a central line. She says was a scab and partially came off. She says can see inside and asking for someone to call [facility] Best contact number and optimal time of day to reach caller:[phone] Note: Please do not reply to this message. Follow-up communication and further actions as a result of this message need to be communicated with the patient directly, if the patient is not active onMyChart. If the patient is active on MyChart, they will receive notification of the communication/outcome via [email or web address]. documented in this encounter Plan of Treatment [...] documented as of this encounter Care Teams Acute Care Occupational Therapist Relationship Specialty Start Date End Date Justino Zheng MD [address] [place] [address] PCP - General 09/15/20 documented as of this encounter
--- OUTSIDE RECORDS SUMMARY | 2025-04-21 15:39 | XMS_ITS | Encounter Summary ---
Author Organization [facility] Address [address] [place] [address] Care Team Providers Care Ship'S Engineer Name Role Phone Justino Zheng MD Primary Care Provider [phone] Encounter Details Date Type Department Care Team (Latest Contact Info) Description 03/07/2025 Travel Social History Tobacco Use Types Packs/Day [...] documented as of this encounter Care Teams Ship'S Engineer Relationship Specialty Start Date End Date Justino Zheng MD [address] [place] [address] PCP - General 09/15/20 documented as of this encounter
--- OUTSIDE RECORDS SUMMARY | 2025-04-21 15:39 | XMS_ITS | Encounter Summary ---
Author Organization [facility] Address [address] [place] [id number] Care Team Providers Care Soap Worker Name Role Phone Justino Zheng MD Primary Care Provider + Encounter Details Date Type Department Care Team (Latest Contact Info) Description 03/08/2025 Travel Social History Tobacco Use Types Packs/Day [...] Description 05/23/2025 1:45 PM EST Office Visit [facility] [address] [facility] [place] [address] Justino Zheng MD [address] [place] [address] documented as of this encounter Visit Diagnoses Not on filedocumented in this encounter Additional Health Concerns Assessment Noted Time PHQ-2 Depression Total Score: 1 11/17/19 24 8:48 AM EDT documented as of this encounter Care Teams Soap Worker Relationship Specialty Start Date End Date Justino Zheng MD [address] [place] [address] PCP - General Family Medicine 11/05/21 documented as of this encounter
--- OUTSIDE RECORDS SUMMARY | 2025-04-21 15:39 | XMS_ITS | Encounter Summary ---
Author Organization [facility] Address [address] [place] [address] Care Team Providers Care Mobile Game Engineer Name Role Phone Justino Zheng MD Primary Care Provider [phone] Encounter Details Date Type Department Care Team (Latest Contact Info) Description 03/19/2025 Travel Social History Tobacco Use Types Packs/Day [...] documented as of this encounter Care Teams Mobile Game Engineer Relationship Specialty Start Date End Date Justino Zheng MD [address] [place] [address] PCP - General 09/15/20 documented as of this encounter
--- OUTSIDE RECORDS SUMMARY | 2025-04-21 15:39 | XMS_ITS | Encounter Summary ---
Author Organization [facility] Address [address] [place] [address] Care Team Providers Care Office Services Assistant Name Role Phone Justino Zheng MD Primary Care Provider [phone] Reason for Visit * Reason Comments Med Refill Encounter Details Date Type Department Care Team ([facility] st Contact Info) Description 03/12/2021 Refill Medical Office Building Obstetrics and Gynecology [address], [address] [place] [address] Marnie Cr MD [address] [place] [address] Attention deficit disorder with hyperactivity [...] documented as of this encounter Care Teams Office Services Assistant Relationship Specialty Start Date End Date Justino Zheng MD [address] [place] [address] PCP - General 09/15/20 documented as of this encounter
--- OUTSIDE RECORDS SUMMARY | 2025-04-21 15:39 | XMS_ITS | Encounter Summary ---
Author Organization [facility] Address [address] [place] [id number] Care Team Providers Care Medical Technologist Clinical Name Role Phone Justino Zheng MD Primary Care Provider + Reason for Visit * Reason Comments Med Refill Encounter Details Date Type Department Care Team (Late st Contact Info) Description 03/25/2025 Refill [facility] GASTROENTEROLOGY [address] [address] Eliza Mckinney PA-C [address] [place] [address] Social History Tobacco Use Types Packs/Day Years [...] encounter Miscellaneous Notes * Telephone Encounter - Lavern Orourke - 03/25/2025 2:14 PM EST SCRIPT HAS TO BE SENT DIRECT[facility] TO [facility] PATIENT ASSISTANCE PROGRAM documented in this encounter Plan of Treatment Upcoming Encounters Date Type Department Care Team (Late st Contact Info) Description 05/23/2025 1:45 PM EST Office Visit [facility] FAMILY MEDICINE [address] [place] [address] Justino Zheng MD [address] [place], [place] [id number] documented as of this encounter Visit Diagnoses Not on filedocumented in this encounter Additional Health Concerns Assessment Noted Time PHQ-2 Depression Total Score: 1 11/17/19 24 8:48 AM EDT documented as of this encounter Care Teams Medical Technologist Clinical Relationship Specialty Start Date End Date Justino Zheng MD [address] [place] [address] PCP - General Family Medicine 11/05/21 documented as of this encounter
--- OUTSIDE RECORDS SUMMARY | 2025-04-21 15:39 | XMS_ITS | Encounter Summary ---
[facility] Address [address] [place] [id number] Care Team Providers Care Mortgage Specialist Name Role Phone Justino Zheng MD Primary Care Provider + Reason for Visit * Reason Onset Date Comments Med Refill 03/08/2025 Encounter Details Date Type Department Care Team (Late st Contact Info) Description 03/08/2025 Refill [facility] [address] [phone] Gabriele Elias MD [address] [place] [address] Social History Tobacco Use Types Packs/Day Years [...] [facility] [address] [facility] [place] [address] Justino Zheng MD [address] [place] [address] documented as of this encounter Visit Diagnoses Not on filedocumented in this encounter Additional Health Concerns Assessment Noted Time PHQ-2 Depression Total Score: 1 11/17/19 24 8:48 AM EDT documented as of this encounter Care Teams Mortgage Specialist Relationship Specialty Start Date End Date Justino Zheng MD [address] [place] [address] PCP - General Family Medicine 11/05/21 documented as of this encounter
--- OUTSIDE RECORDS SUMMARY | 2025-04-21 15:39 | XMS_ITS | Encounter Summary ---
Author Organization [facility] Address [address] [place] [address] Care Team Providers Care Chief Design Branch Name Role Phone Justino Zheng MD Primary Care Provider + Reason for Visit * Reason Onset Date Comments Med Refill 03/18/2025 Encounter Details Date Type Department Care Team (Late st Contact Info) Description 03/17/2025 Refill [facility] MEDICINE [address] [place] [address] Justino Zheng MD [address] [place] [address] Irritable bowel syndrome, unspecified type [...] Description 05/23/2025 1:45 PM EST Office Visit [facility] MEDICINE [address] [place] [id number] Justino Zheng MD [address] [place] [address] documented as of this encounter Visit Diagnoses Diagnosis Irritable bowel syndrome, unspecified type documented in this encounter Additional Health Concerns Assessment Noted Time PHQ-2 Depression Total Score: 1 11/17/19 24 8:48 AM EDT documented as of this encounter Care Teams Chief Design Branch Relationship Specialty Start Date End Date Justino Zheng MD [address] [place] [address] PCP - General Family Medicine 11/05/21 documented as of this encounter
--- OUTSIDE RECORDS SUMMARY | 2025-04-21 15:39 | XMS_ITS | Encounter Summary ---
[facility] Address [address] [place] [id number] Care Team Providers Care Infrastructure Tech Name Role Phone Justino Zheng MD Primary Care Provider + Reason for Visit * Reason Onset Date Comments Advice Only 03/07/2025 Encounter Details Date Type Department Care Team (Late st Contact Info) Description 03/07/2025 Telephone [facility] FAMILY MEDICINE [address] [place] [address] Justino Zheng MD [address] [place] [address] Advice Only Social History Tobacco Use Types Packs/Day Years [...] encounter Miscellaneous Notes * Telephone Encounter - Justino Zheng MD - 03/07/2025 4:05 PM EST She will need an appointment * Telephone Encounter - Chichi Taylor - 03/07/2025 3:43 PM EST Michelle called in stating that Merced had to have her port taken out, the office that removed the port packed it and last night when shower the scab that was forming over it fell off and it left a bighole. This is causing a lot of pain for Merced and the intervention radiology office told her to contact her pcp to see if they could give her something for pain where it was packed. The port has grayson packed daily for the next 2 weeks. documented in this encounter Plan of Treatment Upcoming Encounters Date Type Department Care Team (Late st Contact Info) Description 05/23/2025 1:45 PM EST Office Visit [facility] MEDICINE [address] [facility] [place] [id number] Justino Zheng MD [address] [place] [address] documented as of this encounter Visit Diagnoses Not on filedocumented in this encounter Additional Health Concerns Assessment Noted Time PHQ-2 Depression Total Score: 1 11/17/19 24 8:48 AM EDT documented as of this encounter Care Teams Infrastructure Tech Relationship Specialty Start Date End Date Justino Zheng MD [address] [place] [address] PCP - General Family Medicine 11/05/21 documented as of this encounter
--- OUTSIDE RECORDS SUMMARY | 2025-04-21 15:39 | XMS_ITS | Encounter Summary ---
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) Narda Diaz MD [address] [place] [address] Phone: tel:[phone] fax:[phone] [facility] Interventional Radiology [address] [place] [address] Phone: tel: Referral ID Status Reason Start Date Expiration Date V isits Requested Visits Authorized [id number] Closed Specialty Services Required 09/02/2023 03/03/2025 1 1 Encounter Details Date Type Department Care Team (Late st Contact Info) Description 09/02/2023 Community [facility] Community Practice [address] [place] [address] Narda Diaz MD [address] [place] [address] Skin breakdown at port site of totally implantable venous access device (TIVAD) ([facility]) (Primary Dx) Social History Tobacco Use [...] of totally implantable venous access device (TIVAD) ([facility]) Expected: 09/02/2023 (Approximate), Expires: 03/04/2025 documented as of this encounter Visit Diagnoses Diagnosis Skin breakdown at port site of totally implantable venous access device (TIVAD) ([facility])- Primary documented in this encounter Additional Health Concerns Assessment Noted Time A fall risk assessment has been complete d for the patient 10/30/2020 3:45 PM EDT documented as of this encounter Care Teams Clerk Supervisor Relationship Specialty Start Date End Date Justino Zheng MD [address] [place] [address] PCP - General 09/15/20 documented as of this encounter
--- OUTSIDE RECORDS SUMMARY | 2025-04-21 15:39 | XMS_ITS | Encounter Summary ---
Author Organization [facility] Address [address] [place] [address] Care Team Providers Care Mineral Mixer Name Role Phone Justino Zheng MD Primary Care Provider [phone] Reason for Visit * Reason Comments Med Refill Encounter Details Date Type Department Care Team ([facility] st Contact Info) Description 04/22/2021 Refill Medical Office Building Obstetrics and Gynecology [address] [facility] [place] [address] Marnie Cr MD [address] [facility] [address] [place] [address] Attention deficit disorder with hyperactivity [...] documented as of this encounter Care Teams Mineral Mixer Relationship Specialty Start Date End Date Jusitno Zheng MD [address] [place] [address] PCP - General 09/15/20 documented as of this encounter
--- OUTSIDE RECORDS SUMMARY | 2025-04-21 15:39 | XMS_ITS | Encounter Summary ---
Author Organization [facility] Address [address] [place] [address] Care Team Providers Care Geometry Tutor Name Role Phone Justino Zheng MD Primary Care Provider [phone] Reason for Visit * Reason Comments Med Refill Encounter Details Date Type Department Care Team ([facility] st Contact Info) Description 03/03/2022 Refill Medical Office Building Obstetrics and Gynecology [address] [facility], [address] [place] [address] Marnie Cr MD [address] [place] [address] Menstrual suppression Social History Tobacco [...] documented as of this encounter Care Teams Geometry Tutor Relationship Specialty Start Date End Date Justino Zheng MD [address] [place] [address] PCP - General 09/15/20 documented as of this encounter
--- OUTSIDE RECORDS SUMMARY | 2025-04-21 15:39 | XMS_ITS | Encounter Summary ---
Author Organization [facility] Address [address] [place] [address] Care Team Providers Care Sack Department Supervisor Name Role Phone Justino Zheng MD Primary Care Provider [phone] Encounter Details Date Type Department Care Team ([facility] st Contact Info) Description 02/22/2022 [facility] Community Practice [address] [place] [address] Justino Zheng MD [address] [facility] [place] [address] Hemophilia (CMS/HCC) (Primary Dx) Social [...] documented as of this encounter Care Teams Sack Department Supervisor Relationship Specialty Start Date End Date Justino Zheng MD [address] [place] [address] PCP - General 09/15/20 documented as of this encounter
--- OUTSIDE RECORDS SUMMARY | 2025-04-21 15:39 | XMS_ITS | Encounter Summary ---
[facility] Organization [facility] Address [address] [place] [address] Care Team Providers Care Account Manager Name Role Phone Justino Zheng MD Primary Care Provider + Reason for Visit * Reason Comments Med Refill Encounter Details Date Type Department Care Team (Late st Contact Info) Description 03/16/[address] [facility] MEDICINE [address] [facility] [place] [address] Justino Zheng MD [address] [place] [address] Irritable bowel syndrome, unspecified type [...] Description 05/23/2025 1:45 PM EST Office Visit [facility] FAMILY MEDICINE [address] [place] [address] Justino Zheng MD [address] [place] [address] documented as of this encounter Visit Diagnoses Diagnosis Irritable bowel syndrome, unspecified type documented in this encounter Additional Health Concerns Assessment Noted Time PHQ-2 Depression Total Score: 1 11/17/19 24 8:48 AM EDT documented as of this encounter Care Teams Account Manager Relationship Specialty Start Date End Date Justino Zheng MD [address] [place] [address] PCP - General Family Medicine 11/05/21 documented as of this encounter
--- NOTE | 2025-04-21 15:40 | XR_ITS ---
PROCEDURE INFORMATION: Exam: XR Right Hand Exam date and time: 04/21/2025 3:49 PM Age: 29 years old Clinical indication: Other: Bruising; Additional info: Traumatic wrist pain TECHNIQUE: Imaging protocol: Radiologic exam of the right hand. Views: 3 or more views. COMPARISON: CR XR HAND RT MIN 3V 04/21/2025 3:49 PM FINDINGS: Bones/joints: Mild Degenerative changes in the radiocarpal joint . There is no evidence of acute fracture.There is no evidence of malalignment or dislocation. Soft tissues: Normal. IMPRESSION: 1. Mild Degenerative changes in the radiocarpal joint . 2. There is no evidence of acute fracture.There is no evidence of malalignment or dislocation.
--- NOTE | 2025-04-21 15:40 | XR_ITS ---
PROCEDURE INFORMATION: Exam: XR Right Forearm Exam date and time: 04/21/2025 3:49 PM Age: 29 years old Clinical indication: Other: Bruising; Additional info: Traumatic wrist pain TECHNIQUE: Imaging protocol: Radiologic exam of the right forearm. Views: 2 views. COMPARISON: CR (HAND, HAND OBL) 04/21/2025 3:49 PM FINDINGS: Bones/joints: There is no evidence of acute fracture.There is no evidence of malalignment or dislocation. Soft tissues: Normal. IMPRESSION: There is no evidence of acute fracture.There is no evidence of malalignment or dislocation.
--- NOTE | 2025-04-21 15:40 | XR_ITS ---
PROCEDURE INFORMATION: Exam: XR Right Wrist Exam date and time: 04/21/2025 3:49 PM Age: 29 years old Clinical indication: Other: Bruising; Additional info: Traumatic wrist pain TECHNIQUE: Imaging protocol: Radiologic exam of the right wrist. Views: 3 or more views. COMPARISON: CR XR WRIST RT MIN 3V 04/21/2025 3:49 PM FINDINGS: Bones/joints: There is no evidence of acute fracture.There is no evidence of malalignment or dislocation. Soft tissues: Soft tissue swelling of the wrist IMPRESSION: There is no evidence of acute fracture.There is no evidence of malalignment or dislocation.
--- OUTSIDE RECORDS SUMMARY | 2025-04-21 15:40 | XMS_ITS | Encounter Summary ---
[facility] Address [address] [place] [address] Care Team Providers Care Shower Enclosure Installer Name Role Phone Justino Zheng MD Primary Care Provider + Reason for Visit * Reason Onset Date Comments Med Refill 03/29/2022 Encounter Details Date Type Department Care Team (Late st Contact Info) Description 03/29/2022 Refill [facility] MEDICINE [address] [facility] [place] [address] Justino Zheng MD [address] [place] [address] Chronic subluxation of left hip, [...] 05/23/2025 1:45 PM EST Office Visit [facility] [address] [facility] [place] [address] Justino Zheng MD [address] [place] [id number] documented as of this encounter Visit Diagnoses Diagnosis Chronic subluxation of left hip, sequela documented in this encounter Additional Health Concerns Infection Onset Date Last Indicated Resolved Time C.difficile (rule out) 01/21/2025 01/21/202501/26 9:08 PM EDT documented as of this encounter Care Teams Shower Enclosure Installer Relationship Specialty Start Date End Date Justino Zheng MD [address] [place] [address] PCP - General Family Medicine 11/05/21 documented as of this encounter
--- OUTSIDE RECORDS SUMMARY | 2025-04-21 15:40 | XMS_ITS | Encounter Summary ---
[facility] Address [address] [place] [address] Care Team Providers Care Director Process Engineering Name Role Phone Justino Zheng MD Primary Care Provider + Reason for Visit * Reason Onset Date Comments Med Refill 06/13/2023 Encounter Details Date Type Department Care Team (Late Contact Info) Description 06/13/2023 Refill [facility] FAMILY MEDICINE [address] [place] [address] Justino Zheng MD [address] [place] [address] Fibromyalgia; Chronic subluxation of left hip, [...] Description 05/23/2025 1:45 PM EST Office Visit [facility] MEDICINE [address] [place], [place] [phone] Justino Zheng MD [address] [place] [address] documented as of this encounter Visit Diagnoses [...] as of this encounter Care Teams Director Process Engineering Relationship Specialty Start Date End Date Justino Zheng MD [address] [place] [address] PCP - General Family Medicine 11/05/21 documented as of this encounter
--- OUTSIDE RECORDS SUMMARY | 2025-04-21 15:40 | XMS_ITS | Clinical Summary ---
Author Organization [facility] Address [address] [place], [place] [id number] Care Team Providers Care Securities Research Analyst Name Role Phone Justino Zheng MD Primary Care Provider Source Comments [facility] is fully rolled out with thefollowing exceptions:General Clinical Research [facility] Allergies Active Allergy Reactions Criticality Noted Date [...] SEEN IN EMERGENCY DEPARTMENT PLEASE CONSULT HEMATOLOGY SPONGE DIVER Diagnosis: von Willebrand type IIa Emergency Dose [...] and frequency: as needed Speciality (Factor) Pharmacy: [facility] Phone number: Fax number: [phone] Does the family have home factor? Yes [...] Team Description 02/08/2025 12:30 PM EDT Immunization [facility] [address] [place] [address] Larry Baltazar Jr., MD/MPH Discharge Disposition: [...] 2 - 2-dose childhood series) 07/07/2001 04/14/2001 Yearly Physical Ages 3-18+ 2007 HEPATITIS B IMMUNIZATION (1 of 3 - [...] age to complete this topic Insurance [employer] [facility] Care Teams Securities Research Analyst Relationship Specialty Start Date End Date Justino Zheng MD [address] [facility], [place] [address] PCP - General 08/05/15
--- OUTSIDE RECORDS SUMMARY | 2025-04-21 15:40 | XMS_ITS | Encounter Summary ---
[facility] Address [address] [place] [address] Care Team Providers Care Water Project Engineer Name Role Phone Justino Zheng MD Primary Care Provider + Reason for Visit * Reason Comments Med Refill Encounter Details Date Type Department Care Team (Late st Contact Info) Description 07/06/2023 Refill [facility] MEDICINE [address] [facility] [place] [address] Justino Zheng MD [address] [place] [address] Social History Tobacco Use Types [...] Description 05/23/2025 1:45 PM EST Office Visit [facility] MEDICINE [address] [place] [address] Justino Zheng MD [address] [place] [address] documented as of this encounter Visit Diagnoses Not on filedocumented in this encounter Additional Health Concerns Infection Onset Date Last Indicated Resolved Time C.difficile (rule out) 01/21/2025 01/21/202501/26 9:08 PM EDT Assessment Noted Time PHQ-2 Depression Total Score: 4 10/27/19 23 3:00 PM EDT documented as of this encounter Care Teams Water Project Engineer Relationship Specialty Start Date End Date Justino Zheng MD [address] [place] [address] PCP - General Family Medicine 11/05/21 documented as of this encounter
--- OUTSIDE RECORDS SUMMARY | 2025-04-21 15:40 | XMS_ITS | Encounter Summary ---
Author Organization [facility] Address [address] [place] [address] Care Team Providers Care Flat Cutter Name Role Phone Justino Zheng MD Primary Care Provider [phone] Encounter Details Date Type Department Care Team (Late st Contact Info) Description 02/21/2025 Telephone [facility] Interventional Radiology [address] [place] [address] Maria C Neal, RN [facility] INTERVENTIONAL RADIOLOGY None Social History Tobacco Use Types Packs/Day Years [...] & Interventional Radiology Nurse Navigator Note IR central scheduler requested assistance after patient called to ask if Humate-P was available for case tomorrow. Diamond Cleaner was able to locate a faxed paper order for Humate-P from the patient's Hem Onc provider in [place]. Discussed w/IR V3 Dr. White. Per her, [...] documented as of this encounter Care Teams Flat Cutter Relationship Specialty Start Date End Date Justino Zheng MD [facility] [address] PCP - General 09/15/20 documented as of this encounter
--- OUTSIDE RECORDS SUMMARY | 2025-04-21 15:40 | XMS_ITS | Encounter Summary ---
Author Organization [facility] Address [address] [place] [address] Care Team Providers Care Supervisor Fabrication Department Name Role Phone Justino Zheng MD Primary Care Provider [phone] Encounter Details Date Type Department Care Team (Late st Contact Info) Description 02/27/2025 Telephone [facility] [address] [facility] [facility] [address] [place] [address] Lexi Chavarria Social History Tobacco Use Types Packs/Day Years [...] Telephone Encounter - Daniella Farley RN - 02/27/2025 3:26 PM EDT Spoke with Dr. Delgado. He states he did not discuss this with the pt at the time of her consult. Relayed the information to mom. She verbalized understanding. * Telephone Encounter - Daniella Farley RN - 02/27/2025 1:41 PM EDT Spoke with mom. She summarized the events on the day of the port removal and powerline placement. She states they were not given any discharge papers on how to care for the wounds but she found some in pt's MyChart from her previous port placements and removals. Mom states she is having breakthrough bleeding at the port incision from the seizure activity but they are dealing with that with her bleeding disorder meds. Mom is calling asking for pain meds on the pts behalf, stating the pt has saidDr. Delgado said he could give her pain meds. Mom states that the pt came into her bedroom in the middle of the night, curled up and cried due to the pain. Will reach out to Dr. Delgado about medicine and call mom back. * Telephone Encounter - Lexi Chavarria - 02/27/2025 1:13 PM EDT Pt mother calling to request pain medication from procedure. Pt is having pain after having seizures . They are also requesting information on wound care and new line care. Requesting a call a @ [phone] documented in this encounter Plan of Treatment [...] as of this encounter Care Teams Supervisor Fabrication Department Relationship Specialty Start Date End Date Justino Zheng MD [address] [place] [address] PCP - General 09/15/20 documented as of this encounter
--- OUTSIDE RECORDS SUMMARY | 2025-04-21 15:40 | XMS_ITS | Encounter Summary ---
Author Organization [facility] Address [address] [place] [address] Care Team Providers Care Hand Shoe Cutter Name Role Phone Justino Zheng MD Primary Care Provider [phone] Encounter Details Date Type Department Care Team [...] documented as of this encounter Care Teams Hand Shoe Cutter Relationship Specialty Start Date End Date Justino Zheng MD [address] [facility] [place] [address] PCP - General 09/15/20 documented as of this encounter
--- OUTSIDE RECORDS SUMMARY | 2025-04-21 15:40 | XMS_ITS | Clinical Summary ---
Author Organization [facility] Address [address] [place] [address] Care Team Providers Care Clinical Quality Assurance Associate Name Role Phone Justino Zheng MD Primary Care Provider [phone] Allergies Active Allergy Reactions Criticality Noted Date [...] comment field High 05/07/2015 Strawberries, Kiwi, tomatoes [place] Other - please document in the comment field Low 11/24/2017 [place] Extract Other - please document in the [...] (one) time each day. Active HYDROcodone-acetam inophen ([place]) 5-325 MG tablet Take by mouth every [...] due to patient's surgical complexity: vWD, devout Yazidi and declines blood products, BMI 48. Additionally [...] SEEN IN EMERGENCY DEPARTMENT PLEASE CONSULT HEMATOLOGY UTILIZATION SPECIALIST Diagnosis: von Willebrand type IIa Emergency Dose [...] and frequency: as needed Speciality (Factor) Pharmacy: [email or web address] Phone number: Fax number: [phone] Does the family have home factor? Yes [...] SEEN IN EMERGENCY DEPARTMENT PLEASE CONSULT HEMATOLOGY UTILIZATION SPECIALIST Diagnosis: von Willebrand type IIa Emergency Dose [...] and frequency: as needed Speciality (Factor) Pharmacy: [facility] ? Phone number: ? Fax number: [phone] ? Does the family have home factor? [...] Encounters Date Type Department Care Team Description 03/19/2025 1:00 PM EST Office Visit [facility] Vascular Interventional Radiology [address] [place] [address] Deana Dwyer APRN, DNP H/O insertion of central venous access port (Primary Dx); Wound check, abscess 03/19/2025 Travel 03/18/2025 Travel 03/07/2025 3:00 PM EST Office Visit [facility] Vascular Interventional Radiology [address] [place] [address] Marcella Carter APRN Wound check, abscess (Primary Dx) 03/07/2025 Travel 03/07/2025 Telephone [facility] Vascular Interventional Radiology [address] [place] [address] Malcolm Ibrahim MD HCN - Patient Message 03/02/2025 Travel 02/27/2025 Telephone [facility] Vascular Interventional Radiology [address] [place] [address] Lexi Chavarria 02/22/2025 5:11 PM EDT - 02/23/2025 5:34 AM EDT Emergency [facility] Emergency Department [address] [place] [address] [address] Vazquez DO Desai, Sameer M, MD Seizure-like activity ([facility]) (Primary Dx) Discharge Disposition: Home or Self Care 02/22/2025 1:46 PM EDT Anesthesia Event [facility] Interventional Radiology [address] [place] [address] Sami Cantu MD Peters, Traci L, DRAGAN 02/22/2025 11:18 AM EDT - 02/22/2025 5:10 PM EDT Hospital Encounter [facility] Inter[facility] Radiology [address] [place] [address] Oswald [facility]izvi [facility] Ali, Syed Z, MD Erceg, Jessica, RN Von Willebrand's disease ([facility]) (Primary Dx); H/O insertion of central venous access port Discharge Disposition: Home or Self Care 02/22/2025 Travel 02/21/2025 Telephone [facility] [address] [place] [address] Maria C Neal RN 02/21/2025 Travel 02/05/2025 11:30 AM EDT Office Visit [facility] Vascular Interventional Radiology [address] [place] [address] Glenn Delgado MD H/O insertion of central venous access port (Primary Dx); Skin breakdown at port site of totally implantable venous access device (TIVAD) ([facility]/HCC) 02/05/2025 Travel 02/04/2025 Telephone [facility] Vascular Interventional Radiology [address] [place] [address] Pcp, No HCN Clinical Concern/Question (Please see note...) 01/31/2025 Travel from Last 3 Months Immunizations Immunization Administration Dates Next Due DTaP, Unspecified 04/14/2001 Hib (PRP-OMP) 04/14/2001 IPV 04/14/2001 Influenza, Unspecified 01/16/2009 Influenza, seasonal, injectable 04/01/2014,02/01,02/02/2010 MMR 04/14/2001 Tdap 09/09/2008 Varicella 04/14/2001 Family History Medical History Relation Name Comments Conversions - Other Father Serafin hill's Disease Alcohol abuse Maternal Grandfather Edison Arthritis Maternal Grandfather Edison COPD Maternal Grandfather Edison Drug abuse Maternal Grandfather Ediosn Hearing loss Maternal Grandfather Edison Mental illness [...] F) 03/19/2025 12:51 PM EST Respiratory Rate 27 02/23/2025 5:10 AM EDT Oxygen Saturation 98% 03/19/2025 12:51 PM EST Inhaled Oxygen Concentration - - Weight 89.9 kg (198 lb 3.1 oz) 03/19/2025 12:51 PM EST Height 154.9 cm (5' 1 ) 03/07/2025 3:11 PM EST Body Mass Index 37.45 03/07/2025 3:11 PM EST Plan of Treatment Health Maintenance Due Date Last Done Comments [facility]-HIV Screening 1996 [facility]-Hepatitis C Screening 1996 [facility]-Infant/Child/Adol SDOH Screenings 1996 [id number]-[id number] Vaccine (#1) 1996 [facility]-IPV Vaccines (2 of 3 - 4-dose series) 05/12/2001 04/14/2001 [facility]-Varicella Vaccines (2 of 2 - 2-dose childhood series) 07/07/2001 04/14/2001 [facility]- SDOH Screenings 2014 [facility]-Adult SDOH Screenings 2014 [facility]-Hepatitis B Vaccines (1 of 3 - 19+ 3-dose series) 2015 [facility]-Pneumococcal Vaccine: Pediatrics (0 to 5 Years) and At-Risk Patients (6 to 49 Years) (1 of 2 - PCV) 2015 [facility]-Pap Smear 2024 2021, 02/25/2020 [facility]-Depression Screening 09/07/2024 09/08/2023 [facility]-DTaP,Tdap,and Td Vaccines (4 - Td or Tdap) 02/06/2032 02/05/2022, 09/09/2008, 04/14/2001 [facility]-Zoster Vaccines (1 of 2) 2046 04/14/2001 [facility]-HIB Vaccines Completed 04/14/2001 [facility]-Influenza Vaccine Completed 02/08/2025 , 12/21/2023, 04/14/2023, Additional history exists [facility]-Obesity Intervention Completed 025, 03/07/2025, 02/05/2025, Additional history exists HPV Vaccines (No Doses Required) Completed [facility]-Hepatitis A Vaccines Aged Out No longer eligible based on patient's age to complete this topic [facility]-Rotavirus Vaccines Aged Out No lo nger eligible based on patient's age to complete this topic Goals Goal Patient Goal Type Associated Problems Recent Progress Patient-Stated? Author Autogenera elsa Goal Care Plan Autogenerated Problem No [employer] Implanted Type Area Newspaper Deliverer Device Identifier Shelf Expiration Date Model / Serial / Lot Port Clearvue Power 6fr - [id number] Implanted:Qty: 1 on 10/14/2023 by Shauna Odonnell, RN at [facility] Peripherial Vascular-[id number] 12/30/2024 [id number] / / [id number] Procedures Procedure Name Priority Date/Time Associated Diagnosis [...] , URINE Routine 02/22/2025 11:50 AM EDT PAP TEST - CYTOLOGY Routine 2021 1 1:50 AM EST Pelvic and perineal pain from Last 3 Months or Most Recently Relevant to Health Maintenance Results * POCT glucose meter (02/22/2025 11:49 PM EDT) POCT Glucose 98 74 - 99 mg/dL 02/22/2025 11:51 PM EDT [facility] Comment:Accuracy of a glucos e [...] Comment 02/22/2025 11:51 PM EDT [facility]ALTH[facility]ARE LAB Jewelry Mechanic ID Jack Thompson 02/22/2025 11:51 PM EDT [facility] Device ID [id number] 02/22/2025 11:51 PM EDT [facility]ALTH[facility]ARE LAB Specimen Type POC Capillary 02/22/2025 11:51 PM EDT [facility]ALTH[facility] Blood Capillary blood specimen / Unknown 02/22/2025 11:49 PM EDT 02/22/2025 11:51 PM EDT us Oswald Rizvi MD LAB POINT OF CARE TE ST DOCKED DEVICE UNSOLICITED RESULTS Final Result [facility] [address] [place] [address] * (ABNORMAL) CMP (02/22/2025 10:17 PM EDT) Only the most recent of2 resultswithin the time period is included. Glucose, Plasma 107(H) 74 - 99 mg/dL 02/22/2025 10:42 PM EDT [facility] BUN, Plasma 5(L) 7 - 21 mg/dL 02/22/2025 10:42 PM EDT [facility] Creatinine, Plasma 0.55(L) 0.60 - 1.10 mg/dL 02/22/2025 10:42 PM EDT [facility] BUN/Creatinine Ratio 9 02/22/2025 10:42 PM EDT [facility] Sodium, Plasma 125(L) 136 - 145 mmol/L 02/22/2025 10:42 PM EDT [facility] Potassium, Plasma 4.5 3.6 - 4.9 mmol/L 02/22/2025 10:42 PM EDT [facility] Comment:Hemolyzed - Potassiu m may be falsely elevated by approximately 0.4-0.7 mmol/L. Chloride, Plasma 95(L) 97 - 107 mmol/L 02/22/2025 10:42 PM EDT [facility] CO2, Plasma 18(L) 22 - 29 mmol/L 02/22/2025 10:42 PM EDT [facility] Anion Gap 12 6 - 16 mmol/L 02/22/2025 10:42 PM EDT [facility] Total Calcium, Plasma 8.7(L) 8.9 - 10.2 mg/dL 02/22/2025 10:42 PM EDT [facility] Total Protein 6.6 6.3 - 7.9 g/dL 02/22/2025 10:42 PM EDT [facility] Albumin, Plasma 3.7 3.5 - 5.2 g/dL 02/22/2025 10:42 PM EDT [facility] AST, Plasma 23 10 - 35 U/L 02/22/2025 10:42 PM EDT [facility] Comment:Hemolyzed, result ma y be falsely increased. ALT, Plasma 8(L) 10 - 35 U/L 02/22/2025 10:42 PM EDT [facility] Alkaline Phosphatase, Plasma 140(H) 35 - 104 U/L 02/22/2025 10:42 PM EDT [facility] Total Bilirubin, Plasma 0.3 0.2 - 1.1 mg/dL 02/22/2025 10:42 PM EDT [facility] eGFRcr 128.2 mL/min/1. 73m*2 02/22/2025 10:42 PM EDT [facility] Comment:Reported eGFRcr in m L/min/1.73m2 is based the CKD-EPI 2020 equation that does not use a race coefficient. Blood Venous blood specimen / Unknown Venipuncture / Unknown 02/22/2025 10:17 PM EDT 02/22/2025 10:[address] Vazquez DO LAB BLOOD ORDERABLES Final Re sult [facility] [address] [place] [address] * XR Chest 1 View (02/22/2025 8:26 [...] Sandoval MD on 02/22/2025 8:[address] Vazquez DO IMG XR PROCEDURES Final Resul t * (ABNORMAL) Lactic acid, venous (02/22/2025 5:53 PM EDT) Lactate, Venous, Whole Blood <0.4(L) 0.5 - 2.2 mmol/L LAB HEMATOLOGY METHOD 02/22/2025 6:11 PM EDT [facility] Blood Venous blood specimen / Unknown Venipuncture / Unknown 02/22/2025 5:53 PM EDT 02/22/2025 5:[address] Vazquez DO LAB BLOOD ORDERABLES Final Re sult [facility] [address] [place] [address] * (ABNORMAL) CBC w/diff (02/22/2025 5:53 PM EDT) [facility] WBC Count 9.84 3.70 - 10.30 10*3/uL LAB HEMATOLOGY METHOD 02/22/2025 5:57 PM EDT [facility] RBC Count 4.13 3.90 - 5.20 10*6/uL LAB HEMATOLOGY METHOD 02/22/2025 5:57 PM EDT [facility] HGB 11.1(L) 11.2 - 15.7 g/dL LAB HEMATOLOGY METHOD 02/22/2025 5:57 PM EDT [facility] HCT 33.0(L) 34.0 - 45.0 % LAB HEMATOLOGY METHOD 02/22/2025 5:57 PM EDT [facility] Platelet Count 244 155 - 369 10*3/uL LAB HEMATOLOGY METHOD 02/22/2025 5:57 PM EDT [facility] MCV 80 79 - 98 fL LAB HEMATOLOGY METHOD 02/22/2025 5:57 PM EDT [facility] MCH 26.9 26.0 - 32.0 pg LAB HEMATOLOGY METHOD 02/22/2025 5:57 PM EDT [facility] MCHC 33.6 30.7 - 35.5 g/dL LAB HEMATOLOGY METHOD 02/22/2025 5:57 PM EDT [facility] RDW 12.1 11.5 - 14.5 % LAB HEMATOLOGY METHOD 02/22/2025 5:57 PM EDT [facility] MPV 9.7 8.8 - 12.5 fL LAB HEMATOLOGY METHOD 02/22/2025 5:57 PM EDT [facility] nRBC 0.0 <=0.0 per 100 WBCs LAB HEMATOLOGY METHOD 02/22/2025 5:57 PM EDT [facility] Differential Type Automated LAB HEMATOLOGY METHOD 02/22/2025 5:57 PM EDT [facility] Neutrophils % 80 % LAB HEMATOLOGY METHOD 02/22/2025 5:57 PM EDT [facility] Lymphocytes % 13 % LAB HEMATOLOGY METHOD 02/22/2025 5:57 PM EDT [facility] Monocytes % 7 % LAB HEMATOLOGY METHOD 02/22/2025 5:57 PM EDT [facility] Eosinophils % 0 % LAB HEMATOLOGY METHOD 02/22/2025 5:57 PM EDT [facility] Basophils % 0 % LAB HEMATOLOGY METHOD 02/22/2025 5:57 PM EDT [facility] Immature Granulocytes % 0 % LAB HEMATOLOGY METHOD 02/22/2025 5:57 PM EDT [facility] Neutrophils Absolute 7.78(H) 1.60 - 6.10 10*3/uL LAB HEMATOLOGY METHOD 02/22/2025 5:57 PM EDT [facility] Lymphocytes Absolute 1.25 1.20 - 3.90 10*3/uL LAB HEMATOLOGY METHOD 02/22/2025 5:57 PM EDT [facility] Monocytes Absolute 0.71 0.30 - 0.90 10*3/uL LAB HEMATOLOGY METHOD 02/22/2025 5:57 PM EDT [facility] Eosinophils Absolute 0.03 0.00 - 0.50 10*3/uL LAB HEMATOLOGY METHOD 02/22/2025 5:57 PM EDT [facility] Basophils Absolute 0.03 0.00 - 0.10 10*3/uL LAB HEMATOLOGY METHOD 02/22/2025 5:57 PM EDT [facility] Immature Granulocytes Absolute 0.04 0.00 - 0.06 10*3/uL LAB HEMATOLOGY METHOD 02/22/2025 5:57 PM EDT [facility] Blood Venous blood specimen / Unknown Venipuncture / Unknown 02/22/2025 5:53 PM EDT 02/22/2025 5:55 PM EDT Narrative [facility] - 02/22/2025 5:57 PM EDT Therapeutic decision making should be based on absolute values, rather than percentages. us Court Vazquez DO LAB BLOOD ORDERABLES Final Re sult [facility] [address] [place] [address] * hCG qualitative (02/22/2025 5:53 PM EDT) Test Negative Negative 02/22/2025 6:21 PM EDT [facility] Blood Venous blood specimen / Unknown Venipuncture / Unknown 02/22/2025 5:53 PM EDT 02/22/2025 5:55 PM EDT Narrative [facility] - 02/22/2025 6:21 PM EDT Reference Range: Males and non- females: Negative. Court Vazquez [employer] LAB BLOOD ORDERABLES Final Re sult Performing Organization Address [facility]/ZIP Co de Phone Number [facility] [address] [place] [address] * Phosphorus (02/22/2025 5:53 PM EDT) Pathologist [facility] Phosphorus, Plasma 3.1 2.5 - 4.5 mg/dL 02/22/2025 6:21 PM EDT [facility] Blood Venous blood specimen / Unknown Venipuncture / Unknown 02/22/2025 5:53 PM EDT 02/22/2025 5:[address] Narayanan [place] [employer] LAB BLOOD ORDERABLES Final Re sult Performing Organization Address [facility] Co de Phone Number [facility] [address] [place] [address] * (ABNORMAL) Magnesium (02/22/2025 5:53 PM EDT) [facility] Magnesium, Plasma 1.5(L) 1.9 - 2.4 mg/dL 02/22/2025 6:21 PM EDT [facility] Blood Venous blood specimen / Unknown Venipuncture / Unknown 02/22/2025 5:53 PM EDT 02/22/2025 5:[address] Lady [employer] LAB BLOOD ORDERABLES Final Re sult Performing Organization Address City/[facility] Co de Phone Number [facility] [address] [place] [address] * (ABNORMAL) Blood gas panel, arterial (02/22/2025 3:32 PM EDT) [facility] Signature pH, Arterial 7.37 7.35 - 7.45 LAB HEMATOLOGY METHOD 02/22/2025 3:40 PM EDT [facility] pCO2, Arterial 40 35 - 48 mmHg LAB HEMATOLOGY METHOD 02/22/2025 3:40 PM EDT [facility] pO2, Arterial 307(H) 83 - 108 mmHg LAB HEMATOLOGY METHOD 02/22/2025 3:40 PM EDT [facility] SO2, Measured, Arterial 100(H) 94 - 98 % LAB HEMATOLOGY METHOD 02/22/2025 3:40 PM EDT [facility] Base Excess, Arterial -2.0 -2.0 - 3.0 mmol/L LAB HEMATOLOGY METHOD 02/22/2025 3:40 PM EDT [facility] Bicarbonate, Calculated, Arterial 23 22 - 26 mmol/L LAB HEMATOLOGY METHOD 02/22/2025 3:40 PM EDT [facility] Hematocrit, Whole Blood 34.0 34.0 - 45.0 % LAB HEMATOLOGY METHOD 02/22/2025 3:40 PM EDT [facility] Sodium, Whole Blood 127(L) 136 - 145 mmol/L LAB HEMATOLOGY METHOD 02/22/2025 3:40 PM EDT [facility] Potassium, Whole Blood 3.7 3.6 - 4.9 mmol/L LAB HEMATOLOGY METHOD 02/22/2025 3:40 PM EDT [facility] Chloride, Whole Blood 98 97 - 107 mmol/L LAB HEMATOLOGY METHOD 02/22/2025 3:40 PM EDT [facility] Glucose, Whole Blood 101(H) 74 - 99 mg/dL LAB HEMATOLOGY METHOD 02/22/2025 3:40 PM EDT [facility] Ionized Calcium, Whole Blood 4.6 4.6 - 5.1 mg/dL LAB HEMATOLOGY METHOD 02/22/2025 3:40 PM EDT [facility] Lactate, Arterial, Whole Blood 0.8 0.5 - 1.6 mmol/L LAB HEMATOLOGY METHOD 02/22/2025 3:40 PM EDT [facility] Blood Arterial blood specimen / Unknown Arterial Puncture / Unknown 02/22/2025 3:32 PM EDT 02/22/2025 3:38 PM EDT us Sami Cantu MD LAB BLOOD ORDERABLES Final Resul t [facility] [address] [place] [address] * IR Tunneled CVC Replacement Complete (02/22/2025 [...] 10/14/23 as well as powerline placement. TECHNIQUE: Manager Technical Sales: Oswald Rizvi M.D. Rad Dose: 2 mGy [...] placed 10/14/23 as well aspowerline placement. TECHNIQUE: Manager Technical Sales: Oswald Rizvi M.D. Rad Dose: 2 mGy [...] IMG IR PROCEDURES Final Resu lt * IA AN ELECTIVE ENDOTRACHEAL AIRWAY, PB ANESTHESIA PLACEHOLDER (02/22/2025 1:57 PM EDT) Narrative Kathie Cummins CRNA - 02/22/2025 1:57 PM EDT Kathie Cummins CRNA 02/22/2025 2:17 PM Airway Date/Time: 02/22/2025 1:57 PM Reason: elective Airway not difficult General Information and Staff Patient location during procedure: OR RESEARCH NUTRITIONIST: Kathie Cummins CRNA Performed: DRAGAN Patient Condition Indications for airway management: anesthesia [...] PM Insert peripheral IV Performed by: Cindy Bear [...] Negative 02/22/2025 11:56 AM EDT [facility] Jewelry Mechanic ID Meghan Gamino 02/22/2025 11:56 AM EDT HEALTHCARE LAB Device ID [id number] 02/22/2025 11:56 AM EDT [facility] Urine Urine specimen obtained by clean catch procedure / Unknown 02/22/2025 11:50 AM EDT 02/22/2025 11:56 AM EDT us Oswald Rizvi MD LAB POINT OF CARE TE ST DOCKED DEVICE UNSOLICITED RESULTS Final Result [facility] [address] [place] [address] * (ABNORMAL) Pap Smear (2021 11:50 AM EST) Case Report Cytology Case: [id number] Authorizing Provider: Starla Leavitt MD Collected: 2021 1150 Ordering Location: Medical Office Building Received: 06/29/2021 0918 Obstetrics and Gynecology First Screen: Stephenie Alvarado, CT Pathologist: Chica Steele MD Specimen: ThinPrep Pap Test, Liquid-Based Cervical/Vagina l, CERVICAL/VAGINA L 07/03/2021 10:53 AM EST [facility] Interpretation ATYPICAL SQUAMOUS CELLS OF UNDETERMINED SIGNIFICANCE (ASCUS)(A) 07/03/2021 10:53 AM EST [facility] at 1053 EST Specimen Adequacy Satisfactory for evaluation; endocervical/tr ansformation zone component present. Slide imaged by the ThinPrep Imaging system and selected 22 martinez reviewed then full manual screening. 07/03/2021 10:53 AM EST [facility] Cervical cytology is a screening test [...] results is suggested (please call Microbiology at [phone] for results). 07/03/2021 10:53 AM EST [facility] Menstrual Status Unknown 07/04/19 10:53 AM EST [facility] Contraceptive History Nuva Ring 07/03/2021 10:53 AM EST [facility] Screening Type Routine Screen 2021 10:53 AM EST [facility] High Risk? Yes 07/03/2021 10:53 AM EST [facility] HPV Testing Requested? Request HPV Testing if ASCUS (Women 25 Years or Older) 07/03/2021 10:53 AM EST [facility] Previous Cancer History No 07/03/2021 10:53 AM EST [facility] Clinical Information R10.2 - Pelvic and perineal pain [ICD-10-CM] 07/03/2021 10:53 AM EST [facility] Last Menstrual Period 2021[IRR 07/03/2021 10:53 AM EST [facility] Swab Vaginal and cervical cytologic material / Unknown Non-blood Collection / Unknown 2021 11:50 AM EST 06/29/2021 9:18 AM EST us Starla Leavitt MD LAB CYTOLOGY ORDERABLES Fi nal Result [facility] [address] [place] [address] from Last 3 Months or Most Recently Relevant to Health Maintenance Additional Health Concerns Active Problems Noted Date Diagnosed Date Autogenerated Problem 02/06/2025 Insurance [employer] Advance Directives Documents on File Type Date Recorded Patient Supervisor Winter Expl anation Advance Directives and Dami g Will 09/08/2023 Advance Directive * Full Code (Latest Code Status on File) Date Activated Date Inactivated Comments 10/14/2023 11:54 AM 10/15/2023 2:44 AM Question Answer Comments Patient has decision-making capacity? Yes Care Teams Clinical Quality Assurance Associate Relationship Specialty Start Date End Date Justino Zheng MD [address] [place] [address] PCP - General 09/15/20
--- OUTSIDE RECORDS SUMMARY | 2025-04-21 15:40 | XMS_ITS | Encounter Summary ---
Author Organization [facility] Address [address] [place] [address] Care Team Providers Care Search Manager Name Role Phone Justino Zheng MD Primary Care Provider [phone] Encounter Details Date Type Department Care Team [...] documented as of this encounter Care Teams Search Manager Relationship Specialty Start Date End Date Justino Zheng MD [address] [place] [address] PCP - General 09/15/20 documented as of this encounter
--- OUTSIDE RECORDS SUMMARY | 2025-04-21 15:40 | XMS_ITS | Clinical Summary ---
Author Organization [facility] Address [address] [place] [address] Care Team Providers Care Coordinator Of Rehabilitation Services Name Role Phone Justino Zheng MD Primary Care Provider [phone] Allergies Active Allergy Reactions Criticality Noted Date Comments Amoxicillin Nausea And Vomiting 08/08/2015 Aspirin 11/08/2014 Banana Anaphylaxis High 05/07/2015 Cetirizine 08/08/2015 Other reaction(s): Bleeding Nose Bleeds Desmopressin 12/10/2016 Duloxetine Hcl Hives 05/07/2015 Food Anaphylaxis High 05/07/2015 Strawberries, Kiwi, tomatoes Grapefruit 11/24/2017 Grapefruit Extract Anaphylaxis High 05/07/2015 Ibuprofen 09/10/2015 Ketorolac 10/23/2015 Latex Anaphylaxis High 11/08/2014 Oxycodone-Acetaminophen Nausea And Vomiting 10/2015 Lagrange Extract 11/24/2017 Medications lamoTRIgine (LAMICTAL) 150 MG [...] SEEN IN EMERGENCY DEPARTMENT PLEASE CONSULT HEMATOLOGY LABEL REMOVER Diagnosis: von Willebrand type IIa Emergency Dose [...] and frequency: as needed Speciality (Factor) Pharmacy: [facility] ? Phone number: ? Fax number: [phone] ? Does the family have home factor? [...] patient's age to complete this topic Insurance [facility] [address] Care Teams Coordinator Of Rehabilitation Services Relationship Specialty Start Date End Date Justino Zheng MD [address] [place] [address] PCP - General Family Medicine 07/18/18
--- OUTSIDE RECORDS SUMMARY | 2025-04-21 15:40 | XMS_ITS | Encounter Summary ---
Author Organization [facility] Address [address] [place] [address] Care Team Providers Care Outside Salesman Name Role Phone Justino Zheng MD Primary Care Provider [phone] Source Comments This information has been disclosed [...] release of HIV test results or diagnoses. [id number] Health Encounter Details Date Type Department Care Team (Late st Contact Info) Description 12/29/2017 Orders Only [facility] [address] [place] [address] Justino Zheng MD [address] [place] [address] Social History Tobacco Use Types [...] on filedocumented in this encounter Care Teams Outside Salesman Relationship Specialty Start Date End Date Justino Zheng MD [address] [place] [address] PCP - General Family Medicine 12/24/17 documented as of this encounter
--- OUTSIDE RECORDS SUMMARY | 2025-04-21 15:40 | XMS_ITS | Encounter Summary ---
[facility] Address [address] [place] [address] Care Team Providers Care Can Solderer Name Role Phone Justino Zheng MD Primary Care Provider + Reason for Visit * Reason Onset Date Comments Med Refill 05/20/2023 Encounter Details Date Type Department Care Team (Late st Contact Info) Description 05/20/2023 Refill [facility] MEDICINE [address] [facility] [place] [address] Justino Zheng MD [address] [place] [address] Social History Tobacco Use Types [...] Description 05/23/2025 1:45 PM EST Office Visit [facility] MEDICINE [address] [place] [address] Justino Zheng MD [address] [place] [address] documented as of this encounter Visit Diagnoses Not on filedocumented in this encounter Additional Health Concerns Infection Onset Date Last Indicated Resolved Time C.difficile (rule out) 01/21/2025 01/21/202501/26 9:08 PM EDT Assessment Noted Time PHQ-2 Depression Total Score: 4 10/27/19 23 3:00 PM EDT documented as of this encounter Care Teams Can Solderer Relationship Specialty Start Date End Date Justino Zheng MD [address] [place] [address] PCP - General Family Medicine 11/05/21 documented as of this encounter
--- OUTSIDE RECORDS SUMMARY | 2025-04-21 15:40 | XMS_ITS | Encounter Summary ---
[facility] Address [address] [place] [address] Care Team Providers Care Patrol Commander Name Role Phone Justino Zheng MD Primary Care Provider + Reason for Visit * Reason Comments Med Refill Encounter Details Date Type Department Care Team (Late st Contact Info) Description 09/23/[address] [facility] MED[facility]INE [address] [facility] [place] [address] Justino Zheng MD [address] [place] [place] [address] Irritable bowel syndrome, unspecified type [...] [facility] FAMILY MEDICINE [address] [place] [address] Justino Zheng MD [address] [place] [address] documented as of this encounter Visit Diagnoses Diagnosis Irritable bowel syndrome, unspecified type documented in this encounter Additional Health Concerns Infection Onset Date Last Indicated Resolved Time C.difficile (rule out) 01/21/2025 01/21/202501/26 9:08 PM EDT Assessment Noted Time PHQ-2 Depression Total Score: 1 11/17/19 24 8:48 AM EDT documented as of this encounter Care Teams Patrol Commander Relationship Specialty Start Date End Date Justino Zheng MD [address] [place] [address] PCP - General Family Medicine 11/05/21 documented as of this encounter
--- OUTSIDE RECORDS SUMMARY | 2025-04-21 15:40 | XMS_ITS | Encounter Summary ---
[facility] Address [address] [place] [address] Care Team Providers Care Product Development Coordinator Name Role Phone Justino Zheng MD Primary Care Provider + Encounter Details Date Type Department Care Team (Late st Contact Info) Description 12/21/2024 Results Follow-Up [facility] MEDICINE [address] [facility] [place] [address] Justino Zheng MD [address] [place] [address] Social History Tobacco Use Types [...] Description 05/23/2025 1:45 PM EST Office Visit [facility] MEDICINE [address] [facility] [place] [address] Justino Zheng MD [address] [place] [address] documented as of this encounter Visit Diagnoses Not on filedocumented in this encounter Additional Health Concerns Infection Onset Date Last Indicated Resolved Time C.difficile (rule out) 01/21/2025 01/21/202501/26 9:08 PM EDT Assessment Noted Time PHQ-2 Depression Total Score: 1 11/17/19 24 8:48 AM EDT documented as of this encounter Care Teams Product Development Coordinator Relationship Specialty Start Date End Date Justino Zheng MD [address] [place] [address] PCP - General Family Medicine 11/05/21 documented as of this encounter
--- OUTSIDE RECORDS SUMMARY | 2025-04-21 15:40 | XMS_ITS | Clinical Summary ---
Author Organization [facility] Address [address] [place] [address] Care Team Providers Care Hall Supervisor Name Role Phone Justino Zheng MD Primary Care Provider [phone] Source Comments This information has been disclosed [...] therelease of HIV test results or diagnoses. [id number] [facility] Allergies Active Allergy Reactions Criticality Noted Date Comments Amoxicillin 11/24/2017 Aspirin 10/23/2015 Banana 11/24/2017 Duloxetine 10/23/2015 Desmopressin 11/24/2017 Iatyncacv-W-Hdskjhp-Selen-B rom Anaphylaxis High 05/07/2015 Strawberries, Kiwi, tomatoes Grapefruit 11/24/2017 Ibuprofen 10/23/2015 Latex, Natural Rubber 10/23/2015 Oxycodone-Acetaminophen 11/24/2017 [place] 11/24/2017 Ketorolac 10/23/2015 Cetirizine 10/23/2015 Medications gabapentin [...] ifferent from the original. Justino Zheng MD [address] [place] [address], [facility] [address] [place] [address] Problem Noted Date Diagnosed Date [...] of Treatment Not on file Insurance [employer] [address] MANAGED MEDICAID Advance Directives For more information, please contact: [phone] * Full Code (Latest Code Status on File) Date Activated Date Inactivated Comments 11/24/2017 9:59 PM 11/25/2017 10:02 PM Care Teams Hall Supervisor Relationship Specialty Start Date End Date Justino Zheng MD [address] [place] [address] PCP - General Family Medicine 12/24/17
--- OUTSIDE RECORDS SUMMARY | 2025-04-21 15:40 | XMS_ITS | Clinical Summary ---
Author Organization [facility] Address [address] [place] [address] Care Team Providers Care Hot Billet Shear Operator Name Role Phone Justino Zheng MD [...] Nausea And Vomiting,Other (See Comments) Low 05/07/2015 [place] Anaphylaxis High 02/05/2022 [place] Extract Anaphylaxis High 01/21/2025 Tomato Anaphylaxis High [...] for Mild Pain. 30 g 023 Active Additional Information Patient not taking.Reported on 03/08/2025 dicyclomine (BENTYL) 20 MG tablet TAKE 1 [...] a Week. 4000 mL 5 025 Active amitriptyline (ELAVIL) 50 MG tabletIndications :Insomnia, unspecified type TAKE 1 TABLET BY MOUTH EVERY NIGHT 90 tablet 1 025 Active Tranexamic Acid 650 MG tabletIndications :Severe hemophilia A,Menorrhagia with irregular cycle Take 2 tablets by mouth 3 times a day. 30 tablet 4 025 Active celecoxib (CeleBREX) 200 MG capsuleIndication [...] CAUSE DROWSINESS 180 capsule 5 025 Active etonogestrel-ethi nyl estradiol (NUVARING) 0.12-0.015 [...] EVERY DAY 30 tablet 4 025 Active Sod Picosulfate-Mag Ox-Cit Acd (Clenpiq) 10-3.5-12 MG-GM -GM/160ML solution Take 350 mL by mouth Take As Directed. 350 mL Active HYDROcodone-aceta minophen (NORCO) 5-325 MG per tabletIndications :Open wound of right chest wall, subsequent encounter Take 1 tablet by mouth Every 6 (Six) Hours As Needed for Severe Pain. 30 tablet Active omeprazole (priLOSEC) 20 MG capsuleIndication s:Irritable bowel syndrome, unspecified type TAKE 1 CAPSULE BY MOUTH EVERY DAY 30 capsule 3 025 Active Xifaxan 550 MG tablet TAKE ONE TABLET BY MOUTH TWICE A DAY 42 tablet 1 025 Active lamoTRIgine (LaMICtal) 200 MG tabletIndications :Trauma and stressor-related disorder TAKE 1 TABLET BY MOUTH EVERY DAY AT NIGHT 90 tablet 1 Active ondansetron ODT (ZOFRAN-ODT) 8 MG disintegrating tabletIndications :Irritable bowel syndrome, unspecified type PLACE 1 TABLET ON THE TONGUE EVERY 8 HOURS NEEDED FOR NAUSEA AND VOMITING 90 tablet 2 025 Active lamoTRIgine (LaMICtal) 200 MG tabletIndications :Trauma and stressor-related disorder TAKE 1 TABLET BY MOUTH EVERY NIGHT 90 tablet 025 2024 Discontinued ondansetron ODT (ZOFRAN-ODT) 8 MG disintegrating tabletIndications :Irritable bowel syndrome, unspecified type PLACE 1 TABLET ON THE TONGUE EVERY 8 HOURS NEEDED FOR NAUSEA AND VOMITING 90 tablet 2 025 2024 Discontinued Active Problems Problem Noted Date Diagnosed Date [...] Encounters Date Type Department Care Team Description 04/14/[address] [facility] MED[facility]INE [address] [place] [phone] Justino Zheng MD Irritable bowel syndrome, unspecified type 03/26/[address] [facility] [address] [place] [address] Justino Zheng MD Trauma and stressor-related disorder 03/25/[address] [facility] [address] [address] Eliza Mckinney PA-C 03/17/[address] [facility] [address] [place] [address] [phone] Justino Zheng MD Irritable bowel syndrome, unspecified type 03/16/[address] [facility] [address] [place] [address] Justino Zheng MD Irritable bowel syndrome, unspecified type 03/08/2025 4:15 PM EST Office Visit [facility] MEDICINE [address] [place] [address] Justino Zheng MD Open wound of right chest wall, subsequent encounter (Primary Dx); Neuropathic pain of chest 03/08/2025 Travel 03/08/[address] [facility] [address] [place] [phone] Gabriele Elias MD 03/07/2025 Telephone [facility] MEDICINE [address] [place] [address] Justino Zheng MD Advice Only 02/03/[address] [facility] [address] [place] [address] Justino Zheng MD Irritable bowel syndrome, unspecified type 01/28/2025 Results Follow-Up [facility] [address] [address] Eliza Mckinney PA-C 01/21/2025 12:40 PM EDT Lab [facility] [address] [place] [address] Chronic abdominal pain; Gastroesophageal reflux disease, unspecified whether esophagitis present; Nausea and vomiting, unspecified vomiting type; Irritable bowel syndrome with diarrhea; Alternating constipation and diarrhea; Abdominal bloating 01/21/2025 11:00 AM EDT Office Visit [facility] [address] [address] Eliza Mckinney PA-C Chronic abdominal pain (Primary Dx); Gastroesophageal reflux disease, unspecified whether esophagitis present; Nausea and vomiting, unspecified vomiting type; Irritable bowel syndrome with diarrhea; Alternating constipation and diarrhea; Abdominal bloating; Marijuana use 01/21/2025 Travel from Last 3 Months Immunizations Immunization Administration Dates Next Due DTaP, Unspecified 04/14/2001 Flu Vaccine Split Quad 04/01/2014,02/01/2011,07/2009 Flucelvax Quad Vial =>4yrs 02/08/2025 Fluzone >6mos 12/21/2023 Fluzone (or Fluarix & Flulav al for VFC) >6mos 02/19/2022 Hib (PRP-OMP) 04/14/2001 IPV 04/14/2001 Influenza Injectable Mdck Pf Quad 04/14/2023 Influenza, Unspecified 01/16/2009 MMR 04/14/2001 Td, Not Adsorbed 02/05/2022 Tdap 09/09/2008 Varicella 04/14/2001 Family History Medical History Relation Name Comments ADD / ADHD Maternal Aunt Stanley Hays Alcohol abuse Maternal Grandfather Edison Hays COPD Maternal Grandfather Edison Hays Drug abuse Maternal Grandfather Edison Hays Breast cancer Maternal Grandmother Amee Hays Cancer Maternal Grandmother Amee Hays Cancer Maternal Uncle Uncle Al Bone Cancer Prostate cancer Maternal Uncle Uncle Al Anxiety disorder Mother Michelle Hays Arthritis Mother Michelle Hays Depression Mother Michelle Hays Hearing loss Mother Michelle Hays Mental illness Mother Michelle Hyas Miscarriages / Stillbirths Mother Michelle Hays OCD Mother Michelle Hays Thyroid disease Mother Michelle Hays Dementia Sister Julia Hays Developmental Disability Sister Julia Hays Hearing loss Sister Julia Hays Heart disease Sister Julia Hays Irritable bowel syndrome Sister Julia Hays Learning disabilities Sister Julia Hays Seizures Sister Julia Hays Vision loss Sister Julia Hays Relation Name Status Comments Maternal Aunt Stanley Hays Alive Maternal Grandfather Edison Hays Maternal Grandmother Amee Hays Maternal Uncle Uncle Al Alive Mother Micehlle Hays Sister Julia Hays Social History Tobacco [...] Mass Index 37.45 03/08/2025 4:08 PM EST Plan of Treatment Upcoming Encounters Date Type Department Care Team (Late st Contact Info) Description 05/23/2025 1:45 PM EST Office Visit [facility] [address] [facility] [place] [address] Justino Zheng MD [address] [place] [address] Health Maintenance Due Date Last Done Comments Annual Gynecologic Pelvic and Breast Exam 1996 PAP SMEAR 2017 ANNUAL PHYSICAL 07/29/2018 HEPATITIS C SCREENING 07/29/2018 TDAP/TD VACCINES (3 - Td or Tdap) 02/06/2032 02/05/2022, 09/09/2008 INFLUENZA VACCINE Completed 02/08/2025, , 12/21/2023, Additional history exists Pneumococcal Vaccine 0-49 Aged Out No longer eligible based on patient's age to complete this topic Procedures Procedure Name Priority Date/Time Associated Diagnosis Comments SCANNED - IMAGING 02/23/2025 SCANNED - INFLUENZA 02/08/2025 PORPHYRINS, QN, RANDOM U Routine 01/21/2025 12:03 [...] diarrhea Alternating constipation and diarrhea Abdominal bloating from Last 3 Months Results * IMAGING SCANNED (02/23/2025) Anatomical Region Laterality Modality Radiographic Maylin ging Justino Zheng MD IMG DIAGNOSTIC IMAGING O RDERABLES Final Result * IMAGING SCANNED (02/08/2025) [facility] CHART REVIEW TABS Final Re sult * Alpha-Gal IgE Panel (01/21/2025 12:03 PM [...] kU/L 01/25/2025 5:08 AM EDT [facility] [id number] Alpha-Gal <0.10 Class 0 kU/L 01/25/2025 5:08 AM EDT [facility] Blood Venipuncture / Unknown 01/21/2025 12:03 PM EDT 01/21/2025 12:06 PM EDT Narrative [facility] - 01/25/2025 5:08 AM EDT Performed at: [address] [place] [id number] Curtain Feller Blindstitch: Nabila Tripathi MD, Phone: [phone] Eliza Mckinney PA-C LAB BLOOD ORDERABLES Fin al Result [facility] [address] [place] [address], * Porphyrins, Qn, Random Urine - Urine, Clean Catch (01/21/2025 12:03 PM EDT) Pathologist [facility] Uroporphyrin 10 0 - 20 ug/L 01/28/2025 [...] - 01/28/2025 12:10 PM EDT Performed at: [address] [place] [id number] Curtain Feller Blindstitch: Nabila Tripathi MD, Phone: [phone] us Eliza Mckinney PA-C URINE ORDERABLES Final R esult Performing Organization Address City/[facility]/ZIP Co de Phone Number [facility] [address] [place] [address], [place] [phone] * Porphobilinogen, Qn, Random Ur - Urine, Clean Catch (01/21/2025 12:03 PM EDT) Porphobilinogen , Urine 0.1 0.0 - 2.0 mg/L 01/23/2025 4:12 PM EDT [facility] Urine Urine specimen obtained by clean catch procedure / Unknown Collection / Unknown 01/21/2025 12:03 PM EDT 01/21/2025 12:06 PM EDT Narrative [facility] - 01/23/2025 4:12 PM EDT Test(s) [id number], Qn, Random Ur was developed and its performance characteristics determined by [employer]. It has not been cleared or approved by the Food and Drug Administration. Performed at: [address] [place] [id number] Curtain Feller Blindstitch: Nabila Tripathi MD, Phone: [phone] Eliza Mckinney PA-C URINE ORDERABLES Final R esult [facility] [address] [place] [address], * ALA Delta, Random Urine - Urine, Clean Catch (01/21/2025 12:03 PM EDT) Delta Aminolevulinic Acid, Urine 0.7 0.0 - 5.4 mg/L 01/23/2025 4:12 PM EDT [facility] Urine Urine specimen obtained by clean catch procedure / Unknown Collection / Unknown 01/21/2025 12:03 PM EDT 01/21/2025 12:06 PM EDT Narrative [facility] - 01/23/2025 4:12 PM EDT Test(s) [id number] Delta, Random Urine was developed and its performance characteristics determined by [employer]. It has not been cleared or approved by the Food and Drug Administration. Performed at: [address] [id number] Curtain Feller Blindstitch: Nabila Tripathi MD, Phone: [phone] Eliza Mckinney PA-C URINE ORDERABLES Final R esult [facility] [address] [place] [address], * (ABNORMAL) Vitamin D 25 Hydroxy (01/21/2025 12:03 PM EDT) 25 Hydroxy, Vitamin D 21.1(L) 30.0 - 100.0 ng/ml 01/21/2025 3:28 PM EDT [facility] Blood Venipuncture / Unknown 01/21/2025 12:03 PM EDT 01/21/2025 12:06 PM EDT [facility] - 01/21/2025 3:28 PM EDT Reference Range for Total Vitamin D 25(OH) Deficiency <20.0 ng/mL Insufficiency 21-29 ng/mL Sufficiency 30-100 ng/mL Toxicity >100 ng/ml Eliza Mckinney PA-C LAB BLOOD ORDERABLES Fin al Result Performing Organization Address City/[facility]/ZIP Co de Phone Number [facility]
[address] [place] [address], * (ABNORMAL) CBC (No Diff) (01/21/2025 12:03 PM EDT) WBC 5.16 3.40 - 10.80 10*3/mm3 01/21/2025 2:52 PM EDT [facility] RBC 4.55 3.77 - 5.28 10*6/mm3 01/21/2025 2:52 PM EDT [facility] Hemoglobin 12.7 12.0 - 15.9 g/dL 01/21/2025 2:52 PM EDT [facility] Hematocrit 39.1 34.0 - 46.6 % 01/21/2025 2:52 PM EDT [facility] MCV 85.9 79.0 - 97.0 fL 01/21/2025 2:52 PM EDT [facility] MCH 27.9 26.6 - 33.0 pg 01/21/2025 2:52 PM EDT [facility] MCHC 32.5 31.5 - 35.7 g/dL 01/21/2025 2:52 PM EDT [facility] RDW 12.0(L) 12.3 - 15.4 % 01/21/2025 2:52 PM EDT [facility] RDW-SD 37.7 37.0 - 54.0 fl 01/21/2025 2:52 PM EDT [facility] MPV 10.4 6.0 - 12.0 fL 01/21/2025 2:52 PM EDT [facility] Platelets 310 140 - 450 10*3/mm3 01/21/2025 2:52 PM EDT [facility] Blood Venipuncture / Unknown 01/21/2025 12:03 PM EDT 01/21/2025 12:06 PM EDT Eliza Mckinney PA-C LAB BLOOD ORDERABLES Fin al Result Performing Organization Address City/[facility]/ZIP Co de Phone Number [facility]
[address] [place] [address], * (ABNORMAL) C-reactive Protein (01/21/2025 12:03 PM EDT) C-Reactive Protein 0.96(H) 0.00 - 0.50 mg/dL 01/21/2025 3:14 PM EDT [facility] Blood Venipuncture / Unknown 01/21/2025 12:03 PM EDT 01/21/2025 12:06 PM EDT us Eliza Mckinney PA-C LAB BLOOD ORDERABLES Fin al Result Performing Organization Address City/[facility]/ZIP Co de Phone Number [facility]
[address] [place] [address], * (ABNORMAL) TSH (01/21/2025 12:03 PM EDT) TSH 6.130(H) 0.270 - 4.200 uIU/mL 01/21/2025 3:14 PM EDT [facility] Blood Venipuncture / Unknown 01/21/2025 12:03 PM EDT 01/21/2025 12:06 PM EDT us Eliza Mckinney PA-C LAB BLOOD ORDERABLES Fin al Result Performing Organization Address City/[facility]/ZIP Co de Phone Number [facility]
[address] [place] [address], * Magnesium (01/21/2025 12:03 PM EDT) Pathologist [facility] [place] Magnesium 2.1 1.6 - 2.6 mg/dL 01/21/2025 3:15 PM EDT [facility] Blood Venipuncture / Unknown 01/21/2025 12:03 PM EDT 01/21/2025 12:06 PM EDT us Eliza Mckinney PA-C LAB BLOOD ORDERABLES Fin al Result Performing Organization Address [facility] Co de Phone Number [facility]
[address] [place] [address], * Lipase (01/21/2025 12:03 PM EDT) Pathologist [facility] Lipase 35 13 - 60 U/L 01/21/2025 3:17 PM EDT [facility] Blood Venipuncture / Unknown 01/21/2025 12:03 PM EDT 01/21/2025 12:06 PM EDT us Eliza Mckinney PA-C LAB BLOOD ORDERABLES Fin al Result Performing Organization Address City/[facility]/ZIP Co de Phone Number [facility]
[address] [place] [address], * (ABNORMAL) Comprehensive Metabolic Panel (01/21/2025 12:03 PM EDT) [facility] Glucose 84 65 - 99 mg/dL 01/21/2025 3:15 PM EDT [facility] BUN 8.0 6.0 - 20.0 mg/dL 01/21/2025 3:15 PM EDT [facility] Creatinine 0.90 0.57 - 1.00 mg/dL 01/21/2025 3:15 PM EDT [facility] Sodium 137 136 - 145 mmol/L 01/21/2025 3:15 PM EDT [facility] Potassium 4.2 3.5 - 5.2 mmol/L 01/21/2025 3:15 PM EDT [facility] Chloride 106 98 - 107 mmol/L 01/21/2025 3:15 PM EDT [facility] CO2 24.0 22.0 - 29.0 mmol/L 01/21/2025 3:15 PM EDT [facility] Calcium 9.0 8.6 - 10.5 mg/dL 01/21/2025 3:15 PM EDT [facility] Total Protein 7.0 6.0 - 8.5 g/dL 01/21/2025 3:15 PM EDT [facility] Albumin 3.8 3.5 - 5.2 g/dL 01/21/2025 3:15 PM EDT [facility] ALT (SGPT) 9 1 - 33 U/L 01/21/2025 3:15 PM EDT [facility] AST (SGOT) 14 1 - 32 U/L 01/21/2025 3:15 PM EDT [facility] Alkaline Phosphatase 123(H) 39 - 117 U/L 01/21/2025 3:15 PM EDT [facility] Total Bilirubin 0.2 0.0 - 1.2 mg/dL 01/21/2025 3:15 PM EDT [facility] Globulin 3.2 gm/dL 01/21/2025 3:15 PM EDT [facility] A/G Ratio 1.2 g/dL 01/21/2025 3:15 PM EDT [facility] BUN/Creatinine Ratio 8.9 7.0 - 25.0 01/21/2025 3:15 PM EDT [facility] Anion Gap 7.0 5.0 - 15.0 mmol/L 01/21/2025 3:15 PM EDT [facility] eGFR 89.5 >60.0 mL/min/1.7 3 01/21/2025 3:15 PM EDT [facility] Blood Venipuncture / Unknown 01/21/2025 12:03 PM EDT 01/21/2025 12:06 PM EDT [facility] - 01/21/2025 3:15 PM EDT GFR [...] does not include race as a factor Eliza Mckinney PA-C LAB BLOOD ORDERABLES Fin al Result [facility]
[address] [place] [address], from Last 3 Months Insurance [facility] Advance Directives Documents on File Type Date Recorded Patient Chemical Lab Technician Expl anation PATIENT ADVANCE DIRECTIVES - SCAN 05/22/2024 10:45 AM Care Teams Hot Billet Shear Operator Relationship Specialty Start Date End Date Justino Zheng MD [address] [facility] [place] [address] PCP - General Family Medicine 11/05/21
--- OUTSIDE RECORDS SUMMARY | 2025-04-21 15:40 | XMS_ITS | Encounter Summary ---
Author Organization [facility] Address [address] [place] [address] Care Team Providers Care Business Professor Name Role Phone Justino Zheng MD Primary Care Provider [phone] Reason for Visit * Reason Onset Date Comments [facility] Clinical Concern/Question 02/04/2025 Pl ease see note... Encounter Details Date Type Department Care Team ([facility] Contact Info) Description 02/04/2025 Telephone [facility] Vascular Interventional Radiology [address] [facility] [address] [place] [id number] Pcp, [address] [place] [address] [facility] Clinical Concern/Question (Please see note...) Social [...] for a call back. Best contact number: [phone] (mobile) Optimal time of day to reach [...] will receive notification of the communication/outcome via [employer]. documented in this encounter Plan of Treatment [...] documented as of this encounter Care Teams Business Professor Relationship Specialty Start Date End Date Justino Zheng MD [address] [place], [place] [id number] PCP - General 09/15/20 documented as of this encounter
[2025-04-21 15:41] VITALS: BP 134/95; PULSE 92; RESP 18; TEMP 36.4; O2SAT 99; BMI 37.0
[2025-04-21 16:00] VITALS: PULSE 86; O2SAT 98
[2025-04-21] MEDS: OXYCODONE 5MG IMMEDIATE RELEASE TABLET 5 MG PO (16:01)
[2025-04-21 17:16] VITALS: BP 154/94; PULSE 77; RESP 18; TEMP 36.4; O2SAT 100
== END 2025-04-21 17:23 | disposition home or self-care (01) ==
PROVIDERS: Emergency Provider Student in an Organized Health Care Education/Training Program; PCP Family Medicine
DX: M25.531 Pain in right wrist (principal); Q79.60 Ehlers-Danlos syndrome, unspecified; G90.A Postural orthostatic tachycardia syndrome [POTS]; F17.210 Nicotine dependence, cigarettes, uncomplicated
CPT/HCPCS: 73090; 73110; 73130; 99283